=== PATIENT | female | born 1995 | race Caucasian/White ===

== ENCOUNTER → 2018-12-21 08:55 | Outpatient (CLI) | payer MEDICAID, SELFPAY ==
[2018-12-21 10:00] LABS: Basophils % 0.4 % (0.1-2.0); Eosinophils # 0.3 K/mm3 (0.0-0.4); Eosinophils % 3.6 % (0.1-12.0); Hematocrit 32.3 % (37.0-47.0); Hemoglobin 10.2 g/dL (12.2-16.2); Lymphocytes # 1.2 K/mm3 (0.7-4.5); Lymphocytes % 13.4 % (10-50); Mean Corpuscular HGB Conc 31.4 g/dL (31.8-35.4); Mean Corpuscular Hemoglobin 26.4 pg (27.0-31.2); Mean Corpuscular Volume 84.1 fl (81-99); Mean Platelet Volume 8.6 fl (7.4-10.4); Monocytes # 0.5 K/mm3 (0.1-1.0); Monocytes % 5.3 % (1.7-9.3); Neutrophils # 7.1 K/mm3 (1.8-7.8); Neutrophils % 77.2 % (37.0-80.0); Platelet Count 225 K/mm3 (142-424); Red Blood Count 3.84 M/mm3 (4.20-5.40); Red Cell Distribution Width 14.9 % (11.5-17.5); White Blood Count 9.3 K/mm3 (4.8-10.8)
[2018-12-21 11:42] LABS: D-Dimer 877 ng/mL (0-400)
[2018-12-21 12:05] LABS: Alanine Aminotransferase 8 U/L (12-78); Anion Gap 13.4 mEq/L (5-15); Aspartate Amino Transferase 10 U/L (15-37); Blood Urea Nitrogen 4 mg/dL (7-18); Carbon Dioxide 24 mmol/L (21.0-32.0); Chloride 105 mmol/L (98-107); Estimated Glomerular Filt Rate 123 ml/min (>60); GFR (African American) 149 ML/MIN (>60); Potassium 3.4 mmoL/L (3.5-5.1); Sodium 139 mmol/L (136-145); Uric Acid 3.7 mg/dL (2.6-7.2)
[2018-12-21 12:09] LABS: Glucose 82 mg/dL (74-106)
[2018-12-21 12:52] LABS: Activated Partial Thrombo Time 25.7 seconds (23.6-34.0); Fibrinogen 365 mg/dL (204-500); INR 0.96 (0.9-1.1)
== END ==
PROVIDERS: Visit Provider Obstetrics & Gynecology
DX: O10.919 Unspecified pre-existing hypertension complicating pregnancy, unspecified trimester (principal)
CPT/HCPCS: 36415; 80048; 84450; 84460; 84550; 85025; 85378; 85384; 85610; 85730

== ENCOUNTER → 2018-12-28 13:29 | Outpatient (CLI) | payer MEDICAID, SELFPAY ==
[2018-12-28 15:07] LABS: Total Protein,Urine Random 14.4 mg/dL (0.0-11.9)
[2018-12-28 18:42] LABS: Total Protein 24 Hour,Urine 79 mg/24 hr (40-90); Total Volume,Urine 550 mL (600-1600)
== END ==
PROVIDERS: Visit Provider Student in an Organized Health Care Education/Training Program
DX: O10.919 Unspecified pre-existing hypertension complicating pregnancy, unspecified trimester (principal)
CPT/HCPCS: 84155

== ENCOUNTER 2019-03-19 12:35 | Outpatient (CLI) | payer MEDICAID, SELFPAY ==
[2019-03-19 12:47] VITALS: BMI 42.0
[2019-03-19 12:50] VITALS: BMI 42.0
[2019-03-19 12:59] LABS: Microscopic, Urine URINE MICROSCOPIC (MICROSCOPIC)
[2019-03-19 13:01] LABS: Appearance,Urine CLEAR (Clear); Bilirubin,Urine Negative (Negative); Blood, Urine Negative (Negative); Color,Urine YELLOW (Yellow); Glucose,Urine (UA) Negative (Negative); Ketones,Urine Negative (Negative); Leukocyte Esterase,Urine 2+ (Negative); Nitrate,Urine Negative (Negative); PH,Urine 5.5 (5.0-8.5); Protein,Urine Negative (Negative); Specific Gravity, Urine >= 1.030 (1.005-1.030); Urobilinogen,Urine 0.2 EU/dl (0.2)
[2019-03-19 13:07] LABS: Amphetamine/Metha Screen,Urine Negative ng/mL (<1000); Barbiturates Screen,Urine Negative ng/mL (<200); Benzodiazepines Screen,Urine Negative ng/mL (<200); Cannabinoid Screen,Urine Negative ng/mL (<50); Cocaine Screen,Urine Negative ng/mL (<300); Methadone Screen,Urine Negative ng/mL (<300); Opiate Screen,Urine Negative ng/mL (<300); Phencyclidine Screen,Urine Negative ng/mL (<25)
[2019-03-19 13:12] LABS: Bacteria,Urine 1+ /lpf; RBC,Urine Occasional #/hpf (0-3)
== END 2019-03-19 13:55 | disposition home or self-care (01) ==
LOC: OBOUT 12:39 → OB 12:41
PROVIDERS: Visit Provider Obstetrics & Gynecology
DX: O26.93 Pregnancy related conditions, unspecified, third trimester (principal); Z3A.38 38 weeks gestation of pregnancy; M54.5 Low back pain; W10.9XXA Fall (on) (from) unspecified stairs and steps, initial encounter
CPT/HCPCS: 59025; 80305; 81001; 87086

== ENCOUNTER 2019-11-04 12:55 | Emergency (ER) | payer MEDICAID, SELFPAY ==
[2019-11-04 13:31] VITALS: BP 145/91; PULSE 109; RESP 16; TEMP 36.8; O2SAT 98; BMI 37.0
--- NOTE | 2019-11-04 13:36 | HMH.EDUTC ---
[facility] [place] Clinical Impression: Sinusitis Qualifiers: Sinusitis location: unspecified location Chronicity: acute Recurrence: non-recurrent Qualified Code(s): J01.90 - Acute sinusitis, unspecified Disposition: Home, Self-Care Condition on Discharge: Good Instructions: Sinusitis, DI for Sinusitis Additional Instructions: Drink plenty of fluids. Take tylenol or ibuprofen for pain or fever. Take the medications as directed. Follow up with your regular doctor. GO TO THE ER FOR ANY WORSENING SYMPTOMS Don't start the oral steroids until tomorrow, since you had the shot here today. Prescriptions: Brompheniramine/Pseudoephed/Dm [Bromfed Dm Cough Syrup] 5 ml PO Q6HP PRN #240 syrup PRN Reason: Cough Transmission Status: Received by [id number] methylPREDNISolone [Medrol] 4 mg PO DIRECTED 6 Days #21 tab.ds.pk Transmission Status: Received by [facility] Azithromycin [Z-Nicholas 250mg Tab*] 250 mg PO UD DOSE PK #6 tab Transmission Status: Received by [id number] Referrals: Thalia Cazares APRN [Primary Care Provider] - Time of Disposition: 13:42 Medical Decision Making - Medical Records Medical records reviewed: No: I reviewed the patient's medical records. - Scott Inquiry Pt receiving controlled substance: No Vital Signs: 11/04/19 13:31 11/04/19 13:43 Temperature 98.2 F 98.2 F Temperature Source Oral Pulse Rate 109 H Pulse Rate [Right Brachial] 109 H Respiratory Rate 16 16 Blood Pressure 145/91 H Blood Pressure [Right Arm] 145/91 H Blood Pressure Mean [Right Arm] 109 Blood Pressure Source [Right Arm] Automatic Cuff Blood Pressure Position [Right Arm] Sitting 02 Sat by Pulse Oximetry 98 Oxygen Delivery Method Room Air [facility] [place] - General Stated complaint: nose running Time Seen by Provider: 11/04/19 13:36 Mode of Arrival: Ambulatory Source of Information: Patient Limitations: No Limitations Description of Symptoms (Recalled from Triage Doc. by RN): PATIENT C/O RUNNY NOSE AND SINUS PRESSURE X 3 DAYS. DENIES ANY KNOWN EXPOSURE TO COVID HEENT Symptoms (Recalled from RN notes): Yes Resp Symptoms (Recalled from RN notes): No Skin Symptoms (Recalled from RN notes): No MS Symptoms (Recalled from RN notes): No Functional Status (Recalled from RN notes): WNL - History of Present Illness Provider Complaint: She c/o 3 days of sinus congestion, greenish nasal drainage and ear pressure. She states that she has bad allergies and she usually gets a sinus infection at once per year. She denies any known exposure to COVID-19. - Related Data Home Medications Medication Instructions Recorded Confirmed [id number] 400 mcg-om3 35 mg-dha 25 1 each PO DIRECTED tab 08/14/18 mg-epa 5 mg-fish oil chewable tablet Previous Rx's Medication Instructions Recorded Azithromycin [Z-Nicholas 250mg Tab*] 250 mg PO UD DOSE PK #6 tab 11/04/19 Brompheniramine/Pseudoephed/Dm 5 ml PO Q6HP PRN #240 syrup 11/04/19 [Bromfed Dm Cough Syrup] methylPREDNISolone [Medrol] 4 mg PO DIRECTED 6 Days #21 11/04/19 tab.ds.pk Allergies Allergy/AdvReac Type Severity Reaction Status Date / Time No Known Allergies Allergy Verified 08/14/18 18:08 - Worker's Comp Is this a Worker's Comp case?: No [facility] History - Hepatitis A Screen Drug use history?: No High risk sexual behaviors?: No History of sexually transmitted infection?: No Currently employed?: No Childcare worker?: No Do you have indoor plumbing?: Yes Do you have electricity?: Yes Attestation statement:: This patient has been screened for Hepatitis A risk factors. I have reviewed the patient's past medical history: Yes Medical History: Reports:: Hypertension, Migraine Denies:: Diabetes Mellitus Type 1, Diabetes Mellitus Type 2 Other Surgeries: Yes: No Previous Surgery, - Social History Smoking Status: Never smoker Tobacco Type: smokeless tobacco # Packs/Day (cigarettes): 0 Alcoho
[2019-11-04 13:43] VITALS: BP 145/91; PULSE 109; RESP 16; TEMP 36.8; O2SAT 98
== END 2019-11-04 13:48 | disposition home or self-care (01) ==
PROVIDERS: Emergency Provider Nurse Practitioner Family; PCP Nurse Practitioner Family
DX: J01.90 Acute sinusitis, unspecified (principal); I10 Essential (primary) hypertension; G43.709 Chronic migraine without aura, not intractable, without status migrainosus
CPT/HCPCS: 99201

== ENCOUNTER 2019-11-11 12:41 | Emergency (ER) | payer MEDICAID, SELFPAY ==
[2019-11-11 12:54] VITALS: BP 126/77; PULSE 70; RESP 18; O2SAT 99; BMI 36.9
--- NOTE | 2019-11-11 13:11 | HMH.EDSKAF ---
ED Disposition Clinical Impression: Insect bite Qualifiers: Encounter type: initial encounter Site of insect bite: finger Finger: index finger Laterality: left Qualified Code(s): S60.461A - Insect bite (nonvenomous) of left index finger, initial encounter; W57.XXXA - Bitten or stung by nonvenomous insect and other nonvenomous arthropods, initial encounter Disposition: Home, Self-Care Condition on Discharge: Good Instructions: DI for Insect Bites and Stings Referrals: Yohan Singh MD [Staff Physician] - 3 days - Critical Care Critical Care Time: No Attestation: On 11/11/19, the high probability of a clinically significant, sudden or life threatening deterioration of the following system(s) required my full and direct attention, intervention and personal management. The time I documented below is in addition to time spent performing reported procedures but includes the following listed in this critical care notation. Medical Decision Making - Medical Records Medical records reviewed: Yes: I reviewed the patient's medical records. - Scott Inquiry Pt receiving controlled substance: No Vital Signs: 11/11/19 12:54 Pulse Rate [Radial] 70 Respiratory Rate 18 Blood Pressure [Right Arm] 126/77 Blood Pressure Mean [Right Arm] 93 Blood Pressure Source [Right Arm] Automatic Cuff Blood Pressure Position [Right Arm] Sitting 02 Sat by Pulse Oximetry 99 Oxygen Delivery Method Room Air Orders (Tests/Meds): ED MEDICATIONS Discontinued Medications Generic Name Dose Route Start Last Admin Trade Name Freq PRN Reason Stop Dose Admin Ibuprofen 600 mg 11/11/19 13:08 Motrin 600mg Tablet PO 11/11/19 13:09 ONCE ONE Medical Decision Narrative: Patient was not gardening around any germain, roses or thorny weeds. Unlikely sporotrichosis. She has no signs of cellulitis, abscess. Patient describes concern for insect bite and certainly this is a possibility. Advised ibuprofen, icing, Benadryl for itching if needed and advised to follow-up with primary care in 2 to 3 days for recheck. 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 Skin/Abscess/FB HPI - General Chief complaint: Skin/Abscess/Foreign Body Stated complaint: left pointer finger inf Time Seen by Provider: 11/11/19 13:11 Mode of Arrival: Ambulatory Source of Information: Patient Limitations: No Limitations Description of Symptoms (Recalled from ER Triage Doc. by RN): States she was working in her garden and was bit by something on her left index finger. As time has progressed the finger has gotten worse. states she thinks she was bit by a snake. - History of Present Illness HPI narrative: 24-year-old female who presents to the emergency department for concerns of insect bite on the left index finger. She was pulling weeds 2 days ago and felt something bite her on the palmar surface of her index finger. She did not see it, but immediately felt pain. 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 She denies pulling any weeds with thorns, no germain or roses and all of the weeds were grassy in nature. She has not had any fevers. - Related Data Home Medications Medication Instructions Recorded Confirmed [id number] 400 mcg-om3 35 mg-dha 25 1 each PO DIRECTED tab 08/14/18 mg-epa 5 mg-fish oil chewable tablet Previous Rx's Medication Instructions Recorded Azithromycin [Z-Nicholas 250mg Tab*] 250 mg PO UD DOSE PK #6 tab 11/04/19 Brompheniramine/Pseudoephed/Dm 5 ml PO Q6HP PRN #240 syrup 11/04/19 [Bromfed Dm Cough Syrup] methylPREDNISolone [Medrol] 4 mg PO DIRECTED 6 Days #21 11/04/19 tab.ds.pk Allergies Allergy/AdvReac Type Severity Reaction Status Date / Time No Known Allergies Allergy Verified 08/14/18 18:08 [facility] History - Hepatitis A Screen Drug use history?: No High risk sexual behav
[2019-11-11 13:12] VITALS: BP 138/90; PULSE 93; O2SAT 99
[2019-11-11 13:26] VITALS: BP 138/90; PULSE 93; RESP 18; TEMP 36.7; O2SAT 99
== END 2019-11-11 13:28 | disposition home or self-care (01) ==
PROVIDERS: Emergency Provider Emergency Medicine
DX: S60.461A Insect bite (nonvenomous) of left index finger, initial encounter (principal); W57.XXXA Bitten or stung by nonvenomous insect and other nonvenomous arthropods, initial encounter; I10 Essential (primary) hypertension; G43.709 Chronic migraine without aura, not intractable, without status migrainosus
CPT/HCPCS: 99282

== ENCOUNTER 2021-09-14 11:48 | Emergency (ER) | payer MEDICAID, SELFPAY ==
[2021-09-14 12:05] VITALS: BP 151/82; PULSE 90; RESP 19; TEMP 37; O2SAT 100; BMI 35.9
[2021-09-14 12:21] LABS: Adenovirus,PCR Not Detected (NotDetected); Bordetella Pertussis Not Detected (NotDetected); Chlamydophila Pneumoniae, PCR Not Detected (NotDetected); Coronavirus 19, PCR Not Detected (NotDetected); Coronavirus 229E Not Detected (NotDetected); Coronavirus NL63 Not Detected (NotDetected); Coronavirus OC43 Not Detected (NotDetected); Coronovirus HKU1,PCR Not Detected (NotDetected); Human Metapneumovirus Not Detected (NotDetected); Influenza A, PCR Not Detected (NotDetected); Influenza AH1, 2009 Not Detected (NotDetected); Influenza AH1, PCR Not Detected (NotDetected); Influenza AH3,PCR Not Detected (NotDetected); Influenza B, PCR Not Detected (NotDetected); Mycoplasma Pneumoniae, PCR Not Detected (NotDetected); Parainfluenza 1, PCR Not Detected (NotDetected); Parainfluenza 2, PCR Not Detected (NotDetected); Parainfluenza 3, PCR Not Detected (NotDetected); Parainfluenza 4, PCR Not Detected (NotDetected); Respiratory Syncytial Virus Not Detected (NotDetected)
[2021-09-14 12:33] VITALS: BP 151/82; PULSE 90; RESP 19; TEMP 37; O2SAT 100
[2021-09-14 12:33] LABS: Strep Scrn Group A (Rapid) Negative (Negative)
--- NOTE | 2021-09-14 12:39 | HMH.EDUTC ---
[facility] [place] Impression: Viral upper respiratory illness Disposition: Home, Self-Care Condition on Discharge: Good Instructions: Sore Throat, DI for Viral Upper Respiratory Infection -- Adult Additional Instructions: *Monitor Temp, Over the counter Motrin or Tylenol as directed/as needed Tylenol every 4 hours and Motrin every 6 hours (as long as your family doctor has told you that you can take it) for fever or pain. and straight to ER if unable to lower temp less than 101.0 after medication given *Warm salt water gargles may help to soothe the throat *Throat Lozenges *Warm fluids like tea with honey may help to soothe the throat *Sleep elevated *Humidifier/Vaporizer Your throat swab was sent for culture. Those results are typically sent to your primary care. Be sure to follow up in 2-3 days with your family doctor/primary care physician if no improvement so they can review those result and treat if necessary. If you don?t have a primary care doctor, I recommend you get one but in the mean time, you will have to return to a walk in clinic Follow up IMMEDIATELY for new or worsening symptoms or no Noticeable improvement over the next 48-72 hours. 911 for difficulty breathing or swallowing You were tested for today for COVID19 your test result should be back in the next 24-48 hours, you may check your results on the [facility] My Health Portal Make sure to take your Vitamins Vit. C Vit D and Zinc if you can take them Referrals: Provider,Referral, [Primary Care Provider] - As needed Time of Disposition: 12:42 Medical Decision Making - Scott Inquiry Pt receiving controlled substance: No Scott was queried for this patient: No Vital Signs: 09/14/21 12:05 09/14/21 12:33 Temperature 98.6 F 98.6 F Temperature Source Oral Pulse Rate 90 Pulse Rate [Left Brachial] 90 Respiratory Rate 19 19 Blood Pressure 151/82 H Blood Pressure [Left Arm] 151/82 H Blood Pressure Mean [Left Arm] 105 Blood Pressure Source [Left Arm] Automatic Cuff Blood Pressure Position [Left Arm] Sitting 02 Sat by Pulse Oximetry 100 Oxygen Delivery Method Room Air - Lab Data Lab results reviewed: Yes: I reviewed the patient's lab results. Lab Results 09/14/21 11:58: Group A Strep Rapid Negative Orders (Tests/Meds): ORDERS Category Date Time Status Full Resp Panel w/COVID ([facility]) Routine Lab 09/14/21 11:58 Received Strep Screen Confirmation Stat Micro 09/14/21 11:58 Received [facility] UTC HPI - General Stated complaint: congestion, sore throat Time Seen by Provider: 09/14/21 12:39 Mode of Arrival: Ambulatory Source of Information: Patient Limitations: No Limitations Description of Symptoms (Recalled from Triage Doc. by RN): PATIENT C/O CONGESTION, RUNNY NOSE, AND SORE THROAT THAT STARTED TODAY HEENT Symptoms (Recalled from RN notes): Yes Resp Symptoms (Recalled from RN notes): No Skin Symptoms (Recalled from RN notes): No MS Symptoms (Recalled from RN notes): No Functional Status (Recalled from RN notes): WNL - History of Present Illness Provider Complaint: Patient states that she woke up this morning with nasal congestion, sore throat and runny nose States that she has continued to not feel well today and her children are having similar symptoms so she came in - Related Data Allergies Allergy/AdvReac Type Severity Reaction Status Date / Time No Known Allergies Allergy Verified 08/14/18 18:08 - Worker's Comp Is this a Worker's Comp case?: No [facility] History - Hepatitis A Screen Attestation statement:: This patient has been screened for Hepatitis A risk factors. I have reviewed the patient's past medical history: Yes Medical History: Reports:: Hypertension, Migraine Denies:: Diabetes Mellitus Type 1, Diabetes Mellitus Type 2 Other Surgeries: Yes: No Previous Surgery, - Social History Smoking Status: Never smoker Tobacco Type: smokeless tobacco # Packs/Day (cigarettes): 0 Alcoho
[2021-09-14 16:13] LABS: Rhinovirus/Enterovirus Detected (NotDetected)
== END 2021-09-14 13:00 | disposition home or self-care (01) ==
PROVIDERS: Emergency Provider Nurse Practitioner
DX: R06.9 Unspecified abnormalities of breathing (principal); B97.89 Other viral agents as the cause of diseases classified elsewhere; R07.0 Pain in throat; R09.81 Nasal congestion; I10 Essential (primary) hypertension; G43.909 Migraine, unspecified, not intractable, without status migrainosus
CPT/HCPCS: 87430; 87581; 87632; 87798; 99212; C9803; G0463; U0003; U0005

== ENCOUNTER 2022-03-29 09:41 | Emergency (ER) | payer MEDICAID, SELFPAY ==
[2022-03-29 09:42] VITALS: BP 131/86; PULSE 101; RESP 19; TEMP 37; O2SAT 99; BMI 35.9
--- NOTE | 2022-03-29 10:19 | EXP.UTC ---
Discharge Plan Disposition Patient Disposition: Home, Self-Care Condition: Good Prescriptions Prescriptions: New penicillin V potassium 500 mg tablet 500 mg PO BID Qty: 20 0RF Referrals Follow up/Referrals: Rosie Choi APRN [Primary Care Provider] - See instructions Activity Restrictions/Add. Instructions Additional Instructions/Restrictions: *Monitor Temp, Over the counter Motrin or Tylenol as directed/as needed Tylenol every 4 hours and Motrin every 6 hours (as long as your family doctor has told you that you can take it) for fever or pain. and straight to ER if unable to lower temp less than 101.0 after medication given *Warm salt water gargles may help to soothe the throat *Throat Lozenges? *Warm fluids like tea with honey may help to soothe the throat? *Sleep elevated *Humidifier/Vaporizer *If you did not take Penicillin shot or was unable to, start taking antibiotic immediately and make sure that you take it for the FULL length of time although you should start to feel better in 24-48 hours *change toothbrush and toothpaste 24-48 hours after starting to take antibiotics so you do not reinfect yourself Monitor Temp. Tylenol and/or Ibuprofen as needed. ER if fever is no less than 101 despite alternating Tylenol and Ibuprofen * Encourage fluids, water, Gatorade, powerade, pedialyte if infant/toddler/or child *Cold fluids, popsicles and ice cream may feel good on his throat Follow up IMMEDIATELY for new or worsening symptoms or no Noticeable improvement over the next 48-72 hours. 911 for difficulty breathing or swallowing Clinical Impressions Clinical Impression: Strep pharyngitis Instructions Patient Instructions: Strep Throat, DI for Strep Throat Discharge ED Provider: Lee Ann Chiu [facility] [place] General Stated complaint: Sore throat, ear pain Mode of Arrival: Ambulatory Source of Information: Patient and Parent(s) Time Seen by Provider: 03/29/22 10:19 Description of Symptoms (Recalled from Triage Doc. by RN): sore throat, pain in neck, pain in ears, and cough HEENT Symptoms (Recalled from RN notes): Yes Resp Symptoms (Recalled from RN notes): No Skin Symptoms (Recalled from RN notes): No MS Symptoms (Recalled from RN notes): No Functional Status (Recalled from RN notes): n/a History of Present Illness Provider Complaint: Patient states that she thinks she may have strep throat States that she has been having sore throat, pains in the side of her neck where her lymph nodes are, pressure in her ears and little cough States that today her throat was hurting worse so she came in to get checked out Related Data Previous Rx's Medication Instructions Recorded penicillin V potassium 500 mg 500 mg PO BID #20 tabs 03/29/22 tablet Allergies Allergy/AdvReac Type Severity Reaction Status Date / Time No Known Allergies Allergy Verified 08/14/18 18:08 Worker's Comp Is this a Worker's Comp case?: No [facility] Disclaimer: The information contained in this section may have been updated after the patient was seen, as this information can be updated by other users. Social History Smoking Status: Never smoker second hand exposure: Yes alcohol intake: never current occupational status: other Travel in the last 8 weeks: None household members: children housing: house ROS Obtained: Yes All systems reviewed & no additional complaints except as documented and Yes Systems reviewed as appropriate & no additional complaints except as documented Constitutional Constitutional: Reports system reviewed and no additional complaints, except as documented and Reports as per HPI ENT Ears, Nose, Mouth, and Throat: Reports system reviewed and no additional complaints, except as documented, Reports as per HPI, Reports otalgia and Reports sore throat Cardiovascular Cardiovascular: Reports system reviewed and no additional complaints, except as documented and Reports as per HPI
[2022-03-29 10:35] VITALS: BP 131/86; PULSE 101; RESP 18; TEMP 37; O2SAT 99
[2022-03-29 11:10] LABS: UTC Strep Screen (Rapid) Positive (Negative)
== END 2022-03-29 10:35 | disposition home or self-care (01) ==
PROVIDERS: Emergency Provider Nurse Practitioner; PCP Nurse Practitioner Family
DX: J02.0 Streptococcal pharyngitis (principal)
CPT/HCPCS: 87880; 99212; 99213; G0463

== ENCOUNTER 2022-10-02 03:22 | Emergency (ER) | payer OTHER, MEDICAID, SELFPAY ==
[2022-10-02 03:23] VITALS: BP 159/87; PULSE 71; RESP 18; TEMP 36.6; O2SAT 100; BMI 39.6
--- NOTE | 2022-10-02 03:40 | XR_ITS ---
PROCEDURE INFORMATION: Exam: XR Right Knee Exam date and time: 10/02/2022 3:42 AM Age: 27 years old Clinical indication: Pain; Knee; Right; Additional info: Knee/hamstring injury TECHNIQUE: Imaging protocol: Radiologic exam of the right knee. Views: 3 views. COMPARISON: No relevant prior studies available. FINDINGS: Bones/joints: Normal. Soft tissues: Normal. IMPRESSION: No acute findings.
--- NOTE | 2022-10-02 03:42 | HMH.EDGENADL ---
Discharge Plan Disposition Patient Disposition: Home, Self-Care Prescriptions Prescriptions: New meloxicam 7.5 mg tablet 7.5 mg PO DAILY Qty: 10 0RF Referrals Follow up/Referrals: Rosie Choi APRN [Primary Care Provider] - See instructions Morro Mccabe DO [Staff Physician] - See instructions Clinical Impressions Clinical Impression: Hamstring injury Instructions Patient Instructions: DI for Hamstring Strain Discharge ED Provider: Samantha (ED)Yohan General Adult HPI General Chief complaint: PAIN Stated complaint: right leg pain; WC 10-02-22 @ 0245 Time Seen by Provider: 10/02/22 03:30 Mode of Arrival: Ambulatory Source of Information: Patient and Medical Record Limitations: No Limitations Description of Symptoms (Recalled from ER Triage Doc. 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 Pt complains of right posterior knee pain into hamstring. History of Present Illness HPI narrative: acute injury rt hamstring area tonight at work after trip type injury Onset (ago): hour(s) Location: lower extremity Severity: moderate Associated symptoms: denies other symptoms Related Data Previous Rx's Medication Instructions Recorded meloxicam 7.5 mg tablet 7.5 mg PO DAILY #10 tabs 10/02/22 Allergies Allergy/AdvReac Type Severity Reaction Status Date / Time No Known Allergies Allergy Verified 08/14/18 18:08 [facility] Disclaimer: The information contained in this section may have been updated after the patient was seen, as this information can be updated by other users. Social History Smoking Status: Current every day smoker tobacco type: smokeless tobacco second hand exposure: Yes alcohol intake: never current occupational status: other Travel in the last 8 weeks: None household members: children housing: house ROS Obtained: Yes All systems reviewed & no additional complaints except as documented Physical Exam General General appearance: alert Head Head exam: normocephalic Eye Eye exam: Present PERRL and EOMI ENT ENT exam: Present mucous membranes moist Neck Neck exam: Present trachea midline Respiratory Respiratory exam: Absent respiratory distress Cardiovascular Cardiovascular exam: Present regular rate Extremities Exam Extremities exam: Present other (tender rt hamstring area - jts ok ) Neurological Exam Neurological exam: Present alert, oriented X3 and CN II-XII intact; Absent motor sensory deficit Psychiatric Psychiatric exam: Present normal affect Skin Skin exam: Absent rash Medical Decision Making Medical Records Medical records reviewed: Yes I reviewed the patient's medical records. Scott Inquiry Pt receiving controlled substance: No Vital Signs: 10/02/22 03:23 Temperature 97.8 F Temperature Source Oral Pulse Rate [Right] 71 Respiratory Rate 18 Blood Pressure [Right Arm] 159/87 H Blood Pressure Mean [Right Arm] 111 Blood Pressure Source [Right Arm] Automatic Cuff Blood Pressure Position [Right Arm] Sitting 02 Sat by Pulse Oximetry 100 Oxygen Delivery Method Room Air Lab Data Lab results reviewed: Yes I reviewed the patient's lab results. Orders (Tests/Meds): ORDERS Category Date Time Status XR knee RT 3V Stat Exams 10/02/22 03:40 Taken Radiology Data #1: Image(s): Knee Image Reviewed: Yes I reviewed the patient's radiology image Preliminary Findings: No Fracture Seen Medical Decision Narrative: workman comp forms completed -and will treat as hamstring injury Critical Care Time Critical Care Time Critical Care Time: No Attestation: On 10/02/22, the high probability of a clinically significant, sudden or life threatening deterioration of the following system(s) required my full and direct attention, intervention and personal management. The time I documented below is in addition to time spent performing reported procedures but includes the follow
[2022-10-02 04:31] VITALS: BP 151/72; PULSE 74; RESP 17; TEMP 36.6; O2SAT 100
== END 2022-10-02 04:46 | disposition home or self-care (01) ==
PROVIDERS: Emergency Provider Emergency Medicine; PCP Nurse Practitioner Family
DX: S76.301A Unspecified injury of muscle, fascia and tendon of the posterior muscle group at thigh level, right thigh, initial encounter (principal); W18.40XA Slipping, tripping and stumbling without falling, unspecified, initial encounter; F17.220 Nicotine dependence, chewing tobacco, uncomplicated; Y99.0 Civilian activity done for income or pay
CPT/HCPCS: 73562; 99283; 99284

== ENCOUNTER → 2022-10-02 05:41 | Outpatient (CLI) | payer OTHER, MEDICAID, SELFPAY ==
[2022-10-02 10:47] LABS: COC Drug Screen Collection Only
== END ==
PROVIDERS: PCP Nurse Practitioner Family; Visit Provider Emergency Medicine
DX: Z79.899 Other long term (current) drug therapy (principal)

== ENCOUNTER → 2022-10-11 11:06 | Outpatient (CLI) | payer MEDICAID, OTHER, SELFPAY ==
--- NOTE | 2022-10-11 11:11 | XR_ITS ---
FINAL REPORT CLINICAL HISTORY: rt hamstring pain FINDINGS: RIGHT FEMUR SERIES Two views of the right femur were obtained. There is no acute fracture or dislocation. The joint spaces are preserved. There is no soft tissue abnormality. IMPRESSION: No acute abnormality. Reviewed, Interpreted and Dictated by Aniyah Levi MD Transcribed by Gianna Murray Authenticated and [facility]
== END ==
PROVIDERS: PCP Nurse Practitioner Family; Visit Provider Orthopaedic Surgery
DX: S76.311A Strain of muscle, fascia and tendon of the posterior muscle group at thigh level, right thigh, initial encounter (principal)
CPT/HCPCS: 73552

== ENCOUNTER 2022-12-12 08:34 | Emergency (ER) | payer MEDICAID, SELFPAY ==
[2022-12-12] VITALS (7 sets, daily range): BP systolic 133–157; BP diastolic 87–97; PULSE 72–88; RESP 18; TEMP 36.6–36.8; O2SAT 98–100; BMI 42.0
--- NOTE | 2022-12-12 08:58 | PC.NURSE ---
rounded on pt no needs at this time call light at bs
--- NOTE | 2022-12-12 09:13 | XR_ITS ---
FINAL REPORT TECHNIQUE: Chest PA & Lateral CLINICAL HISTORY: cough COMPARISON: None FINDINGS: 2 views of the chest were performed. The heart size is normal. The mediastinum is within normal limits. There is no acute cardiopulmonary process. There are no pleural effusions. There is no pneumothorax. The bony thorax appears intact. IMPRESSION: No acute cardiopulmonary process. Reviewed, Interpreted and Dictated by Peter Mckenna MD Transcribed by Ramona Gibson Authenticated and [facility]
--- NOTE | 2022-12-12 09:17 | HMH.EDGENADL ---
Discharge Plan Disposition Patient Disposition: Home, Self-Care Prescriptions Prescriptions: New xfiasgykwhlwvck-urtawkhas-MM [Bromfed DM] 2-30-10 mg/5 mL syrup 5 ml PO Q6H PRN (Reason: cold symptoms) Qty: 118 0RF No Action ibuprofen 800 mg tablet 800 mg PO TID Qty: 90 0RF cyclobenzaprine 10 mg tablet 10 mg PO TID Qty: 90 0RF meloxicam 7.5 mg tablet 7.5 mg PO DAILY Qty: 10 0RF Referrals Follow up/Referrals: Parul Adams APRN [Primary Care Provider] - See instructions Activity Restrictions/Add. Instructions Additional Instructions/Restrictions: At this time it was felt you are safe to be discharged home. If new or worsening symptoms please do not hesitate to return the emergency department. If symptoms persist please follow-up with your family doctor as you are able. Please take medication as prescribed. Clinical Impressions Clinical Impression: Acute viral syndrome Discharge ED Provider: Endy Crabtree General Adult HPI General Chief complaint: Upper Respiratory Infection Stated complaint: chest congestion, cough Time Seen by Provider: 12/12/22 08:50 Mode of Arrival: Family Vehicle Source of Information: Patient Limitations: No Limitations Description of Symptoms (Recalled from ER Triage Doc. by RN): Pt reports chest congestion, productive cough, and SOA that began yesterday afternoon but worsened this morning. Pt reports I am worried it could be pneumonia . She reports she tested positive for strep on Monday and was given Azithromycin for strep and a sinus infection. History of Present Illness HPI narrative: Patient is a 27-year-old female with no pertinent past medical history presents emergency department for evaluation of cough. Patient states that she had a sore throat and was treated for strep with azithromycin. Over the last 24 hours she has developed cough and is concerned for pneumonia. There is associated shortness of breath. No other acute complaints at this time. Related Data Previous Rx's Medication Instructions Recorded meloxicam 7.5 mg tablet 7.5 mg PO DAILY #10 tabs 10/02/22 cyclobenzaprine 10 mg tablet 10 mg PO TID #90 tabs 10/11/22 ibuprofen 800 mg tablet 800 mg PO TID post op pain #90 tabs 10/11/22 itpujiocaapnbpb-mazunlkzoxtgewb-FB 5 ml PO Q6H PRN cold symptoms #118 09/18/23 2 mg-30 mg-10 mg/5 mL oral syrup mL (Bromfed DM) Allergies Allergy/AdvReac Type Severity Reaction Status Date / Time No Known Allergies Allergy Verified 10/11/22 11:51 [facility] Disclaimer: The information contained in this section may have been updated after the patient was seen, as this information can be updated by other users. Social History Smoking Status: Never smoker second hand exposure: Yes alcohol intake: never current occupational status: other Travel in the last 8 weeks: None household members: children housing: house ROS Obtained: Yes Systems reviewed as appropriate & no additional complaints except as documented Physical Exam General General appearance: alert and in no apparent distress Head Head exam: atraumatic and normocephalic Eye Eye exam: Present PERRL and EOMI ENT ENT exam: Present mucous membranes moist Neck Neck exam: Present normal inspection Chest Chest inspection: Present normal inspection and symmetric chest wall rise Respiratory Respiratory exam: Present normal lung sounds bilaterally; Absent respiratory distress Cardiovascular Cardiovascular exam: Present regular rate and normal rhythm Abdominal Exam Abdominal exam: Present soft Extremities Exam Extremities exam: Present normal inspection Neurological Exam Neurological exam: Present alert Psychiatric Psychiatric exam: Present normal affect Skin Skin exam: Present warm and dry Medical Decision Making Scott Inquiry Pt receiving controlled substance: No Vital Signs: 12/12/22 08:35 12/12/22 09:0
[2022-12-12 09:30] LABS: Coronavirus 19, PCR Not Detected (NotDetected); Influenza A, PCR Not Detected (NotDetected); Influenza B, PCR Not Detected (NotDetected)
--- NOTE | 2022-12-12 09:32 | PC.NURSE ---
pt to xray
--- NOTE | 2022-12-12 11:11 | PC.NURSE ---
Rounded on pt she was given a water no other needs,call light at bs
== END 2022-12-12 11:20 | disposition home or self-care (01) ==
PROVIDERS: Emergency Provider Emergency Medicine; PCP Nurse Practitioner
DX: R05.9 Cough, unspecified (principal); R07.89 Other chest pain; R06.02 Shortness of breath; B34.9 Viral infection, unspecified
CPT/HCPCS: 71046; 87636; 99283

== ENCOUNTER 2022-12-26 15:59 | Emergency (ER) | payer MEDICAID, SELFPAY ==
[2022-12-26 16:00] VITALS: BP 156/82; PULSE 82; RESP 18; TEMP 36.9; O2SAT 99; BMI 42.0
--- NOTE | 2022-12-26 16:11 | EXP.UTC ---
Discharge Plan Disposition Patient Disposition: Home, Self-Care Condition: Good Prescriptions Prescriptions: New methylprednisolone 4 mg Tablets,Dose Pack 4 mg PO DIRECTED Qty: 21 0RF benzonatate [benzonatate] 100 mg capsule 100 mg PO TIDP PRN (Reason: Cough) Qty: 30 0RF azithromycin [Zithromax] 250 mg tablet 250 mg PO UD DOSE PK Qty: 6 0RF Rx Instructions: Take two (2) tablets today, then one (1) tablet days #2 thru #5 No Action albuterol sulfate 90 mcg/actuation HFA aerosol inhaler See Rx Instructions .ROUTE .COMPLEX Patient Comments: INHALE TWO (2) PUFFS EVERY FOUR (4) HOURS BY INHALATION ROUTE NEEDED. Rx Instructions: INHALE TWO (2) PUFFS EVERY FOUR (4) HOURS BY INHALATION Referrals Follow up/Referrals: Parul Adams APRN [Primary Care Provider] - See instructions Activity Restrictions/Add. Instructions Additional Instructions/Restrictions: Drink plenty of fluids. Take tylenol or ibuprofen for pain or fever. Take the medications as directed. Follow up with your regular doctor. GO TO THE ER FOR ANY WORSENING SYMPTOMS Clinical Impressions Clinical Impression: Acute viral syndrome, Sinusitis, Bronchitis Stand Alone Forms Stand Alone Forms: Work/School Release Instructions Patient Instructions: Sinusitis, DI for Sinusitis, DI for Acute Bronchitis Discharge ED Provider: Camilo Rodney [facility] General Stated complaint: Chest congestion, cough, fever Time Seen by Provider: 12/26/22 16:11 History of Present Illness Provider Complaint: She states that for the past 3 days she has had worsening sinus and chest congestion. Related Data Home Medications Medication Instructions Recorded Confirmed albuterol sulfate 90 mcg/actuation See Rx Instructions .Route 12/26/22 12/26/22 aerosol inhaler .COMPLEX breathing issues Previous Rx's Medication Instructions Recorded azithromycin 250 mg tablet 250 mg PO UD DOSE PK #6 tabs 12/26/22 (Zithromax) benzonatate 100 mg capsule 100 mg PO TIDP PRN Cough #30 caps 12/26/22 methylprednisolone 4 mg tablets in 4 mg PO DIRECTED #21 tabs 12/26/22 a dose pack Allergies Allergy/AdvReac Type Severity Reaction Status Date / Time No Known Allergies Allergy Verified 12/26/22 16:42 [facility] Disclaimer: The information contained in this section may have been updated after the patient was seen, as this information can be updated by other users. Social History Smoking Status: Never smoker second hand exposure: Yes alcohol intake: never current occupational status: other Travel in the last 8 weeks: None household members: children housing: house ROS Obtained: Yes All systems reviewed & no additional complaints except as documented Constitutional Constitutional: Reports chills and Reports fever(s) Eyes Eyes: Denies eye discharge ENT Ears, Nose, Mouth, and Throat: Reports as per HPI Cardiovascular Cardiovascular: Denies chest pain Respiratory Respiratory: Denies chest congestion and Reports cough Gastrointestinal Gastrointestingal: Reports nausea; Denies abdominal pain, constipation, cramping, diarrhea or vomiting Musculoskeletal Musculoskeletal: Denies arthralgias Integumentary/Breasts Skin/Breast: Denies rash Neurologic Neurologic: Denies paresthesias Physical Exam General General appearance: alert and in no apparent distress Head Head exam: atraumatic, normocephalic and normal inspection Eye Eye exam: Present normal appearance, PERRL and EOMI ENT ENT exam: Present normal exam, normal oropharynx, mucous membranes moist, TM's normal bilaterally and normal external ear exam Neck Neck exam: Present normal inspection, full ROM and trachea midline; Absent meningismus or lymphadenopathy Chest Chest inspection: Present normal inspection and symmetric chest wall rise; Absent tenderness Respiratory Respiratory exam: Pres
[2022-12-26 16:23] LABS: UTC Strep Screen (Rapid) Negative (Negative)
[2022-12-26 17:12] VITALS: BP 156/82; PULSE 82; RESP 18; TEMP 36.9; O2SAT 99
== END 2022-12-26 17:12 | disposition home or self-care (01) ==
PROVIDERS: Emergency Provider Nurse Practitioner Family; PCP Nurse Practitioner
DX: J20.9 Acute bronchitis, unspecified (principal); J01.90 Acute sinusitis, unspecified; B34.9 Viral infection, unspecified
CPT/HCPCS: 87635; 87880; 99212; 99214; G0463

== ENCOUNTER 2023-02-01 08:52 | Emergency (ER) | payer MEDICAID, SELFPAY ==
[2023-02-01 09:15] VITALS: BP 148/90; PULSE 76; RESP 18; TEMP 36.8; O2SAT 100; BMI 42.9
--- NOTE | 2023-02-01 09:15 | EXP.UTC ---
Discharge Plan Disposition Patient Disposition: Home, Self-Care Condition: Good Prescriptions Prescriptions: New methylprednisolone 4 mg Tablets,Dose Pack 4 mg PO DIRECTED Qty: 21 0RF No Action albuterol sulfate 90 mcg/actuation HFA aerosol inhaler See Rx Instructions .ROUTE .COMPLEX Patient Comments: INHALE TWO (2) PUFFS EVERY FOUR (4) HOURS BY INHALATION ROUTE NEEDED. Rx Instructions: INHALE TWO (2) PUFFS EVERY FOUR (4) HOURS BY INHALATION Referrals Follow up/Referrals: Parul Adams APRN [Primary Care Provider] - See instructions Morro Mccabe DO [Staff Physician] - See instructions Activity Restrictions/Add. Instructions Additional Instructions/Restrictions: Rest the extremity, Wear the nikki wrap for compression, Elevate the extremity as tolerated while you are resting. Take the medications as directed. Follow up with Dr. Mccabe (orthopedics) if you continue to have symptoms. I put in a referral but you need to call his office and schedule an appointment. Follow up with your regular doctor. GO TO THE ER FOR ANY WORSENING SYMPTOMS Clinical Impressions Clinical Impression: Right wrist tendonitis, Right wrist pain Instructions Patient Instructions: DI for Tendinitis, DI for Wrist Pain, Methylprednisolone Discharge ED Provider: Camilo Rodney [facility] General Stated complaint: right wrist pain, no accident Time Seen by Provider: 02/01/23 09:15 History of Present Illness Provider Complaint: She states that she has had right wrist pain for the past 3 days. She denies any injury or recent falls. She states that flexing the wrist makes her pain worse. Related Data Home Medications Medication Instructions Recorded Confirmed albuterol sulfate 90 mcg/actuation See Rx Instructions .Route 12/26/22 02/01/23 aerosol inhaler .COMPLEX breathing issues Previous Rx's Medication Instructions Recorded methylprednisolone 4 mg tablets in 4 mg PO DIRECTED #21 tabs 02/01/23 a dose pack Allergies Allergy/AdvReac Type Severity Reaction Status Date / Time No Known Allergies Allergy Verified 02/01/23 09:32 [facility] Disclaimer: The information contained in this section may have been updated after the patient was seen, as this information can be updated by other users. Social History Smoking Status: Never smoker second hand exposure: Yes alcohol intake: never current occupational status: other Travel in the last 8 weeks: None household members: children housing: house ROS Obtained: Yes All systems reviewed & no additional complaints except as documented Constitutional Constitutional: Denies chills and Denies fever(s) Eyes Eyes: Denies eye discharge ENT Ears, Nose, Mouth, and Throat: Denies dizziness, Denies otalgia and Denies sore throat Cardiovascular Cardiovascular: Denies chest pain Respiratory Respiratory: Denies shortness of breath, Denies chest congestion, Denies cough, Denies stridor and Denies wheezing Gastrointestinal Gastrointestingal: Denies nausea or vomiting Musculoskeletal Musculoskeletal: Reports as per HPI Integumentary/Breasts Skin/Breast: Denies rash Neurologic Neurologic: Denies dizziness and Denies paresthesias Allergic/Immunologic Allergic/Immunologic: Denies wheezing Physical Exam General General appearance: alert and in no apparent distress Head Head exam: atraumatic, normocephalic and normal inspection Eye Eye exam: Present normal appearance, PERRL and EOMI ENT ENT exam: Present normal exam, normal oropharynx, mucous membranes moist, TM's normal bilaterally and normal external ear exam Neck Neck exam: Present normal inspection, full ROM and trachea midline; Absent meningismus or lymphadenopathy Chest Chest inspection: Present normal inspection and symmetric chest wall rise; Absent tenderness Respiratory Respiratory exam: Present normal lung sounds abimael
[2023-02-01 10:05] VITALS: BP 148/90; PULSE 76; RESP 18; TEMP 36.8; O2SAT 100
== END 2023-02-01 10:05 | disposition home or self-care (01) ==
PROVIDERS: Emergency Provider Nurse Practitioner Family; PCP Nurse Practitioner
DX: M67.833 Other specified disorders of tendon, right wrist (principal); M25.531 Pain in right wrist
CPT/HCPCS: 99212; 99214; G0463

== ENCOUNTER 2023-06-06 09:34 | Outpatient (CLI) | payer MEDICAID, SELFPAY ==
--- NOTE | 2023-06-06 09:40 | XR_ITS ---
FINAL REPORT CLINICAL HISTORY: Right Knee Pain COMPARISON: 10/02/2022 FINDINGS: Three views of the right knee reveal no evidence of fracture or dislocation. The bony alignment is normal. The joint spaces are preserved. There is no evidence of joint effusion. No localized soft tissue abnormality is identified. IMPRESSION: No acute abnormality identified. Reviewed, Interpreted and Dictated by Manuel Hays III, MD Transcribed by Ramona Gibson Authenticated and [facility]
== END 2023-06-06 23:59 ==
LOC: RAD 09:36
PROVIDERS: Visit Provider Orthopaedic Surgery
DX: M25.561 Pain in right knee (principal)
CPT/HCPCS: 73562

== ENCOUNTER 2023-07-04 15:26 | Outpatient (RCR) | payer MEDICAID, SELFPAY | END 2023-07-04 16:30 | disposition home or self-care (01) | LOC: PT 15:26 | PROVIDERS: Visit Provider Orthopaedic Surgery | DX: M25.561 Pain in right knee (principal); M23.91 Unspecified internal derangement of right knee; S76.311A Strain of muscle, fascia and tendon of the posterior muscle group at thigh level, right thigh, initial encounter | CPT/HCPCS: 97760 ==

== ENCOUNTER 2023-10-02 12:20 | Emergency (ER) | payer MEDICAID, SELFPAY ==
[2023-10-02 12:35] VITALS: BP 139/68; PULSE 78; RESP 18; TEMP 36.6; O2SAT 100; BMI 42.0
--- NOTE | 2023-10-02 13:08 | ED_ITS ---
Discharge Plan Disposition Patient Disposition: Home, Self-Care Condition: Good Prescriptions Prescriptions: New sulfamethoxazole-trimethoprim [Bactrim DS] 800-160 mg tablet 1 tab PO Q12H 7 Days Qty: 14 0RF methylprednisolone [Medrol (Nicholas)] 4 mg tablets,dose pack See Rx Instructions .Route .COMPLEX 6 Days Qty: 21 0RF Rx Instructions: taper pack; Start on 10/02 cefdinir 300 mg capsule 300 mg PO BID 7 Days Qty: 14 0RF Referrals Follow up/Referrals: Parul Adams APRN [Primary Care Provider] - See instructions Activity Restrictions/Add. Instructions Additional Instructions/Restrictions: Take medication as prescribed Start oral steriods tomorrow Follow up with your Family Doctor and/or Eye Doctor immediately if no improvement or any worsening of symptoms Over the counter Benadryl may help with itching Clinical Impressions Clinical Impression: Eye problem Instructions Patient Instructions: Trimethoprim/Sulfamethoxazole (Alternative Therapy), DI for Orbital Cellulitis, Cefdinir Discharge ED Provider: Lee Ann Chiu [facility] General Stated complaint: swelling and redness to R eye Mode of Arrival: Ambulatory Source of Information: Patient Limitations: No Limitations Time Seen by Provider: 10/02/23 13:08 Description of Symptoms (Recalled from Triage Doc. by RN): PATIENT C/O SWELLING AND PRESSURE UNDER RIGHT EYE SINCE YESTERDAY MORNING HEENT Symptoms (Recalled from RN notes): Yes Resp Symptoms (Recalled from RN notes): No Skin Symptoms (Recalled from RN notes): No MS Symptoms (Recalled from RN notes): No Functional Status (Recalled from RN notes): WNL History of Present Illness Provider Complaint: Patient states that her burned some brush yesterday and not sure if she may have been allergic to something he was burning, had a bite or if she may have an infection around her right eye States that she noticed yesterday evening that she was having redness and swelling around her right eye and it is tender States today it appeared to be getting worse so she came in to get checked Related Data Previous Rx's Medication Instructions Recorded cefdinir 300 mg capsule 300 mg PO BID 7 days #14 caps 10/02/23 methylprednisolone 4 mg tablets in See Rx Instructions .Route 10/02/23 a dose pack (Medrol (Nicholas)) .COMPLEX 6 days #21 tabs sulfamethoxazole 800 1 tab PO Q12H 7 days #14 tabs 10/02/23 mg-trimethoprim 160 mg tablet (Bactrim DS) Allergies Allergy/AdvReac Type Severity Reaction Status Date / Time No Known Allergies Allergy Verified 07/04/23 15:01 Worker's Comp Is this a Worker's Comp case?: No [facility] Disclaimer: The information contained in this section may have been updated after the patient was seen, as this information can be updated by other users. Medical History (Updated 10/02/23 @ 13:30 by Lee Ann Chiu APRN) Migraine Hypertension Surgical History (Updated 10/02/23 @ 12:45 by Michelle Carpenter RN) History of section Social History Smoking Status: Never smoker second hand exposure: Yes alcohol intake: never current occupational status: other Travel in the last 8 weeks: None household members: children housing: house ROS Obtained: Yes All systems reviewed & no additional complaints except as documented and Yes Systems reviewed as appropriate & no additional complaints except as documented Constitutional Constitutional: Reports system reviewed and no additional complaints, except as documented and Reports as per HPI Eyes Eyes: Reports system reviewed and no additional complaints, except as documented, Reports as per HPI, Denies blurry vision, Denies change in vision, Denies diplopia, Denies eye discharge, Denies irritation and Reports other Comments: redness and swelling under right eye started yesterday ENT Ears, Nose, Mouth, and Throat: Reports system reviewed and no additional complaints, except as documented and Reports as per HPI Cardiovascular Cardiovascular: Reports system reviewed and no additional complaints, except as documented and Reports as per HPI Respiratory Respiratory: Reports system reviewed and no additional complaints, except as documented and Reports as per HPI Gastrointestinal Gastrointestingal: Reports system reviewed and no additional complaints, except as documented and as per HPI Physical Exam General General appearance: alert and in no apparent distress Eye Eye exam: Present PERRL and periorbital swelling (mild swelling and redness noted under right eye, denies injury ); Absent conjunctival redness, conjunctival injection or discharge Respiratory Respiratory exam: Present normal lung sounds bilaterally; Absent respiratory distress or wheezes Cardiovascular Cardiovascular exam: Present regular rate, normal rhythm and normal heart sounds Neurological Exam Neurological exam: Present alert, oriented X3 and normal gait Medical Decision Making Scott Inquiry Pt receiving controlled substance: No Scott was queried for this patient: No Vital Signs: 10/02/23 12:35 Temperature 97.9 F Temperature Source Oral Pulse Rate [Left Brachial] 78 Respiratory Rate 18 Blood Pressure [Left Arm] 139/68 Blood Pressure Mean [Left Arm] 91 Blood Pressure Source [Left Arm] Automatic Cuff Blood Pressure Position [Left Arm] Sitting 02 Sat by Pulse Oximetry 100 Oxygen Delivery Method Room Air Medical Decision Narrative: Patient states that she noticed swelling under right eye yesterday and did burn some brush but she wasnt around it much and no other swelling or rashes States that she wasnt sure if it may have been allergic reaction or infection so she came in States that she has had a tubal and patient reports that she has take steriods in the past without complications or reactions Medication discussed with pharmacy
[2023-10-02] MEDS: METHYLPREDNISOLONE SOD SUCC 125MG VIAL 125 MG IM (13:24)
[2023-10-02 13:30] VITALS: BP 139/68; PULSE 78; RESP 18; TEMP 36.6; O2SAT 100
== END 2023-10-02 13:33 | disposition home or self-care (01) ==
PROVIDERS: Emergency Provider Nurse Practitioner; PCP Nurse Practitioner
DX: H53.141 Visual discomfort, right eye (principal)
CPT/HCPCS: 96372; 99212; 99214; G0463; J2919

== ENCOUNTER 2024-03-05 20:15 | Emergency (ER) | payer MEDICAID, SELFPAY ==
[2024-03-05 20:15] VITALS: BP 168/79; PULSE 68; RESP 12; TEMP 37.1; O2SAT 100; BMI 43.2
--- NOTE | 2024-03-05 20:15 | ECG_ITS ---
APPROVED REPORT Exam: Resting ECG HR:58 bpm ECG Measurements Heart Rate 58 AXES WV 140 P 53 QRSd 98 QRS 42 QT 399 T 63 QTc 395 Conclusion SINUS BRADYCARDIA BORDERLINE ECG UNCONFIRMED REPORT Electronically signed by : SAGRARIO RICHOMND, 03/07/2024 06:28:52
--- NOTE | 2024-03-05 20:20 | ED_ITS ---
Discharge Plan Disposition Patient Disposition: Home, Self-Care Chief Complaint: Chest Pain Prescriptions Prescriptions: No Action sulfamethoxazole-trimethoprim [Bactrim DS] 800-160 mg tablet 1 tab PO Q12H 7 Days Qty: 14 0RF methylprednisolone [Medrol (Nicholas)] 4 mg tablets,dose pack See Rx Instructions .Route .COMPLEX 6 Days Qty: 21 0RF Rx Instructions: taper pack; Start on 10/02 cefdinir 300 mg capsule 300 mg PO BID 7 Days Qty: 14 0RF Referrals Follow up/Referrals: Provider,Referral, MD [Primary Care Provider] - See instructions Activity Restrictions/Add. Instructions Additional Instructions/Restrictions: Call your family doctor to establish care for this visit to the emergency department and schedule follow-up within 48 hours to ensure improvement. If you have any worsening of your condition or any other concerning signs or symptoms, return to the emergency department or your primary care doctor for further evaluation. Continue following up with cardiology for further workup. Clinical Impressions Clinical Impression: Chest pain Print Language Print Language: Setswana Discharge ED Provider: Joshua Ochoa HPI General Chief Complaint: Chest Pain Stated Complaint: Chest Pain Time Seen by Provider: 03/05/24 20:17 History of Present Illness HPI narrative: Please note that above description of symptoms, in this electronic medical record under categorization of recalled from ER triage doctor by RN are reflective of an initial nursing assessment, however, is not reflective of my full history and physical exam that was personally taken and clarified. Consequentially, this preceding description of symptoms, which may include the patient's categorized chief complaint in the EMR, do not reflect my personal clinical impression, and the ultimate description of history of present illness and patient stated complaints should be deferred to this section of the note. Unless stated otherwise or congruent with this section of the note, additional signs, symptoms, or incongruence should be interpreted as inaccurate with my clinical impression. Related Data Previous Rx's ?Medication ?Instructions ?Recorded cefdinir 300 mg capsule 300 mg PO BID 7 days #14 caps 10/02/23 methylprednisolone 4 mg tablets in See Rx Instructions .Route 10/02/23 a dose pack (Medrol (Nicholas)) .COMPLEX 6 days #21 tabs sulfamethoxazole 800 1 tab PO Q12H 7 days #14 tabs 10/02/23 mg-trimethoprim 160 mg tablet (Bactrim DS) Allergies Allergy/AdvReac Type Severity Reaction Status Date / Time No Known Allergies Allergy Verified 07/04/23 15:01 [facility] Disclaimer: The information contained in this section may have been updated after the patient was seen, as this information can be updated by other users. Medical History (Updated 03/05/24 @ 22:38 by Joshua Ochoa MD) Migraine Hypertension Surgical History (Updated 10/02/23 @ 12:45 by Michelle Carpenter RN) History of section Social History Smoking Status: Never smoker second hand exposure: Yes alcohol intake: never current occupational status: other Travel in the last 8 weeks: None household members: children housing: house Other Medical History Have you received the Flu Vaccine for this season: Yes Have you received the Pneumonia Vaccine: No ROS Obtained: Yes All systems reviewed & no additional complaints except as documented Physical Exam General General appearance: alert and obese Neck Neck exam: Present trachea midline Chest Chest inspection: Present normal inspection and symmetric chest wall rise Respiratory Respiratory exam: Present normal lung sounds bilaterally; Absent respiratory distress, wheezes, stridor, accessory muscle use or prolonged expiratory phase Cardiovascular Cardiovascular exam: Present regular rate, normal rhythm, normal heart sounds and other (Pulses equal and symmetric in upper and lower extremities) Extremities Exam Extremities exam: Absent edema Neurological Exam Neurological exam: Present alert, oriented X3 and CN II-XII intact Skin Skin exam: Present warm and dry; Absent cyanosis, diaphoresis or pallor HEART Score HEART Score HEART Score assessment performed?: Yes HEART Score: 0 Critical Care Critical Care Time Critical Care Time: No Medical Decision Making Medical Records Medical records reviewed: Yes I reviewed the patient's medical records. Scott Inquiry Pt receiving controlled substance: No Scott was queried for this patient: No Vital Signs Vital Signs: 03/05/24 20:15 03/05/24 20:24 03/05/24 20:31 Temperature 98.7 F Temperature Source Oral Pulse Rate 69 64 Pulse Rate [Right] 68 Respiratory Rate 12 12 Blood Pressure 152/83 H Blood Pressure [Right Arm] 168/79 H Blood Pressure Mean [Right Arm] 108 02 Sat by Pulse Oximetry 100 100 03/05/24 21:01 Temperature Temperature Source Pulse Rate 61 Pulse Rate [Right] Respiratory Rate 13 Blood Pressure 163/86 H Blood Pressure [Right Arm] Blood Pressure Mean [Right Arm] 02 Sat by Pulse Oximetry 100 Lab Data Labs: Lab Results 03/05/24 20:15: WBC 9.1, RBC 4.90, Hgb 13.1, Hct 39.3, MCV 80.1 L, MCH 26.8 L, MCHC 33.4, RDW 14.6, Plt Count 256, MPV 8.2, Neut % (Auto) 64.3, Lymph % (Auto) 26.4, [place] % (Auto) 4.4, Eos % (Auto) 3.6, Baso % (Auto) 1.3, Neut # (Auto) 5.9, Lymph # (Auto) 2.4, [place] # (Auto) 0.4, Eos # (Auto) 0.3, Baso # (Auto) 0.1, PT 10.2, INR 0.90, APTT 25.9, Sodium 139, Potassium 3.5, Chloride 108 H, Carbon Dioxide 25, Anion Gap 9.5, BUN 9, Creatinine 0.80, Estimated Creat Clear 93, Estimated GFR 85, Est GFR ( Amer) 103, Glucose 95, Calcium 9.5, Magnesium 2.0, Total Bilirubin 0.6, AST 48 H, ALT 29, Alkaline Phosphatase 64, Troponin I < 0.01, NT-Pro-B Natriuret Pep 82.1, Total Protein 7.9, Albumin 4.6, Globulin 3.3 H, Albumin/Globulin Ratio 1.4, HCG, Quant < 2, HIV 1&2 Antibody Rapid Nonreactive 03/05/24 20:15 03/05/24 20:15 Response Orders (Tests/Meds): ED MEDICATIONS Discontinued Medications Generic Name Dose Route Start Last Admin Trade Name Freq PRN Reason Stop Dose Admin Aspirin 324 mg 03/05/24 20:21 03/05/24 20:26 Aspirin 81mg Chewable Tablet PO 03/05/24 20:22 324 mg ONCE ONE Administration ORDERS Category Date Time Status CXR 2 view (NOT portable) [XR chest 2V] Stat Exams 03/05/24 20:21 Completed POCUS Point of Care (ER Only) Stat Exams 03/05/24 20:27 Completed CMP [Comprehensive Metabolic Panel] Stat Lab 03/05/24 20:15 Completed Complete Blood Count Auto Diff Stat Lab 03/05/24 20:15 Completed HCG,Quantitative Stat Lab 03/05/24 20:15 Completed HIV (1&2) Antibody Rapid Stat Lab 03/05/24 20:15 Completed Hep C Ab with Reflex to RNA Stat Lab 03/05/24 20:15 Received Magnesium Stat Lab 03/05/24 20:15 Completed NT Pro Brain Natriuretic Pep. Stat Lab 03/05/24 20:15 Completed PT INR [Prothrombin Time INR] Stat Lab 03/05/24 20:15 Completed PTT [Activated Partial Thrombo Time] Stat Lab 03/05/24 20:15 Completed Troponin I Q3H Lab 03/05/24 23:30 Ordered Troponin I Q3H Lab 03/06/24 02:30 Ordered Troponin I Stat Lab 03/05/24 20:15 Completed MDM Narrative Medical Decision Narrative: 28-year-old female history of arrhythmia presenting with chest pain. Patient states that she was at work just prior to arrival about 30 minutes when she started having chest pain. Left sternum, does not radiate. No shortness of breath, nausea, vomiting, syncope, cough, current or recent illness, no other associated symptoms. Is mild in intensity, sharp. States that it feels different than both the arrhythmias she has had in the past, as well as pleurisy that she has had in the past. Patient mostly concerned because she follows with cardiology in [place] at [place]. She was supposed to have ultrasound done on 03/07, however got rescheduled. Patient has a strong family history of SD before the age of 50 in both of her parents, so came for further evaluation. History was obtained via conversation with patient. On arrival, patient hemodynamically stable, alert, oriented x4, appropriate, GCS 15, moving all extremities spontaneously, pupils equal and reactive to light. Full physical exam performed and significant for obese female, no acute distress. Very well- appearing overall. Lungs are clear bilaterally. Cardiac exam with no murmurs gallops or rubs. Normal S1-S2. No lower extremity edema. Pulses equal and symmetric. Differential includes pleurisy, anxiety, less likely be ACS, SD, pneumothorax, pneumonia, PE, among others. Patient was given 324 mg aspirin for symptomatic management and correction of underlying abnormalities. Patient placed on continuous cardiac monitoring and continuous pulse ox with initial blood pressure 168/79, heart rate 68, saturation 100% on room air. Independent interpretation of EKG shows sinus bradycardia [address] or T wave changes concerning for acute ischemia. OH 140, QRS 98, QTc 395. Normal axis.. Workup independently interpreted and significant for nonactionable hematologic labs. On independent interpretation of imaging, no acute cardiopulmonary space disease on chest x-ray. See radiology read for full review of final results. Heart score 0. Bedside [id number] ultrasound performed normal. On reevaluation, patient resting comfortably, no acute complaints. States that the chest pain is still there, but mildly improved. Conversation regarding delta troponin was had, she is opting for home-going and outpatient follow-up. I feel this is appropriate with a heart score of 0. Given patient presentation, workup, history, this most likely represents idiopathic chest pain versus pleurisy. Bailiff disclaimer Much of this encounter note is an electronic vocal teacher spoken language to printed text. Electronic vocal teacher of the spoken language may permit errors. Although I have reviewed the note, some errors may still exist.
--- NOTE | 2024-03-05 20:21 | XR_ITS ---
PROCEDURE INFORMATION: Exam: XR Chest Exam date and time: 03/05/2024 8:30 PM Age: 28 years old Clinical indication: Pain; Left-sided; Additional info: L sided chest pain, acute TECHNIQUE: Imaging protocol: Radiologic exam of the chest. Views: 2 views. COMPARISON: CR XR CHEST 2V 12/12/2022 9:23 AM FINDINGS: Lungs: Unremarkable. No consolidation. Pleural spaces: Unremarkable. No pleural effusion. No pneumothorax. Heart/Mediastinum: Unremarkable. No cardiomegaly. Bones/joints: Unremarkable. IMPRESSION: No acute findings.
[2024-03-05 20:24] VITALS: PULSE 69
[2024-03-05] MEDS: ASPIRIN 81MG CHEWABLE TABLET 324 MG PO (20:26)
[2024-03-05 20:30] LABS: Basophils # 0.1 K/mm3 (0-0.2); Basophils % 1.3 % (0.1-2.0); Eosinophils # 0.3 K/mm3 (0.0-0.4); Eosinophils % 3.6 % (0.1-12.0); Hematocrit 39.3 % (37.0-47.0); Hemoglobin 13.1 g/dL (12.2-16.2); Lymphocytes # 2.4 K/mm3 (0.7-4.5); Lymphocytes % 26.4 % (10-50); Mean Corpuscular HGB Conc 33.4 g/dL (31.8-35.4); Mean Corpuscular Hemoglobin 26.8 pg (27.0-31.2); Mean Corpuscular Volume 80.1 fl (81-99); Mean Platelet Volume 8.2 fl (7.4-10.4); Monocytes # 0.4 K/mm3 (0.1-1.0); Monocytes % 4.4 % (1.7-9.3); Neutrophils # 5.9 K/mm3 (1.8-7.8); Neutrophils % 64.3 % (37.0-80.0); Platelet Count 256 K/mm3 (142-424); Red Cell Distribution Width 14.6 % (11.5-17.5); White Blood Count 9.1 K/mm3 (4.8-10.8)
[2024-03-05 20:31] VITALS: BP 152/83; PULSE 64; RESP 12; O2SAT 100
[2024-03-05 20:40] LABS: Activated Partial Thrombo Time 25.9 seconds (22.8-30.6)
[2024-03-05 20:45] LABS: Prothrombin Time 10.2 seconds (10.1-12.5)
[2024-03-05 20:59] LABS: NT Pro Brain Natriuretic Pep. 82.1 pg/mL (0-125)
[2024-03-05 21:01] VITALS: BP 163/86; PULSE 61; RESP 13; O2SAT 100
[2024-03-05 21:04] LABS: Troponin I < 0.01 ng/ml (0.00-0.034)
[2024-03-05 21:12] LABS: HCG,Quantitative < 2 mIU/ml (0-5.42)
[2024-03-05 21:39] LABS: Albumin Level 4.6 g/dl (3.5-5.0); Chloride 108 mmol/L (98-107); Potassium 3.5 mmoL/L (3.5-5.1); Sodium 139 mmol/L (136-145)
[2024-03-05 21:41] LABS: Blood Urea Nitrogen 9 mg/dl (7-17); Creatinine Clearance Estimated 93 mL/min (50-200); Estimated Glomerular Filt Rate 85 ml/min (>60); GFR (African American) 103 ML/MIN (>60)
[2024-03-05 21:42] LABS: Alanine Aminotransferase 29 U/L (12-78); Albumin/Globulin Ratio 1.4 (1.1-1.8); Alkaline Phosphatase 64 U/L (38-126); Anion Gap 9.5 mEq/L (5-15); Aspartate Amino Transferase 48 U/L (14-36); Bilirubin,Total 0.6 mg/dl (0.2-1.3); Calcium 9.5 mg/dl (8.4-10.2); Carbon Dioxide 25 mmol/L (22.0-30.0); Globulin 3.3 g/dL (1.3-3.2); Glucose 95 mg/dl (74-100); Total Protein,Serum 7.9 g/dl (6.3-8.2)
[2024-03-05 22:15] LABS: HIV (1&2) Antibody Rapid NONREACTIVE (NONREACTIVE)
[2024-03-05 22:38] VITALS: BP 162/76; PULSE 54; RESP 18; TEMP 36.6; O2SAT 99
--- OUTSIDE RECORDS SUMMARY | 2024-03-05 23:51 | XMS_ITS | Encounter Summary ---
Author Organization [facility] Address [address] [place] [address] Care Team Providers Care District Court Reporter Name Role Phone Clarisa Adams APRN Primary Care Provider [phone] Encounter Details Date Type Department Care Team (Latest Contact Info) Description 12/29/2023 9:50 AM EDT Clinical Support [facility] [address] [place] [address] [phone] Abnormal cortisol level Social History Tobacco Use Types Packs/Day Years Used Date Smoking Tobacco: Never Smokeless Tobacco: Current Chew Comments:Chew Alcohol Use Standard Drinks/Week Comments Never 0 (1 standard drink = 0.6 oz pur e alcohol) Comments Unknown Sex and Gender Information Value Date Recorded Sex Assigned at Female 04/05/2022 12:00 PM EST Legal Sex Female 11:04 AM EST Gender Identity Female 04/05/2022 12:00 PM EST Sexual Orientation Straight 04/05/2022 12 :00 PM EST documented as of this encounter Miscellaneous Notes * Result Encounter Note - Erlinda Nunez MBBS - 12/29/2023 9:50 AM EDT Vitaliy Ms. Choi, your blood test results are normal. No further workup recommended, please call usif you have any questions. documented in this encounter Plan of Treatment Upcoming Encounters Date Type Department Care Team (Late st Contact Info) Description 04/05/2024 9:20 AM EST [facility] [address], [address] [place] [address] Shraddha Almaguer PA [address] [place] [address] documented as of this encounter Procedures Procedure Name Priority Date/Time Associated Diagnosis Comments DEHYDROEPIANDROSTERONE SULFATE Routine 12/29/2023 9:57 AM EDT Abnormal cortisol level ADRENOCORTICOTROPIC HORMONE (ACTH) Routine 12/29/2023 9:57 AM EDT Abnormal cortisol level CORTISOL Routine 12/29/2023 9:57 AM EDT Abnormal cortisol level documented in this encounter Results * Cortisol (12/29/2023 9:57 AM EDT) Cortisol 5.00 Before 10am: 3.7 - 19.4. After 5pm: 2.9 - 17.3 ug/dL 12/29/2023 1:54 PM EDT [facility] Comment:Testing performed on [place] Patient Day Coordinator, standardized against LONGTERM Reference Standard concentration values assigned by LC-MS/MS and verified by BCR 192 and BCR 193 certified reference materials. Blood Venous blood specimen / Unknown Venipuncture / Unknown 12/29/2023 9:57 AM EDT 12/29/2023 9:58 AM EDT us Marc Brady MD LAB REF LAB BLOOD AND FLUID ORD Final Result [facility] [address] [place] [address] * ACTH (12/29/2023 9:57 AM EDT) ACTH 22.2 7.2 - 63 pg/mL 12/29/2023 2:23 PM EDT [facility] Blood Venous blood specimen / Unknown Venipuncture / Unknown 12/29/2023 9:57 AM EDT 12/29/2023 9:58 AM EDT us Marc Brady MD LAB BLOOD ORDERABLES Final Resu lt Performing Organization Address [facility] de Phone Number [facility] [address] [place] [address] * DHEA-sulfate (12/29/2023 9:57 AM EDT) DHEAS 107 98.8 - 340 ??g/dL 12/29/2023 3:46 PM EDT [facility] Blood Venous blood specimen / Unknown Venipuncture / Unknown 12/29/2023 9:57 AM EDT 12/29/2023 9:58 AM EDT Narrative [facility] - 12/29/2023 3:46 PM EDT DHEAS Lefty Stages, Female: Lefty Stage I: 7 - 126 ug/dL Lefty Stage II: 13 - 241 ug/dL Lefty Stage III: 32 - 446 ug/dL Lefty Stage IV and V: 65 - 371 ug/dL us Marc Brady MD LAB BLOOD ORDERABLES Final Resu lt Performing Organization Address [facility] Co de Phone Number [facility] [address] [place] [address] documented in this encounter Visit Diagnoses Diagnosis Abnormal cortisol level documented in this encounter Additional Health Concerns Assessment Noted Time A Body Mass Index follow-up plan has been documented for the patient 01/06/2024 1:05 AM EDT documented as of this encounter Care Teams District Court Reporter Relationship Specialty Start Date End Date Clarisa Adams APRN [address] [place] [address] PCP - General Leak Gang Supervisor 07/19/23 documented as of this encounter
--- OUTSIDE RECORDS SUMMARY | 2024-03-05 23:51 | XMS_ITS | Encounter Summary ---
Author Organization [employer] Address [address] [place] [address] Care Team Providers Care Charging Machine Operator Name Role Phone Unavailable Primary Care Provider Unavailabl e Reason for Visit * Reason Comments Event Monitor * Consultation (Routine) - Closed Specialty Diagnoses / Procedures Referred By Kalyan saucedo Referred To Contact Cardiology Diagnoses Chest pain, unspecified type Palpitations Procedures HOLTER MONITOR Elaine Gonzales MD [address] [place] [address], [address] [phone] Phone: tel: fax: [facility] Electrophysiology [address] [place] [address] [address] Phone: tel: fax: Referral ID Status Reason Start Date Expiration Date Visits Re quested Visits Authorized [id number] Closed 12/01/2023 11/30/2024 1 1 Encounter Details Date Type Department Care Team (Latest Contact Info) Description 12/01/2023 12:10 AM EDT Clinical Support [facility] Electrophysiology [address] [place] [phone] Yvrose Ruiz MA Chest pain, unspecified type; Palpitations Social History Tobacco Use Types Packs/Day Years Used Date Smoking Tobacco: Never Smokeless Tobacco: Current Snuff Comments:No cigarettes, but uses dip (snuff) since 2018 Alcohol Use Standard Drinks/Week Comments Not Currently 0 (1 standard drink = 0.6 oz pur e alcohol) rarely, 2-3 a year Interpersonal Safety Answer Date Record ed Family or friends hurt you Not on file 11/28 Family or friends insult you Not on file 06/2023 Family or friends threaten you Not on file 0 11/29/2023 Family or friends scream or curse at you Not on file 11/29/2023 Food Insecurity Answer Date Recorded Food run out past 12 months Not on file 06/2023 Food did not last past 12 months Not on file 11/29/2023 Employment Answer Date Recorded Help finding and keeping a job Not on file 0 11/29/2023 Family and Community Support Answer Brandt e Recorded Help with Day to Day Activities Not on file 11/29/2023 Feeling Lonely or Isolated Not on file 11/28 Educational Attainment Answer Date Kanu rded Speak language other than Citizen [place] at home Not on file 11/29/2023 Want help with school or training Not on file 11/29/2023 Depression Answer Date Recorded PHQ-2 Risk Not on file 11/29/2023 Disabilities Answer Date Recorded Difficulty concentrating Not on file 024 Difficulty doing errands alone Not on file 0 11/29/2023 Substance Use Answer Date Recorded Used prescription meds for non-medical reasons N ot on file 11/29/2023 Used illegal drugs past 12 months Not on file 11/29/2023 Comments Unknown Sex and Gender Information Value Date Recorded Sex Assigned at Not on file Legal Sex Female 1:20 PM CDT Gender Identity Not on file Sexual Orientation Not on file documented as of this encounter Plan of Treatment Upcoming Encounters Date Type Department Care Team (Late st Contact Info) Description 03/07/2024 8:00 AM EST Appointment [facility] Non-Invasive Cardiology [address] [place] [address] Elaine Valencia MD [address] [place] [address], [place] [phone] 03/07/2024 9:15 AM EST Office Visit [facility] Cardiology [address] [place] [phone] Elaine Valencia MD [address] [place], [place] [address], [address] [phone] documented as of this encounter Procedures Procedure Name Priority Date/Time Associated Diagnosis Comments HOLTER MONITOR HOOKUP Routine 12/23/2023 3:37 PM EDT Chest pain, unspecified type Palpitations documented in this encounter Results * HOLTER MONITOR HOOKUP (12/23/2023 3:37 PM EDT) Anatomical Region Laterality Modality Other Addenda Addendum by Elaine Valencia MD on 12/23/2023 4:38 PM EDT -Monitor time is 14 days -Predominant rhythm is normal sinus rhythm, average heart rate 76 bpm, minimum 41 bpm, maximum 163 bpm -1 patient triggered event associated with normal sinus rhythm -PACs and PVCs burden less than 1% -No sustained pamela or tachyarrhythmias were noted during the observed time. Elaine Valencia MD [facility] ORDERABLES E dited Result - Final documented in this encounter Visit Diagnoses Diagnosis Chest pain, unspecified type Palpitations Chest tightness- Primary Other chest pain documented in this encounter
--- OUTSIDE RECORDS SUMMARY | 2024-03-05 23:51 | XMS_ITS | Encounter Summary ---
Author Organization Healthcare Address [address] [place] [address] Care Team Providers Care Roving Department Supervisor Name Role Phone Clarisa Adams APRN Primary Care Provider Encounter Details Date Type Department Care Team (Latest Contact Info) Description 11/28/2023 Travel Social History Tobacco Use Types Packs/Day Years Used Date Smoking Tobacco: Never Assessed Comments Unknown Sex and Gender Information Value Date Recorded Sex Assigned at Female 04/05/2022 12:00 PM EST Legal Sex Female 11:04 AM EST Gender Identity Female 04/05/2022 12:00 PM EST Sexual Orientation Straight 04/05/2022 12 :00 PM EST documented as of this encounter Plan of Treatment Upcoming Encounters Date Type Department Care Team (Late st Contact Info) Description 04/05/2024 9:20 AM EST Consult [facility] Endocrinology [address] [place] [address] Shraddha Almaguer PA [address] [place] [address] documented as of this encounter Visit Diagnoses Not on filedocumented in this encounter Additional Health Concerns Infection Onset Date Last Indicated Resolved Time COVID-19 Rule-Out 11/28/2023 11/28/2023 11/28/2023 1:29 AM EDT Respiratory Rule-Out 11/28/2023 11/28/2023 024 3:42 AM EDT documented as of this encounter Care Teams Roving Department Supervisor Relationship Specialty Start Date End Date Clarisa Adams APRN [address] [place] [address] PCP - General Mortgage Loan Originator 07/19/23 documented as of this encounter
--- OUTSIDE RECORDS SUMMARY | 2024-03-05 23:51 | XMS_ITS | Clinical Summary ---
Author Organization [employer] Address [address] [place] [address] Care Team Providers Care Book Critic Name Role Phone Thalia Kim APRN Primary Care Provider +1- [phone] Allergies Active Allergy Reactions Criticality Noted Date Comments Doxycycline 12/01/2023 Ear drop Medications azithromycin (ZITHROMAX) 250 MG tablet Take 1 tablet (250 mg total) by mouth. 01/29/2024 Active cholecalciferol , vitamin D3, 250 mcg (10,000 unit) capsule Take 10,000 Units by mouth. Active ergocalciferol (DRISDOL) 1,250 mcg (50,000 unit) capsule Take 1 capsule (50,000 Units total) by mouth once a week. 12/26/2023 Active Active Problems Problem Noted Date Diagnosed Date Atypical chest pain 11/29/2023 Nicotine dependence 10/27/2022 Morbid obesity with BMI of 40.0-44.9, adult 12/25 Chronic hypertension 08/08/2016 Encounters Date Type Department Care Team Description 01/31/2024 4:52 PM EST - 01/31/2024 6:18 PM EST Emergency [facility] Emergency Department [address] [place] [address] Yohan Parks MD Viral upper respiratory tract infection (Primary Dx); Pleurisy Discharge Disposition: Home or Self Care 01/31/2024 Travel from Last 3 Months Family History Medical History Relation Name Comments ADD / ADHD Brother Asthma Brother Hypertension Brother Heart attack Father Hypertension Father Lung cancer Father Stroke Father Heart failure Maternal Grandfather Leukemia Maternal Grandmother Thyroid disease Maternal Grandmother Asthma Mother Heart attack Mother Hypertension Mother Multiple sclerosis Mother Colon cancer Other Diabetes Other Relation Name Status Comments Brother Father Alive Maternal Grandfather Maternal Grandmother Mother Alive Other Social History Tobacco Use Types Packs/Day Years Used Date Smoking Tobacco: Never Smokeless Tobacco: Current Snuff Tobacco Cessation:Ready to Q uit: Yes; Counseling Given: Yes Comments:No cigarettes, but uses dip (snuff) since 2017 Alcohol Use Standard Drinks/Week Comments Not Currently [...] Date Kanu rded Speak language other than Singaporean at home Not on file 11/29/2023 Want [...] on file Sexual Orientation Not on file Last Filed Vital Signs Vital Sign Reading Time Taken Comments Blood Pressure 148/79 01/31/2024 6:17 PM EST Pulse 95 01/31/2024 6:17 PM EST Temperature 37.1 ??C (98.8 ??F) 01/31/2024 6:17 PM ES T Respiratory Rate 20 01/31/2024 6:17 PM EST Oxygen Saturation 96% 01/31/2024 6:17 PM EST Inhaled Oxygen Concentration - - Weight 118.4 kg (261 lb) 01/31/2024 4:57 PM EST Height 165.1 cm (5' 5 ) 01/31/2024 4:57 PM EST Body Mass Index 43.43 01/31/2024 4:57 PM EST Plan of Treatment Upcoming Encounters Date Type Department Care Team (Late st Contact Info) Description 03/07/2024 8:00 AM EST Appointment [facility] Non-Invasive Cardiology [address] [place] [phone] Elaine Valencia MD [address], [place] [phone] 03/07/2024 9:15 AM EST Office Visit [facility] Cardiology [address] [place] [address] [address] [place] [address] Elaine Valencia MD [address], [address] [address] Health Maintenance Due Date Last Done Comments Depression Screening (12+) 2006 Tobacco Cessation Counseling and Screening (12+) 2006 HIV Screening 2009 Hepatitis C Screening 2012 Lipid Panel 2014 Pap Smear 09/19/2015 COVID-19 VACCINE (2 - 2023-2 5 season) 2023 10/04/2021 Influenza Vaccine (#1) 2023 DTAP/TDAP/TD VACCINES (5 - T d or Tdap) 03/17/2028 03/17/2018, 11/08/2012, 11/04/2008, Additional history exists Procedures Procedure Name Priority Date/Time Associated Diagnosis Comments XR CHEST 1 VIEW PORTABLE / BEDSIDE STAT 01/31/2024 5:46 PM EST FS_MODEL_IP_ECG 12-LEAD Routine 01/31/2024 4:52 PM EST EKG-SCANNED 01/31/2024 HOLTER MONITOR HOOKUP Routine 12/23/2023 3:37 PM EDT Chest pain, unspecified type Palpitations from Last 3 Months Results * XR chest 1 view portable / bedside (01/31/2024 5:46 PM EST) Anatomical Region Laterality Modality X-Ray 01/31/2024 6:24 PM EST Impressions 01/31/2024 6:37 PM EST No acute cardiopulmonary process. Images reviewed, interpreted, and dictated by Dr. Lowell Kurtz. Transcribed by Edy Harding. Narrative 01/31/2024 6:37 PM EST PORTABLE CHEST ?01/31/2024 5:45 PM HISTORY: Shortness of breath. COMPARISON: None. FINDINGS: The heart is proper size. The mediastinum is unremarkable. The lungs are clear. There is no pneumothorax. There are no acute osseous findings. Procedure Note Lowell Kurtz MD - 01/31/2024 PORTABLE CHEST 01/31/2024 5:45 PM HISTORY: Shortness of breath. COMPARISON: None. FINDINGS: The heart is proper size. The mediastinum is unremarkable. The lungs are clear. There is no pneumothorax. There are no acute osseous findings. IMPRESSION: No acute cardiopulmonary process. Images reviewed, interpreted, and dictated by Dr. Lowell Kurtz. Transcribed by Edy Harding. Yohan Parks MD IMG DIAGNOSTIC IMAGING ORDERABL ES Final Result * ECG 12 lead (01/31/2024 4:52 PM EST) VENTRICULAR RATE EKG/MIN 85 BPM GE MUSE ATRIAL RATE (MCT) 85 BPM GE MUSE [place] Interval 138 ms GE MUSE QRS-INTERVAL (MSEC) 80 ms GE MUSE QT Interval 342 ms GE MUSE QTC Interval 406 ms GE MUSE P [place] 65 degrees GE MUSE R AXIS (MCT) 47 degrees GE MUSE T Wave [place] 62 degrees GE MUSE [place] Diagnosis Age and gender specific ECG analysis Normal sinus rhythm Normal ECG No previous ECGs available Confirmed by Corrina Poole MD (2019) on 02/01/2024 4:03:45 PM GE MUSE 01/31/2024 4:52 PM EST 02/01/2024 4:03 PM EST us Yohan Parks MD ECG ORDERABLES Final Result GE MUSE * EKG-SCANNED (01/31/2024) Narrative 01/31/2024 Ordered by an unspecified provider. us Default Scanning Provider SCAN ORDERS Final Result * HOLTER MONITOR HOOKUP (12/23/2023 3:37 PM [...] tachyarrhythmias were noted during the observed time. us Elaine Valencia MD CV CARDIAC SERVICES ORDERABLES E dited Result - Final from Last 3 Months Insurance [facility] [address] Care Teams Book Critic Relationship Specialty Start Date End Date Thalia Kim APRN [address] [place] [phone] PCP - General Nurse Practitioner 02/01/24
--- OUTSIDE RECORDS SUMMARY | 2024-03-05 23:51 | XMS_ITS | Encounter Summary ---
Author Organization [facility] Address [address] [place] [address] Care Team Providers Care Documentum Consultant Name Role Phone Clarisa Adams APRN Primary Care Provider Encounter Details Date Type Department Care Team (Latest Contact Info) Description 12/29/2023 Travel Social History Tobacco Use Types Packs/Day [...] Info) Description 04/05/2024 9:20 AM EST Consult [facility] Endocrinology [address] [place] [address] Shraddha Almaguer PA [address] [place] [address] documented as of this encounter Visit Diagnoses Not on filedocumented in this encounter Additional Health Concerns Assessment Noted Time A Body Mass Index follow-up plan has been documented for the patient 01/06/2024 1:05 AM EDT documented as of this encounter Care Teams Documentum Consultant Relationship Specialty Start Date End Date Clarisa Adams APRN [address] [place] [address] PCP - General Electrical Maintenance Supervisor 07/19/23 documented as of this encounter
--- OUTSIDE RECORDS SUMMARY | 2024-03-05 23:51 | XMS_ITS | Encounter Summary ---
Author Organization [employer] Address [address] [place] [address] Care Team Providers Care Senior Applications Developer Name Role Phone Unavailable Primary Care Provider Unavailabl e Encounter Details Date Type Department Care Team (Latest Contact Info) Description 12/01/2023 Travel Social History Tobacco Use Types Packs/Day [...] Date Kanu rded Speak language other than Cambodian at home Not on file 11/29/2023 Want [...] Info) Description 03/07/2024 8:00 AM EST Appointment [facility] Non-Invasive Cardiology [address] [place] [address] Elaine Valencia MD [address], [place] [phone] 03/07/2024 9:15 AM EST Office Visit [facility] Cardiology [address] [address] Elaine Valencia MD [address], [address] [address] documented as of this encounter Visit Diagnoses Not on filedocumented in this encounter
--- OUTSIDE RECORDS SUMMARY | 2024-03-05 23:51 | XMS_ITS | Encounter Summary ---
Author Organization [employer] Address [address] [place] [address] Care Team Providers Care Systems Analysis Manager Name Role Phone Unavailable Primary Care Provider Unavailabl e Encounter Details Date Type Department Care Team (Latest Contact Info) Description 01/31/2024 Travel Social History Tobacco Use Types Packs/Day [...] on file 11/28 Educational Attainment Answer Date Knau rded Speak language other than Nepalese at home Not on file 11/29/2023 Want [...] Info) Description 03/07/2024 8:00 AM EST Appointment [facility] Non-Invasive Cardiology [address] [place] [address] Elaine Valencia MD [address], [place] [phone] 03/07/2024 9:15 AM EST Office Visit [facility] Cardiology [address] [address] Elaine Valencia MD [address], [address] [address] documented as of this encounter Visit Diagnoses Not on filedocumented in this encounter
--- OUTSIDE RECORDS SUMMARY | 2024-03-05 23:51 | XMS_ITS | Encounter Summary ---
Author Organization [employer] Address [address] [place] [address] Care Team Providers Care Compressed Yeast Supervisor Name Role Phone Unavailable Primary Care Provider Unavailabl e Reason for Visit * Reason Comments Shortness of Breath Pt presents with c/o SOA x 1 day. Pt states was dx with strep 3 days ago and started on azithromycin and states she feels worse, pt concerned for pnuemonia or covid. Daughter is COVID + but pt was testing negative Encounter Details Date Type Department Care Team (Late st Contact Info) Description 01/31/2024 4:52 PM EST - 01/31/2024 6:18 PM EST Emergency [facility] Emergency Department [address] [place] [address] Yohan Parks MD [address] [place] [address] Viral upper respiratory tract infection (Primary Dx); Pleurisy Discharge Disposition: Home or Self Care Social History Tobacco Use Types Packs/Day Years [...] Date Kanu rded Speak language other than Botswanan at home Not on file 11/29/2023 Want [...] on file documented as of this encounter Last Filed Vital Signs Vital Sign Reading [...] Mass Index 43.43 01/31/2024 4:57 PM EST documented in this encounter Discharge Instructions * Discharge Instructions* Yohan Parks MD - 01/31/2024 6:10 PM EST Rest, drink plenty of fluids. Take Tylenol or ibuprofen as needed for pain. Follow-up with your regular doctor, if you do not have a regular doctor follow- up with the number listed above. KER [place] * Attachments The following attachments cannot be sent through Care Everywhere. * Pleurisy Qblu-ew-Ookc (Botswanan) * Upper Respiratory Infection Adult Ituy-gm-Yuwk (Botswanan) documented in this encounter Medications at Time of Discharge azithromycin (ZITHROMAX) 250 MG tablet Take 1 tablet (250 mg total) by mouth. 01/29/2024 cholecalciferol, vitamin D3, 250 mcg (10,000 unit) capsule Take 10,000 Units by mouth. ergocalciferol (DRISDOL) 1,250 mcg (50,000 unit) capsule Take 1 capsule (50,000 Units total) by mouth once a week. 12/26/2023 documented as of this encounter ED Notes * Yohan Parks MD - 01/31/2024 5:01 PM EST HPI: Alana Choi is a 28 y.o. female who presents to the emergency department complaining of cough, chest pain. Patient states that she was recently diagnosed with strep and started azithromycin. She continues to have some cough, congestion and now has some left-sided chest pain. This is worse with inspiration. She notes that she is also been around her daughter who was diagnosed with COVID. She denies any shortness of breath, fevers, nausea, vomiting. She is not on OCPs, no recent immobilization. She does not smoke. REVIEW OF SYSTEMS: All other systems reviewed and are negative PAST MEDICAL HISTORY: History reviewed. No pertinent past medical history. FAMILY HISTORY: Family History Problem Relation Age of Onset Asthma Mother Hypertension Mother Multiple sclerosis Mother Heart attack Mother 53 Hypertension Father Lung cancer Father Heart attack Father 59 Stroke Father 59 Asthma Brother Hypertension Brother ADD / ADHD Brother Leukemia Maternal Grandmother Thyroid disease Maternal Grandmother Heart failure Maternal Grandfather Colon cancer Other Diabetes Other SOCIAL HISTORY: Social History Socioeconomic History Marital status: Spouse name: Not on file Number of children: Not on file Years of education: Not on file Highest education level: Not on file Occupational History Not on file Tobacco Use Smoking status: Never Smokeless tobacco: Current Types: Snuff Tobacco comments: No cigarettes, but uses dip (snuff) since 2018 Vaping Use Vaping Use: Never used Substance and Sexual Activity Alcohol use: Not Currently Comment: rarely, 2-3 a year Drug use: Never Sexual activity: Not on file Other Topics Concern Not on file Social History Narrative Not on file Social Determinants of Health Financial Resource Strain: Not on file Food Insecurity: No Food Insecurity (11/29/2023) Food Insecurity : Not on file : Not on file Transportation Needs: Not on file Physical Activity: Not on file Stress: Not on file Social Connections: Low Risk (11/29/2023) Family and Community Support : Not on file : Not on file Intimate Partner Violence: Not on file Housing Stability: Not on file SURGICAL HISTORY: Past Surgical History: Procedure Laterality Date SECTION x3 ALLERGIES: Doxycycline PHYSICAL EXAM: VITAL SIGNS: Vitals: 01/31/24 1659 BP: Pulse: Resp: Temp: SpO2: 99% CONSTITUTIONAL: Awake, well appearing, nontoxic HENT: Atraumatic, normocephalic, oral mucosa moist, airway patent. Nares patent without drainage. External ears normal. EYES: Conjunctivae clear, EOMI NECK: Trachea midline, supple CARDIOVASCULAR: Normal heart rate, Normal rhythm. PULMONARY/CHEST: Normal work of breathing. Clear to auscultation, no rhonchi, wheezes, or rales. ABDOMINAL: Nondistended, soft, nontender, no rebound or guarding. NEUROLOGIC: Nonfocal, moves all four extremities, no gross sensory or motor deficits. MUSCULOSKELETAL: No edema or tenderness SKIN: Warm, Dry, No erythema, No rash Personally reviewed past medical, surgical, personal, and family histories, any prior visits, and all available data pertinent to presentation ED COURSE / MEDICAL DECISION MAKING: Alana Choi is a 28 y.o. female who presents to the emergency department for evaluation of cough, chest pain. She is well-appearing, nondistressed. Her vital signs are normal. Her oxygen saturation is normal on room air at 99%. She is low risk by Wells criteria and PERC negative. Will obtain chest x-ray, EKG and treat symptomatically. Disposition pending though anticipate discharge home. Differential diagnosis includes viral illness, URI, pneumonia, pleurisy among other etiologies. EKG interpreted by me: Sinus rhythm, normal rate, no acute ST/T changes, this is a normal EKG X-ray my interpretation no infiltrate. She feels improved. Will discharge home with continued supportive measures, outpatient follow-up. Return precautions discussed. She is happy with this plan. DECISION TO DISCHARGE/ADMIT: see ED care timeline FINAL IMPRESSION: 1. Viral upper respiratory tract infection 2. Pleurisy Yohan Parks MD 01/31/24 [address] [place] [place] documented in this encounter Plan of Treatment Upcoming Encounters Date Type Department Care Team (Late st Contact Info) Description 03/07/2024 8:00 AM EST Appointment [facility] Non-Invasive Cardiology [address] [place] [phone] [place] [address] [place] [address], [facility] [address] [place], [place] [phone] 03/07/2024 9:15 AM EST Office Visit [facility] Cardiology [address] [place] [address] [place] [phone] Elaine Valencia MD [address] [place] [address], [address] [address] documented as of this encounter Procedures Procedure Name Priority Date/Time Associated Diagnosis Comments XR CHEST 1 VIEW PORTABLE / BEDSIDE STAT 01/31/2024 5:46 PM EST FS_MODEL_IP_ECG 12-LEAD Routine 01/31/2024 4:52 PM EST EKG-SCANNED 01/31/2024 documented in this encounter Results * XR chest 1 view portable [...] ATRIAL RATE (MCT) 85 BPM GE MUSE [place] Interval 138 ms GE MUSE QRS-INTERVAL (MSEC) 80 ms GE MUSE QT Interval 342 ms GE MUSE QTC Interval 406 ms GE MUSE P [place] 65 degrees GE MUSE R AXIS (MCT) 47 degrees GE MUSE T Wave [place] 62 degrees GE MUSE [place] Diagnosis Age and gender specific ECG analysis Normal sinus rhythm Normal ECG No previous ECGs available Confirmed by Zulema WHITE, Corrina (2019) on 02/01/2024 4:03:45 PM GE MUSE 01/31/2024 4:52 PM EST 02/01/2024 4:03 PM EST Yohan Parks MD ECG ORDERABLES Final Result GE MUSE * EKG-SCANNED (01/31/2024) Narrative 01/31/2024 Ordered by an unspecified provider. Default Scanning Provider SCAN ORDERS Final Result documented in this encounter Visit Diagnoses Diagnosis Viral upper respiratory tract infection- Primary Acute upper respiratory infections of unspecified site Pleurisy Pleurisy without mention of effusion or current tuberculosis Chest tightness- Primary Other chest pain documented in this encounter Administered Medications Inactive Administered Medications - up to 3 most recent administrations Medication Order MAR Action Action Date Dose Rate Site dexamethasone (DECADRON) injection 10 mg 10 mg Once, intraMUSCULAR, On Mon01/31/24 at 1740, For 1 dose Given 01/31/2024 5:44 PM EST 10 mg Right Deltoid ibuprofen (MOTRIN) tablet 600 mg 600 mg Once, oral, On Mon01/31/24 at 1740, For 1 dose Given 01/31/2024 5:43 PM EST 600 mg documented in this encounter Active and Recently Administered Medications Times are shown in EST. Scheduled Medication Order 01/29/2024 01/30/2024 01/31/2024 dexamethasone (DECADRON) injection 10 mg (COMPLETED) 10 mg Once, intraMUSCULAR, On Mon01/31/24 at 1740, For 1 dose 174 (Given - Provid er: Cara Diallo RN) ibuprofen (MOTRIN) tablet 600 mg (COMPLETED) 600 mg Once, oral, On Mon01/31/24 at 1740, For 1 dose 174 (Given - Provid er: Cara Diallo RN) documented in this encounter
--- OUTSIDE RECORDS SUMMARY | 2024-03-05 23:51 | XMS_ITS | Referral Summary ---
Author Organization [employer] Address [address] [place] [address] Care Team Providers Care Mushroom Press Operator Name Role Phone Thalia Kim APRN Primary Care Provider +1- [phone] Encounters Date Type Department Care Team Description 01/31/2024 Travel 01/31/2024 4:52 PM EST - 01/31/2024 6:18 PM EST Emergency [facility] Emergency Department [address] [place] [address] Yohan Parks MD Viral upper respiratory tract infection (Primary Dx); Pleurisy Discharge Disposition: Home or Self Care from Last 3 Months Allergies Active Allergy Reactions Criticality Noted Date [...] of 40.0-44.9, adult 12/25 Chronic hypertension 08/08/2016 Social History Tobacco Use Types Packs/Day Years [...] Date Kanu rded Speak language other than Beninese at home Not on file 11/29/2023 Want [...] Info) Description 03/07/2024 8:00 AM EST Appointment [facility] Non-Invasive Cardiology [address] [place] [phone] Elaine Valencia MD [address], [facility] [address] [place] [phone] 03/07/2024 9:15 AM EST Office Visit [facility] Cardiology [address] [place] [address] [address] [place] [address] Elaine [facility] MD [facility], [facility] [address] [place] [address] Procedures Procedure Name Priority Date/Time Associated Diagnosis [...] ATRIAL RATE (MCT) 85 BPM GE MUSE [place] Interval 138 ms GE MUSE QRS-INTERVAL (MSEC) 80 ms GE MUSE QT Interval 342 ms GE MUSE QTC Interval 406 ms GE MUSE P [place] 65 degrees GE MUSE R AXIS (MCT) 47 degrees GE MUSE T Wave [place] 62 degrees GE MUSE [place] Diagnosis Age and gender specific ECG analysis Normal sinus rhythm Normal ECG No previous ECGs available Confirmed by Zulema WHITE, Cathief (2019) on 02/01/2024 4:03:45 PM GE MUSE [...] - Final from Last 3 Months [facility] [place] [place] [address] Care Teams Mushroom Press Operator Relationship Specialty Start Date End Date Thalia Kim APRN [address] [place] [address] PCP - General Nurse Practitioner 02/01/24
--- OUTSIDE RECORDS SUMMARY | 2024-03-05 23:51 | XMS_ITS | Encounter Summary ---
Author Organization [email or web address] Address [address] [place] [address] Care Team Providers Care Carbonator Name Role Phone Unavailable Primary Care Provider Unavailabl e Reason for Referral * Echocardiography (Routine) - Closed Specialty Diagnoses / Procedures Referred By Contac t Referred To Contact Cardiology Diagnoses Chest pain, unspecified type Procedures ECHO COMPLETE (DOPPLER / COLOR) W OR WO CONTRAST Elaine Valencia MD [address] [place] [address], [place] [address] Phone: tel: fax: [facility] Non-Invasive Cardiology [address] [place] [phone] Phone: tel: fax: Referral ID Status Reason Start Date Expiration Date Visits Re quested Visits Authorized [id number] Closed 12/22/2023 02/20/2024 1 1 * Consultation (Routine) - Closed Specialty Diagnoses / Procedures Referred By Contac t Referred To Contact Cardiology Diagnoses Chest pain, unspecified type Palpitations Procedures HOLTER MONITOR HOOKUP Elaine Valencia MD [address] [place] [address], [address] [address] Phone: tel: fax: [facility] Electrophysiology [address] [place] [phone] Phone: tel: fax: Referral ID Status Reason Start Date Expiration Date Visits Re quested Visits Authorized [id number] Closed 12/01/2023 11/30/2024 1 1 Reason for Visit * Reason Comments Establish Care Referred by Nella Adams APRN for chest pain * Consultation (Routine) - Closed Specialty Diagnoses / Procedures Referred By Kalyan t Referred To Contact Cardiology Diagnoses Cardiac arrhythmia, unspecified Parul Adams APRN [address] [place] [address] Phone: tel: fax: [facility] Electrophysiology [address] [place] [address] [phone] Phone: tel: fax: Referral ID Status Reason Start Date Expiration Date Visits Re quested Visits Authorized [id number] Closed 11/29/2023 11/28/2024 1 1 Encounter Details Date Type Department Care Team (Late st Contact Info) Description 12/01/2023 8:00 AM EDT Office Visit [facility] Cardiology [address] [place] [phone] Elaine Valencia MD [address] [place] [address], [address] [phone] Chest pain, unspecified type (Primary Dx); Palpitations; Morbidly obese (HCC); Gestational hypertension, antepartum; Family history of premature coronary artery disease; Tobacco abuse Social History Tobacco Use Types Packs/Day Years [...] Date Kanu rded Speak language other than Romanian at home Not on file 11/29/2023 Want [...] Sign Reading Time Taken Comments Blood Pressure 110/80 12/01/2023 8:18 AM EDT Pulse 78 12/01/2023 8:18 AM EDT Temperature - - Respiratory Rate - - Oxygen Saturation - - Inhaled Oxygen Concentration - - Weight 119.3 kg (263 lb) 12/01/2023 8:18 AM EDT Height 165.1 cm (5' 5 ) 12/01/2023 8:18 AM EDT Body Mass Index 43.77 12/01/2023 8:18 AM EDT documented in this encounter Progress Notes * Elaine Valencia MD - 12/01/2023 8:00 AM EDT Cardiology Clinic Note: Date of Service: 12/01/2023 Chief Complaint: Chest pain Palpitations History of Present Illness: Alana Choi, 28 y.o., female very pleasant patient with past medical history of morbid obesity. Patient reported that over the last several days she started having feeling of fast heart rate associated with chest tightness, happens more than once, last 1 was few days ago. She denied having any syncope or presyncope. She reported having family history of premature coronary artery disease (mother has heart attack at age of 50s). Patient also reported that she had gestational hypertension. CARDIAC HISTORY No specialty comments available. PAST MEDICAL HISTORY : History reviewed. No pertinent past medical history. Past Surgical History: Procedure Laterality Date SECTION x3 Family History Problem Relation Age of Onset Asthma Mother Hypertension Mother Multiple sclerosis Mother Heart attack Mother 53 Hypertension Father Lung cancer Father Heart attack Father 59 Stroke Father 59 Asthma Brother Hypertension Brother ADD / ADHD Brother Leukemia Maternal Grandmother Thyroid disease Maternal Grandmother Heart failure Maternal Grandfather Colon cancer Other Diabetes Other Allergies Allergen Reactions Doxycycline Ear drop MEDICATIONS Home Medications: No current outpatient medications on file prior to visit. No current facility-administered medications on file prior to visit. SOCIAL HISTORY Pt reports that she has never smoked. Her smokeless tobacco use includes snuff. She reports that she does not currently use alcohol. She reports that she does not use drugs. REVIEW OF SYSTEMS Constitutional: no fevers, chills, night sweats HEENT: no vision changes or tinnitus, no sore throat CV: Per HPI Pulm: Per HPI GI: no abdominal pain, no nausea, vomitting, diarrhea, nor constipation Musc: no new arthralgias or myalgias Skin: no new rashes or skin changes Allergy: no environmental allergy problems Heme/Onc: no easy bruising or bleeding Lymph: no bumps or lymphadenopathy Neuro: no numbness, tingling, weakness, or loss of sensation PHYSICAL EXAMINATION BP 110/80 (BP Location: Left arm, Patient Position: Sitting) Pulse 78 Ht 1.651 m (5' 5 ) Wt 119.3 kg (263 lb) BMI 43.77 kg/m?? General: AOx3, in no acute distress HEENT: atraumatic and normocephalic, no conjunctival injection, no icterus Neck: supple, no JVD,no bruit, no thyromegaly Chest/Resp: Chest is clear bilaterally. Cardio: S1 and S2 normal, no murmurs, gallops or rubs. Abdomen/GI: The abdomen is soft without tenderness Extremities: no edema, normal radial pulses. Skin: no rashes Neuro: no focal neurologic deficits grossly AOx3 Labs: CBC BMP PT/INR No results found for: WBC No results found for: NA No results found for: APTT No results found for: PLT No results found for: POTASSIUM No results found for: INR No results found for: HGB No results found for: BUN No results found for: HCT No results found for: CREATININE LIPID PROFILE No results found for: GLUCOSE No results found for: CHOL TSH No results found for: LDLCALC No results found for: TSH CARDIAC ENZYMES No results found for: HDL No results found for: CKTOTAL No results found for: TRIG LFTs No results found for: CKMB No results found for: AST No results found for: TROPONINI No results found for: ALT No results found for: BNP RADIOLOGY: reviewed Study date: EKG: reviewed Study date: 12/01/2023 Normal sinus rhythm, nonspecific ST changes. ASSESSMENT Alana Choi is a 28 y.o. old female with Palpitations Chest pain Morbidly obese Tobacco abuse (smokeless tobacco use including snuff) Medications were reviewed. Plan: -Patient with recurrent palpitation associated with chest pain and chest tightness, would recommend2 weeks amplifier mechanic to exclude any significant arrhythmias, transthoracic echo to exclude any structural heart disease. -If the patient continues to have chest pain we will consider ischemic evaluation -Would recommend the patient to quit smoking -Would recommend weight loss and exercise -Would recommend low-salt, low-fat, low carbohydrate diet, avoid fried foods and fatty foods. -Follow-up in 4 weeks or earlier if problems arise. Plan of management was discussed in detail with the patient and verbalize understanding. Parts of this note were created with [employer] voice recognition. Notes have been reviewed, but may contain punctuation, grammatical, or voice recognition errors. Thank you for allowing [facility] to participate in the care of this very pleasantpatient. Please feel free to call me with any questions or concerns. Elaine Valencia MD, FACC, FSCAI, RPVI. Interventional cardiology [facility] 12/01/2023 4:11 PM documented in this encounter Plan of Treatment Upcoming Encounters Date Type Department Care Team (Late st Contact Info) Description 03/07/2024 8:00 AM EST Appointment [facility] Non-Invasive Cardiology [address] [place] [phone] Elaine Valencia MD [address], [facility] [address] [place], [place] [address] 03/07/2024 9:15 AM EST Office Visit [facility] Cardiology [address] [place] [address] [place] [phone] Elaine Valenica MD [address], [place] [phone] Scheduled Orders Name Type Priority Associated Diagnoses Orde r Schedule ECG 12 lead ECG Routine Chest pain, unspecified type Ordered: 12/01/2023 ECHO COMPLETE (DOPPLER / COLOR) W OR WO CONTRAST Echocardiography Routine Chest pain, unspecified type Expected: 12/01/2023, Expires: 12/30/2024 documented as of this encounter Results * HOLTER MONITOR HOOKUP [...] encounter Visit Diagnoses Diagnosis Chest pain, unspecified type- Primary Palpitations Morbidly obese (HCC) Morbid obesity Gestational hypertension, antepartum Family history of premature coronary artery disease Family history of ischemic heart disease Tobacco abuse Tobacco use disorder Chest pain, unspecified type Palpitations Chest tightness- Primary Other chest pain documented in this encounter
--- OUTSIDE RECORDS SUMMARY | 2024-03-05 23:51 | XMS_ITS | Encounter Summary ---
Author Organization [facility] Address [address] [place] [address] Care Team Providers Care Bunch Trimmer Mold Name Role Phone Clarisa Adams APRN Primary Care Provider Reason for Referral * Consultation (Routine) - Authorized Specialty Diagnoses / Procedures Referred By Kalyan saucedo Referred To Contact Endocrinology Diagnoses Class 3 severe obesity due to excess calories without serious comorbidity with body mass index (BMI) of 40.0 to 44.9 in adult ([facility]) Marc Brady MD [address] [facility] [address] [place] [address] Phone: tel: fax: [facility] Endocrinology [address] [facility], [address] [place] [address] Phone: tel: fax: Referral ID Status Reason Start Date Expiration Date V isits Requested Visits Authorized [id number] Authorized 12/29/2023 06/29/2025 1 1 Reason for Visit * Reason Comments Abnormal cortisol level * Consultation (Routine) - Closed Specialty Diagnoses / Procedures Referred By Kalyan t Referred To Contact Endocrinology Diagnoses Abnormal cortisol level Yohan Toscano MD [address] [place] [address] Phone: tel: fax: Referral ID Status Reason Start Date Expiration Date V isits Requested Visits Authorized [id number] Closed Specialty Services Required 11/28/2023 05/29/2025 1 1 Encounter Details Date Type Department Care Team (Late st Contact Info) Description 12/29/2023 8:40 AM EDT Consult [facility] [address], [address] [place] [address] (1), Marc Brady Fellow Erlinda Nunez MBBS [address] [place] [address] Class 3 severe obesity due to excess calories without serious comorbidity with body mass index (BMI) of 40.0 to 44.9 in adult (CMS/HCC) (Primary Dx); Abnormal cortisol level Social History Tobacco Use Types Packs/Day Years Used Date Smoking Tobacco: Never Smokeless Tobacco: Current Chew Tobacco Cessation:Ready to Q uit: Not Asked Comments:Chew Alcohol Use Standard Drinks/Week Comments Never 0 (1 standard drink = 0.6 oz pur e alcohol) Comments Unknown Sex and Gender Information Value Date Recorded Sex Assigned at Female 04/05/2022 12:00 PM EST Legal Sex Female 11:04 AM EST Gender Identity Female 04/05/2022 12:00 PM EST Sexual Orientation Straight 04/05/2022 12 :00 PM EST documented as of this encounter Last Filed Vital Signs Vital Sign Reading Time Taken Comments Blood Pressure 133/87 12/29/2023 8:38 AM EDT Pulse 67 12/29/2023 8:38 AM EDT Temperature - - Respiratory Rate - - Oxygen Saturation - - Inhaled Oxygen Concentration - - Weight 121 kg (266 lb 5.1 oz) 12/29/2023 8:05 AM EDT Height 165.1 cm (5' 5 ) 12/29/2023 8:05 AM EDT Body Mass Index 44.32 12/29/2023 8:05 AM EDT documented in this encounter Miscellaneous Notes * Progress Notes - Erlinda Nunez MBBS - 12/29/2023 8:40 AM EDT Subjective: Chief Complaint: Consultation for abnormal cortisol levels HPI Alana Choi 28 y.o. presents for Consultation for abnormal cortisol levels Consult ordered by Yohan Toscano MD Patient stated that her symptoms started a month ago. She was initially hospitalized couple months ago for low sodium and potasium levels. However unsure why she had low levels. Since then, she has been well, but continues to have persistent fatigue. She was recently seen in the ER as her fatigue worsened and was found to have low cortisol levels. She also complains to weight gain and denies any dizziness or low blood pressure, but has occasional leg swelling at the end of the day. LMP - Dec 07, regular menstrual cycles Last 2018 GM- hypothyroid Denies smoking or drinking alcohol. Allergies Allergies Allergen Reactions Doxycycline Other - please document in the comment field Endorses allergy to drop when child, made inside of ear raw Current Medications Current Outpatient Medications Medication Instructions cholecalciferol (VITAMIN D-3) 10,000 Units, Oral, Daily Immunizations: Immunization History Administered Date(s) Administered Televerde COVID-19 Vaccine (Hoover Cap) 12+ years (vladimir-sucrose) 10/04/2021 Medical/Surgical History Past Medical History: Diagnosis Date Vitamin D deficiency 12/26/2023 No past surgical history on file. Family History Family History Problem Relation Name Age of Onset Cancer Father Rafy Cancer Maternal Grandmother Dot Thyroid disease Maternal Grandmother Dot Social history Social History Tobacco Use Smoking status: Never Smokeless tobacco: Current Types: Chew Tobacco comments: Chew Substance Use Topics Alcohol use: Never Drug use: Never ROS Review of Systems Constitutional: Positive for fatigue and unexpected weight change (Recent weight gain). HENT: Negative for trouble swallowing. Eyes: Negative for visual disturbance. Respiratory: Negative for shortness of breath. Cardiovascular: Positive for leg swelling. Gastrointestinal: Negative. Endocrine: Negative. Genitourinary: Negative. Negative for menstrual problem. Musculoskeletal: Negative. Neurological: Positive for headaches. Hematological: Negative. Psychiatric/Behavioral: Negative for sleep disturbance. Objective: Vitals Visit Vitals BP 133/87 (BP Location: Left arm, Patient Position: Sitting, BP Cuff Size: Large adult) Pulse 67 Ht 1.651 m (5' 5 ) Wt 121 kg (266 lb 5.1 oz) BMI 44.32 kg/m?? Physical Exam Physical Exam Constitutional: General: She is not in acute distress. Appearance: She is obese. HENT: Head: Normocephalic. Eyes: Extraocular Movements: Extraocular movements intact. Cardiovascular: Rate and Rhythm: Normal rate. Pulmonary: Effort: Pulmonary effort is normal. Abdominal: Palpations: Abdomen is soft. Musculoskeletal: General: Normal range of motion. Cervical back: Normal range of motion. Neurological: Mental Status: She is oriented to person, place, and time. Mental status is at baseline. Psychiatric: Mood and Affect: Mood normal. Most Recent Labs Labs collected at 1:36 AM Component Latest Ref Rng 11/28/2023 TSH 0.40 - 4.20 uIU/mL 3.71 Free T4 0.8 - 1.7 ng/dL 1.1 Cortisol Before 10am: 3.7 - 19.4. After 5pm: 2.9 - 17.3 ug/dL 2.60 ACTH 7.2 - 63 pg/mL 11.2 Last week Prolactin - 6.2 TSH- 1.54 Ft4- 0.95 25 -OH- 23.7 Imaging FINDINGS: Chest: Lymph Nodes and Mediastinum: Minimal residual thymus. Normal caliber of the great vessels. No mediastinal adenopathy. Cardiovascular: The heart is normal in caliber. Thoracic great vessels are patent. Lungs and Pleura: No suspicious lung nodules to suggest metastatic disease. No pleural effusions orsuspicious thickening. Old calcified granuloma. Musculoskeletal and Body Wall: Tiny hypoattenuating foci in the manubrium are indeterminate, but probably benign. Abdomen/Pelvis: Solid Abdominal Organs: Focal fatty deposition along the falciform ligament. The portal vein is patent. The gallbladder is contracted. Bile ducts are normal. Normal size spleen. Pancreas is normal. No adrenal nodules. Symmetric renal enhancement. GI Tract/Mesentery/Peritoneum: Fat in the wall of the right colon. An hepatic flexure., Nonspecificdifferential could include chronic inflammation but nonspecific.. The terminal ileum and appendix are normal. No suspicious mesenteric findings. Pelvic Viscera: Nabothian cysts. The endometrium is normal. Bladder is normal. Normal ovaries. Lymph Nodes/Vasculature: No lymphadenopathy by CT size criteria. The aortoiliac vasculature is patent and normal in caliber. Free Fluid:Trace free fluid in the pouch of Agus Musculoskeletal and Body Wall:No aggressive or suspicious findings. IMPRESSION: Fatty wall of the right colon, nonspecific differential could include chronic inflammation. Assessment and Plan Abnormal cortisol levels - Current symptoms of fatigue since a month; concern for Wesley's disease - Low cortisol level from a month ago, however lab collected at 1:00 am - Thyroid levels normal as above - FH of thyroid disease, likely autoimmune, but no history of [place]'s Plan - Check cortisol, ACTH and DHEAS levels today - If they result low on repeat testing will plan for ACTH stim test. - discussed other possible causes of fatigue. Obesity - Body mass index is 44.32 kg/m??. - Referral for weight management clinic placed. Follow up as needed SAMUEL Gallardo Endocrinology Fellow PGY-5 [facility] ENDOCRINOLOGY [address] [facility], [address] [place] [address] Cosigned by Marc Brady MD at 01/02/2024 2:07 PM EDT Associated attestation - Marc Brady MD - 01/02/2024 2:07 PM EDT I saw and evaluated the patient with the resident/fellow. I discussed the case with the resident/fellow and agree with the findings and plan as documented. documented in this encounter Plan of Treatment Upcoming Encounters Date Type Department Care Team (Late st Contact Info) Description 04/05/2024 9:20 AM EST Consult [facility] Endocrinology [address] [facility], [address] [place] [address] Shraddha Almaguer [place] [address] [facility] [address] [place] [phone] Scheduled Referrals Name Type Priority Associated Diagnoses Order Schedule Ambulatory Referral to [facility] Weight Management Outpatient Referral Routine Class 3 severe obesity due to excess calories without serious comorbidity with body mass index (BMI) of 40.0 to 44.9 in adult (CMS/HCC) 1 Occurrences starting 12/29/2023 until 06/28/2025 documented as of this encounter Results * DHEA-sulfate (12/29/2023 9:57 AM EDT) DHEAS 107 98.8 - 340 ??g/dL 12/29/2023 3:46 PM EDT [facility] Blood Venous blood specimen / Unknown Venipuncture / Unknown 12/29/2023 9:57 AM EDT 12/29/2023 9:58 AM EDT Narrative [facility] - 12/29/2023 3:46 PM EDT DHEAS Lefty Stages, Female: Lefty Stage I: 7 - 126 ug/dL Lefty Stage II: 13 - 241 ug/dL Lefty Stage III: 32 - 446 ug/dL Lefty Stage IV and V: 65 - 371 ug/dL Marc Brady MD LAB BLOOD ORDERABLES Final Resu lt Performing Organization Address City/[facility]/ZIP Co de Phone Number [facility] [address] [place] [address] * ACTH (12/29/2023 9:57 AM EDT) ACTH 22.2 7.2 - 63 pg/mL 12/29/2023 2:23 PM EDT [facility] Blood Venous blood specimen / Unknown Venipuncture / Unknown 12/29/2023 9:57 AM EDT 12/29/2023 9:58 AM EDT Marc Brady MD LAB BLOOD ORDERABLES Final Resu lt [facility] [address] [place] [address] * Cortisol (12/29/2023 9:57 AM EDT) Cortisol 5.00 Before 10am: 3.7 - 19.4. After 5pm: 2.9 - 17.3 ug/dL 12/29/2023 1:54 PM EDT [facility] Comment:Testing performed on [employer], standardized against [facility] Reference Standard concentration values assigned by LC-MS/MS and verified by BCR 192 and BCR 193 certified reference materials. Blood Venous blood specimen / Unknown Venipuncture / Unknown 12/29/2023 9:57 AM EDT 12/29/2023 9:58 AM EDT us Marc Brady MD LAB REF LAB BLOOD AND FLUID ORD Final Result [facility] [address] [place] [address] documented in this encounter Visit Diagnoses Diagnosis Class 3 severe obesity due to excess calories without serious comorbidity with body mass index (BMI) of 40.0 to 44.9 in adult (CMS/HCC)- Primary Abnormal cortisol level documented in this encounter Additional Health Concerns Assessment Noted Time A Body Mass Index follow-up plan has been documented for the patient 01/06/2024 1:05 AM EDT documented as of this encounter Care Teams Bunch Trimmer Mold Relationship Specialty Start Date End Date Clarisa Adams APRN [address] [place] [address] PCP - General Supervisor Denture Department 07/19/23 documented as of this encounter
--- OUTSIDE RECORDS SUMMARY | 2024-03-05 23:51 | XMS_ITS | Encounter Summary ---
Author Organization Healthcare Address [address] [place] [address] Care Team Providers [facility] Name Role Phone Clarisa Adams APRN Primary Care Provider Reason for Referral * Consultation (Routine) - Closed Specialty Diagnoses / Procedures Referred By Kalyan saucedo Referred To Contact Endocrinology Diagnoses Abnormal cortisol level Ronak Toscano MD [address] [place] [phone] Phone: tel: fax: Referral ID Status Reason Start Date Expiration Date V isits Requested Visits Authorized [id number] Closed Specialty Services Required 11/28/2023 05/29/2025 1 1 Reason for Visit * Reason Comments Chest Pain Encounter Details Date Type Department Care Team ([facility] st Contact Info) Description 11/28/2023 12:09 AM EDT - 11/28/2023 4:45 AM EDT Emergency [facility] Emergency Department [address] [place] [address] Ronak Toscano MD [address] [place] [phone] Abnormal cortisol level (Primary Dx); Secondary hypertension Discharge Disposition: Home or Self Care Social [...] Sign Reading Time Taken Comments Blood Pressure 140/8 11/28/2023 4:43 AM EDT Pulse 64 11/28/2023 4:43 AM EDT Temperature 36.6 ??C (97.8 ??F) 11/28/2023 4:43 AM ED T Respiratory Rate 18 11/28/2023 4:43 AM EDT Oxygen Saturation 100% 11/28/2023 4:43 AM EDT Inhaled Oxygen Concentration - - Weight - - Height 165.1 cm (5' 5 ) 11/28/2023 12:05 AM EDT Body Mass Index - - documented in this encounter Discharge Instructions * Discharge Instructions* Dinorah Osborn MD - 11/28/2023 4:31 AM EDT You have been seen today in the emergency department for your symptoms. All of your electrolytes were normal. However, her cortisol level was low for the time of day it was obtained. I would like foryou to follow up with this with our Endocrinology team. They will call you to schedule this appointment. Additionally, you have had several elevated blood pressures throughout your doctor's visits and would like you to follow up with your primary care provider regarding this. Please keep a blood pressure log until you are seen by them. Return to the emergency department if her symptoms worsen or change. documented in this encounter Miscellaneous Notes * ED Provider Notes - Dinorah Osborn MD - 11/28/2023 12:00 AM EDT Images from the original note were not included. - HPI Chief Complaint Patient presents with Chest Pain HPI Patient was an otherwise healthy 28-year-old female presenting today with multiple symptoms. Patient states that her symptoms started on Monday and involved generalized malaise and fatigue. She states she was sleeping much more than normal. She also began having a mild dull headache. On Monday morning she also started experiencing chest pressure and feeling like her heart was beating out of herchest. She also states that there was associated right arm numbness. She then had a syncopal episode while on the toilet. She had no preceding symptoms outside of tunnel vision. She woke up with me in our and then presented to an outside hospital. There, she was told that her sodium and potassium were critically low. She states she was admitted and treated for low sodium and potassium. She also got an x-ray of her neck which was normal. She felt well after discharge however she was begun to feel generally fatigued and tired again. She also endorses chest pressure in the middle of her chest. The chest pressors not associated with any specific activities or times a day. Not positional. Not exertional. It was not radiate anywhere. Denies any vision changes. States she was still having a right-sided headache. She was not know she hit her head when she syncopized on the toilet Monday. Denies any fevers, abdominal pain, nausea, vomiting. No recent sick symptoms. Patient History History reviewed. No pertinent past medical history. History reviewed. No pertinent surgical history. No family history on file. Allergies: Allergies Allergen Reactions Doxycycline Other - please document in the comment field Endorses allergy to drop when child, made inside of ear raw Physical Exam ED Triage Vitals [11/28/23 0005] Temp Heart Rate Resp BP 36.5 ??C (97.7 ??F) 80 18 (!) 162/91 SpO2 Temp src Heart Rate Source Patient Position 98 % -- Monitor Sitting BP Location FiO2 (%) Right arm -- Physical Exam Constitutional: General: She is not in acute distress. Appearance: She is normal weight. She is not ill-appearing or toxic-appearing. HENT: Head: Normocephalic and atraumatic. Eyes: Pupils: Pupils are equal, round, and reactive to light. Neck: Thyroid: No thyromegaly. Cardiovascular: Rate and Rhythm: Normal rate and regular rhythm. Heart sounds: Normal heart sounds. Pulmonary: Effort: Pulmonary effort is normal. No tachypnea, accessory muscle usage or respiratory distress. Breath sounds: No decreased breath sounds. Abdominal: Palpations: Abdomen is soft. Tenderness: There is no abdominal tenderness. There is no guarding or rebound. Musculoskeletal: General: Normal range of motion. Cervical back: Normal range of motion. Right lower leg: No edema. Left lower leg: No edema. Skin: General: Skin is warm and dry. Capillary Refill: Capillary refill takes less than 2 seconds. Findings: No rash. Neurological: General: No focal deficit present. Mental Status: She is alert and oriented to person, place, and time. No data recorded ED Course & MDM - Assessment: 28 y.o. female presents to ED with complaint of chest discomfort. It should be noted that her chronic conditions includes hypertension, which currently is not at goal therapy. This complicates her clinical picture because it Comorbidities: may be exacerbating symptoms and increases the amount and complexity of data to be reviewed Differential Diagnosis: Hypertension, ACS, GERD, electrolyte derangement, pancreatitis, Lowell disease, hormone secreting tumor, thyroid derangement, adrenal abnormality, among others. In order to fully explore the differential diagnosis the following treatments and tests were ordered: ED Medication Administration from 11/28/2023 0000 to 11/28/2023 0726 Date/Time Order Dose Route Action 11/28/2023 0131 EDT acetaminophen (Tylenol) tablet 1,000 mg 1,000 mg Oral Given 11/28/2023 0250 EDT iohexol (OMNIPaque) 300 MG/ML injection 100 mL 100 mL Intravenous Given All Other Orders Ordered Status Ordering Provider 11/28/23 0221 PROCEDURE ONCE Canceled DINORAH OSBORN 11/28/23 0155 Until discontinued Canceled RONAK TSOCANO 11/28/[address] Head wo IV Contrast Once Final result DINORAH OSBORN 11/28/[address] Abdomen Pelvis w IV Contrast Once Final result DINORAH OSBORN 11/28/[address] Chest w IV Contrast Once Final result DINORAH OSBORN 11/28/23 0129 Nasopharyngeal Respiratory Panel Once Final result RONAK TOSCANO 11/28/23 0129 STAT Canceled RONAK TOSCANO 11/28/23 0129 SARS CoV-2/COVID-19 by PCR - Rapid PROCEDURE ONCE Final result RONAK TOSCANO 11/28/23 012 Cortisol Once Final result RONAK TOSCANO 11/28/23 012 ACTH Once Final result RONAK TOSCANO 11/28/23 0125 hCG qualitative STAT Final result RONAK TOSCANO 11/28/23 0109 CBC w/diff STAT Final result DINORAH OSBORN 11/28/23 0109 CMP STAT Final result DINORAH OSBORN 11/28/23 0109 Magnesium STAT Final result DINORAH OSBORN 11/28/23 0109 Phosphorus STAT Final result DINORAH OSBORN 11/28/23 010 Lipase STAT Final result DINORAH OSBORN 11/28/23 010 Troponin now and 120 min STAT Final result DINORAH OSBORN 11/28/23 0109 BNP STAT Final result DINORAH OSBORN 11/28/23 010 Thyroid Stimulating Hormone, Plasma STAT Final result DINORAH OSBORN 11/28/23 010 Free T4, Plasma STAT Final result DINORAH OSBORN 11/28/23 010 Hepatitis C Antibody - ED Once Final result DINORAH OSBORN 11/28/23 010 ED Protocol - HIV 1/2 Antibody/Antigen Screen Once Final result DINORAH OSBORN 11/28/23 010 ED HIV 1/2 Antibody/Antigen Screen w/Reflex to HIV 1/2 Differentiation PROCEDURE ONCE Final result DINORAH OSBORN 11/28/23 0009 ECG Adult Once Preliminary result RONAK TOSCANO 11/28/23 0431 Discharge Ambulatory referral to Endocrinology Ordered DINORAH OSBORN ED Course as of 11/28/23 07MonNov 28, 2023 0725 BP(!): 162/91 [JW] 0726 Sodium: 137 [JW] 0726 Potassium: 3.8 [JW] 0726 Troponin T, High Sensitivity, 0 Hour: <6 [JW] 0726 Lipase: 21 [JW] 0726 TSH: 3.71 [JW] 0726 N-Terminal, PROBNP, Plasma: 73 [JW] 0726 ACTH: 11.2 [JW] 0726 Cortisol: 2.60 Abnormally low for time of day of collection. [JW] 0726 CT head, CT chest, CT abdomen pelvis personally reviewed by me without acute or abnormal findings. [JW] ED Course User Index [JW] Dinorah Osborn MD Clinical Impressions as of 11/28/23 0726 Abnormal cortisol level Secondary hypertension Ultimately, this patient was Was discharged Home (Discharge) The primary encounter diagnosis was Abnormal cortisol level. A diagnosis of Secondary hypertension was also pertinent to this visit. . Patient was counseled on the diagnoses. Discharge medications if any are listed below. Listed medications are thought be either curative for listed diagnoses or will help control ongoing symptoms. Patient is requested to follow up with Patient's Primary Care Provider and Endocrinology in order to obtain routine follow-up and specialty care. Instructions on follow up as well as precautions to return to the ER provided verbally by the EM provider, aswell as written in patients discharge education packet. Specific instructions provided are as follows: Discharge Instructions You have been seen today in the emergency department for your symptoms. All of your electrolytes were normal. However, her cortisol level was low for the time of day it was obtained. I would like foryou to follow up with this with our Endocrinology team. They will call you to schedule this appointment. Additionally, you have had several elevated blood pressures throughout your doctor's visits and would like you to follow up with your primary care provider regarding this. Please keep a blood pressure log until you are seen by them. Return to the emergency department if her symptoms worsen or change. Disposition Discharge AVS (Printed 11/28/2023) Discharge Orders Discharge Ambulatory referral to Endocrinology Authorized ED Prescriptions None Discharge Instructions You have been seen today in the emergency department for your symptoms. All of your electrolytes were normal. However, her cortisol level was low for the time of day it was obtained. I would like foryou to follow up with this with our Endocrinology team. They will call you to schedule this appointment. Additionally, you have had several elevated blood pressures throughout your doctor's visits and would like you to follow up with your primary care provider regarding this. Please keep a blood pressure log until you are seen by them. Return to the emergency department if her symptoms worsen or change. Disposition Discharge AVS (Printed 11/28/2023) Discharge Orders Discharge Ambulatory referral to [facility] Authorized - Dinorah Osborn MD Resident 11/28/23 0726 Cosigned by Ronak Toscano MD at 12/04/2023 9:55 PM EDT Associated attestation - Ronak Toscano MD - 12/04/2023 9:55 PM EDT I saw and evaluated the patient with the resident/fellow. I discussed the case with the resident/fellow and agree with the findings and plan as documented. * ED Triage Notes - Trent Britton, RN - 11/28/2023 12:00 AM EDT Pt endorses chest pressure since approx 1600. Denies SOA. Endorses similar symptoms resulting in recent admission caused by low sodium, potassium levels. States current symptoms feel similar to priorto recent admission documented in this encounter Plan of Treatment Upcoming Encounters Date Type Department Care Team (Late st Contact Info) Description 04/05/2024 9:20 AM EST Consult [facility] Endocrinology [address], [address] [place] [address] Shraddha Almaguer PA [address] [facility] [address] [place] [address] Scheduled Referrals Name Type Priority Associated Diagnoses Order Schedule Discharge Ambulatory referral to Endocrinology Outpatient Referral Routine Abnormal cortisol level Expected: 11/28/2023 (Approximate), Expires: 05/27/2025 documented as of this encounter Procedures Procedure Name Priority Date/Time Associated Diagnosis Comments CT ABDOMEN PELVIS W IV CONTRAST STAT 11/28/2023 2:[address] CHEST W IV CONTRAST STAT 4 2:[address] HEAD WO IV CONTRAST STAT 4 2:52 AM EDT ED HIV 1/2 ANTIBODY/ANTIGEN SCREEN WITH REFLEX TO HIV I/II DIFFERENTIATION STAT 11/28/2023 1:36 AM EDT ED PROTOCOL HIV 1/2 ANTIBODY/ANTIGEN SCREEN W/REFLEX TO HIV 1/2 ANTIBODY DIFFERENTIATION STAT 11/28/2023 1:36 AM EDT SARS COV-2/COVID-19 BY PCR - RAPID STAT 11/28/2023 1:36 AM EDT TROPONIN T, HIGH SENSITIVITY, 0 HOUR, PLASMA, REFLEX TO 2 HOUR STAT 11/28/2023 1:36 AM EDT NASOPHARYNGEAL RESPIRATORY PANEL STAT 11/28/2023 1:36 AM EDT HEPATITIS C ANTIBODY - ED W/REFLEX TO HCV QUANT PCR STAT 11/28/2023 1:36 AM EDT N-TERMINAL PROBNP, PLASMA STAT 2023 1:36 AM EDT ADRENOCORTICOTROPIC HORMONE (ACTH) STAT 11/28/2023 1:36 AM EDT CBC WITH AUTO DIFFERENTIAL STAT 11/27 1:36 AM EDT TEST QUALITATIVE PLASMA STAT 11/28/2023 1:36 AM EDT TSH STAT 11/28/2023 1:36 AM EDT FREE T4, PLASMA STAT 11/28/2023 1:36 AM EDT PHOSPHORUS, PLASMA STAT 11/28/2023 1: 36 AM EDT MAGNESIUM, PLASMA STAT 11/28/2023 1:3 6 AM EDT LIPASE, PLASMA STAT 11/28/2023 1:36 AM EDT CORTISOL STAT 11/28/2023 1:36 AM EDT COMPREHENSIVE METABOLIC PANEL, PLASMA STAT 11/28/2023 1:36 AM EDT ECG ADULT STAT 11/28/2023 12:12 AM EDT documented in this encounter Results * CT Chest w IV Contrast (11/28/2023 2:52 AM EDT) Anatomical Region Laterality Modality Chest Computed Tomogra phy Impressions 11/28/2023 4:21 AM EDT Fatty wall of the right colon, nonspecific differential could include chronic inflammation. No evidence of malignancy. CRITICAL RESULT: ?? No. COMMUNICATION: Per this written report. Preliminary report signed by Sammy Engle DO on 11/28/2023 4:05 AM By electronically signing this report, I, the attending physician, attest that I have personally reviewed the images/data for the above examination(s) and agree with the final edited report. Drafted by Sammy Engle DO on 11/28/2023 3:56 AM Final report signed by Joey Sutton MD on 11/28/2023 4:21 AM Narrative 11/28/2023 4:21 AM EDT CLINICAL INDICATION: mass TECHNIQUE: Multiple axial CT images were obtained from thoracic inlet through pubic symphysis following administration of IV contrast, Omnipaque 300, 100 mL. Reformatted images of the abdomen and pelvis in the coronal and sagittal planes were generated from the axial data set to facilitate diagnostic accuracy. Total DLP (Dose-Length Product): 2951 mGy*cm. Please note: The reported value represents the total of one or more individual components during the CT acquisition on this date and at this time, and as such, the same value may appear in more than one CT report depending on the interpreting/reporting physicians. COMPARISON: None. FINDINGS: Chest: Lymph Nodes and Mediastinum: Minimal residual thymus. Normal caliber of the great vessels. No mediastinal adenopathy. Cardiovascular: The heart is normal in caliber. Thoracic great vessels are patent. Lungs and Pleura: No suspicious lung nodules to suggest metastatic disease. No pleural effusions or suspicious thickening. Old calcified granuloma. Musculoskeletal and Body [...] of the right colon. An hepatic flexure., Nonspecific differential could include chronic inflammation but nonspecific.. The [...] and Body Wall:No aggressive or suspicious findings. Procedure Note Joey Sutton MD - 11/28/2023 CLINICAL INDICATION: mass TECHNIQUE: Multiple axial CT images were obtained from thoracic inlet through pubicsymphysis following administration of IV contrast, Omnipaque 300, 100 mL.Reformatted images of the abdomen and pelvis in the coronal and sagittalplanes were generated from the axial data set to facilitate diagnosticaccuracy. Total DLP (Dose-Length Product): 2951 mGy*cm. Please note: The reportedvalue represents the total of one or more individual components during theCT acquisition on this date and at this time, and as such, the same valuemay appear in more than one CT report depending on theinterpreting/reporting physicians. COMPARISON: None. FINDINGS: Chest: Lymph Nodes and Mediastinum: Minimal residual thymus. Normal caliber ofthe great vessels. No mediastinal adenopathy. Cardiovascular: The heart is normal in caliber. Thoracic great vessels arepatent. Lungs and Pleura: No suspicious lung nodules to suggest metastaticdisease. No pleural effusions or suspicious thickening. Old calcifiedgranuloma. Musculoskeletal and Body Wall: Tiny hypoattenuating foci in the manubriumare indeterminate, but probably benign. Abdomen/Pelvis: Solid Abdominal Organs: Focal fatty deposition along the falciformligament. The portal vein is patent. The gallbladder is contracted. Bileducts are normal. Normal size spleen. Pancreas is normal. No adrenalnodules. Symmetric renal enhancement. GI Tract/Mesentery/Peritoneum: Fat in the wall of the right colon. Anhepatic flexure., Nonspecific differential could include chronicinflammation but nonspecific.. The terminal ileum and appendix are normal.No suspicious mesenteric findings. Pelvic Viscera: Nabothian cysts. The endometrium is normal. Bladder isnormal. Normal ovaries. Lymph Nodes/Vasculature: No lymphadenopathy by CT size criteria. Theaortoiliac vasculature is patent and normal in caliber. Free Fluid:Trace free fluid in the pouch of Agus Musculoskeletal and Body Wall:No aggressive or suspicious findings. IMPRESSION: Fatty wall of the right colon, nonspecific differential could includechronic inflammation. No evidence of malignancy. CRITICAL RESULT: No. COMMUNICATION: Per this written report. Preliminary report signed by Sammy Engle DO on 11/28/2023 4:05 AM By electronically signing this report, I, the attending physician, attestthat I have personally reviewed the images/data for the aboveexamination(s) and agree with the final edited report. Drafted by Sammy Engle DO on 11/28/2023 3:56 AM Final report signed by Joey Sutton MD on 11/28/2023 4:21 AM Ronak Toscano MD IMG CT PROCEDURES Final Res ult * CT Abdomen Pelvis w IV Contrast (11/28/2023 2:52 AM EDT) Anatomical Region Laterality Modality Abdomen, Pelvis Computed Tomogra phy Impressions 11/28/2023 4:21 AM EDT Fatty wall of the right colon, nonspecific differential could include chronic inflammation. No evidence of malignancy. CRITICAL RESULT: ?? No. COMMUNICATION: Per this written report. Preliminary report signed by Sammy Engle DO on 11/28/2023 4:05 AM By electronically signing this report, I, the attending physician, attest that I have personally reviewed the images/data for the above examination(s) and agree with the final edited report. Drafted by Sammy Engle DO on 11/28/2023 3:56 AM Final report signed by Joey Sutton MD on 11/28/2023 4:21 AM Narrative 11/28/2023 4:21 AM EDT CLINICAL INDICATION: mass TECHNIQUE: Multiple axial CT images were obtained from thoracic inlet through pubic symphysis following administration of IV contrast, Omnipaque 300, 100 mL. Reformatted images of the abdomen and pelvis in the coronal and sagittal planes were generated from the axial data set to facilitate diagnostic accuracy. Total DLP (Dose-Length Product): 2951 mGy*cm. Please note: The reported value represents the total of one or more individual components during the CT acquisition on this date and at this time, and as such, the same value may appear in more than one CT report depending on the interpreting/reporting physicians. COMPARISON: None. FINDINGS: Chest: Lymph Nodes and Mediastinum: Minimal residual thymus. Normal caliber of the great vessels. No mediastinal adenopathy. Cardiovascular: The heart is normal in caliber. Thoracic great vessels are patent. Lungs and Pleura: No suspicious lung nodules to suggest metastatic disease. No pleural effusions or suspicious thickening. Old calcified granuloma. Musculoskeletal and Body [...] of the right colon. An hepatic flexure., Nonspecific differential could include chronic inflammation but nonspecific.. The [...] and Body Wall:No aggressive or suspicious findings. Procedure Note Joey Sutton MD - 11/28/2023 CLINICAL INDICATION: mass TECHNIQUE: Multiple axial CT images were obtained from thoracic inlet through pubicsymphysis following administration of IV contrast, Omnipaque 300, 100 mL.Reformatted images of the abdomen and pelvis in the coronal and sagittalplanes were generated from the axial data set to facilitate diagnosticaccuracy. Total DLP (Dose-Length Product): 2951 mGy*cm. Please note: The reportedvalue represents the total of one or more individual components during theCT acquisition on this date and at this time, and as such, the same valuemay appear in more than one CT report depending on theinterpreting/reporting physicians. COMPARISON: None. FINDINGS: Chest: Lymph Nodes and Mediastinum: Minimal residual thymus. Normal caliber ofthe great vessels. No mediastinal adenopathy. Cardiovascular: The heart is normal in caliber. Thoracic great vessels arepatent. Lungs and Pleura: No suspicious lung nodules to suggest metastaticdisease. No pleural effusions or suspicious thickening. Old calcifiedgranuloma. Musculoskeletal and Body Wall: Tiny hypoattenuating foci in the manubriumare indeterminate, but probably benign. Abdomen/Pelvis: Solid Abdominal Organs: Focal fatty deposition along the falciformligament. The portal vein is patent. The gallbladder is contracted. Bileducts are normal. Normal size spleen. Pancreas is normal. No adrenalnodules. Symmetric renal enhancement. GI Tract/Mesentery/Peritoneum: Fat in the wall of the right colon. Anhepatic flexure., Nonspecific differential could include chronicinflammation but nonspecific.. The terminal ileum and appendix are normal.No suspicious mesenteric findings. Pelvic Viscera: Nabothian cysts. The endometrium is normal. Bladder isnormal. Normal ovaries. Lymph Nodes/Vasculature: No lymphadenopathy by CT size criteria. Theaortoiliac vasculature is patent and normal in caliber. Free Fluid:Trace free fluid in the pouch of Agus Musculoskeletal and Body Wall:No aggressive or suspicious findings. IMPRESSION: Fatty wall of the right colon, nonspecific differential could includechronic inflammation. No evidence of malignancy. CRITICAL RESULT: No. COMMUNICATION: Per this written report. Preliminary report signed by Sammy Engle DO on 11/28/2023 4:05 AM By electronically signing this report, I, the attending physician, anyat I have personally reviewed the images/data for the aboveexamination(s) and agree with the final edited report. Drafted by Sammy Engle DO on 11/28/2023 3:56 AM Final report signed by Joey Sutton MD on 11/28/2023 4:21 AM us Ronak Toscano MD IMG CT PROCEDURES Final Res ult * CT Head wo IV Contrast (11/28/2023 2:52 AM EDT) Anatomical Region Laterality Modality Head Computed Tomogra phy Impressions 11/28/2023 3:43 AM EDT No acute intracranial abnormality. CRITICAL RESULT: ?? No. COMMUNICATION: Per this written report. Drafted by Joey Sutton MD on 11/28/2023 3:42 AM Final report signed by Joey Sutton MD on 11/28/2023 3:43 AM Narrative 11/28/2023 3:43 AM EDT CLINICAL INDICATION: Headache, sudden, severe TECHNIQUE: Routine contiguous axial CT images of the head were obtained without contrast administration. Total DLP (Dose-Length Product): 2950.91 mGy.cm. Please note: The reported value represents the total of one or more individual components during the CT acquisition on this date and at this time, and as such, the same value may appear in more than one CT report depending on the interpreting/reporting physicians. COMPARISON: None. FINDINGS: No acute intracranial abnormality. No evidence of acute hemorrhage or ischemia. No mass, mass effect, or midline displacement of structures. Normal ventricular size and configuration. Patent basal cisterns. No displaced or depressed calvarial fractures. The visualized paranasal sinuses and mastoid air cells are clear. Procedure Note Joey Sutton MD - 11/28/2023 CLINICAL INDICATION: Headache, sudden, severe TECHNIQUE: Routine contiguous axial CT images of the head were obtained withoutcontrast administration. Total DLP (Dose-Length Product): 2950.91 mGy.cm. Please note: The reportedvalue represents the total of one or more individual components during theCT acquisition on this date and at this time, and as such, the same valuemay appear in more than one CT report depending on theinterpreting/reporting physicians. COMPARISON: None. FINDINGS: No acute intracranial abnormality. No evidence of acute hemorrhage orischemia. No mass, mass effect, or midline displacement of structures.Normal ventricular size and configuration. Patent basal cisterns. No displaced or depressed calvarial fractures. The visualized paranasalsinuses and mastoid air cells are clear. IMPRESSION: No acute intracranial abnormality. CRITICAL RESULT: No. COMMUNICATION: Per this written report. Drafted by Joey Sutton MD on 11/28/2023 3:42 AM Final report signed by Joey Sutton MD on 11/28/2023 3:43 AM Ronak Toscano MD IMG CT PROCEDURES Final Res ult * SARS CoV-2/COVID-19 by PCR - Rapid (11/28/2023 1:36 AM EDT) [facility] SARS CoV-2/COVID-1 9 RNA PCR Result Not Detected Not Detected 11/28/2023 2:36 AM EDT [facility] Swab Nasopharyngeal structure / Unknown Non-blood Collection / Unknown 11/28/2023 1:36 AM EDT 11/28/2023 1:53 AM EDT Narrative [facility] - 11/28/2023 2:36 AM EDT This test is FDA approved for use with nasopharyngeal specimens in [employer] (VTM). This test is used for clinical purposes. It should not be regarded as investigational or for research. This laboratory is certified under the Clinical Laboratory improvement Amendments of 1988 (CLIA-88 as qualified to perform high complexity clinical laboratory testing. This test was performed on the Xpert Xpress SARS CoV-2 Plus assay test, a PCR- based method. Negative results should be considered presumptive and do not preclude current or future infection obtained through community transmission or other exposures. Negative results must be considered in the context of an individual's recent exposures, history, presence of clinical signs and symptoms consistent with COVID-19. Ronak Toscano MD LAB MICROBIOLOGY - GENERAL ORDERABLES Final Result Performing Organization Address City/State/[facility] Co de Phone Number [facility] [address] [place] [phone] * Nasopharyngeal Respiratory Panel (11/28/2023 1:36 AM EDT) [facility] Nasopharyngeal Respiratory PCR Interpretation Not Detected for all analytes Not Detected for all analytes 11/28/2023 3:42 AM EDT [facility] Swab Nasopharyngeal structure / Unknown Non-blood Collection / Unknown 11/28/2023 1:36 AM EDT 11/28/2023 1:53 AM EDT Narrative [facility] - 11/28/2023 3:42 AM EDT This assay can detect Adenovirus, Coronavirus, Human Metapneumovirus, Human Rhino/Enterovirus, Influenza A, Influenza A H1, Influenza A H1 2009, Influenza A H3, Influenza B, Parainfluenza Virus 1, Parainfluenza Virus 2, Parainfluenza Virus 3, Parainfluenza Virus 4, Respiratory Syncytial Virus A, Respiratory Syncytial Virus B, Chlamydia pneumoniae, and Mycoplasma pneumoniae. Note: This assay does NOT detect SARS/CoV, novel Coronavirus 2019-nCoV, Bordetella pertussis or Bordetella parapertussis. Nasopharyngeal Respiratory PCR Panel is performed using the [employer] instrument. ??This test is FDA approved for use with Nasopharyngeal swabs only. This test is used for clinical purposes. It should not be regarded as investigational or for research. The [facility] Clinical Microbiology Laboratory is certified under the Clinical Laboratory Improvement Amendments of 1988 (CLIA-88) as qualified to perform high complexity clinical laboratory testing. Ronak Toscano MD LAB MICROBIOLOGY - GENERAL ORDERABLES Final Result Performing Organization Address City/[facility]/ZIP Co de Phone Number [facility] [address] [place] [address] * ACTH (11/28/2023 1:36 AM EDT) ACTH 11.2 7.2 - 63 pg/mL 11/28/2023 2:51 AM EDT [facility] Blood Venous blood specimen / Unknown Venipuncture / Unknown 11/28/2023 1:36 AM EDT 11/28/2023 1:48 AM EDT Ronak Toscano MD LAB BLOOD ORDERABLES Final Result Performing Organization Address City/[facility]/ZIP Co de Phone Number [facility] [address] [place] [address] * Cortisol (11/28/2023 1:36 AM EDT) Cortisol 2.60 Before 10am: 3.7 - 19.4. After 5pm: 2.9 - 17.3 ug/dL 11/28/2023 3:29 AM EDT [facility] Comment:Testing performed on [employer], standardized against MCC Reference Standard concentration values assigned by LC-MS/MS and verified by BCR 192 and BCR 193 certified reference materials. Blood Venous blood specimen / Unknown Venipuncture / Unknown 11/28/2023 1:36 AM EDT 11/28/2023 1:45 AM EDT Ronak Toscano MD LAB REF LAB BLOOD AND FLUID ORD Final Result Performing Organization Address City/[facility]/ZIP Co de Phone Number [facility] [address] [place] [address] * hCG qualitative (11/28/2023 1:36 AM EDT) [facility] Test Negative Negative 11/28/2023 2:21 AM EDT [facility] Blood Venous blood specimen / Unknown Venipuncture / Unknown 11/28/2023 1:36 AM EDT 11/28/2023 1:40 AM EDT Narrative [facility] - 11/28/2023 2:21 AM EDT Reference Range: Males and non- females: Negative. us Ronak Toscano MD LAB BLOOD ORDERABLES Final Result Performing Organization Address [facility] Co de Phone Number [facility] [address] [place] [address] * ED HIV 1/2 Antibody/Antigen Screen w/Reflex to HIV 1/2 Differentiation (11/28/2023 1:36 AM EDT) [facility] HIV 1 & 2 Antibody/Antigen Screen Non Reactive Non Reactive 11/28/2023 3:13 AM EDT [facility] Comment:Screening for HIV 1 & 2 antibodies, and P24 antigen is NONREACTIVE. No confirmatory testing is required. Blood Venous blood specimen / Unknown Venipuncture / Unknown 11/28/2023 1:36 AM EDT 11/28/2023 1:44 AM EDT us Ronak Toscano MD LAB BLOOD ORDERABLES Final Result Performing Organization Address City/[facility]/ZIP Co de Phone Number [facility] [address] [place] [address] * Hepatitis C Antibody - ED (11/28/2023 1:36 AM EDT) [facility] Hepatitis C Antibody Negative Negative 11/28/2023 3:13 AM EDT [facility] Blood Venous blood specimen / Unknown Venipuncture / Unknown 11/28/2023 1:36 AM EDT 11/28/2023 1:44 AM EDT Ronak Toscano MD LAB BLOOD ORDERABLES Final Result Performing Organization Address [facility] de Phone Number [facility] [address] [place] [address] * Free T4, Plasma (11/28/2023 1:36 AM EDT) Free T4, Plasma 1.1 0.8 - 1.7 ng/dL 11/28/2023 3:20 AM EDT [facility] Blood Venous blood specimen / Unknown Venipuncture / Unknown 11/28/2023 1:36 AM EDT 11/28/2023 1:40 AM EDT Narrative [facility] - 11/28/2023 3:20 AM EDT Free T4 Trimester Specific Ranges 1st Trimester ??0.9??- 1.50 ng/dL 2nd Trimester ??0.7 - 1.40 ng/dL 3rd Trimester ??0.7??- 1.24 ng/dL Ronak Toscano MD LAB BLOOD ORDERABLES Final Result Performing Organization Address [facility] de Phone Number [facility] [address] [place] [address] * Thyroid Stimulating Hormone, Plasma (11/28/2023 1:36 AM EDT) Thyroid Stimulating Hormone, Plasma 3.71 0.40 - 4.20 uIU/mL 11/28/2023 2:21 AM EDT [facility] Blood Venous blood specimen / Unknown Venipuncture / Unknown 11/28/2023 1:36 AM EDT 11/28/2023 1:40 AM EDT [facility]ative [facility] - 11/28/2023 2:21 AM EDT Trimester Specific Ranges ?TSH (??IU/mL) 1st Trimester ??0.1 ??- 3.0 2nd Trimester ??0.19 - 4.06 3rd Trimester ??0.3 ??- 3.7 us Ronak Toscano MD LAB BLOOD ORDERABLES Final Result Performing Organization Address [facility] Co de Phone Number [facility] [address] [place] [address] * BNP (11/28/2023 1:36 AM EDT) N-Terminal, PROBNP, Plasma 73 0 - 449 pg/mL 11/28/2023 2:01 AM EDT [facility] Blood Venous blood specimen / Unknown Venipuncture / Unknown 11/28/2023 1:36 AM EDT 11/28/2023 1:40 AM EDT us Ronak Toscano MD LAB BLOOD ORDERABLES Final Result Performing Organization Address [facility] de Phone Number [facility] [address] [place] [address] * Troponin now and 120 min (11/28/2023 1:36 AM EDT) Troponin T, High Sensitivity, 0 Hour <6 <14 ng/L 11/28/2023 2:21 AM EDT [facility] Blood Venous blood specimen / Unknown Venipuncture / Unknown 11/28/2023 1:36 AM EDT 11/28/2023 1:40 AM EDT us Ronak Toscano MD LAB BLOOD ORDERABLES Final Result Performing Organization Address [facility] de Phone Number [facility] [address] [place] [address] * Lipase (11/28/2023 1:36 AM EDT) Lipase, Plasma 21 19 - 63 U/L 11/28/2023 2:01 AM EDT [facility] Blood Venous blood specimen / Unknown Venipuncture / Unknown 11/28/2023 1:36 AM EDT 11/28/2023 1:40 AM EDT us Ronak Toscano MD LAB BLOOD ORDERABLES Final Result Performing Organization Address City/[facility]/ZIP Co de Phone Number [facility] [address] [place] [address] * (ABNORMAL) Phosphorus (11/28/2023 1:36 AM EDT) Phosphorus, Plasma 4.8(H) 2.5 - 4.5 mg/dL 11/28/2023 2:01 AM EDT [facility] Blood Venous blood specimen / Unknown Venipuncture / Unknown 11/28/2023 1:36 AM EDT 11/28/2023 1:40 AM EDT Ronak Toscano MD LAB BLOOD ORDERABLES Final Result Performing Organization Address [facility] Co de Phone Number [facility] [address] [place] [address] * Magnesium (11/28/2023 1:36 AM EDT) Magnesium, Plasma 1.9 1.9 - 2.4 mg/dL 11/28/2023 2:01 AM EDT [facility] Blood Venous blood specimen / Unknown Venipuncture / Unknown 11/28/2023 1:36 AM EDT 11/28/2023 1:40 AM EDT Ronak Toscano MD LAB BLOOD ORDERABLES Final Result Performing Organization Address City/[facility] Co de Phone Number [facility] [address] [place] [address] * (ABNORMAL) CMP (11/28/2023 1:36 AM EDT) Glucose, Plasma 100(H) 74 - 99 mg/dL 11/28/2023 2:01 AM EDT [facility] BUN, Plasma 12 7 - 21 mg/dL 11/28/2023 2:01 AM EDT [facility] Creatinine, Plasma 0.77 0.60 - 1.10 mg/dL 11/28/2023 2:01 AM EDT [facility] BUN/Creatinine Ratio 16 11/28/2023 2:01 AM EDT [facility] Sodium, Plasma 137 136 - 145 mmol/L 11/28/2023 2:01 AM EDT [facility] Potassium, Plasma 3.8 3.7 - 4.8 mmol/L 11/28/2023 2:01 AM EDT [facility] Chloride, Plasma 104 97 - 107 mmol/L 11/28/2023 2:01 AM EDT [facility] CO2, Plasma 22 22 - 29 mmol/L 11/28/2023 2:01 AM EDT [facility] Anion Gap 11 6 - 16 mmol/L 11/28/2023 2:01 AM EDT [facility] Total Calcium, Plasma 10.3(H) 8.9 - 10.2 mg/dL 11/28/2023 2:01 AM EDT [facility] Total Protein 7.7 6.3 - 7.9 g/dL 11/28/2023 2:01 AM EDT [facility] Albumin, Plasma 4.3 3.5 - 5.2 g/dL 11/28/2023 2:01 AM EDT [facility] AST, Plasma 23 10 - 35 U/L 11/28/2023 2:01 AM EDT [facility] ALT, Plasma 18 10 - 35 U/L 11/28/2023 2:01 AM EDT [facility] Alkaline Phosphatase, Plasma 74 35 - 104 U/L 11/28/2023 2:01 AM EDT [facility] Total Bilirubin, Plasma 0.4 0.2 - 1.1 mg/dL 11/28/2023 2:01 AM EDT [facility] eGFRcr 107.2 mL/min/1.7 3m*2 11/28/2023 2:01 AM EDT [facility] Comment:Reported eGFRcr in m L/min/1.73m2 is based the CKD-EPI 2020 equation that does not use a race coefficient. Blood Venous blood specimen / Unknown Venipuncture / Unknown 11/28/2023 1:36 AM EDT 11/28/2023 1:40 AM EDT us Ronak Toscano MD LAB BLOOD ORDERABLES Final Result [facility] [address] [place] [address] * (ABNORMAL) CBC w/diff (11/28/2023 1:36 AM EDT) [facility] WBC Count 10.29 3.70 - 10.30 10*3/uL LAB HEMATOLOGY METHOD 11/28/2023 1:42 AM EDT [facility] RBC Count 4.82 3.90 - 5.20 10*6/uL LAB HEMATOLOGY METHOD 11/28/2023 1:42 AM EDT [facility] HGB 12.2 11.2 - 15.7 g/dL LAB HEMATOLOGY METHOD 11/28/2023 1:42 AM EDT [facility] HCT 38.2 34.0 - 45.0 % LAB HEMATOLOGY METHOD 11/28/2023 1:42 AM EDT [facility] Platelet Count 263 155 - 369 10*3/uL LAB HEMATOLOGY METHOD 11/28/2023 1:42 AM EDT [facility] MCV 79 79 - 98 fL LAB HEMATOLOGY METHOD 11/28/2023 1:42 AM EDT [facility] MCH 25.3(L) 26.0 - 32.0 pg LAB HEMATOLOGY METHOD 11/28/2023 1:42 AM EDT [facility] MCHC 31.9 30.7 - 35.5 g/dL LAB HEMATOLOGY METHOD 11/28/2023 1:42 AM EDT [facility] RDW 14.0 11.5 - 14.5 % LAB HEMATOLOGY METHOD 11/28/2023 1:42 AM EDT [facility] MPV 10.6 8.8 - 12.5 fL LAB HEMATOLOGY METHOD 11/28/2023 1:42 AM EDT [facility] nRBC 0.0 <=0.0 per 100 WBCs LAB HEMATOLOGY METHOD 11/28/2023 1:42 AM EDT [facility] Differential Type Automated LAB HEMATOLOGY METHOD 11/28/2023 1:42 AM EDT [facility] Neutrophils % 72.0 % LAB HEMATOLOGY METHOD 11/28/2023 1:42 AM EDT [facility] Lymphocytes % 19.0 % LAB HEMATOLOGY METHOD 11/28/2023 1:42 AM EDT [facility] Monocytes % 7.0 % LAB HEMATOLOGY METHOD 11/28/2023 1:42 AM EDT [facility] Eosinophils % 2.0 % LAB HEMATOLOGY METHOD 11/28/2023 1:42 AM EDT [facility] Basophils % 0.0 % LAB HEMATOLOGY METHOD 11/28/2023 1:42 AM EDT [facility] Immature Granulocytes % 0.0 % LAB HEMATOLOGY METHOD 11/28/2023 1:42 AM EDT [facility] Neutrophils Absolute 7.42(H) 1.60 - 6.10 10*3/uL LAB HEMATOLOGY METHOD 11/28/2023 1:42 AM EDT [facility] Lymphocytes Absolute 1.92 1.20 - 3.90 10*3/uL LAB HEMATOLOGY METHOD 11/28/2023 1:42 AM EDT [facility] Monocytes Absolute 0.70 0.30 - 0.90 10*3/uL LAB HEMATOLOGY METHOD 11/28/2023 1:42 AM EDT [facility] Eosinophils Absolute 0.18 0.00 - 0.50 10*3/uL LAB HEMATOLOGY METHOD 11/28/2023 1:42 AM EDT [facility] Basophils Absolute 0.04 0.00 - 0.10 10*3/uL LAB HEMATOLOGY METHOD 11/28/2023 1:42 AM EDT [facility] Immature Granulocytes Absolute 0.03 0.00 - 0.06 10*3/uL LAB HEMATOLOGY METHOD 11/28/2023 1:42 AM EDT [facility] Blood Venous blood specimen / Unknown Venipuncture / Unknown 11/28/2023 1:36 AM EDT 11/28/2023 1:40 AM EDT Narrative [facility] - 11/28/2023 1:42 AM EDT Therapeutic decision making should be based on absolute values, rather than percentages. Ronak Toscano MD LAB BLOOD ORDERABLES Final Result Performing Organization Address City/State/[facility] Co de Phone Number [facility] [address] [place] [phone] * ECG Adult (11/28/2023 12:12 AM EDT) EKG DIAGNOSIS CLASS Normal MUSE ECG Ventricular Rate 78 BPM MUSE ECG Atrial Rate 78 BPM MUSE ECG OK Interval 142 ms MUSE ECG QRSD Interval 76 ms MUSE ECG QT Interval 368 ms MUSE ECG QTC Interval 419 ms MUSE ECG P [place] 65 degrees MUSE ECG R [place] 69 degrees MUSE ECG T Wave [place] 59 degrees MUSE ECG Diagnosis Normal sinus rhythm MUSE ECG Diagnosis Normal ECG MUSE ECG Diagnosis Confirmed by Jayson Rachel ([id number]) on 11/28/2023 9:31:54 AM MUSE ECG 11/28/2023 12:1 2 AM EDT 11/28/2023 9:31 AM EDT us Ronak Toscano MD ECG ORDERABLES Final Resul t MUSE ECG documented in this encounter Visit Diagnoses Diagnosis Abnormal cortisol level- Primary Secondary hypertension Other secondary hypertension, unspecified documented in this encounter Administered Medications Inactive Administered Medications - up to 3 most recent administrations Medication Order MAR Action Action Date Dose Rate Site acetaminophen (Tylenol) tablet 1,000 mg 1,000 mg, Oral, Once, 1 dose, On 11/28/23 at 0115, Routine Given 11/28/2023 1:31 AM EDT 1,000 mg iohexol (OMNIPaque) 300 MG/ML injection 100 mL 100 mL, Intravenous, Once in imaging, 1 dose, Starting on 11/28/23 at 0233, Until Tu11/28/23 at 0250, Routine, Imaging Protocol Orders Given 11/28/2023 2:50 AM EDT 100 mL documented in this encounter Active and Recently Administered Medications Times are shown in EDT. Scheduled Medication Order 11/26/2023 11/27/2023 11/28/2023 acetaminophen (Tylenol) tablet 1,000 mg (COMPLETED) 1,000 mg, Oral, Once, 1 dose, On 11/28/23 at 0115, Routine 0131 (Given - Provid er: Pura Morse RN) iohexol (OMNIPaque) 300 MG/ML injection 100 mL (COMPLETED) 100 mL, Intravenous, Once in imaging, 1 dose, Starting on 11/28/23 at 0233, Until 11/28/23 at 0250, Routine, Imaging Protocol Orders 0250 (Given - Provid er: Jose Garcia) documented in this encounter Additional Health Concerns Infection Onset Date Last Indicated Resolved Time COVID-19 Rule-Out 11/28/2023 11/28/2023 11/28/2023 1:29 AM EDT Respiratory Rule-Out 11/28/2023 11/28/2023 024 3:42 AM EDT documented as of this encounter Care Teams Animal Hospital Clerk Relationship Specialty Start Date End Date Clarisa Adams APRN [address] [place] [address] PCP - General Emd Teacher 07/19/23 documented as of this encounter
--- OUTSIDE RECORDS SUMMARY | 2024-03-05 23:51 | XMS_ITS | Encounter Summary ---
Author Organization [facility] Address [address] [place] [address] Care Team Providers Care Train Control Technician Name Role Phone Clarisa Adams APRN Primary Care Provider Encounter Details Date Type Department Care Team (Latest Contact Info) Description 12/27/2023 Travel Social History Tobacco Use Types Packs/Day [...] Info) Description 04/05/2024 9:20 AM EST Consult [facility] [address] [place] [address] Shraddha Almaguer PA [address] [place] [address] documented as of this encounter Visit Diagnoses Not on filedocumented in this encounter Care Teams Train Control Technician Relationship Specialty Start Date End Date Clarisa Adams APRN [address] [place], [place] [id number] PCP - General Automatic Pattern Edger 07/19/23 documented as of this encounter
--- OUTSIDE RECORDS SUMMARY | 2024-03-05 23:51 | XMS_ITS | Encounter Summary ---
Author Organization [facility] Address [address] [place] [address] Care Team Providers Care Tax Services Specialist Name Role Phone Clarisa Adams APRN Primary Care Provider Encounter Details Date Type Department Care Team (Latest Contact Info) Description 01/23/2024 Travel Social History Tobacco Use Types Packs/Day [...] Info) Description 04/05/2024 9:20 AM EST Consult [facility] [address] [place] [address] Shraddha Almaguer PA [address] [place] [address] documented as of this encounter Visit Diagnoses Not on filedocumented in this encounter Additional Health Concerns Assessment Noted Time A Body Mass Index follow-up plan has been documented for the patient 01/06/2024 1:05 AM EDT documented as of this encounter Care Teams Tax Services Specialist Relationship Specialty Start Date End Date Clarisa Adams APRN [address] [place] [address] PCP - General Spool Maker 07/19/23 documented as of this encounter
--- OUTSIDE RECORDS SUMMARY | 2024-03-05 23:51 | XMS_ITS | Clinical Summary ---
Author Organization [facility] Address [address] [id number] Care Team Providers Care Harnessmaker Name Role Phone Clarisa Adams APRN Primary Care Provider [phone] Allergies Active Allergy Reactions Criticality Noted Date Comments Doxycycline Other - please docum ent in the comment field Low 11/28/2023 Endorses allergy to drop when child, made inside of ear raw Medications cholecalciferol (Vitamin D-3) 250 MCG (17627 UT) capsule Take 1 capsule (10,000 Units) by mouth 1 (one) time each day. Active Active Problems Problem Noted Date Diagnosed Date Iron deficiency 01/25/2024 Low serum vitamin B12 01/25/2024 Encounters Date Type Department Care Team Description 01/25/2024 10:15 AM EDT Office Visit [facility] [address] [place] [address] Elaine Yancey MD Iron deficiency (Primary Dx); Low serum vitamin B12 01/25/2024 Travel 01/23/2024 Travel 12/29/2023 9:50 AM EDT Clinical Support [facility] [address] [place] [address] Abnormal cortisol level 12/29/2023 8:40 AM EDT Consult [facility] Endocrinology [address], [address] [place] [address] (1), Marc Brady Fellow Erlinda Nunez MBBS Class 3 severe obesity due to excess calories without serious comorbidity with body mass index (BMI) of 40.0 to 44.9 in adult (CMS/HCC) (Primary Dx); Abnormal cortisol level 12/29/2023 Travel 12/27/2023 Travel from Last 3 Months Family History Medical History Relation Name Comments Cancer Father Rafy Chemotherapy Father Rafy Radiation Therapy Father Rafy Cancer Maternal Grandmother Dot Chemotherapy Maternal Grandmother Dot Thyroid disease Maternal Grandmother Dot Relation Name Status Comments Father Rafy Maternal Grandmother Dot Social History Tobacco Use Types Packs/Day Years Used Date Smoking Tobacco: Never Smokeless Tobacco: Former Chew Tobacco Cessation:Counseling Given: Not Answered Comments:Chew Alcohol Use Standard Drinks/Week Comments Never 0 (1 standard drink = 0.6 oz pur e alcohol) Comments Unknown Sex and Gender Information Value Date Recorded Sex Assigned at Female 04/05/2022 12:00 PM EST Legal Sex Female 11:04 AM EST Gender Identity Female 04/05/2022 12:00 PM EST Sexual Orientation Straight 04/05/2022 12 :00 PM EST Last Filed Vital Signs Vital Sign Reading Time Taken Comments Blood Pressure 146/84 01/25/2024 10:02 AM EDT Pulse 69 01/25/2024 10:02 AM EDT Temperature 36.6 ??C (97.8 ??F) 01/25/2024 10:02 AM E DT Respiratory Rate 18 11/28/2023 4:43 AM EDT Oxygen Saturation 100% 01/25/2024 10:02 AM EDT Inhaled Oxygen Concentration - - Weight 121 kg (265 lb 10.5 oz) 01/25/2024 10:02 AM EDT Height 165.1 cm (5' 5 ) 01/25/2024 10:02 AM EDT Body Mass Index 44.21 01/25/2024 10:02 AM EDT Plan of Treatment Upcoming Encounters Date Type Department Care Team (Late st Contact Info) Description 04/05/2024 9:20 AM EST Consult [facility] End[facility] [address] [place] [address] Shraddha Almaguer PA [address] [facility] [address] [place] [address] Health Maintenance Due Date Last Done Comments [facility]-Depression Screening 1995 [facility]-/Child/Adol SDOH Screenings 1994 [facility]-Varicella Vaccines (1 of 2 - 13+ 2-dose series) 09/19/2007 [facility]- SDOH Screenings 2012 [facility]-Adult SDOH Screenings 2012 [facility]-Hepatitis B Vaccines (1 of 3 - 19+ 3-dose series) 2013 [facility]-Pap Smear 09/19/2015 [id number] Vaccine (2 - 2023- season) 2023 10/04/2021 [facility]-Influenza Vaccine (#1) 2023 01/05/2020 [facility]-DTaP,Tdap,and Td Vaccines (5 - Td or Tdap) 03/17/2028 03/17/2018, 11/08/2012, 11/04/2008, Additional history exists [facility]-Zoster Vaccines (1 of 2) 2044 [facility]-RSV Vaccine: 60+ Years or (1 - 1-dose 75+ series) 2069 [facility]-HPV Vaccines Completed 09/10/2009, , 11/04/2008 [facility]-HIV Screening Completed 11/28/2023, 11/28/2023 [facility]-Hepatitis C Screening Completed 11/28/2023 [facility]-Obesity Intervention Completed 12/29/2023, 06/2023 [facility]-HIB Vaccines Aged Out No longer e ligible based on patient's age to complete this topic [facility]-Hepatitis A Vaccines Aged Out No longer eligible based on patient's age to complete this topic [facility]-IPV Vaccines Aged Out No longer e ligible based on patient's age to complete this topic [facility]-Pneumococcal Vaccine: Pediatrics (0 to 5 Years) and At-Risk Patients (6 to 64 Years) Aged Out No longer eligible based on patient's age to complete this topic [facility]-Rotavirus Vaccines Aged Out No lo nger eligible based on patient's age to complete this topic Procedures Procedure Name Priority Date/Time Associated Diagnosis Comments CORTISOL Routine 12/29/2023 9:57 AM EDT Abnormal cortisol level ADRENOCORTICOTROPIC HORMONE (ACTH) Routine 12/29/2023 9:57 AM EDT Abnormal cortisol level DEHYDROEPIANDROSTERONE SULFATE Routine 12/29/2023 9:57 AM EDT Abnormal cortisol level HEPATITIS C ANTIBODY - ED W/REFLEX TO HCV QUANT PCR STAT 11/28/2023 1:36 AM EDT ED PROTOCOL HIV 1/2 ANTIBODY/ANTIGEN SCREEN W/REFLEX TO HIV 1/2 ANTIBODY DIFFERENTIATION STAT 11/28/2023 1:36 AM EDT from Last 3 Months or Most Recently Relevant to Health Maintenance Results * DHEA-sulfate (12/29/2023 9:57 AM EDT) DHEAS 107 98.8 - 340 ??g/dL 12/29/2023 3:46 PM EDT [facility] Blood Venous blood specimen / Unknown Venipuncture / Unknown 12/29/2023 9:57 AM EDT 12/29/2023 9:58 AM EDT Narrative [facility] - 12/29/2023 3:46 PM EDT DHEAS Lefty Stages, Female: Lefty Stage I: 7 - 126 ug/dL Lefty Stage II: 13 - 241 ug/dL Lefty Stage III: 32 - 446 ug/dL Lefty Stage IV and V: 65 - 371 ug/dL us Marc Brady MD LAB BLOOD ORDERABLES Final Resu lt [facility] [address] [place] [address] * ACTH (12/29/2023 9:57 AM EDT) ACTH 22.2 7.2 - 63 pg/mL 12/29/2023 2:23 PM EDT [facility] Blood Venous blood specimen / Unknown Venipuncture / Unknown 12/29/2023 9:57 AM EDT 12/29/2023 9:58 AM EDT Marc Brady MD LAB BLOOD ORDERABLES Final Resu lt Performing Organization Address [facility] Co de Phone Number [facility] [address] [place] [address] * Cortisol (12/29/2023 9:57 AM EDT) [facility] Cortisol 5.00 Before 10am: 3.7 - 19.4. After 5pm: 2.9 - 17.3 ug/dL 12/29/2023 1:54 PM EDT [facility] Comment:Testing performed on [address] [employer] Fructose Loader, standardized against CUSTODIAL Reference Standard concentration values assigned by LC-MS/MS and verified by BCR 192 and BCR 193 certified reference materials. Blood Venous blood specimen / Unknown Venipuncture / Unknown 12/29/2023 9:57 AM EDT 12/29/2023 9:58 AM EDT Marc Brady MD LAB REF LAB BLOOD AND FLUID ORD Final Result Performing Organization Address [facility] Co de Phone Number [facility] [address] [place] [address] * Hepatitis C Antibody - ED (11/28/2023 1:36 AM EDT) [facility] Hepatitis C Antibody Negative Negative 11/28/2023 3:13 AM EDT [facility] Blood Venous blood specimen / Unknown Venipuncture / Unknown 11/28/2023 1:36 AM EDT 11/28/2023 1:44 AM EDT Yohan Toscano MD LAB BLOOD ORDERABLES Final Result Performing Organization Address [facility] Co de Phone Number [facility] [address] [place] [address] from Last 3 Months or Most Recently Relevant to Health Maintenance Insurance [facility] MEDICAID Care Teams Harnessmaker Relationship Specialty Start Date End Date Clarisa Adams APRN [address] [place], [place] [id number] PCP - General Lineman Apprentice 07/19/23
--- OUTSIDE RECORDS SUMMARY | 2024-03-05 23:51 | XMS_ITS | Encounter Summary ---
Author Organization Healthcare Address [address] [place] [address] Care Team Providers Care Driver Utility Worker Name Role Phone Clarisa Adams APRN Primary Care Provider [phone] Encounter Details Date Type Department Care Team (Late st Contact Info) Description 01/25/2024 10:15 AM EDT Office Visit [facility] [address] [place] [address] Elaine Yancey MD [address] [place], [place] [id number] Iron deficiency (Primary Dx); Low serum vitamin B12 Social History Tobacco Use Types Packs/Day Years [...] 01/25/2024 10:02 AM E DT Respiratory Rate - - Oxygen Saturation 100% 01/25/2024 10:02 AM EDT Inhaled Oxygen Concentration - - Weight 121 kg (265 lb 10.5 oz) 01/25/2024 10:02 AM EDT Height 165.1 cm (5' 5 ) 01/25/2024 10:02 AM EDT Body Mass Index 44.21 01/25/2024 10:02 AM EDT documented in this encounter Miscellaneous Notes * Progress Notes - Elaine Yancey MD - 01/25/2024 10:15 AM EDT [facility] Division of Hematology and Oncology Hematology/Oncology Consult Note Patient Name: Alana Choi Date of : 1995 28 y.o. Date: 01/25/24 Reason for Consult: Iron-deficiency Primary Service: Rosie Choi APRN Primary Diagnosis: Iron-deficiency Low vitamin B12 Secondary diagnosis: Obesity Polycystic ovary Vitamin-D deficiency History of Present Illness: Alana Choi is a 28 y.o. female with no significant past medical history or comorbidities No significant history of anemia No history of blood transfusion No family history of anemia Patient is a mother for 3 kids and she never require any blood transfusion during her or delivery Patient stated that she was started on oral iron She denies chest pain or shortness breath but she reported fatigue No rectal bleeding No hematemesis or hemoptysis Apparently the patient reported she has had some electrolyte abnormalities and she was hospitalizedbriefly with no clear underlying cause, in November, she presented to ER and she has had blood work that showed normal hemoglobin On December 26, 2023 she had blood work by her primary care provider showed normal hemoglobin actually improving to 12.9, normal iron but low iron saturation at 8%, also vitamin B12 was borderline low below 300 Hematology/Oncology consulted for iron-deficiency Past Medical History: Past Medical History: Diagnosis Date Vitamin D deficiency 12/26/2023 Past Surgical History: Past Surgical History: Procedure Laterality Date SECTION, CLASSIC 03/25/2019 Family History: Family History Problem Relation Name Age of Onset Cancer Father Rafy Chemotherapy Father Rafy Radiation Therapy Father Rafy Cancer Maternal Grandmother Dot Thyroid disease Maternal Grandmother Dot Chemotherapy Maternal Grandmother Dot Social History: Patient lives in [place] Social History Tobacco Use Smoking Status Never Smokeless Tobacco Former Types: Chew Tobacco Comments Chew Social History Substance and Sexual Activity Alcohol Use Never Social History Substance and Sexual Activity Drug Use Never Allergies: Allergies Allergen Reactions Doxycycline Other - please document in the comment field Endorses allergy to drop when child, made inside of ear raw Medications: Current Outpatient Medications: cholecalciferol (Vitamin D-3) 250 MCG (51029 UT) capsule, Take 1 capsule (10,000 Units) by mouth 1 (one) time each day., Disp: , Rfl: Review of Systems: 14 ROS was conducted and is otherwise negative unless noted in HPI. Constitutional: No fever, no chills, night sweats, no weight changes. Reported fatigue HEENT: No hearing loss, no sinus symptoms, no sore throat Eyes: No visual changes Respiratory: No cough, no shortness breath , no hemoptysis Cardiovascular: No chest pain, no palpitation, no edema Gastrointestinal: No abdominal pain or changes in bowel habits, no appetite loss, no rectal bleeding, no hematemesis Urinary: No dysuria, no hematuria Endocrine: No cold or heat intolerance, excessive thirst Neurological: No gross motor focal neurological weakness Psychiatry: No anxiety, no depression Musculoskeletal: No joint pain, no joint swelling Hematological: No bleeding, no excessive bruises, no enlarged lymph nodes Objective Review of Systems - Oncology Wt Readings from Last 2 Encounters: 01/25/24 121 kg (265 lb 10.5 oz) 12/29/23 121 kg (266 lb 5.1 oz) Vital Signs: Visit Vitals BP (!) 146/84 Pulse 69 Temp 36.6 ??C (97.8 ??F) (Temporal) BSA: Estimated body surface area is 2.36 meters squared as calculated from the following: Height as of this encounter: 1.651 m (5' 5 ). Weight as of this encounter: 121 kg (265 lb 10.5 oz). PHYSICAL EXAM Physical Exam General: No acute distress; sitting upright in a chair, speaking in full sentences. Obesity Head: normocephalic, atraumatic Cardiac: S1, S2, regular rate and rhythm Lungs: No respiratory distress, equal bilateral ,no audible wheeze Abdomen: soft, lax, no tender, rebound, no guarding Neuro: AAOx3, no gross focal motor neurological deficits MSK: moving all extremities well Heme: no obvious bruising, no pallor, no bulky enlarged lymph nodes Psych: appropriate mood & affect Lab Findings: Lab Results Component Value Date WBC 10.29 11/28/2023 HGB 12.2 11/28/2023 HCT 38.2 11/28/2023 MCV 79 11/28/2023 PLT 263 11/28/2023 Lab Results Component Value Date GLUCOSE 100 (H) 11/28/2023 CALCIUM 10.3 (H) 11/28/2023 NA 137 11/28/2023 K 3.8 11/28/2023 CO2 22 11/28/2023 CL 104 11/28/2023 BUN 12 11/28/2023 CREATININE 0.77 11/28/2023 Lab Results Component Value Date ALT 18 11/28/2023 AST 23 11/28/2023 ALKPHOS 74 11/28/2023 BILITOT 0.4 11/28/2023 Imaging: No imaging films for this visit Assessment and Plan: Diagnoses and all orders for this visit: Iron deficiency Low serum vitamin B12 Assessment: Iron-deficiency with normal hemoglobin/hematocrit and no anemia Low serum vitamin B12 Recommendation: Today, I reviewed available medical records, labs and obtained detailed H&P. I have lengthy discussion with the patient about her diagnosis, labs finding, workup plan and options of care Discussed with the patient that I reviewed her labs from primary care provider and her blood work which was done at in November, that showed normal hemoglobin with no cytopenia or anemia On November 28, 2023 her hemoglobin was 12.2 with normal hematocrit Blood work from primary care provider on December 26, 2023 showed normal hemoglobin of 12.9/hematocrit 41.1 however her iron saturation was 8% and total iron was 30, the total iron was within normal with iron saturation is low Also vitamin B12 was borderline low I discussed with the patient that there is no evidence of anemia on 2 sets of labs the only thing Isee low iron saturation and borderline low vitamin B12 Discussed with the patient that I would recommend oral supplement to improve her iron store and vitamin B12 I recommended that she undergo GI evaluation to rule out malabsorption or GI blood loss which should be coordinated and done through primary care provider. Also her CT scan in November showed colonic changes, patient stated that she discussed that with her primary care and colonoscopy was recommended, she is awaiting for the referral No indication to follow up with Hematology Clinic since no evidence of anemia Patient to return to primary care and return here as needed Follow up if symptoms worsen or fail to improve. I answered all their questions, they verbalized and in agreement. Thank you for allowing us to participate in the care of this patient. Recommendations were communicated to the primary service. Please call with additional questions or concerns. Elaine Yancey MD Medical Oncology/Hematology documented in this encounter Plan of Treatment Upcoming Encounters Date Type Department Care Team (Late st Contact Info) Description 04/05/2024 9:20 AM EST Consult [facility] Endocrinology [address], [address] [place] [id number] Shraddha Almaguer PA [address] [place] [address] documented as of this encounter Visit Diagnoses Diagnosis Iron deficiency- Primary Disorders of iron metabolism Low serum vitamin B12 documented in this encounter Additional Health Concerns Assessment Noted Time A Body Mass Index follow-up plan has been documented for the patient 01/06/2024 1:05 AM EDT documented as of this encounter Care Teams Driver Utility Worker Relationship Specialty Start Date End Date Clarisa Adams APRN [address] [place] [address] PCP - General B Operator 07/19/23 documented as of this encounter
--- OUTSIDE RECORDS SUMMARY | 2024-03-05 23:51 | XMS_ITS | Encounter Summary ---
Author Organization [facility] Address [address] [place] [address] Care Team Providers Care Transplanter Orchid Name Role Phone Clarisa Adams APRN Primary Care Provider Encounter Details Date Type Department Care Team (Latest Contact Info) Description 01/25/2024 Travel Social History Tobacco Use Types Packs/Day Years Used Date Smoking Tobacco: Never Smokeless Tobacco: Former Chew Comments:Chew Alcohol Use Standard Drinks/Week Comments [...] Info) Description 04/05/2024 9:20 AM EST Consult [facility] Endocrinology [address] [place] [address] Shraddha Almaguer PA [address] [place] [address] documented as of this encounter Visit Diagnoses Not on filedocumented in this encounter Additional Health Concerns Assessment Noted Time A Body Mass Index follow-up plan has been documented for the patient 01/06/2024 1:05 AM EDT documented as of this encounter Care Teams Transplanter Orchid Relationship Specialty Start Date End Date Clarisa Adams APRN [address] [place] [address] PCP - General Wax Pattern Repairer 07/19/23 documented as of this encounter
[2024-03-07 09:10] LABS: HCV Ab Non Reactive (Non Reactive)
== END 2024-03-05 22:46 | disposition home or self-care (01) ==
PROVIDERS: Emergency Provider Emergency Medicine
DX: R07.9 Chest pain, unspecified (principal)
CPT/HCPCS: 71046; 80053; 83735; 83880; 84484; 84702; 85025; 85610; 85730; 86803; 87389; 93005; 99284

== ENCOUNTER 2024-08-15 19:18 | Emergency (ER) | payer MEDICAID, SELFPAY ==
[2024-08-15 19:29] VITALS: BP 156/84; PULSE 65; RESP 17; TEMP 36.7; O2SAT 100; BMI 29.0
--- NOTE | 2024-08-15 19:32 | CT_ITS ---
PROCEDURE INFORMATION: Exam: CT Abdomen And Pelvis With Contrast Exam date and time: 08/15/2024 8:37 PM Age: 28 years old Clinical indication: Abdominal pain; Localized; Right lower quadrant (rlq); Additional info: Rlq pain TECHNIQUE: Imaging protocol: Computed tomography of the abdomen and pelvis with contrast. Radiation optimization: All CT scans at this facility use at least one of these dose optimization techniques: automated exposure control; mA and/or kV adjustment per patient size (includes targeted exams where dose is matched to clinical indication); or iterative reconstruction. Contrast material: ISOVUE; Contrast volume: 75 ml; Contrast route: IV; COMPARISON: CR XR CHEST 2V 03/05/2024 8:30 PM FINDINGS: Lungs: Lung bases are clear. Liver: Normal. No mass. Gallbladder and biliary ducts: Normal. No calcified stones. No ductal dilation. Pancreas: Normal. No ductal dilation. Spleen: Normal. No splenomegaly. Adrenal glands: Normal. No mass. Kidneys and ureters: Normal. No hydronephrosis. Stomach and bowel: Increased submucosal fat deposition extending from the cecum through the distal descending colon. GI tract structures otherwise unremarkable with no evident wall thickening allowing for incomplete distention. Appendix: Appendix is normal. No evidence of appendicitis. Intraperitoneal space: Unremarkable. No free air. No significant fluid collection. Vasculature: Unremarkable. No abdominal aortic aneurysm. Lymph nodes: Unremarkable. No enlarged lymph nodes. Urinary bladder: Unremarkable as visualized. Reproductive: Unremarkable as visualized. Bones/joints: Unremarkable. No acute fracture. Soft tissues: Unremarkable. IMPRESSION: 1. No acute abnormalities of the abdomen and pelvis. Nonemergent findings as above. 2. Increased submucosal fat deposition of the cecum through the distal descending colon may be a normal variation but might also be secondary prior episodes of colitis. Acute colitis thought less likely but not completely excluded.
--- NOTE | 2024-08-15 19:34 | ED_ITS ---
Discharge Plan Disposition Patient Disposition: Home, Self-Care Prescriptions Prescriptions: No Action metoprolol tartrate 25 mg tablet 25 mg PO DAILY Patient Comments: TAKE 1/2 (ONE-HALF) TABLET BY MOUTH ONCE DAILY Rx Instructions: TAKE 1/2 (ONE-HALF) TABLET BY MOUTH ONCE DAILY ondansetron 4 mg tablet,disintegrating 4 mg PO PRN Patient Comments: DISSOLVE 1 TABLET IN MOUTH EVERY 6 HOURS NEEDED FOR NAUSEA AND VOMITING Rx Instructions: DISSOLVE 1 TABLET IN MOUTH EVERY 6 HOURS NEEDED FOR NAUSEA AND VOMITING cholecalciferol (vitamin D3) 50 mcg (2,000 unit) capsule 50 mcg PO DAILY mecobalamin (vitamin B12) 500 mcg tablet,chewable 500 mcg PO DAILY Trulance 3 mg tablet 3 mg PO DAILY Qty: 90 3RF sodium,potassium,mag sulfates [Suprep Bowel Prep Kit] 17.5-3.13-1.6 gram recon soln See Rx Instructions PO .COMPLEX Qty: 354 0RF Rx Instructions: DILUTE; drink full amount early evening before AND next morning at least 4-5 hr before procedure; follow w 960 mL water PO Referrals Follow up/Referrals: Rosie Choi APRN [Primary Care Provider] - See instructions Activity Restrictions/Add. Instructions Additional Instructions/Restrictions: Today you were evaluated in the emergency department. Your CT scan shows that you have increased submucosal fat deposition of the cecum through the distal descending colon, this could be colitis, or irritable bowel. Please use the Bentyl as directed. Increase your fluid intake. Follow-up with your GI. Return to the ED for worsening of condition peer Clinical Impressions Clinical Impression: Colitis Instructions Patient Instructions: DI for Acute Abdominal Pain Print Language Print Language: Polish Discharge ED Provider: Joshua Ochoa General Adult HPI <Yvrose Rene APRN - Last Filed: 08/15/24 21:23> General Chief complaint: Abdominal Pain Stated complaint: right side pain,diarrhea Time Seen by Provider: 08/15/24 19:21 Mode of Arrival: Ambulatory Source of Information: Patient Description of Symptoms (Recalled from ER Triage Doc. by RN): She reports pain in her right side of her abdomen that radiates to her left side. Pain 7/10. States it started around [id number] today. She states she still has her gallbladder. Reports having diarrhea x3 but that she always alternates between constipation and diarrhea. She states she has a colonscopy scheduled for August 29 at [facility]. She denies nausea, vomiting, or a fever. History of Present Illness HPI narrative: patient is a 28-year-old female PMHx HTN who presents to the ED for complaints of right upper and right lower abdominal pain that radiates to the right side of the back. Patient reports she has had intermittent abdominal pain for a while, has had her gallbladder ultrasound which she states was unremarkable. Related Data Home Medications ?Medication ?Instructions ?Recorded ?Confirmed cholecalciferol (vitamin D3) 50 50 mcg PO DAILY 06/18/24 06/18/24 mcg (2,000 unit) capsule mecobalamin (vitamin B12) 500 mcg 500 mcg PO DAILY 06/18/24 06/18/24 chewable tablet metoprolol tartrate 25 mg tablet 25 mg PO DAILY 06/18/24 06/18/24 ondansetron 4 mg disintegrating 4 mg PO PRN 06/18/24 06/18/24 tablet Previous Rx's ?Medication ?Instructions ?Recorded plecanatide 3 mg tablet (Trulance) 3 mg PO DAILY #90 tabs 06/18/24 sodium,potassium,mag sulfates 17.5 See Rx Instructions PO .COMPLEX 08/15/24 gram-3.13 gram-1.6 gram oral soln #354 mL (Suprep Bowel Prep Kit) Allergies Allergy/AdvReac Type Severity Reaction Status Date / Time No Known Allergies Allergy Verified 06/18/24 12:11 [facility] <Yvrose Rene APRN - Last Filed: 08/15/24 21:23> [facility] Disclaimer: The information contained in this section may have been updated after the patient was seen, as this information can be updated by other users. Medical History Migraine Hypertension Surgical History History of section Social History (Updated 06/18/24 @ 12:00 by Frieda Conde MA) Smoking Status: Unknown if ever smoked second hand exposure: Yes alcohol intake: current alcohol intake frequency: holidays/special occasions only substance use type: denies use current occupational status: employed Travel in the last 8 weeks?: None household members: children housing: house Have you lived/traveled outside [place] in past 30 days?: No Contact w/someone who lives/traveled outside [place] past 30 days?: No Exposure to someone with infectious disease in past 14 days?: No Do you have a fever (greater than 100.4 F or 38 C)?: No Have you tested positive for COVID-19?: No Exposed to someone with COVID-19 in past 14 days?: No Do you have a sore throat?: No Do you have a cough?: No Do you have any weakness?: No Do you have any diarrhea?: No Are you experiencing any unusual bleeding?: No Do you have any muscle aches/pain?: No Do you have any abdominal pain?: No Are you experiencing loss of taste or smell?: No Other Medical History Have you received the Flu Vaccine for this season: Yes Have you received the Pneumonia Vaccine: No <Yvrose Rene APRN - Last Filed: 08/15/24 21:23> ROS Obtained: Yes Systems reviewed as appropriate & no additional complaints except as documented Physical Exam <Yvrose Rene APRN - Last Filed: 08/15/24 21:23> General General appearance: alert and in no apparent distress Head Head exam: atraumatic and normocephalic Eye Eye exam: Present normal appearance and PERRL ENT ENT exam: Present normal exam Neck Neck exam: Present normal inspection Chest Chest inspection: Present normal inspection and symmetric chest wall rise; Absent tenderness Respiratory Respiratory exam: Present normal lung sounds bilaterally Cardiovascular Cardiovascular exam: Present regular rate Abdominal Exam Abdominal exam: Present soft, tenderness (RUQ RLQ tenderness ) and normal bowel sounds Extremities Exam Extremities exam: Present normal inspection and full ROM Back Exam Back exam: Present full ROM and CVA tenderness (R) Neurological Exam Neurological exam: Present alert and oriented X3 Psychiatric Psychiatric exam: Present normal affect and normal mood Skin Skin exam: Present warm and dry Medical Decision Making <Yvrose Rene APRN - Last Filed: 08/15/24 21:23> Medical Records Screening: Per USPSTF and CDC recommendations, given the prevalence of disease in our region, it is our hospital?s policy to screen for HIV and viral Hepatitis for all patients aged 18 and over and those with ongoing risk factors. Scott Inquiry Pt receiving controlled substance: No Vital Signs: 08/15/24 19:29 08/15/24 21:35 08/15/24 21:39 Temperature 98.0 F 98.1 F Temperature Source Oral Oral Pulse Rate 53 L 56 L Pulse Rate [Right Brachial] 65 Respiratory Rate 17 17 Blood Pressure 143/105 H 171/85 H Blood Pressure [Right Arm] 156/84 H Blood Pressure Mean [Right Arm] 108 Blood Pressure Source Automatic Cuff Blood Pressure Source [Right Arm] Automatic Cuff Blood Pressure Position Sitting Blood Pressure Position [Right Arm] Sitting 02 Sat by Pulse Oximetry 100 94 L Oxygen Delivery Method Room Air Room Air Lab Data Lab Results 08/15/24 19:40: WBC 9.5, RBC 4.58, Hgb 12.3, Hct 37.3, MCV 81.4, MCH 26.9 L, MCHC 33.0, RDW 13.2, Plt Count 258, MPV 10.0, Neut % (Auto) 70.2, Lymph % (Auto) 19.8, [place] % (Auto) 5.3, Eos % (Auto) 3.8, Baso % (Auto) 0.7, Neut # (Auto) 6.6, Lymph # (Auto) 1.9, [place] # (Auto) 0.5, Eos # (Auto) 0.4, Baso # (Auto) 0.1, Sodium 138, Potassium 3.5, Chloride 106, Carbon Dioxide 26, Anion Gap 9.5, BUN 9, Creatinine 0.80, Estimated Creat Clear 134, Estimated GFR 85, Est GFR ( Amer) 103, Glucose 107 H, Calcium 9.6, Total Bilirubin 0.5, AST 26, ALT 19, Alkaline Phosphatase 75, Total Protein 7.5, Albumin 4.4, Globulin 3.1, Albumin/Globulin Ratio 1.4, Lipase 62, Serum HCG, Qual Negative 08/15/24 19:48: Urine Color Dark yellow, Urine Appearance Cloudy, Urine pH 6.0, Ur Specific [place] 1.020, Urine Protein Trace, Urine Glucose (UA) Negative, Urine Ketones Negative, Urine Blood 3+ A, Urine Nitrate Negative, Urine Bilirubin Negative, Urine Urobilinogen 0.2, Ur Leukocyte Esterase Negative, Urine RBC 10-20, Urine WBC 3-5, Ur Squamous Epith Cells 10-20, Urine Bacteria 1+ 08/15/24 19:40 08/15/24 19:40 Orders (Tests/Meds): ED MEDICATIONS Discontinued Medications Generic Name Dose Route Start Last Admin Trade Name Wai PRN Reason Stop Dose Admin Sodium Chloride 500 mls @ 999 mls/hr 08/15/24 19:32 08/15/24 19:47 Sod Chlor 0.9% 1000ml Bag IV 08/15/24 20:02 999 mls/hr .Q31M ONE Administration Iopamidol 75 ml 08/15/24 20:38 08/15/24 20:39 Iopamidol-370 (76%);100ml Bottle IV 08/15/24 20:39 75 ml ONCE ONE Administration Ketorolac Tromethamine 15 mg 08/15/24 21:21 08/15/24 21:31 Ketorolac 30mg/Ml Vial IV 08/15/24 21:22 15 mg ONCE ONE Administration Morphine Sulfate 4 mg 08/15/24 19:32 08/15/24 19:52 Morphine 4mg/Ml Syringe IV 08/15/24 19:33 Not Given ONCE ONE Ondansetron HCl 4 mg 08/15/24 19:32 08/15/24 19:52 Ondansetron 4mg/2ml Vial IV 08/15/24 19:33 Not Given ONCE ONE Sodium Chloride 10 ml 08/15/24 20:38 08/15/24 20:39 Sodium Chloride 0.9% 10ml Syr (Rad Only) IV 08/15/24 20:39 10 ml ONCE ONE Administration ORDERS Category Date Time Status CT abdomen pelvis w con Stat Cat Scan 08/15/24 19:32 Completed CBC w/Auto Diff [Complete Blood Count Auto Diff] Stat Lab 08/15/24 19:40 Completed CMP [Comprehensive Metabolic Panel] Stat Lab 08/15/24 19:40 Completed HCG Qualitative, Serum Stat Lab 08/15/24 19:40 Completed Lipase Stat Lab 08/15/24 19:40 Completed Urinalysis and Microscopic Stat Lab 08/15/24 19:48 Completed Medical Decision Narrative: In summary, patient is a 28-year-old female PMHx HTN who presents to the ED for complaints of right upper and right lower abdominal pain that radiates to the right side of the back. Patient reports she has had intermittent abdominal pain for a while, has had her gallbladder ultrasound which she states was unremarkable. Denies eating any spicy or fatty food prior to the pain starting. Has not had anything for the pain prior to arrival. Denies any recent falls, trauma, states she is currently on her menstrual cycle. Denies fever, chills, body aches, headache, visual disturbances, posterior neck pain, chest pain, shortness of breath, nausea, vomiting, dysuria. Upon initial evaluation patient is alert, oriented and cooperative. She is obese. She has right upper and right lower quadrant tenderness. Right flank tenderness noted. Differential diagnosis include UTI, pyelonephritis, renal calculi, cholecystitis, cholelithiasis, appendicitis, , among others. Discussed with patient that we will proceed with hematologic labs and CT imaging. Will symptomatically managed with IV fluids, morphine and Zofran. Hematologic labs reviewed. CBC unremarkable for any leukocytosis, stable H&H. CMP unremarkable for any actionable abnormalities. hCG negative. Urinalysis remarkable for 3+ blood, most likely due to menstrual cycle. Final read of the CT abdomen pelvis unremarkable for any acute abnormalities, increased submucosal fat deposition in the cecum through the distal descending colon may be normal variation but may also be secondary to prior episodes of colitis, acute colitis thought less likely but not completely excluded. Discussed results with patient, advised her that she will need to follow-up with GI. Patient states she is already scheduled for colonoscopy the first week of August. Advised her that we will treat this as colitis, will administer Bentyl and Toradol. Advised her to return to the ED for any worsening of condition. Increase fluid intake. Patient verbalized understanding of all instructions. <Joshua Ochoa MD - Last Filed: 08/15/24 22:18> Vital Signs: 08/15/24 19:29 08/15/24 21:35 08/15/24 21:39 Temperature 98.0 F 98.1 F Temperature Source Oral Oral Pulse Rate 53 L 56 L Pulse Rate [Right Brachial] 65 Respiratory Rate 17 17 Blood Pressure 143/105 H 171/85 H Blood Pressure [Right Arm] 156/84 H Blood Pressure Mean [Right Arm] 108 Blood Pressure Source Automatic Cuff Blood Pressure Source [Right Arm] Automatic Cuff Blood Pressure Position Sitting Blood Pressure Position [Right Arm] Sitting 02 Sat by Pulse Oximetry 100 94 L Oxygen Delivery Method Room Air Room Air Lab Data Lab Results 08/15/24 19:40: WBC 9.5, RBC 4.58, Hgb 12.3, Hct 37.3, MCV 81.4, MCH 26.9 L, MCHC 33.0, RDW 13.2, Plt Count 258, MPV 10.0, Neut % (Auto) 70.2, Lymph % (Auto) 19.8, [place] % (Auto) 5.3, Eos % (Auto) 3.8, Baso % (Auto) 0.7, Neut # (Auto) 6.6, Lymph # (Auto) 1.9, [place] # (Auto) 0.5, Eos # (Auto) 0.4, Baso # (Auto) 0.1, Sodium 138, Potassium 3.5, Chloride 106, Carbon Dioxide 26, Anion Gap 9.5, BUN 9, Creatinine 0.80, Estimated Creat Clear 134, Estimated GFR 85, Est GFR ( Amer) 103, Glucose 107 H, Calcium 9.6, Total Bilirubin 0.5, AST 26, ALT 19, Alkaline Phosphatase 75, Total Protein 7.5, Albumin 4.4, Globulin 3.1, Albumin/Globulin Ratio 1.4, Lipase 62, Serum HCG, Qual Negative 08/15/24 19:48: Urine Color Dark yellow, Urine Appearance Cloudy, Urine pH 6.0, Ur Specific [place] 1.020, Urine Protein Trace, Urine Glucose (UA) Negative, Urine Ketones Negative, Urine Blood 3+ A, Urine Nitrate Negative, Urine Bilirubin Negative, Urine Urobilinogen 0.2, Ur Leukocyte Esterase Negative, Urine RBC 10-20, Urine WBC 3-5, Ur Squamous Epith Cells 10-20, Urine Bacteria 1+ Orders (Tests/Meds): ED MEDICATIONS Discontinued Medications Generic Name Dose Route Start Last Admin Trade Name Freq PRN Reason Stop Dose Admin Sodium Chloride 500 mls @ 999 mls/hr 08/15/24 19:32 08/15/24 19:47 Sod Chlor 0.9% 1000ml Bag IV 08/15/24 20:02 999 mls/hr .Q31M ONE Administration Iopamidol 75 ml 08/15/24 20:38 08/15/24 20:39 Iopamidol-370 (76%);100ml Bottle IV 08/15/24 20:39 75 ml ONCE ONE Administration Ketorolac Tromethamine 15 mg 08/15/24 21:21 08/15/24 21:31 Ketorolac 30mg/Ml Vial IV 08/15/24 21:22 15 mg ONCE ONE Administration Morphine Sulfate 4 mg 08/15/24 19:32 08/15/24 19:52 Morphine 4mg/Ml Syringe IV 08/15/24 19:33 Not Given ONCE ONE Ondansetron HCl 4 mg 08/15/24 19:32 08/15/24 19:52 Ondansetron 4mg/2ml Vial IV 08/15/24 19:33 Not Given ONCE ONE Sodium Chloride 10 ml 08/15/24 20:38 08/15/24 20:39 Sodium Chloride 0.9% 10ml Syr (Rad Only) IV 08/15/24 20:39 10 ml ONCE ONE Administration ORDERS Category Date Time Status CT abdomen pelvis w con Stat Cat Scan 08/15/24 19:32 Completed CBC w/Auto Diff [Complete Blood Count Auto Diff] Stat Lab 08/15/24 19:40 Completed CMP [Comprehensive Metabolic Panel] Stat Lab 08/15/24 19:40 Completed HCG Qualitative, Serum Stat Lab 08/15/24 19:40 Completed Lipase Stat Lab 08/15/24 19:40 Completed Urinalysis and Microscopic Stat Lab 08/15/24 19:48 Completed Medical Decision Narrative: In summary, patient is a 28-year-old female PMHx HTN who presents to the ED for complaints of right upper and right lower abdominal pain that radiates to the right side of the back. Patient reports she has had intermittent abdominal pain for a while, has had her gallbladder ultrasound which she states was unremarkable. Denies eating any spicy or fatty food prior to the pain starting. Has not had anything for the pain prior to arrival. Denies any recent falls, trauma, states she is currently on her menstrual cycle. Denies fever, chills, body aches, headache, visual disturbances, posterior neck pain, chest pain, shortness of breath, nausea, vomiting, dysuria. Upon initial evaluation patient is alert, oriented and cooperative. She is obese. She has right upper and right lower quadrant tenderness. Right flank tenderness noted. Differential diagnosis include UTI, pyelonephritis, renal calculi, cholecystitis, cholelithiasis, appendicitis, , among others. Discussed with patient that we will proceed with hematologic labs and CT imaging. Will symptomatically managed with IV fluids, morphine and Zofran. Hematologic labs reviewed. CBC unremarkable for any leukocytosis, stable H&H. CMP unremarkable for any actionable abnormalities. hCG negative. Urinalysis remarkable for 3+ blood, most likely due to menstrual cycle. Final read of the CT abdomen pelvis unremarkable for any acute abnormalities, increased submucosal fat deposition in the cecum through the distal descending colon may be normal variation but may also be secondary to prior episodes of colitis, acute colitis thought less likely but not completely excluded. Discussed results with patient, advised her that she will need to follow-up with GI. Patient states she is already scheduled for colonoscopy the first week of August. Advised her that we will treat this as colitis, will administer Bentyl and Toradol. Advised her to return to the ED for any worsening of condition. Increase fluid intake. Patient verbalized understanding of all instructions. I was consulted by the ELISE, and we discussed the complexity of the problems being addressed. I approved the treatment and management plan for this patient's care in the Emergency Department, thus performing a substantive portion of the medical decision making. Joshua Ochoa MD Critical Care <Yvrose Rene APRN - Last Filed: 08/15/24 21:23> Critical Care Time Critical Care Time: No
[2024-08-15] MEDS: 0.9 % SODIUM CHLORIDE 1000ML 500 ML 999 ML IV (19:47)
[2024-08-15 19:49] LABS: Basophils # 0.1 K/mm3 (0-0.2); Basophils % 0.7 % (0.1-2.0); Eosinophils # 0.4 Kmm3 (0.0-0.4); Eosinophils % 3.8 % (0.1-12.0); Hematocrit 37.3 % (37.0-47.0); Hemoglobin 12.3 g/dL (12.2-16.2); Immature Granulocytes # 0.02 10^3uL; Immature Granulocytes % 0.2 %; Lymphocytes # 1.9 K/mm3 (0.7-4.5); Lymphocytes % 19.8 % (10-50); Mean Corpuscular Hemoglobin 26.9 pg (27.0-31.2); Mean Corpuscular Volume 81.4 fl (81-99); Monocytes # 0.5 K/mm3 (0.1-1.0); Monocytes % 5.3 % (1.7-9.3); Neutrophils # 6.6 K/mm3 (1.8-7.8); Neutrophils % 70.2 % (37.0-80.0); Nucleated Red Blood Cells # 0 10^3/uL; Nucleated Red Blood Cells % 0 %; Platelet Count 258 K/mm3 (142-424); Red Blood Count 4.58 M/mm3 (4.20-5.40); Red Cell Distribution Width 13.2 % (11.5-17.5); White Blood Count 9.5 K/mm3 (4.8-10.8)
[2024-08-15 19:55] LABS: Microscopic, Urine URINE MICROSCOPIC (MICROSCOPIC)
[2024-08-15 19:57] LABS: Albumin Level 4.4 g/dl (3.5-5.0); Chloride 106 mmol/L (98-107); Sodium 138 mmol/L (136-145)
[2024-08-15 19:58] LABS: Potassium 3.5 mmoL/L (3.5-5.1)
[2024-08-15 20:00] LABS: Alanine Aminotransferase 19 U/L (12-78); Albumin/Globulin Ratio 1.4 (1.1-1.8); Alkaline Phosphatase 75 U/L (38-126); Anion Gap 9.5 mEq/L (5-15); Aspartate Amino Transferase 26 U/L (14-36); Bilirubin,Total 0.5 mg/dl (0.2-1.3); Blood Urea Nitrogen 9 mg/dl (7-17); Carbon Dioxide 26 mmol/L (22.0-30.0); Creatinine Clearance Estimated 134 mL/min (50-200); Estimated Glomerular Filt Rate 85 ml/min (>60); GFR (African American) 103 ML/MIN (>60); Globulin 3.1 g/dL (1.3-3.2); Total Protein,Serum 7.5 g/dl (6.3-8.2)
[2024-08-15 20:01] LABS: Calcium 9.6 mg/dl (8.4-10.2); Glucose 107 mg/dl (74-100); Lipase 62 U/L (23-300)
[2024-08-15 20:16] LABS: Bilirubin,Urine Negative (Negative); Blood, Urine 3+ (Negative); Glucose,Urine (UA) Negative (Negative); Ketones,Urine Negative (Negative); Leukocyte Esterase,Urine Negative (Negative); Nitrate,Urine Negative (Negative); Protein,Urine TRACE (Negative); Urobilinogen,Urine 0.2 EU/dl (0.2)
[2024-08-15 20:27] LABS: Appearance,Urine Cloudy (Clear); Color,Urine Dark Yellow (Yellow)
[2024-08-15 20:31] LABS: HCG Qualitative, Serum Negative (Negative)
[2024-08-15] MEDS: SODIUM CHLORIDE 0.9% 10ML SYR (RAD ONLY) 10 ML IV (20:39)
[2024-08-15] MEDS: IOPAMIDOL-370 (76%);100ML BOTTLE 75 ML IV (20:39)
[2024-08-15 21:21] LABS: Bacteria,Urine 1+ /lpf
[2024-08-15] MEDS: KETOROLAC 30MG/ML VIAL 15 MG IV (21:31)
[2024-08-15 21:35] VITALS: BP 143/105; PULSE 53; O2SAT 94
[2024-08-15 21:39] VITALS: BP 171/85; PULSE 56; RESP 17; TEMP 36.7; O2SAT 100
== END 2024-08-15 21:40 | disposition home or self-care (01) ==
PROVIDERS: Nurse Practitioner; Emergency Provider Emergency Medicine; PCP Nurse Practitioner Family
DX: R10.11 Right upper quadrant pain (principal); R10.31 Right lower quadrant pain; K52.9 Noninfective gastroenteritis and colitis, unspecified; I10 Essential (primary) hypertension
CPT/HCPCS: 74177; 80053; 81001; 83690; 84703; 85025; 96374; 99284; J1885; J2270; J2405; J7030; Q9967

== ENCOUNTER 2024-09-12 10:42 | Day surgery (SDC) | payer MEDICAID, SELFPAY ==
[2024-08-27 16:40] VITALS: BMI 43.2
[2024-09-12] VITALS (7 sets, daily range): BP systolic 101–157; BP diastolic 59–85; PULSE 49–59; RESP 16–18; TEMP 36.2–36.7; O2SAT 98–100
--- NOTE | 2024-09-12 12:40 | P.PNANES_ITS ---
[facility] Disclaimer: The information contained in this section may have been updated after the patient was seen, as this information can be updated by other users. Medical History Migraine Hypertension Surgical History History of section Family History Other Colon cancer Leukemia Lung cancer Stomach cancer Throat cancer Social History Smoking Status: Unknown if ever smoked second hand exposure: Yes alcohol intake: never substance use type: denies use current occupational status: employed Travel in the last 8 weeks?: None household members: children housing: house Have you lived/traveled outside [place] in past 30 days?: No Contact w/someone who lives/traveled outside US past 30 days?: No Exposure to someone with infectious disease in past 14 days?: No Do you have a fever (greater than 100.4 F or 38 C)?: No Have you tested positive for COVID-19?: No Exposed to someone with COVID-19 in past 14 days?: No Do you have a sore throat?: No Do you have a cough?: No Do you have any weakness?: No Are you experiencing any nausea/vomitting?: No Do you have any diarrhea?: No Are you experiencing any unusual bleeding?: No Do you have any muscle aches/pain?: No Do you have any abdominal pain?: No Are you experiencing loss of taste or smell?: No [facility] Anesthesia Checklist Patient Identification Patient Identification: Arm Band and Family Structural Data Admitted From: Home Planned Operative Procedure/s: colonoscopy. Consent for Planned Operative Procedure(s) Verified: Yes Verified Documents: Surgical Consent and History and Physical NPO Status Verified Time NPO: 00:00 Additional verifications Patient : No Anesthesia Reactions: Yes Hx Blood Transfusions: No Blood Transfusion Reaction: No Cephalosporin Allergy: No Previous Colonoscopy: No Airway Assessment Mallampati Score:: Class III C-Spine Mobility Assessed: Yes TMJ Mobility Assessed: Yes Neurological Assessment Level of Consciousness: Awake, Alert, Appropriate and Follows Commands Hx Seizures: No Numbness or tingling in extremities: No Anesthesia Plan Anesthesia Risk discussed: Yes ASA Class: I Anesthesia Type: MAC Preoperative Comments Pre-Operative Comments: Chews tobacco. Spot on colon. C=section X3.
[2024-09-12 13:13] LABS: HCG Qualitative, Serum Negative (Negative)
--- NOTE | 2024-09-12 13:22 | EXP.HP ---
History of Present Illness *Admission Date: 09/12/24 *History of present illness: Mrs. Choi is a 28-year-old female with abdominal pain, bloating and abnormal CAT scan who is here for diagnostic colonoscopy. The examination is deemed medically necessary for diagnostic colonoscopy. The patient has been seen, interviewed and examined prior to the procedure by both myself and the anesthesia provider. [facility] Disclaimer: The information contained in this section may have been updated after the patient was seen, as this information can be updated by other users. Medical History Migraine Hypertension Surgical History History of section Family History Other Colon cancer Leukemia Lung cancer Stomach cancer Throat cancer Social History Smoking Status: Unknown if ever smoked second hand exposure: Yes alcohol intake: never substance use type: denies use current occupational status: employed Travel in the last 8 weeks?: None household members: children housing: house Have you lived/traveled outside US in past 30 days?: No Contact w/someone who lives/traveled outside US past 30 days?: No Exposure to someone with infectious disease in past 14 days?: No Do you have a fever (greater than 100.4 F or 38 C)?: No Have you tested positive for COVID-19?: No Exposed to someone with COVID-19 in past 14 days?: No Do you have a sore throat?: No Do you have a cough?: No Do you have any weakness?: No Are you experiencing any nausea/vomitting?: No Do you have any diarrhea?: No Are you experiencing any unusual bleeding?: No Do you have any muscle aches/pain?: No Do you have any abdominal pain?: No Are you experiencing loss of taste or smell?: No Other Medical History Have you received the Flu Vaccine for this season: Yes Have you received the Pneumonia Vaccine: No Review of Systems Review of Systems Review of systems (narrative): Negative *Cardiovascular Comments: Negative *Gastrointestinal Comments: Negative *Genitourinary Comments: Negative *Musculoskeletal Comments: Negative *Neurologic Comments: Negative Meds Home Medications and Allergies Home Medications ?Medication ?Instructions ?Recorded ?Confirmed ?Type levocetirizine 5 mg tablet (Xyzal) 5 mg PO DAILY 08/27/24 09/12/24 History ondansetron 4 mg disintegrating 4 mg PO ONCE PRN nausea and 08/29/24 09/12/24 Rx tablet vomiting #14 tabs New Prescriptions to Start Prescriptions: Allergies Allergy/AdvReac Type Severity Reaction Status Date / Time carbamide peroxide (From Allergy Unknown Verified 09/11/24 10:25 Debrox) allergy reaction Exam Data for Last 24 hours Vital signs and Labs for Last 24 Hours: Temp Pulse Resp BP Pulse Ox O2 Del Method 97.2 F L 49 L 18 149/80 H 100 Room Air 09/12/24 12:02 09/12/24 12:02 09/12/24 12:02 09/12/24 12:02 09/12/24 12:02 09/12/24 12:02 Laboratory Results - last 24 hr 09/12/24 12:10: Serum HCG, Qual Negative *Routine HEENT Exam Head: Present normocephalic Eye: Present EOMI and PERRL ENT: Present mucous membranes moist *Routine Neck Exam Neck: Present supple *Routine Respiratory Exam Respiratory: Present CTA bilaterally *Routine Cardiovascular Exam Cardiovascular: Present RRR *Routine Abdominal Exam Abdominal: Present soft and normoactive bowel sounds; Absent tenderness *Routine Rectal Exam Rectal:: deferred *Routine Genitalia Exam Genitalia:: deferred *Routine Extremities Exam Extremities: Absent cyanosis, clubbing or edema *Routine Skin Exam Skin: Present warm; Absent rash *Routine Neurological Exam Neurological: Present alert and oriented X3 Assessment and Plan *Assessment and plan (1) Abnormal CT scan, colon: Status: Acute Category: Medical Code(s): R93.3 - Abnormal findings on diagnostic imaging of other parts of digestive tract (2) Bright red blood per rectum: Status: Acute Category: Medical Code(s): K62.5 - Hemorrhage of anus and rectum (3) Family history of colon cancer: Status: Acute Category: Medical Code(s): Z80.0 - Family history of malignant neoplasm of digestive organs (4) Bloating: Status: Acute Category: Medical Code(s): R14.0 - Abdominal distension (gaseous) (5) Generalized abdominal pain: Status: Acute Category: Medical Code(s): R10.84 - Generalized abdominal pain Plan A/P: 1. Generalized abdominal pain, bloating and some blood in stool as well as family history of colon cancer is the preprocedural diagnosis. The patient will be anesthetized/sedated using MAC sedation. The patient has been seen and examined. Cardiac and lung assessment prior to the examination is stable. Proceed with planned diagnostic colonoscopy.
--- NOTE | 2024-09-12 13:24 | P.PCN_ITS ---
[facility] Procedure Note Date: 09/12/24 Time: 13:50 Procedure Note:: Colonoscopy Procedure Report: Colonoscopy Endoscopist: Etienne Day II, MD Referring physician: ROBERTA Pham Date of Procedure: September 12, 2024 Equipment: Olympus 190 variable stiffness pediatric colonoscope Sedation: MAC sedation Indication: Mrs. Choi is a 28-year-old female who is here for diagnostic colonoscopy. Her CAT scan showed right colonic wall fat deposits versus chronic inflammation. The patient especially reports some right sided abdominal pain. She has been to the ED 4 times. She has never had a colonoscopy. She does report generalized abdominal pain. She has had chronic constipation and when she strains she will see some bright red blood with her stool. She has noted mucus a couple of times. Her paternal uncle was diagnosed with colon cancer in his mid 40s. She does have Crohn's disease on the maternal side of her family. The patient reports bloating, gassiness and belching. She did have C. difficile 2 years ago which was treated with antibiotics. She has never had a colo noscopy. She reports no unintentional weight loss. Procedure: Prior to the procedure, a history and physical exam was performed, and patient's medications and allergies were reviewed. The risks, benefits and alternatives of the sedation and procedure were discussed with the patient. All questions were answered and informed consent was obtained. The patient was brought to the procedure room. Patient identification and proposed procedure were verified by the physician and the nurse. The patient was placed in a left lateral decubitus position and the scope was passed under direct vision. Throughout the procedure, the patient's blood pressure, pulse, and oxygen saturations were monitored continuously. The colonoscopy was accomplished without difficulty. The patient tolerated the procedure well. Findings: On digital rectal examination there was normal rectal tone. There were no external hemorrhoids. The colonoscope was introduced through the anal canal to the rectum and advanced to the cecum. The ileocecal valve and appendiceal orifice were identified. The scope was advanced a short distance into the ileum which appeared grossly normal. The scope was then withdrawn into the colon. The cecum, ascending, transverse, descending, sigmoid and rectum were grossly normal. There were no mucosal abnormalities identified. Upon retroflexion within the rectum there were grade 1-2 internal hemorrhoids. The preparation was excellent throughout with [place] Preparation Score of 9. The cecal time was 12 minutes. Impression: 1. Normal colonoscopy with intubation of the terminal ileum 2. Grade 1-2 internal hemorrhoids Plan: The right colon and ileum were entirely normal with normal mucosal endoscopic appearance. The patient does have IBS constipation and functional abdominal pain. We will discuss treatment options today.
== END 2024-09-12 15:10 | disposition home or self-care (01) ==
PROVIDERS: PCP Nurse Practitioner Family; Visit Provider Internal Medicine Gastroenterology
PROC: 0DJD8ZZ Inspection of Lower Intestinal Tract, Via Natural or Artificial Opening Endoscopic (ICD-10-PCS; CPT 45378; principal; 2024-09-12 13:00)
DX: K64.0 First degree hemorrhoids (principal); K64.1 Second degree hemorrhoids; I10 Essential (primary) hypertension; Z80.0 Family history of malignant neoplasm of digestive organs; Z79.899 Other long term (current) drug therapy
CPT/HCPCS: 45378; 84703; J2003; J2704

== ENCOUNTER 2024-09-30 12:29 | Emergency (ER) | payer MEDICAID, SELFPAY ==
[2024-09-30 13:20] VITALS: BP 156/75; PULSE 75; RESP 18; TEMP 36.7; O2SAT 100; BMI 41.4
--- NOTE | 2024-09-30 13:28 | PC.NURSE ---
SUGAR AT BEDSIDE
--- OUTSIDE RECORDS SUMMARY | 2024-09-30 13:37 | XMS_ITS | Data Portability ---
Author Organization [facility] Address [address] [place] [address] Assessment Encounter Date Assessment Date Assessment LastModified by Organization Details LastModified Time 05/13/2024 05/13/2024 -Medications were reviewed and any necessary updates and renewals were made, patient instructed to complete as prescribed. -The potential side effects of medications were discussed. -Counseling was done on care goals and ways to prevent future hospitalizatio ns. -Further treatment per orders listed below. [email or web address] Not available 05/13/2024 15:17:56 Plan of Treatment Reminders Order Date Submit Date Provider Last Modified By Organization Details Last Modified Time Details Appointments None recorded. Lab rapid flu (A+B) 2024 025 [facility], [address] [place] [address], [id number], 17:52:26 rapid strep group A, throat 2024 025 [facility], [address] [place] [address], [id number], 17:52:26 urinalysis, dipstick 2024 025 [facility], [address] [place] [address], [address], 15:36:58 test, urine 2024 025 [facility], [address] [place] [address], [address], 5 15:36:58 venipunctur e 2024 025 [facility], [address], Marito F, [place], [address], 5 15:28:24 rapid strep group A, throat 2023 024 [facility], [address] [place] [address], [address], 4 13:16:32 rapid flu (A+B) 2023 024 [facility], [address] [place] [address], [address], 4 13:16:32 rapid SARS CoV + SARS CoV 2 Ag, QL IA, respiratory specimen 2023 024 [facility], [address] [place] [address], [address], 4 13:16:32 Referral gastroenter ologist referral 2024 025 DEBBY Day MD, [address], [place], [address], 5 04:02:25 Procedures None recorded. Surgeries None recorded. Imaging US, gallbladder - r/o gallstones 2024 025 [facility], [address] [place] [address] , [place], [address], 5 08:11:46 Medication Orders Bromfed DM 2 mg-30 mg-10 mg/5 mL oral syrup 2024 025 [facility], [address] [place], [address], 5 17:52:30 ondansetron 4 mg disintegrat ing tablet 2024 025 [facility] 156, [address] [place], [address], 5 17:01:46 Levsin/SL 0.125 mg sublingual tablet 2024 025 [facility], [address] [place] [address], [address], 5 17:10:47 metoprolol tartrate 25 mg tablet 2024 025 [facility], [address] [place] [address], [address], 5 15:55:22 Zithromax Z-Nicholas 250 mg tablet 2023 025 [facility], [address] [place] [address], [address], 5 15:19:11 B12 Active 1,000 mcg chewable tablet 2023 024 [facility], [address] [place] [address], [address], 4 13:21:37 Patient TargetsNo targets recorded. Patient InstructionsNo instructions recorded. 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 Referring Physician: Rosie Choi, Family Medicine, Encounter Date: 05/13/2024 Results Created Date Observation Date Name Description Value Unit Range Abnormal Flag Note LastModifiedBy Organization Detail LastModifiedTime 01/29/20 24 01/29/2024 rapid SARS CoV + SARS CoV 2 Ag, QL IA, respi rator y speci men SARS CoV antigen Negati ve Not Available [place], [address], 01/29/2024 11:38:48 01/29/20 24 01/29/2024 rapid flu (A+B) Flu negati ve Not Available [address], [address], 01/29/2024 11:38:42 01/29/20 24 01/29/2024 rapid flu (A+B) Type Both A & B Not Available [address], [address], 01/29/2024 11:38:42 01/29/20 24 01/29/2024 rapid strep group A, throa t Strep positi ve Not Available [address], [address], 01/29/2024 11:38:37 01/29/20 24 01/29/2024 rapid strep group A, throa t Culture No Not Available [address], [address], 01/29/2024 11:38:37 05/23/19 25 05/24/2024 KO+L IPASE amylase 54 U/L 31-110 normal Not Available [facility] ([facility]) [address] [place], [address], 05/24/2024 12:07:46 05/23/19 25 05/24/2024 KO+L IPASE lipase 25 U/L 14-72 normal Not Available [facility] ([facility]) [address] [place], [address], 05/24/2024 12:07:46 05/29/19 25 05/28/2024 pregn tom test, urine HCG negati ve Not Available [address], [address], 05/28/2024 15:29:39 05/29/19 25 05/28/2024 urina lysis , dipst ick Leukocytes Negati ve Not Available [address], [address], 05/28/2024 15:28:37 05/29/19 25 05/28/2024 urina lysis , dipst ick Nitrite negati ve Not Available [address], [address], 05/28/2024 15:28:37 05/29/19 25 05/28/2024 urina lysis , dipst ick Urobilinogen .2 Not Available Jose Alfredo [address], [address], 05/28/2024 15:28:37 05/29/19 25 05/28/2024 urina lysis , dipst ick Protein Negati ve Not Available [address], [address], 05/28/2024 15:28:37 05/29/19 25 05/28/2024 urina lysis , dipst ick pH 5.5 Not Available [address], [address], 05/28/2024 15:28:37 05/29/19 25 05/28/2024 urina lysis , dipst ick Blood Negati ve Not Available [address], [address], 05/28/2024 15:28:37 05/29/19 25 05/28/2024 urina lysis , dipst ick Specific [place] 1.030 Not Available [address] [place], [address], 05/28/2024 15:28:37 05/29/19 25 05/28/2024 urina lysis , dipst ick Ketone Negati ve Not Available [address], [address], 05/28/2024 15:28:37 05/29/19 25 05/28/2024 urina lysis , dipst ick Bilirubin Negati ve Not Available [address], [address], 05/28/2024 15:28:37 05/29/19 25 05/28/2024 urina lysis , dipst ick Glucose Negati ve Not Available [address], [address], 05/28/2024 15:28:37 05/29/19 25 05/28/2024 urina lysis , dipst ick Appearance Clear Not Available [address], [address], 05/28/2024 15:28:37 05/29/19 25 05/28/2024 urina lysis , dipst ick Color Yellow Not Available [address], [address], 05/28/2024 15:28:37 06/19/19 25 06/18/2024 rapid strep group A, throa t Strep negati ve Not Available [address], [address], 06/18/2024 17:11:19 06/19/19 25 06/18/2024 rapid strep group A, throa t Culture No Not Available [address], [address], 06/18/2024 17:11:19 06/19/19 25 06/18/2024 rapid flu (A+B) Flu negati ve Not Available [address], [address], 06/18/2024 17:11:03 06/19/19 25 06/18/2024 rapid flu (A+B) Type Both A & B Not Available [address], [address], 06/18/2024 17:11:03 05/20/19 [place], delgado kunz No observ ation record ed. [address] , [place], [address], 05/23/2024 09:43:03 08/16/19 25 08/15/2024 CT, abdom en + pelvi s, w/ contr ast No observ ation record ed. [facility] [address], [place], [address], 08/16/2024 09:02:01 Result Notes None recorded. Problems Name Problem SNOMED Code Status Onset Date Resolution Date Notes Provider Name and Address Organization Details Recorded Time BRCA2 gene mutation detected 003623442 Active 2022 Crystal Jaquan null, [place] - [facility] 3 13:16:15 Nicotine dependenc e 90358305 Active 2022 Parul Adams, CENTRAL CONTROL ROOM OPERATOR [address], [place], [address] , [place] - [facility] 3 13:30:49 Contact dermatiti s caused by urushiol from [place] [facility] [place] 424847378 Active 2022 Parul Adams, CENTRAL CONTROL ROOM OPERATOR [address], [place], [address] , [place] - [facility] 3 13:32:23 Pain of right knee joint 12828409411 4100 Active 2023 Parul Adams, CENTRAL CONTROL ROOM OPERATOR [address], [place], [address] , [place] - [facility] 4 11:13:43 Atypical chest pain 658130775 Active 2023 Parul Adams, CENTRAL CONTROL ROOM OPERATOR [address], [place], [address] , [place] - [facility] 4 11:40:40 Body mass index 40+ - severely obese 010088567 Active 2018 Parul roth, [place] - [facility] 4 13:12:00 Asthma 706532652 Active 2016 Ike roth, [place] - [facility] 7 08:56:19 Allergic rhinitis 90772217 Completed 201610/31/2022 Ivory roth, [place] - [facility] 3 12:57:26 Anemia 914575914 Active 2016 Ike roth, [place] - [facility] 7 08:56:36 Hypertens blake disorder 10541497 Active 2016 Ike roth, [place] - [facility] 7 09:54:07 Problem Notes None recorded. Procedures Surgical History Date Name Laterality Status Provider Name and Address Organization Details Recorded Time 05/13/19 25 Medication Reconcilliation completed Parul FLANNERY - [facility] 05/13/2024 15:17:57 11/29/19 24 Medication Reconcilliation completed Ivory FLANNERY - [facility] 11/29/2023 11:06:42 Caesarean Section completed Ivory Jaquan [place] - [facility] 10/27/2022 13:14:37 Imaging Results None recorded. Procedure Notes None recorded. Medical Equipment None Reported. Allergies Allergen ID Allergen Name Allergen Category Reaction Reaction Severity Criticality Documentation Date Start Date Code Code System Note Provider Name and Address Organization Details Recorded Time 987762 doxycycli ne Not available Not available Not available Not available 11/29/20232023 3640 RxNorm Parul roth, [place] - [facility] 4 13:12:00 Medications Name Sig Start Date Stop Date Status Note LastModified by Organization Details LastModified Time cyclobenz aprine 10 mg tablet Take 1 tablet 3 times a day by oral route as needed. 12/09 completed Not Available Not Available Not Available amoxicill in 500 mg capsule TAKE ONE CAPSULE BY MOUTH THREE TIMES DAILY UNTIL GONE 01/19 completed Not Available Not Available Not Available methocarb art 500 mg tablet 12/09 completed Not Available Not Available Not Available Bromfed DM 2 mg-30 mg-10 mg/5 mL oral syrup Take 10 mL every 4 hours by oral route as needed for 3 days, for cough/co ngestion . 2024 active Not Available Not Available Not Avai lable promethaz ine-DM 6.25 mg-15 mg/5 mL oral syrup 07/25 completed Not Available Not Available Not Available naproxen 375 mg tablet 12/09 completed Not Available Not Available Not Available clindamyc in HCl 300 mg capsule Take 1 capsule every 6 hours by oral route for 10 days. 09/30 completed Not Available Not Available Not Available azithromy monique 250 mg tablet TAKE 2 TABLETS (500 MG) BY ORAL ROUTE ONCE DAILY FOR 1 DAY THEN 1 TABLET (250 MG) BY ORAL ROUTE ONCE DAILY FOR 4 DAYS 05/13 completed Not Available Not Available Not Available ibuprofen 800 mg tablet TAKE ONE (1) TABLET THREE (3) TIMES A DAY BY ORAL ROUTE NEEDED FOR 15 DAYS. 08/07 completed Not Available Not Available Not Available ofloxacin 0.3 % eye drops INSTILL 1 DROP INTO AFFECTED EYE(S) BY OPHTHALM IC ROUTE 4 TIMES PER DAY 01/19 completed Not Available Not Available Not Available fluconazo le 150 mg tablet take 1 tablet today, repeat x 2 doses, day 3 and 10 of antibito ic 09/30 completed Not Available Not Available Not Available hydrocodo ne 5 mg-acetam inophen 325 mg tablet TAKE 1 TABLET EVERY 4 TO 6 HOURS NEEDED. 01/19 completed Not Available Not Available Not Available meloxicam 15 mg tablet 12/09 completed Not Available Not Available Not Available phenazopy ridine 200 mg tablet Take by oral route for 2 days. 08/19 completed Not Available Not Available Not Available prednison e 20 mg tablet Take 1 tablet twice a day by oral route for 5 days. 05/13 completed Not Available Not Available Not Available penicilli n V potassium 500 mg tablet 09/05 completed Not Available Not Available Not Available metronida zole 500 mg tablet TAKE TABLET BY MOUTH THREE TIMES DAILY UNTIL GONE 09/05 completed Not Available Not Available Not Available sulfameth oxazole 800 mg-trimet hoprim 160 mg tablet TAKE 1 TABLET BY MOUTH EVERY 12 HOURS FOR 7 DAYS 11/28 completed Not Available Not Available Not Available triamcino lone acetonide 0.1 % topical cream APPLY A THIN LAYER TO THE AFFECTED AREA(S) BY TOPICAL ROUTE TWO (2) TIMES PER DAY 12/09 completed Not Available Not Available Not Available ondansetr on 8 mg disintegr ating tablet 07/25 completed Not Available Not Available Not Available prednison e 10 mg tablets in a dose pack 07/25 completed Not Available Not Available Not Available Zofran 4 mg tablet Take 1 tablet every 8 hours by oral route as needed for 3 days, for nausea/v omiting. 08/07 completed Not Available Not Available Not Available amoxicill in 875 mg tablet 02/15 completed Not Available Not Available Not Available amitripty line 25 mg tablet take 1 tablet (25 mg) by oral route once daily at bedtime for 30 days 08/20 completed amitript yline 25 mg oral tablet;R ecorded Status: Recorded on: 07/22/19 16 2:40PM;U ser: allisons ;Est. Completi on: 08/21/19 16;Print ed: 07/22/19 16 Not Available Not Available Not Available Proctozon e-HC 2.5 % topical cream perineal applicato r APPLY A THIN LAYER TO THE AFFECTED AREA(S) BY TOPICAL ROUTE 2-4 TIMESDAI LY 02/15 completed Not Available Not Available Not Available benzonata te 100 mg capsule TAKE 1 CAPSULE BY MOUTH THREE TIMES DAILY NEEDED FOR COUGH 01/19 completed Not Available Not Available Not Available hyoscyami ne 0.125 mg sublingua l tablet Place 1 tablet every 6 hours by sublingu al route as needed for 3 days. 06/18 completed Not Available Not Available Not Available hydrocort isone 2.5 % topical cream Apply twice a day by topical route for 7 days. 08/08 completed Not Available Not Available Not Available mupirocin 2 % topical ointment Apply 3 times a day by topical route for 7 days. 08/08 completed Not Available Not Available Not Available ergocalci ferol (vitamin D2) 1,250 mcg (50,000 unit) capsule TAKE 1 CAPSULE BY MOUTH ONCE A WEEK active Not Available Not Available No t Available dexametha sone sodium phosphate 4 mg/mL injection solution Inject 1 mL every day by intramus cular route. 10/27 completed Not Available Not Available Not Available ibuprofen 600 mg tablet TAKE 1 TABLET EVERY 6 HOURS NEEDED. 01/19 completed Not Available Not Available Not Available methylpre dnisolone 4 mg tablets in a dose pack TAKE BY MOUTH DIRECTED ON INSIDE OF PACKAGE START ON 10/02 completed Not Available Not Available Not Available labetalol 100 mg tablet Take 1 tablet every day by oral route for 30 days. 12/09 completed Not Available Not Available Not Available albuterol sulfate HFA 90 mcg/actua tion aerosol inhaler INHALE TWO (2) PUFFS EVERY FOUR (4) HOURS BY INHALATI ON ROUTE NEEDED. 01/19 completed Not Available Not Available Not Available ondansetr on 4 mg disintegr ating tablet Place 1 tablet every 8 hours by translin gual route as needed for 5 days. 06/18 completed Not Available Not Available Not Available cefdinir 300 mg capsule TAKE 1 CAPSULE BY MOUTH TWICE DAILY FOR 7 DAYS 11/28 completed Not Available Not Available Not Available Imitrex 25 mg tablet take 1 tablet (25 mg) by oral route once with fluids as early as possible after the onset of a migraine attack;m ay repeat after 2 hours if headache returns, not to exceed 200mg in 24hrs for 7 days 07/28 completed Imitrex 25 mg oral tablet;R ecorded Status: Recorded on: 07/22/19 16 2:40PM;U ser: allisons ;Est. Completi on: 07/29/19 16;Indic ation: Migraine - (3469 00);Prin jaison: 07/22/19 16 Not Available Not Available Not Available fluticaso ne propionat e 50 mcg/actua tion nasal spray,iris pension 11/29 completed Not Available Not Available Not Available amoxicill in 875 mg-potass ium clavulana te 125 mg tablet 07/25 completed Not Available Not Available Not Available Mucinex 600 mg tablet, extended release 07/25 completed Not Available Not Available Not Available Loratadin e-D 10 mg-240 mg tablet,ex tended release 24 hr Take 1 tablet every day by oral route for 30 days. 12/09 completed Not Available Not Available Not Available Allergy and Congestio n Relief 5 mg-120 mg tablet,ex tend release 12 hr 07/25 completed Not Available Not Available Not Available metoprolo l tartrate 25 mg tablet TAKE 1/2 (ONE-CARLOS MANUEL F) TABLET BY MOUTH ONCE DAILY active Not Available Not Available No t Available chlorhexi dine gluconate 0.12 % mouthwash AFTER BRUSHING AND FLOSSING SWISH AND SPIT 15 ML TWICE A DAY DIRECTED 05/28 completed Not Available Not Available Not Available Diclegis 10 mg-10 mg tablet,de layed release Take 2 tablets every day by oral route for 30 days. 12/09 completed Not Available Not Available Not Available Contrave 8 mg-90 mg tablet,ex tended release TAKE TWO (2) TABLETS TWICE A DAY BY ORAL ROUTE FOR 90 DAYS. 12/09 completed Not Available Not Available Not Available Trulance active Not Available Not Avai lable Not Available B12 Active 1,000 mcg chewable tablet Take 1 tablet every day by oral route. 2023 active Not Available Not Available Not Avai lable Vitals Date Recorded Body height Body mass index (BMI) Body weight Heart rate Oxygen saturation Oxygen saturation in Arterial blood by Pulse oximetry Respiratory rate Systolic And Diastolic Provider Name and Address Organization Details Last Updated DateTime 5 166.37 cm 42.1 kg/m2 253908. 24 g 71 /min 98 % 98 % 18 /min 152/94 mm[Hg] Parul Castillo [place] - [facility] 15:25:50 Date Recorded Body height Provider Name an d Address Organization Details Last Updated DateTime 05/23/2024 166.37 cm Merry Wolfe [place] - [facility] 05/23 14:23:32 Date Recorded Body height Body mass index (BMI) Body weight Oxygen saturation Oxygen saturation in Arterial blood by Pulse oximetry Heart rate Respiratory rate Systolic And Diastolic Provider Name and Address Organization Details Last Updated DateTime 5 166.37 cm 41.5 kg/m2 184968. 87 g 98 % 98 % 55 /min 18 /min 140/80 mm[Hg] Parul Thaoler [facility] 5 15:09:56 Date Recorded Body height Body mass index (BMI) Body weight Body temperature Heart rate Oxygen saturation Oxygen saturation in Arterial blood by Pulse oximetry Respiratory rate Systolic And Diastolic Provider Name and Address Organization Details Last Updated DateTime 5 166.37 cm 41.3 kg/m2 743825. 28 g 97.7 [degF] 77 /min 99 % 99 % 18 /min 128/80 mm[Hg] Parul Anna [facility] 5 17:10:25 Date Recorded Body height Body mass index (BMI) Body weight Heart rate Oxygen saturation Oxygen saturation in Arterial blood by Pulse oximetry Respiratory rate Systolic And Diastolic Provider Name and Address Organization Details Last Updated DateTime 4 166.37 cm 42.8 kg/m2 837380. 61 g 86 /min 98 % 98 % 18 /min 132/80 mm[Hg] Parul Anna [facility] 4 11:35:28 Social History Question Answer Notes LastModified by Organizat ion Details LastModified Time Tobacco Smoking Status Never Smoker Ike roth [facility] 07/25/2016 08:44:21 Able To Swim? Yes Information not available 07/25/2016 Do You Have An Advance Directive? No Information not available 07/25/2016 Do You Wear A Helmet When Biking? Yes Information not available 07/25/2016 Are You Blind Or Do You Have Difficulty Seeing? No Information not available 07/25/2016 What Is Your Level Of Caffeine Consumption? None Information not available 07/25/2016 How Much Tobacco Do You Chew? None Information not available 07/25/2016 Concerns About Meeting Basic Needs (food, Housing, Heat, Etc)? No Information not available 07/25/2016 Are You Deaf Or Do You Have Serious Difficulty Hearing? No Information not available 07/25/2016 What Type Of Diet Are You Following? REGULAR Information not available 07/25/2016 Which Illicit Or Recreational Drugs Have You Used? None Information not available 07/25/2016 Education 2 Year College Information not available 07/25/2016 Swimming/diving Yes Informati on not available 07/25/2016 Have There Been Any Changes To Your Family Or Social Situation? No Information no t available 07/25/2016 Are There Any Guns Present In Your Home? Yes Information not available 07/25/2016 Hard Of Hearing Or Deaf In One Or Both Ears? No Information not available 07/25/2016 Legally Blind In One Or Both Eyes? No Information no t available 07/25/2016 Live Alone Or With Others? With Others Information not available 07/25/2016 What Was The Date Of Your Most Recent Tobacco Screening? 05/28/2024 [email or web address] Information not available 05/28/2024 How Many Children Do You Have? 2 Information not available 07/25/2016 Performs Monthly Self-breast Exam? Yes Information no t available 07/25/2016 Do You Use Protection During Sex? No Information not available 07/25/2016 Difficulty Reading? No Information not available 07/25/2016 What Is Your Relationship Status? Single Engaged Information not available 07/25/2016 Seat Belts Used Routinely Yes Information not available 07/25/2016 Are You Sexually Active? Yes Information not available 07/25/2016 Smoke Alarm In Home Yes Information not available 07/25/2016 Are You Passively Exposed To Smoke? Yes Information no t available 07/25/2016 How Much Tobacco Do You Smoke? No Information not available 07/25/2016 General Stress Level Medium Information not available 07/25/2016 Do You Use Sunscreen Routinely? Yes Information not available 07/25/2016 Has Tobacco Cessation Counseling Been Provided? Yes Information not available 07/25/2016 On What Date Was Tobacco Cessation Counseling Provided? 11/29/2023 Information not available 11/29/2023 How Many Years Have You Smoked Tobacco? 0 Information not available 07/25/2016 Do You Have Difficulty Walking Or Climbing Stairs? No Information not available 07/25/2016 Sex: Female Functional Status Question Answer Note LastModified by Organizat ion Details LastModified Time Do you or have you ever used smokeless tobacco? Current snuff user Information not available 10/27/2022 Are you currently employed? Yes Information not available 07/25/2016 Do you have transportation difficulties? No Information not available 07/25/2016 Are you able to care for yourself? Yes Information n ot available 07/25/2016 Do you have difficulty dressing or bathing? No Information not available 07/25/2016 Do you or have you ever used e-cigarettes or vape? Never used electronic cigarettes Information not available 10/27/2022 What is your exercise level? Moderate Information not available 07/25/2016 Do you use any illicit or recreational drugs? No Information not available 10/27/2022 Do you or have you ever used any other forms of tobacco or nicotine? Yes Information not available 10/27/2022 What is your level of alcohol consumption? Occasional very rare Information not available 07/25/2016 Are you able to walk? YESWOREST Information not available 07/25/2016 Do you have difficulty doing errands alone? No Information not available 07/25/2016 What is your occupation? [employer] Information not available 07/25/2016 Mental Status Question Answer Note LastModified by Organization D etails LastModified Time Do you have difficulty concentrating, remembering or making decisions? No Information no t available 07/25/2016 Family History Relationship Description Onset Age of this Age Resolved Age Notes LastModified by Organization Details LastModified Time Maternal Grandmother Leukemia Not available 03/2016 08:43:14 Maternal Grandmother Disorder of thyroid gland Not available 2016 08:57:42 Unspecified Relation Malignant tumor of colon Patern al side Not available 07/25/2016 08:43:28 Unspecified Relation Diabetes mellitus Aunt Not available 2016 08:57:29 Mother Asthma Not available 0 07/25/2016 08:43:38 Mother Hypertensive disorder Not available 2016 08:43:48 Mother Multiple sclerosis Not available 2016 08:43:55 Brother Asthma Not available 07/25/2016 08:43:38 Brother Hypertensive disorder Not available 2016 08:43:48 Brother Attention deficit hyperactivit y disorder Not available 07/25 08:56:56 Maternal Grandfather Congestive heart failure Not available 2016 08:57:12 Medical History No medical history recorded. Gynecological History Statement/Question Response Abnormal Pap N Date of LMP 05/20/2024 Menses Monthly Y Date of Last Pap Smear Most Recent Mammogram LMP Approximate Obstetrics History GPAL:G 3 P 3 0 3 3 Type Value Multiple Births 0 Full Term 3 Induced 0 Spontaneous 3 Premature 0 Living 3 Ectopics 0 Total 3 Immunizations Vaccine Type Date Status Note Provider Nam e and Address Organization Details Recorded Time Influenza, split virus, quadrivalent, preservative 6 completed Parul Anna null, [place] - [facility] 01/19/2023 08:13:53 COVID-19, mRNA, LNP-S, PF, 30 mcg/0.3 mL dose, vladimir-sucrose 2 completed Merry Stears null, [place] - [facility] 02/15/2022 10:49:50 Influenza, split virus, quadrivalent, PF 0 completed Merry Stears [place] [facility] 02/15/2022 10:49:50 MMR 9 completed Parul Anna [place] [facility] 01/19/2023 08:13:53 Tdap 9 completed Parul [place] [facility] 01/19/2023 08:13:53 Tdap 3 completed Parul [place] [facility] 01/19/2023 08:13:53 Tdap 8 completed Parul Castillo null, [place] - [facility] 01/19/2023 08:13:53 OPV 9 completed Parul Cast[place] [facility] 01/19/2023 08:13:53 HPV, quadrivalent 0 completed Parul Cast[place] [facility] 01/19/2023 08:13:53 HPV, quadrivalent 9 completed Parul [place] [facility] 01/19/2023 08:13:53 HPV, quadrivalent 9 completed Parul Thaoler [place] [facility] 01/19/2023 08:13:53 DTaP, unspecified formulation 9 completed Parul Castillo [place] [facility] 01/19/2023 08:13:53 Past Encounters Encounter ID Performer Location Encounter Start Date Encounter Closed Date Diagnosis/Indication Diagnosis SNOMED-CT Code Diagnosis ICD10 Code Diagnosis Note [id number] ZONIA G[address]me[address]elia [place] [address] [place] [address] 07/25/2016 08:10:57 07/25/2016 09:24:26 Body mass index 40+ - severely obese 307005554 Z68.41 Hypertensive disorder 38 851474 I10 Amenorrhea 68041477 N91. 2 [id number] ZONIA Gómezemelia [place] [address] [address] [facility] [place] [address] 08/08/2016 09:27:51 08/08/2016 10:31:51 Hypertensive disorder 55829262 I10 Pain of blanca int of ankle and/or foot 235582214 M25.438 [id number] ZONIA Gómezemelia [address] [place] [address] [place] [address] 08/19/2016 11:46:54 08/19/2016 12:14:32 Bacterial vaginosis 047472481 N76.0 Candidiasis of vagina 72 887579 B37.3 Acute folliculitis 64557 7007 L73.9 Paronychia of finger 444 919040 L03.277 [id number] Thalia RenatoPATRICK perezN Bela [place] [address] [place] [address] 09/30/2016 15:59:52 09/30/2016 16:48:18 Amenorrhea 36472724 N91.2 Hypertensive disorder 38 005513 I10 Urine preg milan test positive 608741592 Z32.01 Morning sickness 9240456 6 O21.9 Body mass index 40+ - severely obese 817900228 Z68.41 [id number] Trent Diallo APRN [place] [address] [place] [address] [place] [address] 10/26/2016 12:38:53 10/26/2016 13:45:26 Strain of right trapezius muscle 8764709555 2831294 S29.012A [id number] Thalia HuertashilariaPATRICK perezN [place] [address] [address] [place] [address] 12/09/2016 11:06:49 12/09/2016 11:42:34 Painless rectal bleeding 464001350 K62.5 Hypertensive disorder 38 560780 I10 [id number] Thalia TruehilariaPATRICK perezN [place] [address] [place] [address] 12/16/2016 13:30:15 12/16/2016 13:53:10 Right upper quadrant pain 482186875 R10.11 [id number] Trent D[place]PATRICKN [place] [address] [place] [address] 12/21/2016 13:02:08 12/21/2016 14:20:02 Right upper quadrant pain 144111265 R10.11 Already has US scheduled on 12/28 Nausea and vomiting 1693 1999 R11.2 Bleeding i nternal hemorrhoids 85022234 K64.8 Viral gastroenteritis 11 7089330 A08.4 [id number] Rosie Choi APRN [address] [address] 02/15/2022 10:26:35 02/15/2022 11:24:21 Influenza caused by Influenza A virus 013370306 J09.X2 [id number] Abhinavbrennen Choi[address] [address] 09/05/2022 14:05:03 09/05/2022 14:42:56 Body mass index 40+ - severely obese 260464712 Z68.41 Morbid obesity 811740621 E66.01 Contact de rmatitis caused by urushiol from [facility] 206415724 L25.5 [id number] Parul Adams[address] [place] [address] 10/27/2022 13:02:53 10/27/2022 13:37:21 Body mass index 40+ - severely obese 901757611 Z68.41 Morbid obesity 803280324 E66.01 BRCA2 gene mutation detected 863142676 Z15.01 Screening for cardiovascular system disease 870181766 Z13.6 Nicotine dependence 5629 4008 F17.200 Contact de rmatitis caused by urushiol from [facility] 560611125 L25.5 [id number] Parul Nunez[address] [place] [address] 10/31/2022 12:51:03 10/31/2022 13:44:28 Body mass index 40+ - severely obese 958101765 Z68.41 Morbid obesity 171851508 E66.01 Nicotine dependence 5629 4008 F17.370 [id number] [facility] [address] [address] 12/09/2022 08:07:33 12/09/2022 08:47:39 Streptococcal sore throat 26713774 J02.0 contact precaution s discussed [id number] [facility] susan[address] [address] 01/19/2023 08:06:39 01/19/2023 08:53:30 Transient lingual papillitis 498656942 K14.0 rinse mouth with warm salt water 3 times a dayif worsen return or call dentist [id number] Parul Adams [address] [place] [place] [address] 05/29/2023 10:43:38 05/29/2023 11:23:57 Body mass index 40+ - severely obese 663759493 Z68.41 Morbid obesity 958458196 E66.01 Nicotine dependence 5629 4008 F17.200 Pain of ri ght knee joint 4786617504 73085 M25.351 [id number] Rosie Choi [address] [address] 07/11/2023 10:14:31 07/11/2023 11:15:24 Nausea, vomiting and diarrhea 8591391 R11.2 Patient appears well-hydra jaison and is tolerating PO fluids. Recommende d small, frequent sips of clear, electrolyt e containing fluids advancing astolerate d to BRAT diet, acetaminop hen PRN cramping, frequent hand washing. Advised to call the office for inability to tolerate PO clears, decreased UOP, or any other new or concerning symptoms. Otherwise follow-up as below. Nausea 790148137 R11.0 [id number] Rosie Choi [address] [address] 08/08/2023 08:38:01 08/08/2023 09:07:17 Acute maxillary sinusitis 10844061 J01.00 [id number] Parul Adams [facility] [address] [place], [place] [address] [place] [address] 11/29/2023 10:59:30 11/29/2023 12:07:06 Nicotine dependence 39923632 F17.200 Cardiac arrhythmia 87180 7007 I49.9 Body mass index 40+ - severely obese 551079323 Z68.41 Morbid obesity 940492807 E66.01 [id number] Rosie Choi [address] [address] 12/25/2023 13:07:45 12/25/2023 14:28:34 Fatigue 86178045 R53.83 Anemia 911544616 D64.9 Hypertensive disorder 38 675729 I10 Cortisol l evel outside reference range 530052446 R89.1 [id number] Rosie Choi [address] [address] 01/29/2024 11:22:48 01/29/2024 13:03:26 Cobalamin deficiency 374743102 E53.8 Streptococ eliceo sore throat 54984673 J02.0 contact precaution s discussed [id number] Rosie Choi[address] [address] 05/13/2024 15:14:53 05/13/2024 15:58:41 Right upper quadrant pain 052213790 R10.11 if worsening or no improvment return Essential hypertension 74253382 I10 keep log bring to appointmen tcall for any concerns Constipation 78159283 K5 9.00 gi referral Diarrhea 33521621 R19.7 [id number] [facility] [address] [address] 05/23/2024 14:17:00 05/23/2024 15:34:39 Right upper quadrant pain 223331371 R10.11 if worsening or no improvemen t return [id number] [facility] [address] 05/28/2024 14:59:18 05/28/2024 15:55:20 Right upper quadrant pain 646596620 R10.11 if worsening or no improvemen t return Nausea and vomiting 1693 1999 R11.2 [id number] [facility] Ch[facility] [address] 06/18/2024 16:52:44 06/18/2024 17:45:10 Upper respiratory infection 87799342 J06.9 no sign of a bacterial infection. likely viral. viruses can take 7-14 days to run their course. nasal saline and bulb syringe to remove nasal drainage to help with congestion . monitor temp. Tylenol or Motrin as needed for pain or fever. encourage fluids, water, Gatorade, power aide, Pedialyte if /tod dler/child warm salt water gargles warm fluids sore throat lozenges sleep elevated humidifier /vaporizer follow up immediatel y for new or worsening symptoms or no noticeable improvemen t over the next 48-72 hours Health Concerns Section Related Observation LastModified by Organization Detai ls LastModified Time None Recorded Concern Status LastModified by Organization Details LastModified Time None Recorded Advance Directives Directive N: Payers Insurance Date Sequence Insurance Name Policy Number Policy Bautista Covered Member ID Bautista Member ID Guarantor Name 08/05/2024 1 [employer] [place] (MEDICAID HMO) Alana Choi [id number] Alana Choi 08/05/2024 [place] [facility] [place] ([place]ID[place] Alana Oleary [id number] Alana Choi Notes Date Note Type Note Provider Name and Address Organization Details Recorded Time 01/29/2024 text/html 28 yr old female presents for cough and green nasal drainage. She also has a sore throat. Both ears are painful/pressure. Rosie Choi APRN [facility] [address], [place], [address], [facility] - [facility] 01/29/2024 13:17:00 05/13/2024 text/html Emergency Depart ment Follow-Up RecordReported bypatient.Discharge InformationName of hospital/urgent care patient was seen: ([facility]); Patient presented to hospital/urgent care on or around: actual date 05/09/24; Patient presented to hospital for treatment of: (right side pain, generally feeling bad); Treatment received by hospital/urgent care: (CT, rx for zofran); Patient's condition has: improved; Hospital records available at the time of this visit: No 28 yr old female presents for an er follow up. She had right sided pain, had a CT that was negative. She was seen at [facility]. She has irregular bowel habits compared to her normal- she has alternating constipation and diarrhea. She has also had high bp issues lately. was taking metoprolol but stopped taking it Rosie Choi APRN [address], [place], [address], [place] - [facility] 05/13/2024 15:57:28 05/23/2024 text/html pt is at the off ice for labs [place], [place] - [facility] 05/23/2024 14:26:01 05/28/2024 text/html 28 yr old female presents for right sided abdominal pain and vomiting that started yesterday. She has a HIDA scan scheduled for 06/10/24. Rosie Hurtadolinh, CENTRAL CONTROL ROOM OPERATOR [address], [place], [address], [place] - [facility] 05/28/2024 15:38:08 06/18/2024 text/html 28 yr old female presents for congestion,runny nose,sore throat and fever for 2 days. Rosie Tejedasusan, CENTRAL CONTROL ROOM OPERATOR [address], [place], [address], [place] [facility] 06/18/2024 17:53:11 OBGyn Episode No OBEpisode recorded.
--- OUTSIDE RECORDS SUMMARY | 2024-09-30 13:37 | XMS_ITS | Clinical Summary ---
Author Organization [facility] Address [address] [place] [address] Care Team Providers Care Sack Repairer Name Role Phone Angie, Clarisa ZONIA Primary Care Provider [phone] Allergies Active Allergy Reactions Criticality Noted Date Comments Doxycycline Other - please docum ent in the comment field Low 11/28/2023 Endorses allergy to drop when child, made inside of ear raw Medications cholecalciferol (Vitamin D-3) 250 MCG (80551 UT) capsule Take 1 capsule (10,000 Units) by mouth 1 (one) time each day. Active Active Problems Problem Noted Date Diagnosed Date Iron deficiency 01/25/2024 Low serum vitamin B12 01/25/2024 Family History Medical History Relation Name Comments Cancer Father Rafy Chemotherapy Father Rafy Radiation Therapy Father Rafy Cancer Maternal Grandmother Chris Chemotherapy Maternal Grandmother Chris Thyroid disease Maternal Grandmother Chris Relation Name Status Comments Father Rafy Maternal Grandmother Chris Social History Tobacco Use Types Packs/Day Years [...] 69 01/25/2024 10:02 AM EDT Temperature 36.6 C (97.8 F) 01/25/2024 10:02 AM EDT Respiratory Rate 18 11/28/2023 4:43 AM EDT Oxygen Saturation 100% 01/25/2024 10:02 AM EDT Inhaled Oxygen Concentration - - Weight 121 kg (265 lb 10.5 oz) 01/25/2024 10:02 AM EDT Height 165.1 cm (5' 5 ) 01/25/2024 10:02 AM EDT Body Mass Index 44.21 01/25/2024 10:02 AM EDT Plan of Treatment Health Maintenance Due Date Last Done Comments [facility]-Depression Screening 1994 [facility]-/Child/Adol SDOH Screenings 1994 [facility]-IPV Vaccines (2 of 3 - 4-dose series) 10/21/1998 09/23/1998 [facility]-Varicella Vaccines (1 of 2 - 13+ 2-dose series) 09/19/2007 [facility]- SDOH Screenings 2012 [facility]-Adult SDOH Screenings 2012 [facility]-Hepatitis B Vaccines (1 of 3 - 19+ 3-dose series) 2013 [facility]-Pap Smear 09/19/2015 [id number] Vaccine (2 - season) 2023 10/04/2021 [facility]-Cervical Cancer Screening 2024 [facility]-HPV/Cotest 2024 [facility]-Influenza Vaccine (#1) 2024 01/05/2020 [facility]-DTaP,Tdap,and Td Vaccines (5 - Td or Tdap) 03/17/2028 03/17/2018, 11/08/2012, 11/04/2008, Additional history exists [facility]-Zoster Vaccines (1 of 2) 2044 HPV Vaccines Completed 09/10/2009, 12/25, 11/04/2008 [facility]-HIV Screening Completed 11/28/2023 [facility]-Hepatitis C Screening Completed 11/28/2023 [facility]-Obesity Intervention Completed 12/29/2023, 06/2023 [facility]-HIB Vaccines Aged Out No longer e ligible based on patient's age to complete this topic [facility]-Hepatitis A Vaccines Aged Out No longer eligible based on patient's age to complete this topic [facility]-Pneumococcal Vaccine: Pediatrics (0 to 5 Years) and At-Risk Patients (6 to 49 Years) Aged Out No longer eligible based on patient's age to complete this topic [facility]-Rotavirus Vaccines Aged Out No lo nger eligible based on patient's age to complete this topic Procedures Procedure Name Priority Date/Time Associated Diagnosis Comments HEPATITIS C ANTIBODY - ED W/REFLEX TO HCV QUANT PCR STAT 11/28/2023 1:36 AM EDT ED HIV 1/2 ANTIBODY/ANTIGEN SCREEN WITH REFLEX TO HIV I/II DIFFERENTIATION STAT 11/28/2023 1:36 AM EDT from Last 3 Months or Most Recently Relevant to Health Maintenance Results * ED HIV 1/2 Antibody/Antigen Screen w/Reflex to HIV 1/2 Differentiation (11/28/2023 1:36 AM EDT) HIV 1 & 2 Antibody/Antigen Screen Non Reactive Non Reactive 11/28/2023 3:13 AM EDT [facility] Comment:Screening for HIV 1 & 2 antibodies, and P24 antigen is NONREACTIVE. No confirmatory testing is required. Blood Venous blood specimen / Unknown Venipuncture / Unknown 11/28/2023 1:36 AM EDT 11/28/2023 1:44 AM EDT Yohan Toscano MD LAB BLOOD ORDERABLES Final Result [facility] [address] [place] [address] * Hepatitis C Antibody - ED (11/28/2023 1:36 AM EDT) Hepatitis C Antibody Negative Negative 11/28/2023 3:13 AM EDT [facility] Blood Venous blood specimen / Unknown Venipuncture / Unknown 11/28/2023 1:36 AM EDT 11/28/2023 1:44 AM EDT us Yohan Toscano MD LAB BLOOD ORDERABLES Final Result [facility] [address] [place] [address] from Last 3 Months or Most Recently Relevant to Health Maintenance Insurance [facility] MEDICAID Care Teams Sack Repairer Relationship Specialty Start Date End Date Clarisa Adams APRN [address] [place] [address] PCP - General Engine Cleaner 07/19/23
--- OUTSIDE RECORDS SUMMARY | 2024-09-30 13:37 | XMS_ITS | Clinical Summary ---
Author Organization [employer] ([place], [place], [place], [place]) Address [address] [place] [address] Care Team Providers Care Foreign Food Specialty Cook Name Role Phone Thalia Kim APRN Primary Care Provider [phone] Allergies Active Allergy Reactions Criticality Noted Date [...] of 40.0-44.9, adult 12/25 Chronic hypertension 08/08/2016 Family History Medical History Relation Name Comments [...] pur e alcohol) rarely, 2-3 a year Food Insecurity Answer Date Recorded Food run [...] rded Speak language other than Citizen [place] at home Not on file 11/29/2023 Want help with school or training Not on file 11/29/2023 Substance Use Answer Date Recorded Used [...] 95 01/31/2024 6:17 PM EST Temperature 37.1 C (98.8 F) 01/31/2024 6:17 PM EST Respiratory Rate 20 01/31/2024 6:17 PM EST Oxygen Saturation 96% 01/31/2024 6:17 PM EST Inhaled Oxygen Concentration - - Weight 118.4 kg (261 lb) 01/31/2024 4:57 PM EST Height 165.1 cm (5' 5 ) 01/31/2024 4:57 PM EST Body Mass Index 43.43 01/31/2024 4:57 PM EST Plan of Treatment Health Maintenance Due Date Last Done Comments Depression Screening (12+) 2006 Tobacco Cessation Counseling and Screening (12+) 2006 HIV Screening 2009 Hepatitis C Screening 2012 Lipid Panel 2014 Pap Smear 09/19/2015 COVID-19 VACCINE ( - season) 2023 10/04/2021 Influenza Vaccine (#1) 2024 DTAP/TDAP/TD VACCINES (5 - Td or Tdap) 03/17/2028 03/17/2018, 11/08/2012, 11/04/2008, Additional history exists Pneumococcal Vaccine: 0-49 Years Aged Out No longer eligible based on patient's age to complete this topic Insurance [facility] Care Teams Foreign Food Specialty Cook Relationship Specialty Start Date End Date Thalia Kim APRN [address] [place] [id number] PCP - General Nurse Practitioner 02/01/24
--- OUTSIDE RECORDS SUMMARY | 2024-09-30 13:37 | XMS_ITS | Referral Summary ---
Author Organization [facility] [employer] ([place], [place], [place], [place]) Address [address] [place] [address] Care Team Providers Care Research Advisor Name Role Phone Thalia Kim APRN Primary Care Provider [phone] Allergies Active Allergy Reactions Criticality Noted Date [...] Date Kanu rded Speak language other than [place] at home Not on file 11/29/2023 Want [...] 01/31/2024 4:57 PM EST Plan of Treatment Not on file Insurance [facility] Care Teams Research Advisor Relationship Specialty Start Date End Date Truesdell, Thalia, CONTACT REPRESENTATIVE[address] [phone] PCP - General Nurse Practitioner 02/01/24
--- NOTE | 2024-09-30 13:39 | CT_ITS ---
FINAL REPORT TECHNIQUE: After the administration of intravenous contrast, axial images were obtained through the abdomen and pelvis by computed tomography. This study was performed with technique to keep radiation doses as low as reasonably achievable, (ALARA). Individualized dose reduction techniques using automated exposure control or adjustment of the MA and/or KV according to the patient's size were employed. CLINICAL HISTORY: left upper abdominal pain COMPARISON: 08/15/2024 FINDINGS: Abdomen: The lung bases are clear. The liver is normal in size and attenuation. Gallbladder is contracted. The spleen is unremarkable. The adrenals are normal. The pancreas is unremarkable. The kidneys enhance appropriately. The aorta is normal in caliber. There is no free fluid or adenopathy. Pelvis: The appendix is normal. Uterus is anteverted. Small cyst or follicles are seen in the right ovary measuring up to 3.0 cm. The urinary bladder is unremarkable. There is no free fluid or adenopathy. IMPRESSION: No acute intra-abdominal process. Reviewed, Interpreted and Dictated by Peter Mckenna MD Transcribed by Selene Perrin Authenticated and [facility]
[2024-09-30 13:46] LABS: Hematocrit 36.5 % (37.0-47.0); Hemoglobin 11.9 g/dL (12.2-16.2); Immature Granulocytes % 0.1 %; Mean Corpuscular HGB Conc 32.6 g/dL (31.8-35.4); Mean Corpuscular Hemoglobin 27.0 pg (27.0-31.2); Mean Corpuscular Volume 82.8 fl (81-99); Nucleated Red Blood Cells % 0 %; Platelet Count 229 K/mm3 (142-424); Red Blood Count 4.41 M/mm3 (4.20-5.40); Red Cell Distribution Width-SD 39.7 fL; White Blood Count 7.3 K/mm3 (4.8-10.8)
--- NOTE | 2024-09-30 13:51 | ECG_ITS ---
APPROVED REPORT Exam: Resting ECG HR:49 bpm ECG Measurements Heart Rate 49 AXES DC 136 P 29 QRSd 88 QRS 20 QT 421 T 41 QTc 391 Conclusion SINUS BRADYCARDIA BORDERLINE ECG Electronically signed by : MENDEZ HAYES, 10/01/2024 08:38:26
--- NOTE | 2024-09-30 13:51 | ED_ITS ---
<Statement entered by Dede Quezada DO - 10/01/24 20:08> I was consulted by the ELISE, and we discussed the complexity of the problems being addressed. I approved the treatment and management plan for this patient's care in the emergency department, thus performing a substantive portion of the medical decision making. Labs reassuring with no clinically significant anemia. BUN is normal indicating no significant digestion of blood and an upper GI bleed is likely. CT scan reassuring. No recurrence of vomiting here. It is felt the patient is appropriate for discharge home with close follow-up Dede Quezada DO Discharge Plan Disposition Patient Disposition: Home, Self-Care Prescriptions Prescriptions: New famotidine 20 mg tablet 20 mg PO DAILY Qty: 30 0RF No Action ondansetron 4 mg tablet,disintegrating 4 mg PO ONCE PRN (Reason: nausea and vomiting) Qty: 14 0RF Rx Instructions: DISSOLVE 1 TABLET IN MOUTH EVERY 6 HOURS NEEDED FOR NAUSEA AND VOMITING levocetirizine [Xyzal] 5 mg Tablet 5 mg PO DAILY buspirone 10 mg tablet 10 mg PO BID Qty: 60 12RF Rx Instructions: Please take 1 tablet p.o. twice daily Referrals Follow up/Referrals: [phone] [Other] - See instructions Etienne Day II, MD [Staff Physician, Gastroenterology] - See instructions Rosie Choi APRN [Primary Care Provider, Medical] - See instructions Clinical Impressions Clinical Impression: Irritable bowel syndrome with mixed bowel habits, Hematemesis Instructions Patient Instructions: Irritable Bowel Syndrome, DI for Acute Abdominal Pain Print Language Print Language: Mosotho Discharge ED Provider: Dede Quezada General Adult HPI <Alyse Jeffers (ED), ZONIA - Last Filed: 09/30/24 17:47> General Chief complaint: Abdominal Pain Stated complaint: Vomitting Blood Time Seen by Provider: 09/30/24 13:23 Mode of Arrival: Ambulatory Source of Information: Patient Description of Symptoms (Recalled from ER Triage Doc. by RN): PT REPORTS 1 EPISODE OF BLOODY EMESIS THIS AM, REPORTS LEFT SIDED ABDOMINAL PAIN AND NAUSEA. COLONOSCOPY ON 09/12. History of Present Illness HPI narrative: 29-year-old female presents to the ED today after she had 1 episode of vomiting that was bloody. She says she also started with left upper abdominal pain that also just started. Patient has past medical history of migraines, hypertension, functional abdominal pain, colitis, hemorrhoids, IBS. Patient had a colonoscopy on 619 where she was diagnosed with IBS with constipation and internal hemorrhoids that were bleeding. She was given Trulance and BuSpar but she is unable to take the Trulance because it gives her diarrhea and she can only take the BuSpar once a day due to dizziness. Patient is concerned about the blood in her emesis. She has no chest pain or shortness of breath. No dizziness. No other symptoms at this time. She does see Dr. Day and Kristyn razo. Related Data Home Medications ?Medication ?Instructions ?Recorded ?Confirmed levocetirizine 5 mg tablet (Xyzal) 5 mg PO DAILY 08/2709/12/24 Previous Rx's ?Medication ?Instructions ?Recorded ondansetron 4 mg disintegrating 4 mg PO ONCE PRN nause a and 08/29/24 tablet vomiting #14 tabs buspirone 10 mg tablet 10 mg PO BID #60 tabs famotidine 20 mg tablet 20 mg PO DAILY #30 tabs 10/18 Allergies Allergy/AdvReac Type Severity Reaction Status Date / Time carbamide peroxide (From Allergy Unknown Verified 09/11/24 10:25 Debrox) allergy reaction [facility] <Alyse Jeffers (ED), LINE RIDER - Last Filed: 09/30/24 17:47> [facility] Disclaimer: The information contained in this section may have been updated after the patient was seen, as this information can be updated by other users. Medical History Migraine Hypertension Surgical History History of section Family History Other Colon cancer Leukemia Lung cancer Stomach cancer Throat cancer Social History Smoking Status: Never smoker second hand exposure: Yes alcohol intake: never substance use type: denies use current occupational status: employed Travel in the last 8 weeks?: None household members: children housing: house Have you lived/traveled outside US in past 30 days?: No Contact w/someone who lives/traveled outside US past 30 days?: No Exposure to someone with infectious disease in past 14 days?: No Do you have a fever (greater than 100.4 F or 38 C)?: No Have you tested positive for COVID-19?: No Exposed to someone with COVID-19 in past 14 days?: No Do you have a sore throat?: No Do you have a cough?: No Do you have any weakness?: No Do you have any diarrhea?: No Are you experiencing any unusual bleeding?: No Do you have any muscle aches/pain?: No Do you have any abdominal pain?: No Are you experiencing loss of taste or smell?: No Other Medical History Have you received the Flu Vaccine for this season: Yes Have you received the Pneumonia Vaccine: No <Alyse Jeffers (ED), LINE RIDER - Last Filed: 09/30/24 17:47> ROS Obtained: Yes Systems reviewed as appropriate & no additional complaints except as documented Constitutional Constitutional: Reports as per HPI Physical Exam <Alyse Jeffers (ED), LINE RIDER - Last Filed: 09/30/24 17:47> General General appearance: alert, in no apparent distress and anxious Head Head exam: normocephalic Eye Eye exam: Present PERRL and EOMI ENT ENT exam: Present normal oropharynx and mucous membranes moist Neck Neck exam: Present full ROM and trachea midline Respiratory Respiratory exam: Present normal lung sounds bilaterally Cardiovascular Cardiovascular exam: Present regular rate, normal rhythm, normal heart sounds, +S1 and +S2 Abdominal Exam Abdominal exam: Present soft and normal bowel sounds Abdominal tenderness: Present LUQ and mild Extremities Exam Extremities exam: Present normal inspection, full ROM and normal capillary refill Neurological Exam Neurological exam: Present alert, oriented X3 and normal gait Skin Skin exam: Present warm, dry and intact Medical Decision Making <Alyse Jeffers (ED), LINE RIDER - Last Filed: 09/30/24 17:47> Medical Records Screening: Per USPSTF and CDC recommendations, given the prevalence of disease in our region, it is our hospital?s policy to screen for HIV and viral Hepatitis for all patients aged 18 and over and those with ongoing risk factors. Scott Inquiry Pt receiving controlled substance: No Scott was queried for this patient: No Vital Signs: 09/30/24 13:20 09/30/24 15:49 Temperature 98.0 F 98.0 F Temperature Source Oral Oral Pulse Rate 80 Pulse Rate [Radial] 75 Respiratory Rate 18 18 Blood Pressure 138/72 Blood Pressure [Left Arm] 156/75 H Blood Pressure Mean [Left Arm] 102 Blood Pressure Source Automatic Cuff Blood Pressure Source [Left Arm] Automatic Cuff Blood Pressure Position Sitting Blood Pressure Position [Left Arm] Sitting 02 Sat by Pulse Oximetry 100 Oxygen Delivery Method Room Air Room Air Lab Data Lab Results 09/30/24 13:39: WBC 7.3, RBC 4.41, Hgb 11.9 L, Hct 36.5 L, MCV 82.8, MCH 27.0, MCHC 32.6, RDW 13.2, Plt Count 229, MPV 10.7 H, Neut % (Auto) 69.0, Lymph % (Auto) 20.1, [place] % (Auto) 8.1, Eos % (Auto) 2.1, Baso % (Auto) 0.6, Neut # (Auto) 5.0, Lymph # (Auto) 1.5, [place] # (Auto) 0.6, Eos # (Auto) 0.2, Baso # (Auto) 0.0, APTT 26.2, Sodium 139, Potassium 3.8, Chloride 104, Carbon Dioxide 25, Anion Gap 13.8, BUN 12, Creatinine 0.80, Estimated Creat Clear 93, Estimated GFR 84, Est GFR ( Amer) 102, Glucose 93, Calcium 9.4, Magnesium 2.0, Total Bilirubin 0.7, AST 28, ALT 17, Alkaline Phosphatase 60, Troponin I < 0.01, Total Protein 7.5, Albumin 4.4, Globulin 3.1, Albumin/Globulin Ratio 1.4, Lipase 51 09/30/24 13:39 09/30/24 13:39 Orders (Tests/Meds): ED MEDICATIONS Discontinued Medications Generic Name Dose Route Start Last Admin Trade Name Chemaq PRN Reason Stop Dose Admin Famotidine 20 mg 09/30/24 13:39 09/30/24 14:15 Famotidine 20mg/2ml Vial IV 09/30/24 13:40 20 mg ONCE ONE Administration Sodium Chloride 1,000 mls @ 999 mls/hr 09/30/24 13:39 09/30/24 14:14 Sod Chlor 0.9% 1000ml Bag IV 09/30/24 14:39 999 mls/hr .Q1H1M ONE Administration Iopamidol 75 ml 09/30/24 14:09 09/30/24 14:10 Iopamidol-370 (76%);100ml Bottle IV 09/30/24 14:10 75 ml ONCE ONE Administration Ondansetron HCl 4 mg 09/30/24 13:39 09/30/24 14:15 Ondansetron 4mg/2ml Vial IV 09/30/24 13:40 4 mg ONCE ONE Administration Sodium Chloride 8 ml 09/30/24 13:39 Sodium Chloride 0.9% 10ml Vial IV 10/30/24 13:38 NEEDED PRN dilute pepcid Sodium Chloride 10 ml 09/30/24 14:09 09/30/24 14:10 Sodium Chloride 0.9% 10ml Syr (Rad Only) IV 09/30/24 14:10 10 ml ONCE ONE Administration ORDERS Category Date Time Status CT abdomen pelvis w con Stat Cat Scan 09/30/24 13:39 Completed CBC [Complete Blood Count Auto Diff] Stat Lab 09/30/24 13:39 Completed Comprehensive Metabolic Panel Stat Lab 09/30/24 13:39 Completed Lipase Stat Lab 09/30/24 13:39 Completed Magnesium Stat Lab 09/30/24 13:39 Completed PTT [Activated Partial Thrombo Time] Stat Lab 09/30/24 13:39 Completed Trop I [Troponin I] Stat Lab 09/30/24 13:39 Completed Medical Decision Narrative: patient is a 29-year-old female presenting to the emergency department for evaluation of 1 episode of vomiting that had some blood in it this morning. And left sided upper abdominal pain. Patient is hemodynamically stable and nontoxic-appearing upon arrival, afebrile. Differential diagnosis includes GI bleed, pancreatitis, reflux, GERD, among others. Workup will be conducted with hematologic labs, specific imaging. Initial inventions include crystalloid bolus, analgesics. Initial workup reviewed by me hematologic labs are remarkable for normal H&H, normal white count among other labs that are normal. Imaging informally interpreted by me and remarkable for nothing acute. Formal imaging read remarkable for nothing acute. Upon repeat evaluation patient's pain is improved. Patient is to follow-up with Dr. Day for an upper endoscopy. Patient will be discharged with meds. She is safe for discharge home. Discussed plan with Dr. Quezada. <Dede Quezada, DO - Last Filed: 09/30/24 15:29> Vital Signs: 09/30/24 13:20 09/30/24 15:49 Temperature 98.0 F 98.0 F Temperature Source Oral Oral Pulse Rate 80 Pulse Rate [Radial] 75 Respiratory Rate 18 18 Blood Pressure 138/72 Blood Pressure [Left Arm] 156/75 H Blood Pressure Mean [Left Arm] 102 Blood Pressure Source Automatic Cuff Blood Pressure Source [Left Arm] Automatic Cuff Blood Pressure Position Sitting Blood Pressure Position [Left Arm] Sitting 02 Sat by Pulse Oximetry 100 Oxygen Delivery Method Room Air Room Air Lab Data Lab Results 09/30/24 13:39: WBC 7.3, RBC 4.41, Hgb 11.9 L, Hct 36.5 L, MCV 82.8, MCH 27.0, MCHC 32.6, RDW 13.2, Plt Count 229, MPV 10.7 H, Neut % (Auto) 69.0, Lymph % (Auto) 20.1, [place] % (Auto) 8.1, Eos % (Auto) 2.1, Baso % (Auto) 0.6, Neut # (Auto) 5.0, Lymph # (Auto) 1.5, [place] # (Auto) 0.6, Eos # (Auto) 0.2, Baso # (Auto) 0.0, APTT 26.2, Sodium 139, Potassium 3.8, Chloride 104, Carbon Dioxide 25, Anion Gap 13.8, BUN 12, Creatinine 0.80, Estimated Creat Clear 93, Estimated GFR 84, Est GFR ( Amer) 102, Glucose 93, Calcium 9.4, Magnesium 2.0, Total Bilirubin 0.7, AST 28, ALT 17, Alkaline Phosphatase 60, Troponin I < 0.01, Total Protein 7.5, Albumin 4.4, Globulin 3.1, Albumin/Globulin Ratio 1.4, Lipase 51 Orders (Tests/Meds): ED MEDICATIONS Discontinued Medications Generic Name Dose Route Start Last Admin Trade Name Freq PRN Reason Stop Dose Admin Famotidine 20 mg 09/30/24 13:39 09/30/24 14:15 Famotidine 20mg/2ml Vial IV 09/30/24 13:40 20 mg ONCE ONE Administration Sodium Chloride 1,000 mls @ 999 mls/hr 09/30/24 13:39 09/30/24 14:14 Sod Chlor 0.9% 1000ml Bag IV 09/30/24 14:39 999 mls/hr .Q1H1M ONE Administration Iopamidol 75 ml 09/30/24 14:09 09/30/24 14:10 Iopamidol-370 (76%);100ml Bottle IV 09/30/24 14:10 75 ml ONCE ONE Administration Ondansetron HCl 4 mg 09/30/24 13:39 09/30/24 14:15 Ondansetron 4mg/2ml Vial IV 09/30/24 13:40 4 mg ONCE ONE Administration Sodium Chloride 8 ml 09/30/24 13:39 Sodium Chloride 0.9% 10ml Vial IV 10/30/24 13:38 NEEDED PRN dilute pepcid Sodium Chloride 10 ml 09/30/24 14:09 09/30/24 14:10 Sodium Chloride 0.9% 10ml Syr (Rad Only) IV 09/30/24 14:10 10 ml ONCE ONE Administration ORDERS Category Date Time Status CT abdomen pelvis w con Stat Cat Scan 09/30/24 13:39 Completed CBC [Complete Blood Count Auto Diff] Stat Lab 09/30/24 13:39 Completed Comprehensive Metabolic Panel Stat Lab 09/30/24 13:39 Completed Lipase Stat Lab 09/30/24 13:39 Completed Magnesium Stat Lab 09/30/24 13:39 Completed PTT [Activated Partial Thrombo Time] Stat Lab 09/30/24 13:39 Completed Trop I [Troponin I] Stat Lab 09/30/24 13:39 Completed ECG Data Tracing #1: I reviewed this ECG and interpreted as documented below: Sinus bradycardia with a ventricular to 49 bpm. No acute STEMI. ECG initial impression date: 09/30/24 ECG initial impression time: 14:05 Critical Care <Alyse Jeffers (ED), LINE RIDER - Last Filed: 09/30/24 17:47> Critical Care Time Critical Care Time: No
[2024-09-30 13:55] LABS: Alanine Aminotransferase 17 U/L (12-78); Albumin Level 4.4 g/dl (3.5-5.0); Albumin/Globulin Ratio 1.4 (1.1-1.8); Alkaline Phosphatase 60 U/L (38-126); Anion Gap 13.8 mEq/L (5-15); Aspartate Amino Transferase 28 U/L (14-36); Bilirubin,Total 0.7 mg/dl (0.2-1.3); Blood Urea Nitrogen 12 mg/dl (7-17); Calcium 9.4 mg/dl (8.4-10.2); Carbon Dioxide 25 mmol/L (22.0-30.0); Chloride 104 mmol/L (98-107); Creatinine Clearance Estimated 93 mL/min (50-200); Creatinine,Serum 0.80 mg/dl (0.52-1.04); Estimated Glomerular Filt Rate 84 ml/min (>60); GFR (African American) 102 ML/MIN (>60); Globulin 3.1 g/dL (1.3-3.2); Glucose 93 mg/dl (74-100); Lipase 51 U/L (23-300); Magnesium 2.0 mg/dl (1.6-2.3); Potassium 3.8 mmoL/L (3.5-5.1); Sodium 139 mmol/L (136-145); Total Protein,Serum 7.5 g/dl (6.3-8.2)
[2024-09-30 14:09] LABS: Troponin I < 0.01 ng/ml (0.00-0.034)
[2024-09-30] MEDS: IOPAMIDOL-370 (76%);100ML BOTTLE 75 ML IV (14:10)
[2024-09-30] MEDS: SODIUM CHLORIDE 0.9% 10ML SYR (RAD ONLY) 10 ML IV (14:10)
[2024-09-30 14:14] LABS: Activated Partial Thrombo Time 26.2 seconds (22.8-30.6)
[2024-09-30] MEDS: 0.9 % SODIUM CHLORIDE 1000ML 1,000 ML 999 ML IV (14:14)
[2024-09-30] MEDS: FAMOTIDINE 20MG/2ML VIAL 20 MG IV (14:15)
[2024-09-30] MEDS: ONDANSETRON 4MG/2ML VIAL 4 MG IV (14:15)
[2024-09-30 15:49] VITALS: BP 138/72; PULSE 80; RESP 18; TEMP 36.7; O2SAT 98
== END 2024-09-30 15:50 | disposition home or self-care (01) ==
PROVIDERS: Nurse Practitioner; Emergency Provider Emergency Medicine; PCP Nurse Practitioner Family
DX: R10.12 Left upper quadrant pain (principal); K92.0 Hematemesis; K58.2 Mixed irritable bowel syndrome; R00.1 Bradycardia, unspecified
CPT/HCPCS: 74177; 80053; 83690; 83735; 84484; 85025; 85730; 93005; 96361; 96374; 96375; 99284; J2405; J7030; Q9967

== ENCOUNTER 2024-10-09 10:53 | Outpatient (CLI) | payer MEDICAID, SELFPAY ==
--- OUTSIDE RECORDS SUMMARY | 2024-10-09 11:03 | XMS_ITS | Referral Summary ---
Author Organization [employer] ([place], [place], [place], [place]) Address [address] [place] [address] Care Team Providers Care Senior Credit Analyst Name Role Phone Thalia Kim APRN Primary Care Provider +1- [phone] Allergies Active Allergy Reactions Criticality Noted Date [...] Date Kanu rded Speak language other than Gabonese at home Not on file 11/29/2023 Want [...] Plan of Treatment Not on file Insurance [facility] Care Teams Senior Credit Analyst Relationship Specialty Start Date End Date Truesdell, Thalia, WHIZZER [address] [phone] PCP - General Nurse Practitioner 02/01/24
--- OUTSIDE RECORDS SUMMARY | 2024-10-09 11:03 | XMS_ITS | Clinical Summary ---
Author Organization [facility] ([place], [place], [place], [place]) Address [address] [place] [address] Care Team Providers Care Footwear Machinery Instructor Name Role Phone Thalia Kim APRN Primary Care Provider [phone]- [phone] Allergies Active Allergy Reactions Criticality Noted Date [...] Date Kanu rded Speak language other than Japanese at home Not on file 11/29/2023 Want [...] patient's age to complete this topic Insurance [facility] Care Teams Footwear Machinery Instructor Relationship Specialty Start Date End Date Thalia Kim APRN [address] [place] [id number] PCP - General Nurse Practitioner 02/01/24
--- OUTSIDE RECORDS SUMMARY | 2024-10-09 11:03 | XMS_ITS | Clinical Summary ---
Author Organization [facility] Address [address] [place] [address] Care Team Providers Care Validation Engineer Name Role Phone AngieClarisa rain ZONIA Primary Care Provider Allergies Active Allergy Reactions Criticality Noted Date Comments Doxycycline Other - please docum ent in the comment field Low 11/28/2023 Endorses allergy to drop when child, made inside of ear raw Medications cholecalciferol (Vitamin D-3) 250 MCG (15091 UT) capsule Take 1 capsule (10,000 Units) [...] Date Last Done Comments [facility]-Depression Screening 1994 [facility]-Infant/Child/Adol SDOH Screenings 1994 [facility]-IPV Vaccines (2 of 3 - 4-dose series) 10/21/1998 09/23/1998 [facility]-Varicella Vaccines (1 of 2 - 13+ 2-dose series) 09/19/2007 [facility]- SDOH Screenings 2012 [facility]-Adult SDOH Screenings 2012 [facility]-Hepatitis B Vaccines (1 of 3 - 19+ 3-dose series) 2013 [facility]-Pap Smear 09/19/2015 [id number] Vaccine (2 - season) 2023 10/04/2021 [facility]-Cervical [...] ORDERABLES Final Result [facility] [address] [place] [address] * Hepatitis C Antibody - ED (11/28/2023 1:36 AM EDT) Hepatitis C Antibody Negative Negative 11/28/2023 3:13 AM EDT [facility] Blood Venous blood specimen / Unknown Venipuncture / Unknown 11/28/2023 1:36 AM EDT 11/28/2023 1:44 AM EDT us Yohan Toscano MD LAB BLOOD ORDERABLES Final Result [facility] [address] [place] [address] from Last 3 Months or Most Recently Relevant to Health Maintenance Insurance [facility] MEDICAID Care Teams Validation Engineer Relationship Specialty Start Date End Date Clarisa Adams APRN [address] [place] [address] PCP - General Voice Coach 07/19/23
[2024-10-09 12:39] LABS: Chloride 102 mmol/L (98-107); Potassium 4.0 mmoL/L (3.5-5.1); Sodium 139 mmol/L (136-145)
[2024-10-09 12:42] LABS: Anion Gap 14.0 mEq/L (5-15); Blood Urea Nitrogen 11 mg/dl (7-17); Calcium 9.7 mg/dl (8.4-10.2); Carbon Dioxide 27 mmol/L (22.0-30.0); Creatinine,Serum 0.70 mg/dl (0.52-1.04); Estimated Glomerular Filt Rate 98 ml/min (>60); GFR (African American) 119 ML/MIN (>60); Glucose 90 mg/dl (74-100)
== END 2024-10-09 23:59 | disposition home or self-care (01) ==
LOC: LAB 10:54
PROVIDERS: PCP Nurse Practitioner Family; Visit Provider Physician Assistant
DX: I10 Essential (primary) hypertension (principal); R53.83 Other fatigue
CPT/HCPCS: 36415; 80048; 93270

== ENCOUNTER 2024-11-01 07:29 | Outpatient (CLI) | payer MEDICAID, SELFPAY ==
--- OUTSIDE RECORDS SUMMARY | 2019-03-07 10:53 | XMS_ITS | Encounter Summary ---
Author Organization [facility] Address [address] [place] [address] Care Team Providers Care District Wildlife Manager Name Role Phone AleksandarhilariaThalia perez ZONIA Primary Care Provider +1- [phone] Reason for Referral * Diagnostic Imaging (Routine) - Closed Specialty Diagnoses / Procedures Referred By Contac t Referred To Contact Radiology Diagnoses Morbid obesity with BMI of 40.0-44.9, adult Chronic hypertension affecting High-risk in third trimester Procedures US Biophysical Profile;Without Non-Stress Testing Lee Ann Colvin MD [address] [place] [address] Phone: tel: fax: [facility] Phone: tel: Referral ID Status Reason Start Date Expiration Date Visits Re quested Visits Authorized [id number] Closed 03/05/2019 03/04/2020 1 1 Reason for Visit * Diagnostic Imaging (Routine) - Closed Specialty Diagnoses / Procedures Referred By Contac t Referred To Contact Radiology Diagnoses Morbid obesity with BMI of 40.0-44.9, adult Chronic hypertension affecting High-risk in third trimester Procedures US Biophysical Profile;Without Non-Stress Testing Lee Ann Colvin MD [address] [place] [address] Phone: tel: fax: [facility] [place] Phone: tel: Referral ID Status Reason Start Date Expiration Date Visits Re quested Visits Authorized [id number] Closed 03/05/2019 03/04/2020 1 1 Encounter Details Date Type Department Care Team (Latest Contact Info) Description 03/07/2019 9:53 AM EST Hospital Encounter [facility] [place] [phone] Morbid obesity with BMI of 40.0-44.9, adult; Chronic hypertension affecting ; High-risk in third trimester Social History Tobacco Use Types Packs/Day Years Used Date Smoking Tobacco: Never Smokeless Tobacco: Current Chew Comments:SLOWLY WEANING SELF OFF; PAMPHLET GIVEN TO PATIENT Alcohol Use Standard Drinks/Week Comments No 1 (1 standard drink = 0.6 oz pur e alcohol) [place] Depression Scale Answer Date Recorded Retired [place] Depression Score 4 04/16/2019 Retired EPD Scale: Thought of Harming Self Unrec ognized value 04/16/2019 Abuse Screen Answer Date Recorded Feels Unsafe at Home or Work/School no 09/02/2024 Feels Threatened by Someone no 11/2024 Does Anyone Try to Keep You [...] Risk Indicated 09/02/2024 5:47 PM EDT Mino Mahan, RN * [place] Suicide Severity Rating Scale (Screener/Recent Self-Report) Question Answer Date of Assessment Author 1. Wish to be (Past 1 Month) No 025 5:47 PM EDT Felisa Mahan, RN 2. Non-Specific Active Suici malik Thoughts (Past 1 Month) No 09/02/2024 5:47 PM EDT Felisa Mahan , RN 6. Suicidal Behavior (Lifetime) No 06/09/202 5 5:47 PM EDT Felisa Mahan RN documented as of this encounter Plan [...] 5:22 PM EST PAT NAME: EMELY ROSALES [facility] REC#: [id number] DA: [id number] PAT GEND: F PAT TYPE: O EXAM BLAZE: [id number] REF PHYS LEE ANN COLVIN Indication ======== [...] of testing for the condition being monitored. Property Management Supervisor: Dinorah Leiva RDMS Physician: Pelon Mcguire MD Electronically signed by: Pelon Mcguire MD at: 17:22 Procedure Note Pelon Mcguire MD - 03/07/2019 PAT NAME: EMELY ROSALES [facility] REC#: [id number] DA: [id number] PAT GEND: F PAT TYPE: O EXAM BLAZE: [id number] REF PHYS LEE ANN COLVIN Indication ======== [...] schedule of testing for the condition beingmonitored. Property Management Supervisor: Dinorah Leiva RDMS Physician: Pelon Mcguire MD Electronically signed by: Pelon Mcguire MD at: 17:22 Lee Ann Colvin MD IM US ORDERABLES Final Resu lt documented in this encounter Visit Diagnoses Diagnosis Morbid obesity with BMI of 40.0-44.9, adult Chronic hypertension affecting High-risk in third trimester documented in this encounter Care Teams District Wildlife Manager Relationship Specialty Start Date End Date Thalia Kim APRN [address] [place] [address] PCP - General Nurse Practitioner 03/07/19 documented as of this encounter
--- OUTSIDE RECORDS SUMMARY | 2019-03-13 12:05 | XMS_ITS | Encounter Summary ---
Author Organization [facility] Address [address] [place] [address] Care Team Providers Care Hotel And Dining Room Cashier Name Role Phone Thalia Kim ZOINA Primary Care Provider +1- [phone] Reason for Visit * Diagnostic Imaging (Routine) - Closed Specialty Diagnoses / Procedures Referred By Contac t Referred To Contact Radiology Diagnoses Chronic hypertension affecting Procedures US Biophysical Profile No Stress US Biophysical Profile;Without Non-Stress Testing Nathalie Colvin MD [address] [facility] [address] [place], [place] [address] Phone: tel: fax: [facility] Phone: tel: Referral ID Status Reason Start Date Expiration Date Visits Re quested Visits Authorized [id number] Closed 03/13/2019 03/12/2020 1 1 Encounter Details Date Type Department Care Team (Latest Contact Info) Description 03/13/2019 11:05 AM EST Hospital Encounter [facility] [phone] Chronic hypertension affecting Social History Tobacco Use Types Packs/Day Years Used Date Smoking Tobacco: Never Smokeless Tobacco: Current Chew Comments:SLOWLY WEANING SELF OFF; PAMPHLET GIVEN TO PATIENT Alcohol Use Standard Drinks/Week Comments No 1 (1 standard drink = 0.6 oz pur e alcohol) [place] Depression Scale Answer Date Recorded Retired [place] Depression Score 4 04/16/2019 Retired EPD Scale: [...] 5:47 PM EDT Mino Mahan RN * [place] Suicide Severity Rating Scale (Screener/Recent Self-Report) Question Answer Date of Assessment Author 1. Wish to be (Past 1 Month) No 025 5:47 PM EDT Felisa Mahan, KEMI 2. Non-Specific Active Suici malik Thoughts (Past 1 Month) No 09/02/2024 5:47 PM EDT Felisa Mahan , KEMI 6. Suicidal Behavior (Lifetime) No 5:47 PM EDT Felisa Mahan RN documented [...] 4:57 PM EST PAT NAME: EMELY ROSALES [facility] REC#: [id number] DA: [id number] PAT GEND: F PAT TYPE: O EXAM BLAZE: [id number] REF PHYS NATHALIE COLVIN Indication ======== BPP, non reactive NST, [...] Amniotic fluid volume 11/01: Biophysical profile score Spanish Instructor Comments Single intrauterine is present Impression ========= Normal BPP Recommendation Continue the routine schedule of testing for the condition being monitored. Spanish Instructor: Pat Stiles RDMS Physician: Pelon Mcguire MD Electronically signed by: Pelon Mcguire MD at: 16:57 Procedure Note Pelon Mcguire MD - 03/14/2019 PAT NAME: EMELY ROSALES [facility] REC#: [id number] DA: [id number] PAT GEND: F PAT TYPE: O EXAM BLAZE: [id number] REF PHYS NATHALIE COLVIN Indication ======== BPP, non reactive NST, [...] Amniotic fluid volume 11/01: Biophysical profile score Spanish Instructor Comments Single intrauterine is present Impression ========= Normal BPP Recommendation Continue the routine schedule of testing for the condition beingmonitored. Spanish Instructor: Pat Stiles RDMS Physician: Pelon Mcguire MD Electronically signed by: Pelon Mcguire MD at: 16:57 Nathalie Colvin MD IMG US ORDERABLES Final Resu lt documented in this encounter Visit Diagnoses Diagnosis Chronic hypertension affecting documented in this encounter Care Teams Hotel And Dining Room Cashier Relationship Specialty Start Date End Date Thalia Kim APRN [address] [place] [address] PCP - General Nurse Practitioner 03/07/19 documented as of this encounter
--- OUTSIDE RECORDS SUMMARY | 2019-03-18 12:00 | XMS_ITS | Encounter Summary ---
[facility] Address [address] [place] [address] Care Team Providers Care Yarn Sorter Name Role Phone AleksandarhilariaThalia perez ZONIA Primary Care Provider [phone] Reason for Referral * Diagnostic Imaging (Routine) - Closed Specialty Diagnoses / Procedures Referred By Contac t Referred To Contact Radiology Diagnoses Chronic hypertension affecting High-risk in third trimester Procedures US Biophysical Profile;Without Non-Stress Testing Lee Ann Colvin MD [address] [facility] [address] [place] [address] Phone: tel: fax: [facility] Phone: tel: Referral ID Status Reason Start Date Expiration Date Visits Re quested Visits Authorized [id number] Closed 03/13/2019 03/12/2020 1 1 * Diagnostic Imaging (Routine) - Closed Specialty Diagnoses / Procedures Referred By Contac t Referred To Contact Radiology Diagnoses Chronic hypertension affecting High-risk in third trimester Procedures US Ob Follow Up Transabdominal Approach Lee Ann Colvin MD [facility] [address] [place] [address] Phone: tel: fax: [facility] Phone: tel: Referral ID Status Reason Start Date Expiration Date Visits Re quested Visits Authorized [id number] Closed 03/13/2019 03/12/2020 1 1 Reason for Visit * Diagnostic Imaging (Routine) - Closed Specialty Diagnoses / Procedures Referred By Contac t Referred To Contact Radiology Diagnoses Chronic hypertension affecting High-risk in third trimester Procedures Ob Follow Up Transabdominal Approach Lee Ann Colvin MD [address] [place] [address] Phone: tel: fax: [facility] [place] Phone: tel: Referral ID Status Reason Start Date Expiration Date Visits Re quested Visits Authorized [id number] Closed 03/13/2019 03/12/2020 1 1 Encounter Details Date Type Department Care Team (Latest Contact Info) Description 03/18/2019 11:00 AM EST Hospital Encounter [facility] [phone] Chronic hypertension affecting ; High-risk in third trimester Social History Tobacco Use Types Packs/Day Years Used Date Smoking Tobacco: Never Smokeless Tobacco: Current Chew Comments:SLOWLY WEANING SELF OFF; PAMPHLET GIVEN TO PATIENT Alcohol Use Standard Drinks/Week Comments No 1 (1 standard drink = 0.6 oz pur e alcohol) [place] Depression Scale Answer Date Recorded Retired [place] Depression Score 4 04/16/2019 Retired EPD Scale: [...] 5:47 PM EDT Mino Mahan RN * [place] Suicide Severity Rating Scale (Screener/Recent Self-Report) Question [...] 11:37 AM EST PAT NAME: EMELY ROSALES [facility] REC#: [id number] DA: [id number] PAT GEND: F PAT TYPE: O EXAM BLAZE: <OBR.7.1>[id number]</OBR.7.1><OBR.7.1>[id number]</OBR.7.1> REF PHYS LEE ANN COLVIN Indication ======== [...] EFW (oz) 1 oz EFW by: Hadlock (EFC-NS-SX-FL) Extremities / Bony Struc FL / BPD 0.79 FL / HC 0.22 FL / AC 0.22 Other Structures MVP 4.9 cm FHR 145 bpm PARKER 13.4 cm Estate Planning Counselor Comments An ultrasound for weight has a [...] EFW (oz) 1 oz EFW by: Hadlock (VFF-LV-LT-FL) Extremities / Bony Struc FL / BPD 0.79 FL / HC 0.22 FL / AC 0.22 Other Structures MVP 4.9 cm FHR 145 bpm PARKER 13.4 cm Estate Planning Counselor Comments An ultrasound for weight has a margin of error of up to twenty percent. Impression ========= There is appropriate interval growth & normal amniotic fluid quantity Normal BPP Recommendation Follow-up scan as clinically indicated for the condition being monitored. Estate Planning Counselor: Dinorah Leiva RDMS Physician: Margie Ernandez DO Electronically signed by: Margie Ernandez DO at: 11:37 Procedure Note Margie Ernandez DO - 03/18/2019 PAT NAME: EEMLY ROSALES MED REC#: [id number] DA: 1995 PAT GEND: F PAT TYPE: O EXAM BLAZE:<OBR.7.1>[id number]</OBR.7.1><OBR.7.1>[id number]</OBR.7.1> REF PHYS LEE ANN COLVIN Indication ======== [...] (lb)7 lb EFW (oz)1 oz EFW by:Hadlock (QYX-PI-HB-FL) Extremities / Bony Struc FL / BPD0.79 FL / HC0.22 FL / AC0.22 Other Structures MVP4.9 cm CXI304 bpm AFI13.4 cm Estate Planning Counselor Comments An ultrasound for weight has a [...] (lb)7 lb EFW (oz)1 oz EFW by:Hadlock (MYF-YI-WX-FL) Extremities / Bony Struc FL / BPD0.79 FL / HC0.22 FL / AC0.22 Other Structures MVP4.9 cm CWT745 bpm AFI13.4 cm Estate Planning Counselor Comments An ultrasound for weight has a margin of error of up to twentypercent. Impression ========= There is appropriate interval growth & normal amniotic fluidquantity Normal BPP Recommendation Follow-up scan as clinically indicated for the condition beingmonitored. Estate Planning Counselor: Dinorah Leiva RDMS Physician: Margie Ernandez DO Electronically signed by: Margie Ernandez DO at: 11:37 us Lee Ann Colvin MD IMG US ORDERABLES Final Resu lt * US Ob Follow Up Transabdominal Approach (03/18/2019 11:21 AM EST) Anatomical Region Laterality Modality Body Ultrasound 03/18/2019 11:0 5 AM EST Narrative 03/18/2019 11:37 AM EST PAT NAME: EMELY ROSALES REC#: [id number] DA: [id number] PAT GEND: F PAT TYPE: O EXAM BLAZE: <OBR.7.1>[id number]</OBR.7.1><OBR.7.1>[id number]</OBR.7.1> REF PHYS LEE ANN COLVIN Indication ======== [...] EFW (oz) 1 oz EFW by: Hadlock (YQV-QJ-UF-FL) Extremities / Bony Struc FL / BPD 0.79 FL / HC 0.22 FL / AC 0.22 Other Structures MVP 4.9 cm FHR 145 bpm PARKER 13.4 cm Estate Planning Counselor Comments An ultrasound for weight has a [...] EFW (oz) 1 oz EFW by: Hadlock (KSV-NC-KC-FL) Extremities / Bony Struc FL / BPD 0.79 FL / HC 0.22 FL / AC 0.22 Other Structures MVP 4.9 cm FHR 145 bpm PARKER 13.4 cm Estate Planning Counselor Comments An ultrasound for weight has a margin of error of up to twenty percent. Impression ========= There is appropriate interval growth & normal amniotic fluid quantity Normal BPP Recommendation Follow-up scan as clinically indicated for the condition being monitored. Estate Planning Counselor: Dinorah Leiva RDMS Physician: Margie Ernandez DO Electronically signed by: Margie Ernandez DO at: 11:37 Procedure Note Margie Ernandez DO - 03/18/2019 PAT NAME: EMELY ROSALES [facility] REC#: [id number] DA: [id number] PAT GEND: F PAT TYPE: O EXAM BLAZE:<OBR.7.1>[id number]</OBR.7.1><OBR.7.1>[id number]</OBR.7.1> REF PHYS LEE ANN COLVIN Indication ======== [...] (lb)7 lb EFW (oz)1 oz EFW by:Hadlock (DEQ-WM-PJ-FL) Extremities / Bony Struc FL / BPD0.79 FL / HC0.22 FL / AC0.22 Other Structures MVP4.9 cm WLI614 bpm AFI13.4 cm Estate Planning Counselor Comments An ultrasound for weight has a [...] on 03/07/2019, based on the externalassessment Agreed MAERK of previous datin04/01/2019 Assigned:Dating performed on 03/07/2019, [...] (lb)7 lb EFW (oz)1 oz EFW by:Hadlock (TAH-XQ-VK-FL) Extremities / Bony Struc FL / BPD0.79 FL / HC0.22 FL / AC0.22 Other Structures MVP4.9 cm WVV335 bpm AFI13.4 cm Estate Planning Counselor Comments An ultrasound for weight has a margin of error of up to twentypercent. Impression ========= There is appropriate interval growth & normal amniotic fluidquantity Normal BPP Recommendation Follow-up scan as clinically indicated for the condition beingmonitored. Estate Planning Counselor: Dinorah Leiva RDMS Physician: Margie Ernandez DO Electronically signed by: Margie Ernandez DO at: 11:37 us Lee Ann Colvin MD IMG US ORDERABLES Final Resu lt documented in this encounter Visit Diagnoses Diagnosis Chronic hypertension affecting High-risk in third trimester documented in this encounter Care Teams Yarn Sorter Relationship Specialty Start Date End Date Thalia Kim APRN [address] [place] [address] PCP - General Nurse Practitioner 03/07/19 documented as of this encounter
--- OUTSIDE RECORDS SUMMARY | 2024-09-02 17:50 | XMS_ITS | Encounter Summary ---
Author Organization [facility] yste Address [address] [place] [address] Care Team Providers Care Manager Contact Name Role Phone Thalia Kim APRN Primary Care Provider [phone]- [phone] Reason for Visit * Reason Comments Abdominal Pain Encounter Details Date Type Department Care Team (Late st Contact Info) Description 09/02/2024 5:50 PM EDT - 09/02/2024 8:24 PM EDT Emergency [facility] EMERGENCY DEPARTMENT [place] [id number] Miki Jerome MD [address] [place] [id number] Tyrone Mccallum MD [address] [place] [id number] Abdominal pain, unspecified abdominal location (Primary Dx) Discharge Disposition: Home or Self Care Social History Tobacco Use Types Packs/Day Years Used Date Smoking Tobacco: Never Smokeless Tobacco: Current Chew Tobacco Cessation:Ready to Q uit: Yes; Counseling Given: Not Answered Comments:SLOWLY WEANING SELF OFF; PAMPHLET GIVEN TO PATIENT Alcohol Use Standard Drinks/Week Comments No 1 (1 standard drink = 0.6 oz pur e alcohol) [employer] Depression Scale Answer Date Recorded Retired [employer] Depression Score 4 04/16/2019 Retired EPD Scale: [...] Sign Reading Time Taken Comments Blood Pressure 136/88 09/02/2024 7:00 PM EDT Pulse 72 09/02/2024 7:00 PM EDT Temperature 36.9 C (98.4 F) 09/02/2024 5:47 PM EDT Respiratory Rate 18 09/02/2024 5:47 PM EDT Oxygen Saturation 100% 09/02/2024 7:00 PM EDT Inhaled Oxygen Concentration - - Weight 115 kg (254 lb 3.2 oz) 09/02/2024 5:49 PM EDT Height 165.1 cm (5' 5 ) 09/02/2024 5:47 PM EDT Body Mass Index 42.3 09/02/2024 5:47 PM EDT documented in this encounter Functional Status * Calculated C-SSRS Risk Score (Lifetime/Recent) Answer Date of Assessment Author No Risk Indicated 09/02/2024 5:47 PM EDT Mino Mahan RN * [place] Suicide Severity Rating Scale (Screener/Recent Self-Report) Question Answer Date of Assessment Author 1. Wish to be (Past 1 Month) No 025 5:47 PM EDT Felisa Mahan, KEMI 2. Non-Specific Active Suici malik Thoughts (Past 1 Month) No 09/02/2024 5:47 PM EDT Felisa Mahan , KEMI 6. Suicidal Behavior (Lifetime) No 5:47 PM EDT Felisa Mahan, KEMI documented as of this encounter Discharge Instructions * Discharge Instructions* Ivy Soto PA-C - 09/02/2024 8:16 PM EDT Follow up with GI at your scheduled appointment. Return to the ER for worsening of symptoms. Take medication as prescribed. * Attachments The following attachments cannot be sent through Care Everywhere. * Abdominal Pain Adult ([place]ai[place]ese) documented in this encounter Medications at Time of Discharge ondansetron (ZOFRAN) 4 MG tablet Take 1 tablet by mouth Every 8 (Eight) Hours As Needed for Nausea or Vomiting. dicyclomine (BENTYL) 10 MG capsule Take 1 capsule by mouth 3 (Three) Times a Day As Needed for Abdominal Cramping. 12 capsule 09/02/2024 documented as of this encounter Miscellaneous Notes * [facility] Provider Note - Ivy Soto PA-C - 09/02/2024 6:54 PM EDT Images from the original note were not included. [place] EMERGENCY DEPARTMENT ENCOUNTER Pt Name: Alana Choi Birthdate: 1995 Date of evaluation: 09/02/2024 Provider: Ivy Soto PA-C CHIEF COMPLAINT Chief Complaint Patient presents with Abdominal Pain HISTORY OF PRESENT ILLNESS (Location/Symptom, Timing/Onset, Context/Setting, Quality, Duration, Modifying Factors, Severity.) Alana Choi is a 28 y.o. female who presents to the emergency department with diffuse abdominal pain for the last 6 months intermittently. Patient states she has had nausea and vomiting. She has been seen at outside facility for similar complaints. Patient states she had a small bowel movement yesterday. She states she was scheduled for colonoscopy 3 days ago but was unable to have the test performed due to a unsuccessful bowel prep. Patient states last menstrual period was 07 of August. Patient has had a tubal ligation. Nursing notes were reviewed. REVIEW OF SYSTEMS (2-9 systems for level 4, 10 or more for level 5) Review of Systems Constitutional: Negative for chills and fever. HENT: Negative for ear pain and sore throat. Respiratory: Negative for cough and shortness of breath. Cardiovascular: Negative for chest pain. Gastrointestinal: Positive for abdominal pain. Negative for diarrhea, nausea and vomiting. Genitourinary: Negative for dysuria and frequency. Musculoskeletal: Negative for back pain and neck pain. Neurological: Negative for headaches. All systems reviewed and negative except for those discussed in HPI. PAST MEDICAL HISTORY Past Medical History: Diagnosis Date Abnormal Pap smear of cervix Chronic hypertension Diagnosed during on 2014; started medication 2017 Gestational hypertension Hx of migraines depression 2014 pt had severe depression after her last that lasted about a year and a half. No medication SURGICAL HISTORY Past Surgical History: Procedure Laterality Date SECTION 2012 SECTION 2014 SECTION WITH TUBAL Bilateral 03/25/2019 Procedure: SECTION REPEAT WITH TUBAL; Surgeon: Lee Ann Soto MD; Location: [facility]; Service: Obstetrics/Gynecology CURRENT MEDICATIONS Current Facility-Administered Medications: Sodium Chloride (PF) 0.9 % 10 mL, 10 mL, Intravenous, PRN, Miki Jerome MD Current Outpatient Medications: ondansetron (ZOFRAN) 4 MG tablet, Take 1 tablet by mouth Every 8 (Eight) Hours As Needed for Nauseaor Vomiting., Disp: , Rfl: dicyclomine (BENTYL) 10 MG capsule, Take 1 capsule by mouth 3 (Three) Times a Day As Needed for Abdominal Cramping., Disp: 12 capsule, Rfl: 0 ALLERGIES Patient has no known allergies. FAMILY HISTORY Family History Problem Relation Age of Onset Breast cancer Other Colon cancer Other Heart disease Other Mental retardation Other Stomach cancer Maternal Grandfather Breast cancer Paternal Grandmother Colon cancer Paternal Uncle Ovarian cancer Neg Hx Uterine cancer Neg Hx Osteoporosis Neg Hx SOCIAL HISTORY Social History Socioeconomic History Marital status: Tobacco Use Smoking status: Never Smokeless tobacco: Current Types: Chew Tobacco comments: SLOWLY WEANING SELF OFF; PAMPHLET GIVEN TO PATIENT Vaping Use Vaping status: Never Used Substance and Sexual Activity Alcohol use: No Alcohol/week: 1.0 standard drink of alcohol Types: 1 Standard drinks or equivalent per week Drug use: No Sexual activity: Not Currently Partners: Male PHYSICAL EXAM (up to 7 for level 4, 8 or more for level 5) Physical Exam Vitals and nursing note reviewed. Constitutional: Appearance: She is obese. HENT: Head: Normocephalic and atraumatic. Eyes: Extraocular Movements: Extraocular movements intact. Pupils: Pupils are equal, round, and reactive to light. Cardiovascular: Rate and Rhythm: Normal rate and regular rhythm. Pulses: Normal pulses. Pulmonary: Effort: Pulmonary effort is normal. Breath sounds: Normal breath sounds. Abdominal: General: Abdomen is flat. Bowel sounds are normal. Palpations: Abdomen is soft. Tenderness: There is generalized abdominal tenderness. Musculoskeletal: General: Normal range of motion. Cervical back: Normal range of motion. Skin: General: Skin is warm and dry. Neurological: General: No focal deficit present. Mental Status: She is alert and oriented to person, place, and time. Psychiatric: Mood and Affect: Mood normal. Behavior: Behavior normal. DIAGNOSTIC RESULTS EKG: All EKGs are interpreted by the Emergency Department Physician who either signs or Co-signs this chart in the absence of a thermospray operator. No orders to display RADIOLOGY: Non-plain film images such as CT, Ultrasound and MRI are read by the radiologist. Plain radiographic images are visualized and preliminarily interpreted by the emergency physician with the below findings: [x] Radiologist's Report Reviewed: CT Abdomen Pelvis With Contrast Final Result Impression: 1.No acute findings in the abdomen or pelvis. 2.Fatty infiltration within the wall of the cecum and ascending colon, most likely representing chronic inflammatory changes. Electronically Signed: Yrn Nevarez DO 09/02/2024 7:57 PM EDT Workstation ID: [id number] BEDSIDE ULTRASOUND: Performed by ED Physician - none LABS: I have reviewed and interpreted all of the currently available lab results from this visit (if applicable): Results for orders placed or performed during the hospital encounter of 09/02/24 Comprehensive Metabolic Panel Collection Time: 09/02/24 6:03 PM Specimen: Blood Result Value Ref Range Glucose 97 65 - 99 mg/dL BUN 12.6 6.0 - 20.0 mg/dL Creatinine 0.82 0.57 - 1.00 mg/dL Sodium 139 136 - 145 mmol/L Potassium 3.8 3.5 - 5.2 mmol/L Chloride 103 98 - 107 mmol/L CO2 23.3 22.0 - 29.0 mmol/L Calcium 10.2 8.6 - 10.5 mg/dL Total Protein 8.0 6.0 - 8.5 g/dL Albumin 4.5 3.5 - 5.2 g/dL ALT (SGPT) 15 1 - 33 U/L AST (SGOT) 24 1 - 32 U/L Alkaline Phosphatase 76 39 - 117 U/L Total Bilirubin 0.4 0.0 - 1.2 mg/dL Globulin 3.5 gm/dL A/G Ratio 1.3 g/dL BUN/Creatinine Ratio 15.4 7.0 - 25.0 Anion Gap 12.7 5.0 - 15.0 mmol/L eGFR 99.4 >60.0 mL/min/1.73 Lipase Collection Time: 09/02/24 6:03 PM Specimen: Blood Result Value Ref Range Lipase 28 13 - 60 U/L hCG, Quantitative, Collection Time: 09/02/24 6:03 PM Specimen: Blood Result Value Ref Range HCG Quantitative <0.20 mIU/mL CBC Auto Differential Collection Time: 09/02/24 6:03 PM Specimen: Blood Result Value Ref Range WBC 11.62 (H) 3.40 - 10.80 10*3/mm3 RBC 4.97 3.77 - 5.28 10*6/mm3 Hemoglobin 13.3 12.0 - 15.9 g/dL Hematocrit 40.6 34.0 - 46.6 % MCV 81.7 79.0 - 97.0 fL MCH 26.8 26.6 - 33.0 pg MCHC 32.8 31.5 - 35.7 g/dL RDW 13.5 12.3 - 15.4 % RDW-SD 40.6 37.0 - 54.0 fl MPV 10.4 6.0 - 12.0 fL Platelets 283 140 - 450 10*3/mm3 Neutrophil % 70.8 42.7 - 76.0 % Lymphocyte % 19.4 (L) 19.6 - 45.3 % Monocyte % 6.6 5.0 - 12.0 % Eosinophil % 2.7 0.3 - 6.2 % Basophil % 0.3 0.0 - 1.5 % Immature Grans % 0.2 0.0 - 0.5 % Neutrophils, Absolute 8.23 (H) 1.70 - 7.00 10*3/mm3 Lymphocytes, Absolute 2.25 0.70 - 3.10 10*3/mm3 Monocytes, Absolute 0.77 0.10 - 0.90 10*3/mm3 Eosinophils, Absolute 0.31 0.00 - 0.40 10*3/mm3 Basophils, Absolute 0.04 0.00 - 0.20 10*3/mm3 Immature Grans, Absolute 0.02 0.00 - 0.05 10*3/mm3 Green Top (Gel) Collection Time: 09/02/24 6:03 PM Result Value Ref Range Extra Tube Hold for add-ons. Lavender Top Collection Time: 09/02/24 6:03 PM Result Value Ref Range Extra Tube hold for add-on Gold Top - SST Collection Time: 09/02/24 6:03 PM Result Value Ref Range Extra Tube Hold for add-ons. Patton Top Collection Time: 09/02/24 6:03 PM Result Value Ref Range Extra Tube Hold for add-ons. Light Blue Top Collection Time: 09/02/24 6:03 PM Result Value Ref Range Extra Tube Hold for add-ons. Urinalysis With Microscopic If Indicated (No Culture) - Urine, Clean Catch Collection Time: 09/02/24 6:04 PM Specimen: Urine, Clean Catch Result Value Ref Range Color, UA Yellow Yellow, Straw Appearance, UA Slightly Cloudy (A) Clear pH, UA 6.0 5.0 - 8.0 Specific [place], UA >=1.030 1.005 - 1.030 Glucose, UA Negative Negative Ketones, UA Negative Negative Bilirubin, UA Negative Negative Blood, UA Negative Negative Protein, UA Negative Negative Leuk Esterase, UA Small (1+) (A) Negative Nitrite, UA Negative Negative Urobilinogen, UA 0.2 E.U./dL 0.2 - 1.0 E.U./dL Urinalysis, Microscopic Only - Urine, Clean Catch Collection Time: 09/02/24 6:04 PM Specimen: Urine, Clean Catch Result Value Ref Range RBC, UA None Seen None Seen, 0-2 /HPF WBC, UA 3-5 (A) None Seen, 0-2 /HPF Bacteria, UA 1+ (A) None Seen /HPF Squamous Epithelial Cells, UA 0-2 None Seen, 0-2 /HPF Hyaline Casts, UA None Seen None Seen /LPF Amorphous Crystals, UA Moderate/2+ None Seen /HPF Mucus, UA Small/1+ (A) None Seen, Trace /HPF Methodology Manual Light Microscopy All other labs were within normal range or not returned as of this dictation. EMERGENCY DEPARTMENT COURSE and DIFFERENTIAL DIAGNOSIS/MDM: Vitals: Vitals: 09/02/24 1749 09/02/24 1800 09/02/24 1830 09/02/24 1900 BP: 155/99 143/94 136/88 BP Location: Patient Position: Pulse: 74 82 72 Resp: Temp: TempSrc: SpO2: 100% 100% 100% Weight: 115 kg (254 lb 3.2 oz) Height: MDM Ddx: constipation, abdominal pain Patient was evaluated, labs and imaging were obtained. No acute abnormalities noted. Nonsurgical abdomen present at discharge. Patient advised to follow-up with GI for a colonoscopy at her scheduled appointment. Return to the ER for worsening of symptoms. Take medication as prescribed. I had a discussion with the patient/family regarding diagnosis, diagnostic results, treatment plan,and medications. The patient/family indicated understanding of these instructions. I spent adequatetime at the bedside preceding discharge necessary to personally discuss the aftercare instructions, giving patient education, providing explanations of the results of our evaluations/findings, and mydecision making to assure that the patient/family understand the plan of care. Time was allotted toanswer questions at that time and throughout the ED course. Emphasis was placed on timely follow-upafter discharge. I also discussed the potential for the development of an acute emergent condition requiring further evaluation, admission, or even surgical intervention. I discussed that we found nothing during the visit today indicating the need for further workup, admission, or the presence of an unstable medical condition. I encouraged the patient to return to the emergency department immediately for ANY concerns, worsening, new complaints, or if symptoms persist and unable to seek follow-up in a timely fashion. The patient/family expressed understanding and agreement with this plan. The patient will follow-up with GI for reevaluation. MEDICATIONS ADMINISTERED IN ED: Medications Sodium Chloride (PF) 0.9 % 10 mL (has no administration in time range) iopamidol (ISOVUE-300) 61 % injection 100 mL (85 mL Intravenous Given 09/02/241939) PROCEDURES: Procedures:none CRITICAL CARE TIME Total Critical Care time was 0 minutes, excluding separately reportable procedures. There was a high probability of clinically significant/life threatening deterioration in the patient's condition which required my urgent intervention. FINAL IMPRESSION 1. Abdominal pain, unspecified abdominal location DISPOSITION/PLAN ED Disposition ED Disposition Discharge Condition Stable Comment -- PATIENT REFERRED TO: f/u with your GI specialist DISCHARGE MEDICATIONS: Medication List START taking these medications dicyclomine 10 MG capsule Commonly known as: BENTYL Take 1 capsule by mouth 3 (Three) Times a Day As Needed for Abdominal Cramping. CONTINUE taking these medications ondansetron 4 MG tablet Commonly known as: ZOFRAN Where to Get Your Medications These medications were sent to [facility] - [place], [place] - [address] - [phone] - [phone] [facility] [address] dicyclomine 10 MG capsule Comment: Please note this report has been produced using speech recognition software. Ivy Soto PA-C Cosigned by Tyrone Mccallum MD at 09/03/2024 6:34 AM EDT Associated attestation - Tyrone Mccallum MD - 09/03/2024 6:34 AM EDT SUPERVISE: For this patient encounter, I reviewed the APC's documentation, treatment plan, and medical decision making. Tyrone Mccallum MD 09/03/2024 06:34 EDT documented in this encounter Plan of Treatment Not on file documented as of this encounter Procedures Procedure Name Priority Date/Time Associated Diagnosis Comments CT ABDOMEN PELVIS W CONTRAST STAT 09/02/2024 7:40 PM EDT URINALYSIS, MICROSCOPIC ONLY STAT 09/02/2024 6:04 PM EDT URINALYSIS W/ MICROSCOPIC IF INDICATED (NO CULTURE) STAT 09/02/2024 6:04 PM EDT PATTON TOP STAT 09/02/2024 6:03 PM EDT GOLD TOP - SST STAT 09/02/2024 6:03 PM EDT DK GREEN TOP STAT 09/02/2024 6:03 PM EDT CBC WITH AUTO DIFFERENTIAL STAT 09/02/2024 6:03 PM EDT LAVENDER TOP STAT 09/02/2024 6:03 PM EDT LIGHT BLUE TOP STAT 09/02/2024 6:03 PM EDT RAINBOW DRAW STAT 09/02/2024 6:03 PM EDT CBC AND DIFFERENTIAL STAT 09/02/2024 6:03 PM EDT HCG, QUANTITATIVE, STAT 09/02/2024 6:03 PM EDT LIPASE STAT 09/02/2024 6:03 PM EDT COMPREHENSIVE METABOLIC PANEL STAT 09/02/2024 6:03 PM EDT documented in this encounter Results * CT Abdomen Pelvis With Contrast (09/02/2024 7:40 PM EDT) Anatomical Region Laterality Modality Abdomen, Pelvis N/A Computed Tomogra phy 09/02/2024 7:52 PM EDT Impressions 09/02/2024 7:57 PM EDT Impression: 1.No acute findings in the abdomen or pelvis. 2.Fatty infiltration within the wall of the cecum and ascending colon, most likely representing chronic inflammatory changes. Electronically Signed: Yrn Nevarez DO 09/02/2024 7:57 PM EDT Workstation ID: [id number] Narrative 09/02/2024 7:[address] ABDOMEN PELVIS W CONTRAST Date of Exam: 09/02/2024 7:19 PM EDT Indication: abdominal pain. Comparison: None available. Technique: Axial CT images were obtained of the abdomen and pelvis following the uneventful intravenous administration of 85 cc Isovue-300. Reconstructed coronal and sagittal images were also obtained. Automated exposure control and iterative construction methods were used. Findings: Visualized Chest: The visualized lung bases and lower mediastinal structures are unremarkable. Liver: Liver is normal in size and CT density. No focal lesions. Gallbladder: The gallbladder is normal without evidence of radiopaque stones. Bile Ducts: No billiary dcutal dilation. Spleen: Spleen is normal in size and CT density. Pancreas: Pancreas is normal. There is no evidence of pancreatic mass or peripancreatic fluid. Adrenals: Adrenal glands are unremarkable. Kidneys: Kidneys are normal in size. There are no stones or hydronephrosis. Gastrointestinal: Fatty infiltration noted within the wall of the cecum and ascending colon, most likely representing chronic inflammatory changes. No acute abnormality. Normal appendix Bladder: The bladder is normal. Pelvis: No suspecious mass. Peritoneum/Mesentery: No fluid collection, ascities, or free air. Lymph Nodes: No lymphadenopathy. Vasculature: Unremarkable Abdominal Wall: Unremarkable Bony Structures: No acute osseous abnormality Procedure Note Yrn Nevarez DO - 09/02/2024 CT ABDOMEN PELVIS W CONTRAST Date of Exam: 09/02/2024 7:19 PM EDT Indication: abdominal pain. Comparison: None available. Technique: Axial CT images were obtained of the abdomen and pelvisfollowing the uneventful intravenous administration of 85 cc Isovue-300.Reconstructed coronal and sagittal images were also obtained. Automatedexposure control and iterative construction methods were used. Findings: Visualized Chest: The visualized lung bases and lower mediastinalstructures are unremarkable. Liver: Liver is normal in size and CT density. No focal lesions. Gallbladder: The gallbladder is normal without evidence of radiopaquestones. Bile Ducts: No billiary dcutal dilation. Spleen: Spleen is normal in size and CT density. Pancreas: Pancreas is normal. There is no evidence of pancreatic mass orperipancreatic fluid. Adrenals: Adrenal glands are unremarkable. Kidneys: Kidneys are normal in size. There are no stones orhydronephrosis. Gastrointestinal: Fatty infiltration noted within the wall of the cecumand ascending colon, most likely representing chronic inflammatorychanges. No acute abnormality. Normal appendix Bladder: The bladder is normal. Pelvis: No suspecious mass. Peritoneum/Mesentery: No fluid collection, ascities, or free air. Lymph Nodes: No lymphadenopathy. Vasculature: Unremarkable Abdominal Wall: Unremarkable Bony Structures: No acute osseous abnormality IMPRESSION: Impression: 1.No acute findings in the abdomen or pelvis. 2.Fatty infiltration within the wall of the cecum and ascending colon,most likely representing chronic inflammatory changes. Electronically Signed: Yrn Nevarez DO 09/02/2024 7:57 PM EDT Workstation ID: [id number] us Ivy Soto PA-C IMG CT ORDERABLES Final Re sult * (ABNORMAL) Urinalysis, Microscopic Only - Urine, Clean Catch (09/02/2024 6:04 PM EDT) RBC, UA None Seen None Seen, 0-2 /HPF 09/02/2024 6:31 PM EDT [facility] WBC, UA 3-5(A) None Seen, 0-2 /HPF 09/02/2024 6:31 PM EDT [facility] Bacteria, UA 1+(A) None Seen /HPF 09/02/2024 6:31 PM EDT [facility] Squamous Epithelial Cells, UA 0-2 None Seen, 0-2 /HPF 09/02/2024 6:31 PM EDT [facility] Hyaline Casts, UA None Seen None Seen /LPF 09/02/2024 6:31 PM EDT [facility] Amorphous Crystals, UA Moderate/2+ None Seen /HPF 09/02/2024 6:31 PM EDT [facility] Mucus, UA Small/1+(A) None Seen, Trace /HPF 09/02/2024 6:31 PM EDT [facility] Methodology Manual Light Microscopy 09/02/2024 6:31 PM EDT [facility] Urine Urine specimen obtained by clean catch procedure / Unknown Collection / Unknown 09/02/2024 6:04 PM EDT 09/02/2024 6:16 PM EDT us Miki Jerome MD URINE ORDERABLES Final Resu lt [facility]
[address] [facility] [address] [place] [id number], [place] * (ABNORMAL) Urinalysis With Microscopic If Indicated (No Culture) - Urine, Clean Catch (09/02/2024 6:04 PM EDT) Color, UA Yellow Yellow, Straw 09/02/2024 6:30 PM EDT [facility] Appearance, UA Slightly Cloudy(A) Clear 09/02/2024 6:30 PM EDT [facility] pH, UA 6.0 5.0 - 8.0 09/02/2024 6:30 PM EDT [facility] Specific [place], UA >=1.030 1.005 - 1.030 09/02/2024 6:30 PM EDT [facility] Glucose, UA Negative Negative 09/02/2024 6:30 PM EDT [facility] Ketones, UA Negative Negative 09/02/2024 6:30 PM EDT [facility] Bilirubin, UA Negative Negative 09/02/2024 6:30 PM EDT [facility] Blood, UA Negative Negative 09/02/2024 6:30 PM EDT [facility] Protein, UA Negative Negative 09/02/2024 6:30 PM EDT [facility] Leuk Esterase, UA Small (1+)(A) Negative 09/02/2024 6:30 PM EDT [facility] Nitrite, UA Negative Negative 09/02/2024 6:30 PM EDT [facility] Urobilinogen, UA 0.2 E.U./dL 0.2 - 1.0 E.U./dL 09/02/2024 6:30 PM EDT [facility] Urine Urine specimen obtained by clean catch procedure / Unknown Collection / Unknown 09/02/2024 6:04 PM EDT 09/02/2024 6:16 PM EDT us Miki Jerome MD URINE ORDERABLES Final Resu lt [facility]
[address] [facility] [address] [place] [address], [place] * (ABNORMAL) CBC Auto Differential (09/02/2024 6:03 PM EDT) WBC 11.62(H) 3.40 - 10.80 10*3/mm3 [facility] RBC 4.97 3.77 - 5.28 10*6/mm3 09/02/2024 6:19 [facility] Hemoglobin 13.3 12.0 - 15.9 g/dL 09/02/2024 6:19 PM [facility] Hematocrit 40.6 34.0 - 46.6 % 09/02/2024 6:19 [facility] MCV 81.7 79.0 - 97.0 fL 09/02/2024 6:19 [facility] MCH 26.8 26.6 - 33.0 pg 09/02/2024 6:19 PM [facility] MCHC 32.8 31.5 - 35.7 g/dL 09/02/2024 6:19 PM [facility] RDW 13.5 12.3 - 15.4 % 09/02/2024 6:19 PM [facility] RDW-SD 40.6 37.0 - 54.0 fl 09/02/2024 6:19 PM [facility] MPV 10.4 6.0 - 12.0 fL 09/02/2024 6:19 PM [facility] Platelets 283 140 - 450 10*3/mm3 09/02/2024 6:19 PM [facility] Neutrophil % 70.8 42.7 - 76.0 % 09/02/2024 6:19 PM [facility] Lymphocyte % 19.4(L) 19.6 - 45.3 % 09/02/2024 6:19 PM [facility] Monocyte % 6.6 5.0 - 12.0 % 09/02/2024 6:19 PM [facility] Eosinophil % 2.7 0.3 - 6.2 % 09/02/2024 6:19 PM [facility] Basophil % 0.3 0.0 - 1.5 % 09/02/2024 6:19 [facility] Immature Grans % 0.2 0.0 - 0.5 % 09/02/2024 6:19 PM EDT [facility] Neutrophils, Absolute 8.23(H) 1.70 - 7.00 10*3/mm3 09/02/2024 6:19 PM EDT [facility] Lymphocytes, Absolute 2.25 0.70 - 3.10 10*3/mm3 09/02/2024 6:19 PM EDT [facility] Monocytes, Absolute 0.77 0.10 - 0.90 10*3/mm3 09/02/2024 6:19 PM EDT [facility] Eosinophils, Absolute 0.31 0.00 - 0.40 10*3/mm3 09/02/2024 6:19 PM EDT [facility] Basophils, Absolute 0.04 0.00 - 0.20 10*3/mm3 09/02/2024 6:19 PM EDT [facility] Immature Grans, Absolute 0.02 0.00 - 0.05 10*3/mm3 09/02/2024 6:19 PM EDT [facility] Blood Venipuncture / Unknown 09/02/2024 6:03 PM EDT 09/02/2024 6:16 PM EDT us Miki Jerome MD LAB BLOOD ORDERABLES Final Result [facility]
[address] [facility] [address] [place] [address], [place] * Light Blue Top (09/02/2024 6:03 PM EDT) Extra Tube Hold for add-ons. 09/02/2024 6:31 PM EDT [facility] Comment:Auto resulted Blood Venipuncture / Unknown 09/02/2024 6:03 PM EDT 09/02/2024 6:16 PM EDT us Miki Jerome MD LAB BLOOD ORDER ONLY Final Result [facility]
[address] [facility] [address] [place] [address], [place] * Patton Top (09/02/2024 6:03 PM EDT) Extra Tube Hold for add-ons. 09/02/2024 6:31 PM EDT [facility] Comment:Auto resulted. Blood Venipuncture / Unknown 09/02/2024 6:03 PM EDT 09/02/2024 6:16 PM EDT Miki Jerome MD LAB BLOOD ORDER ONLY Final Result [facility]
[address] [facility] [address] [place] [address], [place] * Gold Top - SST (09/02/2024 6:03 PM EDT) Extra Tube Hold for add-ons. 09/02/2024 6:31 PM EDT [facility] Comment:Auto resulted. Blood Venipuncture / Unknown 09/02/2024 6:03 PM EDT 09/02/2024 6:16 PM EDT Miki Jerome MD LAB BLOOD ORDER ONLY Final Result [facility]
[address] [facility] [address] [place] [address], [place] * Lavender Top (09/02/2024 6:03 PM EDT) Extra Tube hold for add-on 09/02/2024 6:31 PM EDT [facility] Comment:Auto resulted Blood Venipuncture / Unknown 09/02/2024 6:03 PM EDT 09/02/2024 6:16 PM EDT Miki Jerome MD LAB BLOOD ORDER ONLY Final Result [facility]
[address] [facility] [address] [place] [address], [place] * Green Top (Gel) (09/02/2024 6:03 PM EDT) Extra Tube Hold for add-ons. 09/02/2024 6:31 PM EDT [facility] Comment:Auto resulted. Blood Venipuncture / Unknown 09/02/2024 6:03 PM EDT 09/02/2024 6:16 PM EDT us Miki Jerome MD LAB BLOOD ORDER ONLY Final Result [facility]
[address] [facility] [address] [place] [address], [place] * hCG, Quantitative, (09/02/2024 6:03 PM EDT) HCG Quantitative <0.20 mIU/mL 09/03/19 6:50 PM EDT [facility] Blood Venipuncture / Unknown 09/02/2024 6:03 PM EDT 09/02/2024 6:16 PM EDT Narrative [facility] - 09/02/2024 6:50 PM EDT HCG Ranges by Gestational Age Females - non- premenopausal </= 1mIU/mL HCG Females - postmenopausal </= 7mIU/mL HCG 3 Weeks 5.8 - 71.2 mIU/mL 4 Weeks 9.5 - 750 mIU/mL 5 Weeks 217 - 7,138 mIU/mL 6 Weeks 158 - 31,795 mIU/mL 7 Weeks 3,697 - 163,563 mIU/mL 8 Weeks 32,065 - 149,571 mIU/mL 9 Weeks 63,803 - 151,410 mIU/mL 10 Weeks 46,509 - 186,977 mIU/mL 12 Weeks 27,832 - 210,612 mIU/mL 14 Weeks 13,950 - 62,530 mIU/mL 15 Weeks 12,039 - 70,971 mIU/mL 16 Weeks 9,040 - 56,451 mIU/mL 17 Weeks 8,175 - 55,868 mIU/mL 18 Weeks 8,099 - 58,176 mIU/mL Miki Jerome MD LAB BLOOD ORDERABLES Final Result [facility]
[address] [place] [address], * Lipase (09/02/2024 6:03 PM EDT) Lipase 28 13 - 60 U/L 09/02/2024 6:39 PM EDT [facility] Blood Venipuncture / Unknown 09/02/2024 6:03 PM EDT 09/02/2024 6:16 PM EDT Miki Jerome MD LAB BLOOD ORDERABLES Final Result Performing Organization Address City/[facility]/ZIP Co de Phone Number [facility]
[address] [place] [address], [place] * Comprehensive Metabolic Panel (09/02/2024 6:03 PM EDT) Glucose 97 65 - 99 mg/dL 09/02/2024 6:39 PM EDT [facility] BUN 12.6 6.0 - 20.0 mg/dL 09/02/2024 6:39 PM EDT [facility] Creatinine 0.82 0.57 - 1.00 mg/dL 09/02/2024 6:39 PM EDT [facility] Sodium 139 136 - 145 mmol/L 09/02/2024 6:39 PM EDT [facility] Potassium 3.8 3.5 - 5.2 mmol/L 09/02/2024 6:39 PM EDT [facility] Chloride 103 98 - 107 mmol/L 09/02/2024 6:39 PM EDT [facility] CO2 23.3 22.0 - 29.0 mmol/L 09/02/2024 6:39 PM EDT [facility] Calcium 10.2 8.6 - 10.5 mg/dL 09/02/2024 6:39 PM [facility] Total Protein 8.0 6.0 - 8.5 g/dL 09/02/2024 6:39 PM [facility] Albumin 4.5 3.5 - 5.2 g/dL 09/02/2024 6:39 PM [facility] ALT (SGPT) 15 1 - 33 U/L 09/02/2024 6:39 PM [facility] AST (SGOT) 24 1 - 32 U/L 09/02/2024 6:39 PM [facility] Alkaline Phosphatase 76 39 - 117 U/L 09/02/2024 6:39 PM [facility] Total Bilirubin 0.4 0.0 - 1.2 mg/dL 09/02/2024 6:39 PM [facility] Globulin 3.5 gm/dL 09/02/2024 6:39 PM [facility] A/G Ratio 1.3 g/dL 09/02/2024 6:39 PM [facility] BUN/Creatinine Ratio 15.4 7.0 - 25.0 09/02/2024 6:39 PM [facility] Anion Gap 12.7 5.0 - 15.0 mmol/L 09/02/2024 6:39 PM [facility] eGFR 99.4 >60.0 mL/min/1.7 3 09/02/2024 6:39 PM [facility] Blood Venipuncture / Unknown 09/02/2024 6:03 PM EDT 09/02/2024 6:16 PM T [facility] - 09/02/2024 6:39 PM EDT GFR Categories in Chronic Kidney Disease (CKD) GFR Category GFR (mL/min/1.73) Interpretation G1 90 or greater Normal or high (1) G2 60-89 Mild decrease (1) G3a 45-59 Mild to moderate decrease G3b 30-44 Moderate to severe decrease G4 15-29 Severe decrease G5 14 or less Kidney failure (1)In the absence of evidence of kidney disease, neither GFR category G1 or G2 fulfill the criteria for CKD. eGFR calculation 2020 CKD-EPI creatinine equation, which does not include race as a factor us Miki Jerome MD LAB BLOOD ORDERABLES Final Result [facility]
[address] [facility] [address] [place] [address], documented in this encounter Visit Diagnoses Diagnosis Abdominal pain, unspecified abdominal location- Primary documented in this encounter Administered Medications Inactive Administered Medications - up to 3 most recent administrations Medication Order MAR Action Action Date Dose Rate Site iopamidol (ISOVUE-300) 61 % injection 100 mL 100 mL, Intravenous, Once in Imaging, On Mon09/02/24 at 2000, For 1 dose Given 09/02/2024 7:40 PM EDT 85 mL Sodium Chloride (PF) 0.9 % 10 mL 10 mL, Intravenous, As Needed, Line Care, Starting on Mon09/02/24 at 1744 documented in this encounter Active and Recently Administered Medications Times are shown in EDT. Scheduled Medication Order 08/31/2024 09/01/2024 09/02/2024 iopamidol (ISOVUE-300) 61 % injection 100 mL (COMPLETED) 100 mL, Intravenous, Once in Imaging, On Mon09/02/24 at 2000, For 1 dose 1940 (Given - Provid er: Araceli Connor) PRN Medication Order 08/31/2024 09/01/2024 09/02/2024 Sodium Chloride (PF) 0.9 % 10 mL 10 mL, Intravenous, As Needed, Line Care, Starting on Mon09/02/24 at 1744 documented in this encounter Care Teams Manager Contact Relationship Specialty Start Date End Date Thalia Kim APRN [address] [place] [address] PCP - General Nurse Practitioner 03/07/19 documented as of this encounter
--- OUTSIDE RECORDS SUMMARY | 2024-11-01 07:32 | XMS_ITS | Clinical Summary ---
[facility] Address [address] [place] [address] Care Team Providers Care Tare Worker Name Role Phone Thalia Kim APRN Primary Care Provider +1- [phone] Allergies No known active allergies Medications ondansetron (ZOFRAN) 4 MG tablet Take 1 tablet by mouth Every 8 (Eight) Hours As Needed for Nausea or Vomiting. Active dicyclomine (BENTYL) 10 MG capsule Take 1 capsule by mouth 3 (Three) Times a Day As Needed for Abdominal Cramping. 12 capsule 5 Active Active Problems Problem Noted Date Diagnosed Date Chronic hypertension 03/25/2019 care following rLTCS and BTL on 03/25 (Raiza) 03/25/2019 Morbid obesity with BMI of 40.0-44.9, adult 12/25 Well woman exam with routine gynecological exam 06/03/2016 Overview (12/15/2018): SCREENING TESTS Year 2011 2013 2014 2015 2016 2017 2018 2019 2020 2020 2021 2022 2023 2024 2025 2026 2027 2028 2029 2030 Age 23 PAP 6 HPV high risk GAURI [Birads] SERA score Colonoscopy DEXA [T-score] Frax [hip/any] Lipids [LDL / HDL / TG] Vitamin D Ovarian Screen Enter the month test was performed. If month not known, enter X' Black numbers = normal results Red numbers = abnormal results Black X = patient reported normal Red X - patient reported abnormal Referred by: Profession: Other info: Resolved Problems Problem Noted Date Diagnosed Date Resolved Date Previous section 03/25/2019 Possible right club foot 03/25/2019 04/16/2019 Previous delivery a ffecting - repeat c/s with tubal on 03/25/19 at 0730AM 01/10/2019 03/25/2019 Chronic hypertension affecting 12/13/2018 03/25/2019 Overview (12/31/2018): On metropolol 25mg daily started prior to 20 weeks Start ASA 81mg Normal Baseline preeclampsia labs 24 hour urine protein 79 on 12/28/18 Obesity in , antepartum 12/13/2018 03/25/2019 High-risk 12/04/2018 03/25/20 19 Overview (12/13/2018): MAREK 04/01/18 Negative STD Cultures 09/12/18 Declined genetic screening gender: Female classes discussed: Circumcision (y / n / na): 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: Baby's name: Breast/bottle feeding: Placental location: Posterior Postdates discussed: Tdap discussed: Tdap vaccine received: Flu vaccine discussed: Flu vaccine received: Encounters Date Type Department Care Team Description 09/02/2024 5:50 PM EDT - 09/02/2024 8:24 PM EDT Emergency [facility] EMERGENCY DEPARTMENT [address] [address] Miki Jerome MD Napier, Jonathan, MD Abdominal pain, unspecified abdominal location (Primary Dx) Discharge Disposition: Home or Self Care 09/02/2024 Travel from Last 3 Months Family History Medical History Relation Name Comments Stomach cancer Maternal Grandfather Breast cancer Other Colon cancer Other Heart disease Other Mental retardation Other Breast cancer Paternal Grandmother Colon cancer Paternal Uncle Osteoporosis Neg Hx Ovarian cancer Neg Hx Uterine cancer Neg Hx Relation Name Status Comments Father Alive Maternal Grandfather Mother Alive Other Paternal Grandmother Paternal Uncle Social History Tobacco Use Types Packs/Day Years Used Date Smoking Tobacco: Never Smokeless Tobacco: Current Chew Tobacco Cessation:Ready to Q uit: Yes; Counseling Given: Not Answered Comments:SLOWLY WEANING SELF OFF; PAMPHLET GIVEN TO PATIENT Alcohol Use Standard Drinks/Week Comments No 1 (1 standard drink = 0.6 oz pur e alcohol) [place] Depression Scale Answer Date Recorded Retired [place] Depression Score 4 04/16/2019 Retired EPD Scale: [...] Mass Index 42.3 09/02/2024 5:47 PM EDT Plan of Treatment Health Maintenance Due Date Last Done Comments Pneumococcal Vaccine 0-49 (1 of 2 - PCV) 2013 ANNUAL PHYSICAL 12/05/2018 Annual Gynecologic Pelvic an d Breast Exam 09/19/2019 09/17/2018, 09/17/2018 COVID-19 Vaccine ( season) 11/26/202301/2022 INFLUENZA VACCINE 12/25/2024 01/05/2020, , 12/28/2015 TDAP/TD VACCINES (4 - Td or Tdap) 03/17/2028 03/17/2018, 11/08/2012, 11/04/2008 HEPATITIS C SCREENING Completed 11/28/2023, 019 Procedures Procedure Name Priority Date/Time Associated Diagnosis Comments CT ABDOMEN PELVIS W CONTRAST STAT 09/02/2024 7:40 PM EDT URINALYSIS, MICROSCOPIC ONLY STAT 09/02/2024 6:04 PM EDT URINALYSIS W/ MICROSCOPIC IF INDICATED (NO CULTURE) STAT 09/02/2024 6:04 PM EDT LIGHT BLUE TOP STAT 09/02/2024 6:03 PM EDT PATTON TOP STAT 09/02/2024 6:03 PM EDT GOLD TOP - SST STAT 09/02/2024 6:03 PM EDT LAVENDER TOP STAT 09/02/2024 6:03 PM EDT DK GREEN TOP STAT 09/02/2024 6:03 PM EDT CBC AND DIFFERENTIAL STAT 09/02/2024 6:03 PM EDT CBC WITH AUTO DIFFERENTIAL STAT 09/02/2024 6:03 PM EDT HCG, QUANTITATIVE, STAT 09/02/2024 6:03 PM EDT LIPASE STAT 09/02/2024 6:03 PM EDT COMPREHENSIVE METABOLIC PANEL STAT 09/02/2024 6:03 PM EDT RAINBOW DRAW STAT 09/02/2024 6:03 PM EDT SCANNED - PAP SMEAR 09/17/2018 HEPATITIS C ANTIBODY Routine 09/17/2018 from Last 3 Months or Most Recently Relevant to Health Maintenance Results * CT Abdomen Pelvis With Contrast [...] DO 09/02/2024 7:57 PM EDT Workstation ID: [id number] Narrative 09/02/2024 7:[address] ABDOMEN [...] DO 09/02/2024 7:57 PM EDT Workstation ID: [id number] Ivy Soto PA-C [facility] ORDER[place]LES Final Re sult * (ABNORMAL) Urinalysis, Microscopic Only - Urine, Clean Catch (09/02/2024 6:04 PM EDT) RBC, UA None Seen None Seen, 0-2 /HPF 09/02/2024 6:31 PM EDT [facility] WBC, UA 3-5(A) None Seen, 0-2 /HPF 09/02/2024 6:31 PM EDT [facility] Bacteria, UA 1+(A) None Seen /HPF 09/02/2024 6:31 PM EDT [facility] Squamous Epithelial Cells, UA 0-2 None Seen, 0-2 /HPF 09/02/2024 6:31 PM EDT [facility] Hyaline Casts, UA None Seen None Seen /LPF 09/02/2024 6:31 PM EDT [facility] Amorphous Crystals, UA Moderate/2+ None Seen /HPF 09/02/2024 6:31 PM EDT [facility] Mucus, UA Small/1+(A) None Seen, Trace /HPF 09/02/2024 6:31 PM EDT [facility] Methodology Manual Light Microscopy 09/02/2024 6:31 PM EDT [facility] Urine Urine specimen obtained by clean catch procedure / Unknown Collection / Unknown 09/02/2024 6:04 PM EDT 09/02/2024 6:16 PM EDT us Miki Jerome MD URINE ORDERABLES Final Resu lt [facility]
[address] [facility] [address] [place] [address], [place] * (ABNORMAL) Urinalysis With Microscopic If Indicated (No Culture) - Urine, Clean Catch (09/02/2024 6:04 PM EDT) Color, UA Yellow Yellow, Straw 09/02/2024 6:30 PM EDT [facility] Appearance, UA Slightly Cloudy(A) Clear 09/02/2024 6:30 PM EDT [facility] pH, UA 6.0 5.0 - 8.0 09/02/2024 6:[facility] Specific [place], UA >=1.030 1.005 - 1.030 09/02/2024 6:30 PM EDT [facility] Glucose, UA Negative Negative 09/02/2024 6:30 PM EDT [facility] Ketones, UA Negative Negative 09/02/2024 6:30 PM EDT [facility] Bilirubin, UA Negative Negative 09/02/2024 6:30 PM EDT [facility] Blood, UA Negative Negative 09/02/2024 6:30 PM EDT [facility] Protein, UA Negative Negative 09/02/2024 6:30 PM EDT [facility] Leuk Esterase, UA Small (1+)(A) Negative 09/02/2024 6:30 PM EDT [facility] Nitrite, UA Negative Negative 09/02/2024 6:30 PM EDT [facility] Urobilinogen, UA 0.2 E.U./dL 0.2 - 1.0 E.U./dL 09/02/2024 6:30 PM EDT [facility] Urine Urine specimen obtained by clean catch procedure / Unknown Collection / Unknown 09/02/2024 6:04 PM EDT 09/02/2024 6:16 PM EDT us Miki Jerome MD URINE ORDERABLES Final Resu lt [facility]
[address] [place] [address], [place] * Patton Top (09/02/2024 6:03 PM EDT) Extra Tube Hold for add-ons. 09/02/2024 6:31 PM EDT [facility] Comment:Auto resulted. Blood Venipuncture / Unknown 09/02/2024 6:03 PM EDT 09/02/2024 6:16 PM EDT Miki Jerome MD LAB BLOOD ORDER ONLY Final Result [facility]
[address] [place] [address], [place] * Gold Top - SST (09/02/2024 6:03 PM EDT) Extra Tube Hold for add-ons. 09/02/2024 6:31 PM EDT [facility] Comment:Auto resulted. Blood Venipuncture / Unknown 09/02/2024 6:03 PM EDT 09/02/2024 6:16 PM EDT us Miki Jerome MD LAB BLOOD ORDER ONLY Final Result [facility]
[address] [facility] [address] [place] [address], [place] * Green Top (Gel) (09/02/2024 6:03 PM EDT) Extra Tube Hold for add-ons. 09/02/2024 6:31 PM EDT [facility] Comment:Auto resulted. Blood Venipuncture / Unknown 09/02/2024 6:03 PM EDT 09/02/2024 6:16 PM EDT Miki Jerome MD LAB BLOOD ORDER ONLY Final Result Performing Organization Address City/[facility]/ZIP Co de Phone Number [facility]
[address] [facility] [address] [place] [address], [place] * (ABNORMAL) CBC Auto Differential (09/02/2024 6:03 PM EDT) Pathologist [facility] WBC 11.62(H) 3.40 - 10.80 10*3/mm3 09/02/2024 6:19 PM EDT [facility] RBC 4.97 3.77 - 5.28 10*6/mm3 09/02/2024 6:19 PM EDT [facility] Hemoglobin 13.3 12.0 - 15.9 g/dL 09/02/2024 6:19 PM EDT [facility] Hematocrit 40.6 34.0 - 46.6 % 09/02/2024 6:19 PM EDT [facility] MCV 81.7 79.0 - 97.0 fL 09/02/2024 6:19 PM EDT [facility] MCH 26.8 26.6 - 33.0 pg 09/02/2024 6:19 PM EDT [facility] MCHC 32.8 31.5 - 35.7 g/dL 09/02/2024 6:19 PM EDT [facility] RDW 13.5 12.3 - 15.4 % 09/02/2024 6:19 PM EDT [facility] RDW-SD 40.6 37.0 - 54.0 fl 09/02/2024 6:19 PM [facility] MPV 10.4 6.0 - 12.0 fL 09/02/2024 6:19 PM [facility] Platelets 283 140 - 450 10*3/mm3 09/02/2024 6:19 PM [facility] Neutrophil % 70.8 42.7 - 76.0 % 09/02/2024 6:19 PM [facility] Lymphocyte % 19.4(L) 19.6 - 45.3 % 09/02/2024 6:19 PM [facility] Monocyte % 6.6 5.0 - 12.0 % 09/02/2024 6:19 PM [facility] Eosinophil % 2.7 0.3 - 6.2 % 09/02/2024 6:19 PM [facility] Basophil % 0.3 0.0 - 1.5 % 09/02/2024 6:19 PM [facility] Immature Grans % 0.2 0.0 - 0.5 % 09/02/2024 6:19 PM [facility] Neutrophils, Absolute 8.23(H) 1.70 - 7.00 10*3/mm3 09/02/2024 6:19 PM [facility] Lymphocytes, Absolute 2.25 0.70 - 3.10 10*3/mm3 09/02/2024 6:19 PM [facility] Monocytes, Absolute 0.77 0.10 - 0.90 10*3/mm3 09/02/2024 6:19 PM [facility] Eosinophils, Absolute 0.31 0.00 - 0.40 10*3/mm3 09/02/2024 6:19 PM [facility] Basophils, Absolute 0.04 0.00 - 0.20 10*3/mm3 09/02/2024 6:19 PM [facility] Immature Grans, Absolute 0.02 0.00 - 0.05 10*3/mm3 09/02/2024 6:19 PM [facility] Blood Venipuncture / Unknown 09/02/2024 6:03 PM EDT 09/02/2024 6:16 PM EDT Miki Jerome MD LAB BLOOD ORDERABLES Final Result [facility]
[address] [facility] [address] [place] [address], [place] * Lavender Top (09/02/2024 6:03 PM EDT) Extra Tube hold for add-on 09/02/2024 6:31 PM EDT [facility] Comment:Auto resulted Blood Venipuncture / Unknown 09/02/2024 6:03 PM EDT 09/02/2024 6:16 PM EDT Miki Jerome MD LAB BLOOD ORDER ONLY Final Result Performing Organization Address [facility]/ZIP Co de Phone Number [facility]
[address] [facility] [address] [place] [address], [place] * Light Blue Top (09/02/2024 6:03 PM EDT) Extra Tube Hold for add-ons. 09/02/2024 6:31 PM EDT [facility] Comment:Auto resulted Blood Venipuncture / Unknown 09/02/2024 6:03 PM EDT 09/02/2024 6:16 PM EDT Miki Jerome MD LAB BLOOD ORDER ONLY Final Result Performing Organization Address City/[facility]/ZIP Co de Phone Number [facility]
[address] [facility] [address] [place] [address], [place] * hCG, Quantitative, (09/02/2024 6:03 PM EDT) HCG Quantitative <0.20 mIU/mL 09/03/19 6:[facility] Blood Venipuncture / Unknown 09/02/2024 6:03 PM EDT 09/02/2024 6:16 PM EDT Narrative [facility] - 09/02/2024 6:50 PM [...] Jerome MD LAB BLOOD ORDERABLES Final Result [facility]
[address] [place] [address], * Lipase (09/02/2024 6:03 PM EDT) Lipase 28 13 - 60 U/L 09/02/2024 6:39 PM EDT [facility] Blood Venipuncture / Unknown 09/02/2024 6:03 PM EDT 09/02/2024 6:16 PM EDT Miki Jerome MD LAB BLOOD ORDERABLES Final Result [facility]
[address] [address], * Comprehensive Metabolic Panel (09/02/2024 6:03 PM EDT) [facility] Signature Glucose 97 65 - 99 mg/dL 09/02/2024 6:39 PM T [facility] BUN 12.6 6.0 - 20.0 mg/dL 09/02/2024 6:39 PM [facility] Creatinine 0.82 0.57 - 1.00 mg/dL 09/02/2024 6:39 PM T [facility] Sodium 139 136 - 145 mmol/L 09/02/2024 6:39 PM [facility] Potassium 3.8 3.5 - 5.2 mmol/L 09/02/2024 6:39 PM [facility] Chloride 103 98 - 107 mmol/L 09/02/2024 6:39 PM [facility] CO2 23.3 22.0 - 29.0 mmol/L 09/02/2024 6:39 PM [facility] Calcium 10.2 8.6 - 10.5 mg/dL 09/02/2024 6:39 PM [facility] Total Protein 8.0 6.0 - 8.5 g/dL 09/02/2024 6:39 PM [facility] Albumin 4.5 3.5 - 5.2 g/dL 09/02/2024 6:39 PM [facility] ALT (SGPT) 15 1 - 33 U/L 09/02/2024 6:39 PM [facility] AST (SGOT) 24 1 - 32 U/L 09/02/2024 6:39 PM [facility] Alkaline Phosphatase 76 39 - 117 U/L 09/02/2024 6:39 PM [facility] Total Bilirubin 0.4 0.0 - 1.2 mg/dL 09/02/2024 6:39 PM [facility] Globulin 3.5 gm/dL 09/02/2024 6:39 PM [facility] A/G Ratio 1.3 g/dL 09/02/2024 6:39 PM EDT [facility] BUN/Creatinine Ratio 15.4 7.0 - 25.0 09/02/2024 6:39 PM EDT [facility] Anion Gap 12.7 5.0 - 15.0 mmol/L 09/02/2024 6:39 PM EDT [facility] eGFR 99.4 >60.0 mL/min/1.7 3 09/02/2024 6:39 PM EDT [facility] Blood Venipuncture / Unknown 09/02/2024 6:03 PM EDT 09/02/2024 6:16 PM EDT Narrative [facility] - 09/02/2024 6:39 PM EDT GFR [...] does not include race as a factor Miki Jerome MD LAB BLOOD ORDERABLES Final Result [facility]
[address] [facility] [address] [place] [address], * SCANNED - PAP SMEAR (09/17/2018) Lee Ann Soto MD CHART REVIEW TABS Final R esult * Hepatitis C Antibody (09/17/2018) Hep C Virus Ab negative Blood [facility] Provider LAB BLOOD ORDERABLES Ebony l Result from Last 3 Months or Most Recently Relevant to Health Maintenance Insurance [facility] MEDICAID Advance Directives * CPR (Attempt to Resuscitate) (Latest Code Status on File) Date Activated Date Inactivated Comments 03/25/2019 11:17 AM 03/28/2019 1:18 PM Question Answer Comments Code Status (Patient has no pulse and is not breathing): CPR (Attempt to Resuscitate) Medical Interventions (Patie nt has pulse or is breathing): Full * CPR (Attempt to Resuscitate) Date Activated Date Inactivated Comments 03/25/2019 6:22 AM 03/25/2019 11:17 AM Question Answer Comments Code Status (Patient has no pulse and is not breathing): CPR (Attempt to Resuscitate) Medical Interventions (Patie nt has pulse or is breathing): Full Care Teams Tare Worker Relationship Specialty Start Date End Date Thalia Kim APRN [address] [place] [phone] PCP - General Nurse Practitioner 03/07/19
--- OUTSIDE RECORDS SUMMARY | 2024-11-01 07:32 | XMS_ITS | Referral Summary ---
Author Organization [employer] ([place], [place], [place], [place]) Address [address] [place] [address] Care Team Providers Care Academic Associate Name Role Phone Thalia Kim APRN Primary Care Provider +1- [phone] Allergies Active Allergy Reactions Criticality Noted Date [...] Date Kanu rded Speak language other than Greek at home Not on file 11/29/2023 Want [...] Plan of Treatment Not on file Insurance [facility] Care Teams Academic Associate Relationship Specialty Start Date End Date Truesdell, Thalia, MACHINE BUILDER[address] [phone] PCP - General Nurse Practitioner 02/01/24
--- OUTSIDE RECORDS SUMMARY | 2024-11-01 07:32 | XMS_ITS | Encounter Summary ---
Author Organization [facility] Address [address] [place] [address] Care Team Providers Care Tug Hand Name Role Phone Thalia Kim APRN Primary Care Provider +1- [phone] Encounter Details Date Type Department Care Team (Latest Contact Info) Description 09/02/2024 Travel Social History Tobacco Use Types Packs/Day Years Used Date Smoking Tobacco: Never Smokeless Tobacco: Current Chew Comments:SLOWLY WEANING SELF OFF; PAMPHLET GIVEN TO PATIENT Alcohol Use Standard Drinks/Week Comments No 1 (1 standard drink = 0.6 oz pur e alcohol) [place] Depression Scale Answer Date Recorded Retired [place] Depression Score 4 04/16/2019 Retired EPD Scale: [...] 5:47 PM EDT Mino Mahan RN * [place] Suicide Severity Rating Scale (Screener/Recent Self-Report) Question Answer Date of Assessment Author 1. Wish to be (Past 1 Month) No 025 5:47 PM EDT Felisa Mahan, KEMI 2. Non-Specific Active Suici malik Thoughts (Past 1 Month) No 09/02/2024 5:47 PM EDT Felisa Mahan , RN 6. Suicidal Behavior (Lifetime) No 5:47 PM EDT Felisa Mahan, KEMI documented as of this encounter Plan of Treatment Not on file documented as of this encounter Visit Diagnoses Not on filedocumented in this encounter Care Teams Tug Hand Relationship Specialty Start Date End Date Thalia Kim APRN [address] [place] [address] PCP - General Nurse Practitioner 03/07/19 documented as of this encounter
--- OUTSIDE RECORDS SUMMARY | 2024-11-01 07:32 | XMS_ITS | Clinical Summary ---
Author Organization [employer] ([place], [place], [place], [place]) Address [address] [place] [address] Care Team Providers Care Sanitary Napkin Machine Tender Name Role Phone Thalia Kim APRN Primary Care Provider +1- [phone] Allergies Active Allergy Reactions Criticality Noted Date [...] Date Kanu rded Speak language other than [place] at home Not on file 11/29/2023 Want [...] patient's age to complete this topic Insurance [facility] Care Teams Sanitary Napkin Machine Tender Relationship Specialty Start Date End Date Thalia Kim APRN [address] [place] [phone] PCP - General Nurse Practitioner 02/01/24
--- OUTSIDE RECORDS SUMMARY | 2024-11-01 07:32 | XMS_ITS | Clinical Summary ---
Author Organization [facility] Address [address] [place] [address] Care Team Providers Care Observer Electrical Prospecting Name Role Phone AngieClarisa rain ZONIA Primary Care Provider Allergies Active Allergy Reactions Criticality Noted Date Comments Doxycycline Other - please docum ent in the comment field Low 11/28/2023 Endorses allergy to drop when child, made inside of ear raw Medications cholecalciferol (Vitamin D-3) 250 MCG ([address] UT) capsule Take 1 capsule (10,000 Units) by mouth 1 (one) time each day. Active Active Problems Problem Noted Date Diagnosed Date Iron deficiency 01/25/2024 Low serum vitamin B12 01/25/2024 Family History Medical History Relation Name Comments Cancer Father Rayf Chemotherapy Father Rafy Radiation Therapy Father Rafy [...] 19+ 3-dose series) 2013 [facility]-Pap Smear 09/19/2015 [id number] Vaccine (2 - season) 2023 10/04/2021 [facility]-Cervical [...] ORDERABLES Final Result [facility] [address] [place] [address] * Hepatitis C Antibody - ED (11/28/2023 1:36 AM EDT) Hepatitis C Antibody Negative Negative 11/28/2023 3:13 AM EDT [facility] Blood Venous blood specimen / Unknown Venipuncture / Unknown 11/28/2023 1:36 AM EDT 11/28/2023 1:44 AM EDT us Yohan Toscano MD LAB BLOOD ORDERABLES Final Result [facility] [address] [place] [address] from Last 3 Months or Most Recently Relevant to Health Maintenance Insurance [facility] MEDICAID Care Teams Observer Electrical Prospecting Relationship Specialty Start Date End Date Clarisa Adams APRN [address] [place] [address] PCP - General Personal Financial Counselor 07/19/23
[2024-11-01 07:37] VITALS: BMI 40.7
[2024-11-01 07:58] VITALS: BP 142/89; PULSE 49; RESP 16; O2SAT 99
[2024-11-01 07:58] LABS: Urine Pregnancy, HCG Qual. Negative (Negative)
[2024-11-01 08:23] VITALS: BP 146/95; PULSE 54; RESP 18; O2SAT 100
[2024-11-01 08:26] VITALS: BP 128/62; PULSE 51; RESP 16; O2SAT 100
[2024-11-01 08:29] VITALS: BP 115/69; PULSE 87; RESP 16; O2SAT 100
[2024-11-01 08:40] VITALS: BP 137/74; PULSE 56; RESP 16; O2SAT 99
[2024-11-01] MEDS: IOPAMIDOL-370 (76%);100ML BOTTLE 80 ML IV (08:45)
[2024-11-01] MEDS: 0.9 % SODIUM CHLORIDE 50 ML VIAL IV (08:45)
[2024-11-01] MEDS: SODIUM CHLORIDE 0.9% 10ML SYR (RAD ONLY) 10 ML IV (08:45)
== END 2024-11-01 08:40 | disposition home or self-care (01) ==
PROVIDERS: PCP Nurse Practitioner Family; Visit Provider Physician Assistant
DX: I10 Essential (primary) hypertension (principal); R53.83 Other fatigue
CPT/HCPCS: 75574; 81025; Q9967

== ENCOUNTER 2025-02-27 20:40 | Emergency (ER) | payer MEDICAID, SELFPAY ==
--- OUTSIDE RECORDS SUMMARY | 2019-03-07 09:53 | XMS_ITS | Encounter Summary ---
Author Organization [facility] Address [address] [place] [address] Care Team Providers Care Hat Checker Name Role Phone Thalia Kim ZONIA Primary Care Provider +1- [phone] Reason for Referral * Diagnostic Imaging (Routine) - Closed Specialty Diagnoses / Procedures Referred By Contac t Referred To Contact Radiology Diagnoses Morbid obesity with BMI of 40.0-44.9, adult Chronic hypertension affecting High-risk in third trimester Procedures US Biophysical Profile;Without [place] [address] [place] [address] Phone: tel: fax: [address] [address] Phone: tel: fax: Referral ID Status Reason Start Date Expiration Date Visits Re quested Visits Authorized [id number] Closed 03/05/2019 03/04/2020 1 1 Reason for Visit * Diagnostic Imaging (Routine) - Closed Specialty Diagnoses / Procedures Referred By Contac t Referred To Contact Radiology Diagnoses Morbid obesity with BMI of 40.0-44.9, adult Chronic hypertension affecting High-risk in third trimester Procedures US Biophysical Profile;Without Non-Stress Testing Lee Ann Colvin MD [address] [facility] [address] [place] [address] Phone: tel: fax: [facility] [address] [facility] [address] [place] [address] Phone: tel: fax: Referral ID Status Reason Start Date Expiration Date Visits Re quested Visits Authorized [id number] Closed 03/05/2019 03/04/2020 1 1 Encounter Details Date Type Department Care Team (Latest Contact Info) Description 03/07/2019 9:53 AM EST Hospital Encounter [facility] [address] [address] Morbid obesity with BMI of 40.0-44.9, adult; Chronic hypertension affecting ; High-risk in third trimester Social History Tobacco Use Types Packs/Day Years Used Date Smoking Tobacco: Never Smokeless Tobacco: Current Chew Comments:SLOWLY WEANING SELF OFF; PAMPHLET GIVEN TO PATIENT Alcohol Use Standard Drinks/Week Comments No 1 (1 standard drink = 0.6 oz pur e alcohol) [place] Depression Scale Answer Date Recorded [place] Depression Scale Total 4 04/16/2019 The thought of harming myself has occurred to me . Unrecognized value 04/16/2019 Abuse Screen Answer Date Recorded Feels Unsafe at Home or Work/School no 09/02/2024 Feels Threatened by Someone no 0 11/2024 Does Anyone Try to Keep You From Having Contact with Others or Doing Things Outside Your Home? no 09/02/2024 Physical Signs of Abuse Present no 09/02/2024 Comments No Sex and Gender Information Value Date Recorded Sex Assigned at Not on file Legal Sex Female 10:47 AM EDT Gender Identity Not on file Sexual Orientation Not on file documented as of this encounter Functional Status * Calculated C-SSRS Risk Score (Lifetime/Recent) Answer Date of Assessment Author No Risk Indicated 09/02/2024 5:47 PM EDT Mino Mahan RN * [place] Suicide Severity Rating Scale (Screener/Recent Self-Report) Question Answer Date of Assessment Author 1. Wish to be (Past 1 Month) No 025 5:47 PM EDT Felisa Mahan, RN 2. Non-Specific Active Suici malik Thoughts (Past 1 Month) No 09/02/2024 5:47 PM EDT Felisa Mahan , RN 6. Suicidal Behavior (Lifetime) No 5 5:47 PM EDT Felisa Mahan, RN documented as of this encounter Plan of Treatment Not on file documented as of this encounter Procedures Procedure Name Priority Date/Time Associated Diagnosis Comments US BIOPHYSICAL PROFILE;WITHOUT NON-STRESS TESTING Routine 03/07/2019 10:06 AM EST Morbid obesity with BMI of 40.0-44.9, adult Chronic hypertension affecting High-risk in third trimester documented in this encounter Results * US Biophysical Profile;Without Non-Stress Testing (03/07/2019 10:06 AM EST) Anatomical Region Laterality Modality Body Ultrasound 03/07/2019 9:58 AM EST Narrative 03/07/2019 5:22 PM EST PAT NAME: EMELY ROSALES [facility] REC#: [id number] DA: [id number] PAT GEND: F PAT TYPE: O EXAM BLAZE: [id number] REF PHYS LEE ANN COLVIN Indication ======== cHTN on medications, obesity Method ====== Voluson E6, Transabdominal ultrasound examination. View: Sufficient ========= [place] . Number of fetuses: 1. Dating ====== Method of dating: based on the external assessment GA by stated dating 36 w + 3 d MAREK by stated dating : 04/01/2019 Assigned: Dating performed on 03/07/2019, based on the external assessment Assigned GA 36 w + 3 d Assigned MAREK: 04/01/2019 General Evaluation Cardiac activity present. FHR 132 bpm. movements visualized. Presentation cephalic. Placenta Placental site: posterior. Amniotic Fluid Assessment Amount of AF: normal MVP 5.0 cm. PARKER 11.4 cm. Q1 2.4 cm, Q2 5.0 cm, Q3 2.0 cm, Q4 2.1 cm Biophysical Profile 2: breathing movements 2: Gross body movements 2: tone 2: Amniotic fluid volume 11/01: Biophysical profile score Impression ========= Normal BPP Recommendation Continue the routine schedule of testing for the condition being monitored. Grain Ii Farmworker: Dinorah Leiva RDMS Physician: Pelon Mcguire MD Electronically signed by: Pelon Mcguire MD at: 17:22 Procedure Note Pelon Mcguire MD - 03/07/2019 PAT NAME: EMELY ROSALES [facility] REC#: [id number] DA: [id number] PAT GEND: F PAT TYPE: O EXAM BLAZE: [id number] REF PHYS LEE ANN COLVIN Indication ======== cHTN on medications, obesity Method ====== Voluson E6, Transabdominal ultrasound examination. View: Sufficient ========= [place] . Number of fetuses: 1. Dating ====== Method of dating:based on the external assessment GA by stated dating 36 w + 3 d MAREK by stated dating :04/01/2019 Assigned:Dating performed on 03/07/2019, based on the externalassessment Assigned GA36 w + 3 d Assigned MAREK:04/01/2019 General Evaluation Cardiac activity present. FHR 132 bpm. movements visualized. Presentation cephalic. Placenta Placental site: posterior. Amniotic Fluid Assessment Amount of AF: normal MVP 5.0 cm. PARKER 11.4 cm. Q1 2.4 cm, Q2 5.0 cm, Q3 2.0 cm, Q4 2.1 cm Biophysical Profile 2: breathing movements 2: Gross body movements 2: tone 2: Amniotic fluid volume 11/01: Biophysical profile score Impression ========= Normal BPP Recommendation Continue the routine schedule of testing for the condition beingmonitored. Grain Ii Farmworker: Dinorah Leiva RDMS Physician: Pelon Mcguire MD Electronically signed by: Pelon Mcguire MD at: 17:22 [facility] IMG ORDERABLES Final Resu lt documented in this encounter Visit Diagnoses Diagnosis Morbid obesity with BMI of 40.0-44.9, adult Chronic hypertension affecting High-risk in third trimester documented in this encounter Care Teams Hat Checker Relationship Specialty Start Date End Date Thalia Kim APRN [address] [place] [address] PCP - General Nurse Practitioner 03/07/19 documented as of this encounter
--- OUTSIDE RECORDS SUMMARY | 2019-03-13 11:05 | XMS_ITS | Encounter Summary ---
Author Organization [facility] Address [address] [place] [address] Care Team Providers Care Process Eng Name Role Phone Thalia Kim ZONIA Primary Care Provider +1- [phone] Reason for Visit * Diagnostic Imaging (Routine) - Closed Specialty Diagnoses / Procedures Referred By Shailaac t Referred To Contact Radiology Diagnoses Chronic hypertension affecting Procedures US Biophysical Profile No Stress US Biophysical Profile;Without Non-Stress Testing Lee Ann Colvin MD [address] [address] Phone: tel: fax: [address] [address] Phone: tel: fax: Referral ID Status Reason Start Date Expiration Date Visits Re quested Visits Authorized [id number] Closed 03/13/2019 03/12/2020 1 1 Encounter Details Date Type Department Care Team (Latest Contact Info) Description 03/13/2019 11:05 AM EST Hospital Encounter [address] [phone] Chronic hypertension affecting Social History Tobacco Use Types Packs/Day Years Used Date Smoking Tobacco: Never Smokeless Tobacco: Current Chew Comments:SLOWLY WEANING SELF OFF; PAMPHLET GIVEN TO PATIENT Alcohol Use Standard Drinks/Week Comments No 1 (1 standard drink = 0.6 oz pur e alcohol) [place] Depression Scale Answer Date Recorded [place] Depression Scale Total 4 04/16/2019 The thought [...] 5:47 PM EDT Mino Mahan RN * [place] Suicide Severity Rating Scale (Screener/Recent Self-Report) Question Answer Date of Assessment Author 1. Wish to be (Past 1 Month) No 025 5:47 PM EDT Felisa Mahan, KEMI 2. Non-Specific Active Suici malik Thoughts (Past 1 Month) No 09/02/2024 5:47 PM EDT Felisa Mahan , KEMI 6. Suicidal Behavior (Lifetime) No 5 5:47 PM EDT Felisa Mahan, KEMI documented as of this encounter Plan of Treatment Not on file documented as of this encounter Procedures Procedure Name Priority Date/Time Associated Diagnosis Comments US BIOPHYSICAL PROFILE;WITH NON-STRESS TESTING Routine 03/13/2019 2:15 PM EST Chronic hypertension affecting documented in this encounter Results * US Biophysical Profile;With Non-Stress Testing (03/13/2019 2:15 PM EST) Anatomical Region Laterality Modality Body Ultrasound 03/13/2019 11:1 7 AM EST Narrative 03/14/2019 4:57 PM EST PAT NAME: EMELY ROSALES [facility] REC#: [id number] DA: [id number] PAT GEND: F PAT TYPE: O EXAM BLAZE: [id number] REF PHYS LEE ANN COLVIN Indication ======== BPP, non reactive NST, cHTN Method ====== Voluson E6, Transabdominal ultrasound examination. View: Sufficient ========= [place] . Number of fetuses: 1. Dating ====== GA by stated dating 37 w + 2 d MAREK by stated dating : 04/01/2019 Method of dating: Restore dating from previous exam Previous dating: Dating performed on 03/07/2019, based on the external assessment Agreed MAREK of previous datin04/01/2019 Assigned: Dating performed on 03/07/2019, based on the external assessment Assigned GA 37 w + 2 d Assigned MAREK: 04/01/2019 General Evaluation Cardiac activity present. FHR 129 bpm. movements visualized. Presentation cephalic. Placenta Placental site: posterior. Amniotic Fluid Assessment Amount of AF: normal PARKER 14.7 cm. Q1 7.8 cm, Q2 3.5 cm, Q3 3.4 cm Biophysical Profile 2: breathing movements 2: Gross body movements 2: tone 2: Amniotic fluid volume 11/01: Biophysical profile score Roller Stitcher Comments Single intrauterine is present Impression ========= Normal BPP Recommendation Continue the routine schedule of testing for the condition being monitored. Roller Stitcher: Pat Stiles RDMS Physician: Pelon Mcguire MD Electronically signed by: Pelon Mcguire MD at: 16:57 Procedure Note Pelon Mcguire MD - 03/14/2019 PAT NAME: EMELY ROSALSE [facility] REC#: [id number] DA: 1995 PAT GEND: F PAT TYPE: O EXAM BLAZE: [id number] REF PHYS LEE ANN COLVIN Indication ======== BPP, non reactive NST, cHTN Method ====== Voluson E6, Transabdominal ultrasound examination. View: Sufficient ========= [place] . Number of fetuses: 1. Dating ====== GA by stated dating 37 w + 2 d MAREK by stated dating :04/01/2019 Method of dating:Restore dating from previous exam Previous dating:Dating performed on 03/07/2019, based on the externalassessment Agreed MAREK of previous datin04/01/2019 Assigned:Dating performed on 03/07/2019, based on the externalassessment Assigned GA37 w + 2 d Assigned MAREK:04/01/2019 General Evaluation Cardiac activity present. FHR 129 bpm. movements visualized. Presentation cephalic. Placenta Placental site: posterior. Amniotic Fluid Assessment Amount of AF: normal PARKER 14.7 cm. Q1 7.8 cm, Q2 3.5 cm, Q3 3.4 cm Biophysical Profile 2: breathing movements 2: Gross body movements 2: tone 2: Amniotic fluid volume 11/01: Biophysical profile score Roller Stitcher Comments Single intrauterine is present Impression ========= Normal BPP Recommendation Continue the routine schedule of testing for the condition beingmonitored. Roller Stitcher: Pat Stiles RDMS Physician: Pelon Mcguire MD Electronically signed by: Pelon Mcguire MD at: 16:57 Lee Ann Colvin MD [facility] ORDERABLES Final Resu lt documented in this encounter Visit Diagnoses Diagnosis Chronic hypertension affecting documented in this encounter Care Teams Process Eng Relationship Specialty Start Date End Date Thalia Kim APRN [address] [place] [address] PCP - General Nurse Practitioner 03/07/19 documented as of this encounter
--- OUTSIDE RECORDS SUMMARY | 2019-03-18 11:00 | XMS_ITS | Encounter Summary ---
Author Organization [facility] Address [address] [place] [address] Care Team Providers Care Heel Wheeler Name Role Phone Thalia Kim ZONIA Primary Care Provider [phone] Reason for Referral * Diagnostic Imaging (Routine) - Closed Specialty Diagnoses / Procedures Referred By Contac t Referred To Contact Radiology Diagnoses Chronic hypertension affecting High-risk in third trimester Procedures US Biophysical Profile;Without Non-Stress Testing Lee Ann Colvin MD [address] [place] [address] Phone: tel: fax: [facility] [address] [place] [id number] Phone: tel: fax: Referral ID Status Reason Start Date Expiration Date Visits Re quested Visits Authorized [id number] Closed 03/13/2019 03/12/2020 1 1 * Diagnostic Imaging (Routine) - Closed Specialty Diagnoses / Procedures Referred By Contac t Referred To Contact Radiology Diagnoses Chronic hypertension affecting High-risk in third trimester Procedures US Ob Follow Up Transabdominal Approach Lee Ann Colvin MD [address] [facility] [address] [place] [address] Phone: tel: fax:[phone] [facility] [address] [address] Phone: tel: fax: Referral ID Status Reason Start Date Expiration Date Visits Re quested Visits Authorized [id number] Closed 03/13/2019 03/12/2020 1 1 Reason for Visit * Diagnostic Imaging (Routine) - Closed Specialty Diagnoses / Procedures Referred By Contac t Referred To Contact Radiology Diagnoses Chronic hypertension affecting High-risk in third trimester Procedures US Ob Follow Up Transabdominal Approach Lee Ann Colvin MD [address] [address] Phone: tel:[phone] fax: [facility] [address] [place] [address] Phone: tel:[phone] fax:[phone] Referral ID Status Reason Start Date Expiration Date Visits Re quested Visits Authorized [id number] Closed 03/13/2019 03/12/2020 1 1 Encounter Details Date Type Department Care Team (Latest Contact Info) Description 03/18/2019 11:00 AM EST Hospital Encounter [address] [address] Chronic hypertension affecting ; High-risk in third trimester Social History Tobacco Use Types Packs/Day Years Used Date Smoking Tobacco: Never Smokeless Tobacco: Current Chew Comments:SLOWLY WEANING SELF OFF; PAMPHLET GIVEN TO PATIENT Alcohol Use Standard Drinks/Week Comments No 1 (1 standard drink = 0.6 oz pur e alcohol) Staples Depression Scale Answer Date Recorded Staples Depression Scale Total 4 04/16/2019 The thought [...] 5:47 PM EDT Mino Mahan RN * [place] Suicide Severity Rating Scale (Screener/Recent Self-Report) Question Answer Date of Assessment Author 1. Wish to be (Past 1 Month) No 025 5:47 PM EDT Felisa Mahan, KEMI 2. Non-Specific Active Suici malik Thoughts (Past 1 Month) No 09/02/2024 5:47 PM EDT Felisa Mahan RN 6. Suicidal Behavior (Lifetime) No 5:47 PM EDT Felisa Mahan RN documented as of this encounter Plan of Treatment Not on file documented as of this encounter Procedures Procedure Name Priority Date/Time Associated Diagnosis Comments US BIOPHYSICAL PROFILE;WITHOUT NON-STRESS TESTING Routine 03/18/2019 11:21 AM EST Chronic hypertension affecting High-risk in third trimester US OB FOLLOW UP TRANSABDOMINAL APPROACH Routine 03/18/2019 11:21 AM EST Chronic hypertension affecting High-risk in third trimester documented in this encounter Results * US Biophysical Profile;Without Non-Stress Testing (03/18/2019 11:21 AM EST) Anatomical Region Laterality Modality Body Ultrasound 03/18/2019 11:0 5 AM EST Narrative 03/18/2019 11:37 AM EST PAT NAME: EMELY ROSALES MED REC#: [id number] DA: [id number] PAT GEND: F PAT TYPE: O EXAM BLAZE: <OBR.7.1>[id number]</OBR.7.1><OBR.7.1>[id number]</OBR.7.1> REF PHYS LEE ANN COLVIN Indication ======== CHTN History ====== General History Other: BMI 42.4 Method ====== Voluson E6, Transabdominal ultrasound examination ========= [place] . Number of fetuses: 1. Dating ====== GA by stated dating 38 w + 0 d MAREK by stated dating : 04/01/2019 Ultrasound examination on: 03/18/2019 GA by U/S based upon: AC, BPD, Femur, HC GA by U/S 37 w + 6 d MAREK by U/S: 04/02/2019 Method of dating: Restore dating from previous exam Previous dating: Dating performed on 03/07/2019, based on the external assessment Agreed MAREK of previous datin04/01/2019 Assigned: Dating performed on 03/07/2019, based on the external assessment Assigned GA 38 w + 0 d Assigned MAREK: 04/01/2019 General Evaluation Cardiac activity present. FHR 145 bpm. movements visualized. Presentation cephalic. Placenta Placental site: posterior. Amniotic fluid Amount of AF: normal. MVP 4.9 cm. PARKER 13.4 cm. Q1 4.6 cm, Q2 2.4 cm, Q3 4.9 cm, Q4 1.5 cm. Biophysical Profile 2: breathing movements 2: Gross body movements 2: tone 2: Amniotic fluid volume 11/01: Biophysical profile score Biometry Biometry BPD 93.3 mm 38w 0d 72% HC 336.8 mm 38w 4d 44% AC 330.8 mm 37w 0d 39% Femur 73.7 mm 37w 5d 45% HC / AC 1.02 EFW 3,216 g 38w 0d 49% Vance EFW (lb) 7 lb EFW (oz) 1 oz EFW by: Hadlock (IRI-BI-OP-FL) Extremities / Bony Struc FL / BPD 0.79 FL / HC 0.22 FL / AC 0.22 Other Structures MVP 4.9 cm FHR 145 bpm PARKER 13.4 cm Incident Analyst Comments An ultrasound for weight has a margin of error of up to twenty percent. Impression ========= There is appropriate interval growth & normal amniotic fluid quantity Normal BPP Recommendation Follow-up scan as clinically indicated for the condition being monitored. Indication ======== CHTN History ====== General History Other: BMI 42.4 Method ====== Voluson E6, Transabdominal ultrasound examination ========= [place] . Number of fetuses: 1. Dating ====== GA by stated dating 38 w + 0 d MAREK by stated dating : 04/01/2019 Ultrasound examination on: 03/18/2019 GA by U/S based upon: AC, BPD, Femur, HC GA by U/S 37 w + 6 d MAREK by U/S: 04/02/2019 Method of dating: Restore dating from previous exam Previous dating: Dating performed on 03/07/2019, based on the external assessment Agreed MAREK of previous datin04/01/2019 Assigned: Dating performed on 03/07/2019, based on the external assessment Assigned GA 38 w + 0 d Assigned MAREK: 04/01/2019 General Evaluation Cardiac activity present. FHR 145 bpm. movements visualized. Presentation cephalic. Placenta Placental site: posterior. Amniotic fluid Amount of AF: normal. MVP 4.9 cm. PARKER 13.4 cm. Q1 4.6 cm, Q2 2.4 cm, Q3 4.9 cm, Q4 1.5 cm. Biophysical Profile 2: breathing movements 2: Gross body movements 2: tone 2: Amniotic fluid volume 11/01: Biophysical profile score Biometry Biometry BPD 93.3 mm 38w 0d 72% HC 336.8 mm 38w 4d 44% AC 330.8 mm 37w 0d 39% Femur 73.7 mm 37w 5d 45% HC / AC 1.02 EFW 3,216 g 38w 0d 49% Vance EFW (lb) 7 lb EFW (oz) 1 oz EFW by: Hadlock (PAC-CN-RE-FL) Extremities / Bony Struc FL / BPD 0.79 FL / HC 0.22 FL / AC 0.22 Other Structures MVP 4.9 cm FHR 145 bpm PARKER 13.4 cm Incident Analyst Comments An ultrasound for weight has a margin of error of up to twenty percent. Impression ========= There is appropriate interval growth & normal amniotic fluid quantity Normal BPP Recommendation Follow-up scan as clinically indicated for the condition being monitored. Incident Analyst: Dinorah Leiva RDMS Physician: Margie Ernandez DO Electronically signed by: Margie Ernandez DO at: 11:37 Procedure Note Margie Ernandez DO - 03/18/2019 PAT NAME: EMELY ROSALES [facility] REC#: [id number] DA: 1995 PAT GEND: F PAT TYPE: O EXAM BLAZE:<OBR.7.1>[id number]</OBR.7.1><OBR.7.1>[id number]</OBR.7.1> REF PHYS LEE ANN COLVIN Indication ======== CHTN History ====== General History Other:BMI 42.4 Method ====== Voluson E6, Transabdominal ultrasound examination ========= [place] . Number of fetuses: 1. Dating ====== GA by stated dating 38 w + 0 d MAREK by stated dating :04/01/2019 Ultrasound examination on:03/18/2019 GA by U/S based upon:AC, BPD, Femur, HC GA by U/S37 w + 6 d MAREK by U/S:04/02/2019 Method of dating:Restore dating from previous exam Previous dating:Dating performed on 03/07/2019, based on the externalassessment Agreed MAREK of previous datin04/01/2019 Assigned:Dating performed on 03/07/2019, based on the externalassessment Assigned GA38 w + 0 d Assigned MAREK:04/01/2019 General Evaluation Cardiac activity present. FHR 145 bpm. movements visualized. Presentation cephalic. Placenta Placental site: posterior. Amniotic fluid Amount of AF: normal. MVP 4.9 cm. PARKER 13.4 cm. Q1 4.6 cm,Q2 2.4 cm, Q3 4.9 cm, Q4 1.5 cm. Biophysical Profile 2: breathing movements 2: Gross body movements 2: tone 2: Amniotic fluid volume 11/01: Biophysical profile score Biometry Biometry BPD93.3 mm 38w 0d 72% HC336.8 mm 38w 4d 44% AC330.8 mm 37w 0d 39% Femur73.7 mm 37w 5d 45% HC / AC1.02 EFW3,216 g 38w 0d 49%Vance EFW (lb)7 lb EFW (oz)1 oz EFW by:Hadlock (GFP-HL-DC-FL) Extremities / Bony Struc FL / BPD0.79 FL / HC0.22 FL / AC0.22 Other Structures MVP4.9 cm TSV909 bpm AFI13.4 cm Incident Analyst Comments An ultrasound for weight has a margin of error of up to twentypercent. Impression ========= There is appropriate interval growth & normal amniotic fluidquantity Normal BPP Recommendation Follow-up scan as clinically indicated for the condition beingmonitored. Indication ======== CHTN History ====== General History Other:BMI 42.4 Method ====== Voluson E6, Transabdominal ultrasound examination ========= [place] . Number of fetuses: 1. Dating ====== GA by stated dating 38 w + 0 d MAREK by stated dating :04/01/2019 Ultrasound examination on:03/18/2019 GA by U/S based upon:AC, BPD, Femur, HC GA by U/S37 w + 6 d MAREK by U/S:04/02/2019 Method of dating:Restore dating from previous exam Previous dating:Dating performed on 03/07/2019, based on the externalassessment Agreed MAREK of previous datin04/01/2019 Assigned:Dating performed on 03/07/2019, based on the externalassessment Assigned GA38 w + 0 d Assigned MAREK:04/01/2019 General Evaluation Cardiac activity present. FHR 145 bpm. movements visualized. Presentation cephalic. Placenta Placental site: posterior. Amniotic fluid Amount of AF: normal. MVP 4.9 cm. PARKER 13.4 cm. Q1 4.6 cm,Q2 2.4 cm, Q3 4.9 cm, Q4 1.5 cm. Biophysical Profile 2: breathing movements 2: Gross body movements 2: tone 2: Amniotic fluid volume 11/01: Biophysical profile score Biometry Biometry BPD93.3 mm 38w 0d 72% HC336.8 mm 38w 4d 44% AC330.8 mm 37w 0d 39% Femur73.7 mm 37w 5d 45% HC / AC1.02 EFW3,216 g 38w 0d 49%Vance EFW (lb)7 lb EFW (oz)1 oz EFW by:Hadlock (XFF-RH-PM-FL) Extremities / Bony Struc FL / BPD0.79 FL / HC0.22 FL / AC0.22 Other Structures MVP4.9 cm AGH350 bpm AFI13.4 cm Incident Analyst Comments An ultrasound for weight has a margin of error of up to twentypercent. Impression ========= There is appropriate interval growth & normal amniotic fluidquantity Normal BPP Recommendation Follow-up scan as clinically indicated for the condition beingmonitored. Incident Analyst: Dinorah Leiva RDMS Physician: Margie Ernandez DO Electronically signed by: Margie Ernandez DO at: 11:37 Lee Ann Colvin MD IMG US ORDERABLES Final Resu lt * US Ob Follow Up Transabdominal Approach (03/18/2019 11:21 AM EST) Anatomical Region Laterality Modality Body Ultrasound 03/18/2019 11:0 5 AM EST Narrative 03/18/2019 11:37 AM EST PAT NAME: EMELY ROSALES [facility] REC#: [id number] DA: [id number] PAT GEND: F PAT TYPE: O EXAM BLAZE: <OBR.7.1>[id number]</OBR.7.1><OBR.7.1>[id number]</OBR.7.1> REF PHYS MARII LEE ANN Indication ======== CHTN History ====== General History Other: BMI 42.4 Method ====== Voluson E6, Transabdominal ultrasound examination ========= [place] . Number of fetuses: 1. Dating ====== GA by stated dating 38 w + 0 d MAREK by stated dating : 04/01/2019 Ultrasound examination on: 03/18/2019 GA by U/S based upon: AC, BPD, Femur, HC GA by U/S 37 w + 6 d MAREK by U/S: 04/02/2019 Method of dating: Restore dating from previous exam Previous dating: Dating performed on 03/07/2019, based on the external assessment Agreed MAREK of previous datin04/01/2019 Assigned: Dating performed on 03/07/2019, based on the external assessment Assigned GA 38 w + 0 d Assigned MAREK: 04/01/2019 General Evaluation Cardiac activity present. FHR 145 bpm. movements visualized. Presentation cephalic. Placenta Placental site: posterior. Amniotic fluid Amount of AF: normal. MVP 4.9 cm. PARKER 13.4 cm. Q1 4.6 cm, Q2 2.4 cm, Q3 4.9 cm, Q4 1.5 cm. Biophysical Profile 2: breathing movements 2: Gross body movements 2: tone 2: Amniotic fluid volume 11/01: Biophysical profile score Biometry Biometry BPD 93.3 mm 38w 0d 72% HC 336.8 mm 38w 4d 44% AC 330.8 mm 37w 0d 39% Femur 73.7 mm 37w 5d 45% HC / AC 1.02 EFW 3,216 g 38w 0d 49% Vance EFW (lb) 7 lb EFW (oz) 1 oz EFW by: Hadlock (DJD-UG-CS-FL) Extremities / Bony Struc FL / BPD 0.79 FL / HC 0.22 FL / AC 0.22 Other Structures MVP 4.9 cm FHR 145 bpm PARKER 13.4 cm Incident Analyst Comments An ultrasound for weight has a margin of error of up to twenty percent. Impression ========= There is appropriate interval growth & normal amniotic fluid quantity Normal BPP Recommendation Follow-up scan as clinically indicated for the condition being monitored. Indication ======== CHTN History ====== General History Other: BMI 42.4 Method ====== Voluson E6, Transabdominal ultrasound examination ========= [place] . Number of fetuses: 1. Dating ====== GA by stated dating 38 w + 0 d MAREK by stated dating : 04/01/2019 Ultrasound examination on: 03/18/2019 GA by U/S based upon: AC, BPD, Femur, HC GA by U/S 37 w + 6 d MAREK by U/S: 04/02/2019 Method of dating: Restore dating from previous exam Previous dating: Dating performed on 03/07/2019, based on the external assessment Agreed MAREK of previous datin04/01/2019 Assigned: Dating performed on 03/07/2019, based on the external assessment Assigned GA 38 w + 0 d Assigned MAREK: 04/01/2019 General Evaluation Cardiac activity present. FHR 145 bpm. movements visualized. Presentation cephalic. Placenta Placental site: posterior. Amniotic fluid Amount of AF: normal. MVP 4.9 cm. PARKER 13.4 cm. Q1 4.6 cm, Q2 2.4 cm, Q3 4.9 cm, Q4 1.5 cm. Biophysical Profile 2: breathing movements 2: Gross body movements 2: tone 2: Amniotic fluid volume 11/01: Biophysical profile score Biometry Biometry BPD 93.3 mm 38w 0d 72% HC 336.8 mm 38w 4d 44% AC 330.8 mm 37w 0d 39% Femur 73.7 mm 37w 5d 45% HC / AC 1.02 EFW 3,216 g 38w 0d 49% Vance EFW (lb) 7 lb EFW (oz) 1 oz EFW by: Hadlock (ZYZ-AJ-FM-FL) Extremities / Bony Struc FL / BPD 0.79 FL / HC 0.22 FL / AC 0.22 Other Structures MVP 4.9 cm FHR 145 bpm PARKER 13.4 cm Incident Analyst Comments An ultrasound for weight has a margin of error of up to twenty percent. Impression ========= There is appropriate interval growth & normal amniotic fluid quantity Normal BPP Recommendation Follow-up scan as clinically indicated for the condition being monitored. Incident Analyst: Dinorah Leiva RDMS Physician: Margie Ernandez DO Electronically signed by: Margie Ernandez DO at: 11:37 Procedure Note Margie Ernandez DO - 03/18/2019 PAT NAME: EMELY ROSALES [facility] REC#: [id number] DA: [id number] PAT GEND: F PAT TYPE: O EXAM BLAZE:<OBR.7.1>[id number]</OBR.7.1><OBR.7.1>[id number]</OBR.7.1> REF PHYS LEE ANN COLVIN Indication ======== CHTN History ====== General History Other:BMI 42.4 Method ====== Voluson E6, Transabdominal ultrasound examination ========= [place] . Number of fetuses: 1. Dating ====== GA by stated dating 38 w + 0 d MAREK by stated dating :04/01/2019 Ultrasound examination on:03/18/2019 GA by U/S based upon:AC, BPD, Femur, HC GA by U/S37 w + 6 d MAREK by U/S:04/02/2019 Method of dating:Restore dating from previous exam Previous dating:Dating performed on 03/07/2019, based on the externalassessment Agreed MAREK of previous datin04/01/2019 Assigned:Dating performed on 03/07/2019, based on the externalassessment Assigned GA38 w + 0 d Assigned MAREK:04/01/2019 General Evaluation Cardiac activity present. FHR 145 bpm. movements visualized. Presentation cephalic. Placenta Placental site: posterior. Amniotic fluid Amount of AF: normal. MVP 4.9 cm. PARKER 13.4 cm. Q1 4.6 cm,Q2 2.4 cm, Q3 4.9 cm, Q4 1.5 cm. Biophysical Profile 2: breathing movements 2: Gross body movements 2: tone 2: Amniotic fluid volume 11/01: Biophysical profile score Biometry Biometry BPD93.3 mm 38w 0d 72% HC336.8 mm 38w 4d 44% AC330.8 mm 37w 0d 39% Femur73.7 mm 37w 5d 45% HC / AC1.02 EFW3,216 g 38w 0d 49%Vance EFW (lb)7 lb EFW (oz)1 oz EFW by:Hadlock (YVH-XA-YW-FL) Extremities / Bony Struc FL / BPD0.79 FL / HC0.22 FL / AC0.22 Other Structures MVP4.9 cm RKS084 bpm AFI13.4 cm Incident Analyst Comments An ultrasound for weight has a margin of error of up to twentypercent. Impression ========= There is appropriate interval growth & normal amniotic fluidquantity Normal BPP Recommendation Follow-up scan as clinically indicated for the condition beingmonitored. Indication ======== CHTN History ====== General History Other:BMI 42.4 Method ====== Voluson E6, Transabdominal ultrasound examination ========= [place] . Number of fetuses: 1. Dating ====== GA by stated dating 38 w + 0 d MAREK by stated dating :04/01/2019 Ultrasound examination on:03/18/2019 GA by U/S based upon:AC, BPD, Femur, HC GA by U/S37 w + 6 d MAREK by U/S:04/02/2019 Method of dating:Restore dating from previous exam Previous dating:Dating performed on 03/07/2019, based on the externalassessment Agreed MAREK of previous datin04/01/2019 Assigned:Dating performed on 03/07/2019, based on the externalassessment Assigned GA38 w + 0 d Assigned MAREK:04/01/2019 General Evaluation Cardiac activity present. FHR 145 bpm. movements visualized. Presentation cephalic. Placenta Placental site: posterior. Amniotic fluid Amount of AF: normal. MVP 4.9 cm. PARKER 13.4 cm. Q1 4.6 cm,Q2 2.4 cm, Q3 4.9 cm, Q4 1.5 cm. Biophysical Profile 2: breathing movements 2: Gross body movements 2: tone 2: Amniotic fluid volume 11/01: Biophysical profile score Biometry Biometry BPD93.3 mm 38w 0d 72% HC336.8 mm 38w 4d 44% AC330.8 mm 37w 0d 39% Femur73.7 mm 37w 5d 45% HC / AC1.02 EFW3,216 g 38w 0d 49%Vance EFW (lb)7 lb EFW (oz)1 oz EFW by:Hadlock (CZB-OR-YI-FL) Extremities / Bony Struc FL / BPD0.79 FL / HC0.22 FL / AC0.22 Other Structures MVP4.9 cm ZOR801 bpm AFI13.4 cm Incident Analyst Comments An ultrasound for weight has a margin of error of up to twentypercent. Impression ========= There is appropriate interval growth & normal amniotic fluidquantity Normal BPP Recommendation Follow-up scan as clinically indicated for the condition beingmonitored. Incident Analyst: Dinorah Leiva RDMS Physician: Margie Ernandez DO Electronically signed by: Margie Ernandez DO at: 11:37 us Lee Ann Colvin MD IMG US ORDERABLES Final Resu lt documented in this encounter Visit Diagnoses Diagnosis Chronic hypertension affecting High-risk in third trimester documented in this encounter Care Teams Heel Wheeler Relationship Specialty Start Date End Date Thalia Kim APRN [address] [place] [address] PCP - General Nurse Practitioner 03/07/19 documented as of this encounter
[2025-02-27 20:54] VITALS: BP 120/98; PULSE 95; RESP 16; TEMP 36.6; O2SAT 100; BMI 38.6
--- OUTSIDE RECORDS SUMMARY | 2025-02-27 20:57 | XMS_ITS | Clinical Summary ---
[facility] Address [address] [place] [address] Care Team Providers Care It Risk Advisor Name Role Phone Thalia Kim APRN Primary Care Provider +1- [phone] Allergies No known active allergies Medications ondansetron [...] discussed: Circumcision (y / n / na): Distributor Cleaner: Baby's name: Breast/bottle feeding: Placental location: Posterior Postdates discussed: Tdap discussed: Tdap vaccine received: Flu vaccine discussed: Flu vaccine received: Family History Medical History Relation Name Comments Stomach cancer Maternal Grandfather Breast cancer Other Colon cancer Other Heart disease Other Intellectual Disability Other Breast cancer Paternal Grandmother Colon cancer [...] drink = 0.6 oz pur e alcohol) [place] Depression Scale Answer Date Recorded [place] Depression Scale Total 4 04/16/2019 The thought [...] an d Breast Exam 09/19/2019 09/17/2018, 09/17/2018 INFLUENZA VACCINE 10/25/2024 01/05/2020, , 12/28/2015 TDAP/TD VACCINES (4 - Td or Tdap) 03/17/2028 03/17/2018, 11/08/2012, 11/04/2008 HEPATITIS C SCREENING Completed 11/28/2023, 019 Procedures Procedure Name Priority Date/Time Associated Diagnosis Comments SCANNED - PAP SMEAR 09/17/2018 HEPATITIS C ANTIBODY Routine 09/17/2018 from Last 3 Months or Most Recently Relevant to Health Maintenance Results * SCANNED - PAP SMEAR (09/17/2018) Lee Ann Soto MD CHART REVIEW TABS Final R esult * Hepatitis C Antibody (09/17/2018) Hep C Virus Ab negative Blood us Historical Provider LAB BLOOD ORDERABLES Ebony l Result from Last 3 Months or Most Recently Relevant to Health Maintenance Insurance [facility] MEDICAID Advance Directives * CPR (Attempt [...] pulse or is breathing): Full Care Teams It Risk Advisor Relationship Specialty Start Date End Date Thalia Kim APRN [address] [place] [phone] PCP - General Nurse Practitioner 03/07/19
--- OUTSIDE RECORDS SUMMARY | 2025-02-27 20:58 | XMS_ITS | Clinical Summary ---
Author Organization [facility] Address [address] [place] [address] Care Team Providers Care Electrical Transmission Engineer Name Role Phone Clarisa Adams APRN Primary Care Provider Allergies Active Allergy Reactions Criticality Noted Date Comments Doxycycline Other - please docum ent in the comment field Low 11/28/2023 Endorses allergy to drop when child, made inside of ear raw Medications cholecalciferol (Vitamin D-3) 250 MCG (32375 UT) capsule Take 1 capsule (10,000 Units) [...] 19+ 3-dose series) 2013 [facility]-Pap Smear 09/19/2015 [facility]-Cervical Cancer Screening 2024 [facility]-HPV/Cotest 2024 XNA-HZEKS-84 Vaccine (2 - 2024- season) 2024 10/04/2021 [facility]-Influenza Vaccine (#1) 2024 01/05/2020 [facility]-DTaP,Tdap,and Td [...] Non Reactive 11/28/2023 3:13 AM EDT [facility] Comment:Screening for HIV 1 & 2 antibodies, and P24 antigen is NONREACTIVE. No confirmatory testing is required. Blood Venous blood specimen / Unknown Venipuncture / Unknown 11/28/2023 1:36 AM EDT 11/28/2023 1:44 AM EDT Yohan Toscano MD LAB BLOOD ORDERABLES Final Result [facility] [address] [place] [address] * Hepatitis C Antibody - ED (11/28/2023 1:36 AM EDT) Hepatitis C Antibody Negative Negative 11/28/2023 3:13 AM EDT [facility] Blood Venous blood specimen / Unknown Venipuncture / Unknown 11/28/2023 1:36 AM EDT 11/28/2023 1:44 AM EDT us Yohan Toscano MD LAB BLOOD ORDERABLES Final Result [facility] [address] [place] [address] from Last 3 Months or Most Recently Relevant to Health Maintenance Insurance [facility] MEDICAID Care Teams Electrical Transmission Engineer Relationship Specialty Start Date End Date Clarisa Adams APRN [address] [place] [address] PCP - General Manager [employer] 07/19/23
[2025-02-27 21:00] VITALS: BP 149/96; PULSE 75; O2SAT 100
--- NOTE | 2025-02-27 21:11 | XR_ITS ---
PROCEDURE INFORMATION: Exam: XR Chest Exam date and time: 02/27/2025 9:45 PM Age: 29 years old Clinical indication: Pain; Chest pressure; Additional info: Cp TECHNIQUE: Imaging protocol: Radiologic exam of the chest. Views: 1 view. COMPARISON: CR XR CHEST 2V 03/05/2024 8:30 PM FINDINGS: Lungs: Normal pulmonary expansion. Pulmonary vasculature grossly normal. No gross pulmonary infiltrates or edema pattern. Pleural spaces: No pleural effusion. No pneumothorax. Heart/Mediastinum: Heart size normal. No tracheal/mediastinal shift. Bones/joints: No acute osseous abnormalities are identified. IMPRESSION: No acute thoracic process.
--- NOTE | 2025-02-27 21:11 | XR_ITS ---
PROCEDURE INFORMATION: Exam: XR Abdomen Exam date and time: 02/27/2025 9:45 PM Age: 29 years old Clinical indication: Abdominal pain TECHNIQUE: Imaging protocol: Radiologic exam of the abdomen. Views: Frontal supine view of the abdomen. 1 View. COMPARISON: CT ABDOMEN PELVIS W CON 09/30/2024 2:10 PM FINDINGS: Gastrointestinal tract: Nonobstructive bowel gas pattern. No evidence of pneumatosis or portal gas. Intraperitoneal space: No free air is evident. Organs: No evidence of organomegaly. Bones/joints: No acute osseous abnormalities. Soft tissues: No gross soft tissue abnormalities. Other findings: No pathological calcifications. IMPRESSION: No acute intra-abdominal/intrapelvic process is evident radiographically.
--- NOTE | 2025-02-27 21:13 | ED_ITS ---
Discharge Plan Disposition Patient Disposition: Home, Self-Care Prescriptions Prescriptions: No Action valsartan 80 mg tablet 80 mg PO DAILY Qty: 30 2RF Trulance 3 mg tablet 3 mg PO DAILY Patient Comments: TAKE 1 TABLET BY MOUTH ONCE DAILY ondansetron 4 mg tablet,disintegrating 4 mg PO ONCE PRN (Reason: nausea and vomiting) Qty: 14 0RF Rx Instructions: DISSOLVE 1 TABLET IN MOUTH EVERY 6 HOURS NEEDED FOR NAUSEA AND VOMITING levocetirizine [Xyzal] 5 mg Tablet 5 mg PO DAILY buspirone 10 mg tablet 10 mg PO BID Qty: 60 12RF Rx Instructions: Please take 1 tablet p.o. twice daily Referrals Follow up/Referrals: Rosie Choi APRN [Primary Care Provider, Medical] - See instructions Activity Restrictions/Add. Instructions Additional Instructions/Restrictions: You have been seen and evaluated in the emergency department. We recommend you follow-up with your heat treatment technician. If your pain worsens, return to the ED. You may continue to take Tylenol and ibuprofen at home for symptoms. No changes to other home medications. Clinical Impressions Clinical Impression: Left sided abdominal pain Instructions Patient Instructions: DI for Acute Abdominal Pain Print Language Print Language: Bengali Discharge ED Provider: Delia Schwab Adult HPI General Chief complaint: Abdominal Pain Stated complaint: Left side pain that radiates to the back Time Seen by Provider: 02/27/25 21:05 Mode of Arrival: Ambulatory Source of Information: Patient Description of Symptoms (Recalled from ER Triage Doc. by RN): Patient reports left sided abdominal pain that started at 10am this morning. She states the pain is radiating up into her left shoulder blade. Hx of IBSC, had a bowel movemen yesterday. History of Present Illness HPI narrative: This is a 29-year-old female with history of IBS-C on Trulance who presents to the emergency department with left lower quadrant abdominal pain. Pain started this morning at approximately 10 AM. Last bowel movement was at 6 AM this morning. She denies feeling constipated today. She states the pain radiates from her left lower abdomen up to into her left shoulder blade denies any accompanying headache, fever, shortness of breath, nausea, vomiting, diarrhea, or dysuria. Related Data Home Medications ?Medication ?Instructions ?Recorded ?Confirmed levocetirizine 5 mg tablet (Xyzal) 5 mg PO DAILY 08/2711/11/24 plecanatide 3 mg tablet (Trulance) 3 mg PO DAILY 10/0911/11/24 Previous Rx's ?Medication ?Instructions ?Recorded ondansetron 4 mg disintegrating 4 mg PO ONCE PRN nause a and 08/29/24 tablet vomiting #14 tabs buspirone 10 mg tablet 10 mg PO BID #60 tabs valsartan 80 mg tablet 80 mg PO DAILY #30 tabs 10/25 11/18 Allergies Allergy/AdvReac Type Severity Reaction Status Date / Time carbamide peroxide (From Allergy Unknown Verified 11/11/24 08:57 Debrox) allergy reaction [facility] Disclaimer: The information contained in this section may have been updated after the patient was seen, as this information can be updated by other users. Medical History Migraine Hypertension Surgical History History of section Family History Other Colon cancer Leukemia Lung cancer Stomach cancer Throat cancer Social History Smoking Status: Current every day smoker tobacco type: smokeless tobacco second hand exposure: Yes alcohol intake: never substance use type: denies use current occupational status: employed Travel in the last 8 weeks?: None household members: children housing: house Have you lived/traveled outside US in past 30 days?: No Contact w/someone who lives/traveled outside US past 30 days?: No Exposure to someone with infectious disease in past 14 days?: No Do you have a fever (greater than 100.4 F or 38 C)?: No Have you tested positive for COVID-19?: No Exposed to someone with COVID-19 in past 14 days?: No Do you have a sore throat?: No Do you have a cough?: No Do you have any weakness?: No Do you have any diarrhea?: No Are you experiencing any unusual bleeding?: No Do you have any muscle aches/pain?: No Do you have any abdominal pain?: No Are you experiencing loss of taste or smell?: No Other Medical History Have you received the Flu Vaccine for this season: No Have you received the Pneumonia Vaccine: No ROS Obtained: Yes All systems reviewed & no additional complaints except as documented Physical Exam General General appearance: alert and in no apparent distress Head Head exam: atraumatic Eye Eye exam: Present normal appearance, PERRL and EOMI ENT ENT exam: Present mucous membranes moist Neck Neck exam: Present normal inspection and full ROM; Absent tenderness Chest Chest inspection: Present symmetric chest wall rise; Absent tenderness Respiratory Respiratory exam: Absent respiratory distress, wheezes or accessory muscle use Cardiovascular Cardiovascular exam: Present regular rate and normal rhythm Abdominal Exam Abdominal exam: Present soft and tenderness (Mild left-sided abdominal tenderness); Absent guarding Extremities Exam Extremities exam: Present full ROM; Absent tenderness Neurological Exam Neurological exam: Present alert and oriented X3 Psychiatric Psychiatric exam: Present normal affect Skin Skin exam: Present warm and dry Medical Decision Making Medical Records Screening: Per USPSTF and CDC recommendations, given the prevalence of disease in our region, it is our hospital?s policy to screen for HIV and viral Hepatitis for all patients aged 18 and over and those with ongoing risk factors. Scott Inquiry Pt receiving controlled substance: No Scott was queried for this patient: No Vital Signs: 02/27/25 20:54 02/27/25 21:00 02/27/25 21:30 Temperature 97.8 F Temperature Source Oral Pulse Rate 75 79 Pulse Rate [Right Radial] 95 H Respiratory Rate 16 Blood Pressure 149/96 H 146/90 H Blood Pressure [Right Arm] 120/98 H Blood Pressure Mean 124 118 Blood Pressure Mean [Right Arm] 105 Blood Pressure Source [Right Arm] Automatic Cuff Blood Pressure Position [Right Arm] Supine 02 Sat by Pulse Oximetry 100 100 99 Oxygen Delivery Method Room Air Lab Data Lab Results 02/27/25 20:46: Urine Color Yellow, Urine Appearance Clear, Urine pH 6.0, Ur Specific [place] 1.025, Urine Protein Negative, Urine Glucose (UA) Negative, Urine Ketones Negative, Urine Blood Negative, Urine Nitrate Negative, Urine Bilirubin Negative, Urine Urobilinogen 0.2, Ur Leukocyte Esterase Negative, Urine RBC 5-10, Urine WBC 5-10, Ur Squamous Epith Cells 10-20, Urine Bacteria 4+, Urine Mucus 4+ 02/27/25 20:50: WBC 7.9, RBC 4.67, Hgb 12.5, Hct 38.1, MCV 81.6, MCH 26.8 L, MCHC 32.8, RDW 13.1, Plt Count 251, MPV 10.6 H, Neut % (Auto) 75.5, Lymph % (Auto) 16.3, Forrest % (Auto) 5.7, Eos % (Auto) 1.5, Baso % (Auto) 0.6, Neut # (Auto) 6.0, Lymph # (Auto) 1.3, Forrest # (Auto) 0.5, Eos # (Auto) 0.1, Baso # (Auto) 0.1, Sodium 134 L, Potassium 3.6, Chloride 102, Carbon Dioxide 24, Anion Gap 11.6, BUN 9, Creatinine 0.80, Estimated Creat Clear 171, Estimated GFR 84, Est GFR ( Amer) 102, Glucose 102 H, Calcium 9.5, Total Bilirubin 0.8, AST 33, ALT 20, Alkaline Phosphatase 79, Troponin I < 0.01, Total Protein 8.5 H, Albumin 4.9, Globulin 3.6 H, Albumin/Globulin Ratio 1.4, Lipase 71, Serum HCG, Qual Negative 02/27/25 20:50 02/27/25 20:50 Orders (Tests/Meds): ED MEDICATIONS Discontinued Medications Generic Name Dose Route Start Last Admin Trade Name Wai PRN Reason Stop Dose Admin Acetaminophen 1,000 mg 02/27/25 21:11 02/27/25 21:31 Acetaminophen 500mg Tab PO 02/27/25 21:12 1,000 mg ONCE ONE Administration Sodium Chloride 1,000 mls @ 999 mls/hr 02/27/25 21:11 02/27/25 21:31 Sod Chlor 0.9% 1000ml Bag IV 02/27/25 22:11 999 mls/hr .Q1H1M ONE Administration Ketorolac Tromethamine 15 mg 02/27/25 21:11 02/27/25 21:32 Ketorolac 15mg/Ml Vial IV 02/27/25 21:12 15 mg ONCE ONE Administration ORDERS Category Date Time Status Chest XR -- portable [XR chest portable] Stat Exams 02/27/25 21:11 Completed KUB (single view) [XR KUB] Stat Exams 02/27/25 21:11 Completed CBC w/Auto Diff [Complete Blood Count Auto Diff] Stat Lab 02/27/25 20:50 Completed CMP [Comprehensive Metabolic Panel] Stat Lab 02/27/25 20:50 Completed HCG Qualitative, Serum Stat Lab 02/27/25 20:50 Completed Lactate Venous Stat Lab 02/27/25 21:37 Ordered Lipase Stat Lab 02/27/25 20:50 Completed Trop I [Troponin I] Stat Lab 02/27/25 20:50 Completed Troponin I Q3H Lab 02/28/25 00:15 Ordered Troponin I Q3H Lab 02/28/25 03:15 Ordered UA [Urinalysis and Microscopic] Stat Lab 02/27/25 20:46 Completed Urine Culture Stat Micro 02/27/25 20:46 Received Medical Decision Narrative: In summary, this is a 29y/o female with history of IBS-C presenting the emergency department for left-sided abdominal pain of approximately 12 hours duration. Differential diagnosis includes but is not limited to: Constipation, IBS flare, diverticulitis, gastritis, ACS, anxiety, UTI On my initial assessment, the patient is hemodynamically stable in no acute distress. Her abdominal exam is only notable for very mild left-sided abdominal tenderness. Initial workup will be focused on []. ECG personally interpreted: EKG shows normal sinus rhythm at a rate of 75. Normal OR, QRS, and QTc intervals. Normal axis. No acute ST elevations or signs of acute subendocardial or transmural ischemia. Patient received Tylenol, Toradol, and IV normal saline for treatment. Labs personally interpreted which demonstrate no leukocytosis or anemia. Platelet count within normal limits. CMP shows no severe electrolyte abnormalities. No NOY. LFTs grossly normal. UA is somewhat contaminated with 10-20 squamous epithelial cells. No acute infectious process. Chest x-ray and KUB personally interpreted. Chest x-ray shows no obvious opacity, pneumothorax, cardiomegaly, or pleural effusion. KUB shows a nonobstructive bowel gas pattern. Radiology was agreement. On reassessment, the patient remains hemodynamically stable. She states that her pain has improved, however has not completely gone away. Considering reassuring lab work, KUB, and chest x-ray and in conjunction with fairly benign abdominal exam, I do not feel that any further imaging is indicated at this point in time. Should pain increase, I recommended a CT scan of the abdomen and pelvis. I discussed this with the patient. Ultimately we decided that she was appropriate for discharge home with strict return precautions. I recommended that she follow-up with her PCP in addition to her heat treatment technician Critical Care Critical Care Time Critical Care Time: No
[2025-02-27 21:16] LABS: Microscopic, Urine URINE MICROSCOPIC (MICROSCOPIC)
[2025-02-27 21:17] LABS: Bilirubin,Urine Negative (Negative); Color,Urine YELLOW (Yellow); Glucose,Urine (UA) Negative (Negative); Ketones,Urine Negative (Negative); Leukocyte Esterase,Urine Negative (Negative); PH,Urine 6.0 (5.0-8.5); Protein,Urine Negative (Negative); Specific Gravity, Urine 1.025 (1.005-1.030); Urobilinogen,Urine 0.2 EU/dl (0.2)
[2025-02-27 21:18] LABS: Hematocrit 38.1 % (37.0-47.0); Hemoglobin 12.5 g/dL (12.2-16.2); Immature Granulocytes % 0.4 %; Mean Corpuscular HGB Conc 32.8 g/dL (31.8-35.4); Mean Corpuscular Hemoglobin 26.8 pg (27.0-31.2); Mean Corpuscular Volume 81.6 fl (81-99); Nucleated Red Blood Cells % 0 %; Platelet Count 251 K/mm3 (142-424); Red Blood Count 4.67 M/mm3 (4.20-5.40); Red Cell Distribution Width-SD 38.2 fL; White Blood Count 7.9 K/mm3 (4.8-10.8)
[2025-02-27 21:25] LABS: Alanine Aminotransferase 20 U/L (12-78); Albumin Level 4.9 g/dl (3.5-5.0); Albumin/Globulin Ratio 1.4 (1.1-1.8); Alkaline Phosphatase 79 U/L (38-126); Anion Gap 11.6 mEq/L (5-15); Aspartate Amino Transferase 33 U/L (14-36); Bilirubin,Total 0.8 mg/dl (0.2-1.3); Blood Urea Nitrogen 9 mg/dl (7-17); Calcium 9.5 mg/dl (8.4-10.2); Carbon Dioxide 24 mmol/L (22.0-30.0); Chloride 102 mmol/L (98-107); Creatinine Clearance Estimated 171 mL/min (50-200); Creatinine,Serum 0.80 mg/dl (0.52-1.04); Estimated Glomerular Filt Rate 84 ml/min (>60); GFR (African American) 102 ML/MIN (>60); Globulin 3.6 g/dL (1.3-3.2); Glucose 102 mg/dl (74-100); Lipase 71 U/L (23-300); Potassium 3.6 mmoL/L (3.5-5.1); Sodium 134 mmol/L (136-145); Total Protein,Serum 8.5 g/dl (6.3-8.2)
[2025-02-27 21:29] LABS: HCG Qualitative, Serum Negative (Negative)
[2025-02-27 21:30] VITALS: BP 146/90; PULSE 79; O2SAT 99
[2025-02-27 21:30] LABS: Bacteria,Urine 4+ /lpf; Mucus,Urine 4+ /lpf
[2025-02-27] MEDS: ACETAMINOPHEN 500MG TAB 1000 MG PO (21:31)
[2025-02-27] MEDS: 0.9 % SODIUM CHLORIDE 1000ML 1,000 ML 999 ML IV (21:31)
[2025-02-27] MEDS: KETOROLAC 15MG/ML VIAL 15 MG IV (21:32)
[2025-02-27 21:46] LABS: Troponin I < 0.01 ng/ml (0.00-0.034)
[2025-02-27 23:29] VITALS: BP 134/68; PULSE 89; RESP 16; TEMP 36.9; O2SAT 98
== END 2025-02-27 23:31 | disposition home or self-care (01) ==
PROVIDERS: Emergency Provider Student in an Organized Health Care Education/Training Program; PCP Nurse Practitioner Family
DX: R10.32 Left lower quadrant pain (principal); F17.290 Nicotine dependence, other tobacco product, uncomplicated; I10 Essential (primary) hypertension
CPT/HCPCS: 71045; 74018; 80053; 81001; 83690; 84484; 84703; 85025; 87086; 93005; 96361; 96374; 99285; J1885; J7030